=== PATIENT | male | born 1950 | race Caucasian/White ===

== ENCOUNTER → 2018-06-01 | Outpatient (CLI) | payer MEDICARE ==
--- NOTE | 2018-06-01 09:19 | US ---
EXAMINATION TYPE: US prostate transrectal DATE OF EXAM: 06/01/2018 COMPARISON: NONE CLINICAL HISTORY: R97.2 Rising PSA. Rising PSA levels. No prominent change in urine frequency. This examination was performed using the transrectal probe. EXAM MEASUREMENTS: Gland Size: 4.4 x 4.3 x 3.6 cm Volume: 35.37 Predicted PSA: 4.244 Actual PSA (if available):3.0 Seminal vesicles initially are unremarkable. Prostate gland is enlarged in size and heterogeneous in appearance without discrete nodule. IMPRESSION: Findings consistent with BPH, no suspicious nodules identified. Predicted PSA = volume x 0.12 ng/ml Calculated Volume = 0.5236 x L x W x H
== END ==
LOC: RADUSMAIN 07:51
PROVIDERS: ATTEND Family Medicine
DX: R97.20 Elevated prostate specific antigen [PSA] (principal)
CPT/HCPCS: 76872

== ENCOUNTER 2020-06-29 22:25 | Inpatient (IN) | payer MEDICARE ==
--- NOTE | 2020-06-29 22:53 | XR ---
EXAMINATION TYPE: XR chest 2V DATE OF EXAM: 06/29/2020 COMPARISON: NONE HISTORY: Chest pain TECHNIQUE: 2 views FINDINGS: Heart and mediastinum are normal. Lungs are clear of infiltrate. There is no heart failure. There are no hilar masses. There are chest leads. IMPRESSION: No active cardiopulmonary disease. There is 5 mm density lateral right lung base consiste nt with a calcified granuloma.
[2020-06-29] MEDS ORDERED: NITROGLYCERIN SL TABS 0.4 MG TAB SUBLINGUAL STA (23:03)
[2020-06-29] MEDS ORDERED: MORPHINE SULFATE 4 MG/ML SYRINGE IV STA (23:03)
--- NOTE | 2020-06-29 23:09 | ED ---
Chest Pain HPI - General Chief Complaint: Chest Pain Stated Complaint: SOb,Chest Pain,Nausea Time Seen by Provider: 06/29/20 22:31 Source: patient Mode of arrival: ambulatory Limitations: no limitations - History of Present Illness Initial Comments: This patient is 69-year-old man who presents to be evaluated for chest and left arm pain. The patient states that he was going to bed tonight when he experienced pain to the medial aspect of his left upper arm. He states that after that he noticed he was going pain in the chest and across his back. He also was sweating. Patient did take an aspirin and when symptoms did not resolve he came here to have evaluation. Patient states that the symptoms are approximately the same. MD Complaint: chest pain Onset/Timin -: hour(s) Onset: during rest Pain Location: substernal Pain Radiation: LUE, back Severity: severe Severity scale (1-10): 8 Quality: tightness, aching Consistency: constant Improves With: nothing Worsens With: nothing Anginal Symptoms: diaphoresis Treatments Prior to Arrival: aspirin - Related Data Home Medications Medication Instructions Recorded Confirmed Aspirin EC [Ecotrin Low Dose] 81 mg PO HS 06/29/20 06/29/20 Canagliflozin [Invokana] 300 mg PO DAILY 06/29/20 06/29/20 Cetirizine HCl 10 mg PO DAILY 06/29/20 06/29/20 Cholecalciferol (Vitamin D3) 125 mcg PO DAILY 06/29/20 06/29/20 [Vitamin D3 (5000 Iu)] Glucosam/Hunter-Msm1/C/Anibal/Bosw 1 tab PO DAILY 06/29/20 06/29/20 [Glucosamine-Chondroitin Tablet] Liraglutide [Victoza 3-Hebert] 1.8 mg SQ DAILY 06/29/20 06/29/20 [place]-3 Fatty Acids/Fish Oil [Fish 1 cap PO DAILY 06/29/20 06/29/20 Oil 1,000 mg Softgel] Pravastatin Sodium [Pravachol] 40 mg PO Q48H 06/29/20 06/29/20 Vitamin B Complex 1 cap PO DAILY 06/29/20 06/29/20 Vitamin E 400 unit PO DAILY 06/29/20 06/29/20 amLODIPine BESYLATE/BENAZEPRIL 1 cap PO DAILY 06/29/20 06/29/20 [Lotrel 5-40 MG] tadalafiL [Tadalafil] 5 mg PO HS 06/29/20 06/29/20 Previous Rx's Medication Instructions Recorded Atorvastatin [Lipitor] 80 mg PO HS #30 tab 07/01/20 Clopidogrel [Plavix] 75 mg PO DAILY #30 tab 07/01/20 Metoprolol Tartrate [Lopressor] 50 mg PO BID #60 tab 07/01/20 Allergies Allergy/AdvReac Type Severity Reaction Status Date / Time peanut Allergy Anaphylaxis Verified 06/29/20 23:34 Review of Systems ROS Statement: Those systems with pertinent positive or pertinent negative responses have been documented in the HPI. ROS Other: All systems not noted in ROS Statement are negative. Constitutional: Denies: fever, chills Respiratory: Denies: cough, dyspnea, wheezes Cardiovascular: Reports: as per HPI, chest pain. Denies: palpitations, orthopnea, edema, syncope Gastrointestinal: Denies: abdominal pain, nausea, vomiting, diarrhea, melena, hematochezia Genitourinary: Denies: dysuria, hematuria Musculoskeletal: Reports: as per HPI, back pain Skin: Denies: rash Neurological: Denies: headache, weakness Hematological/Lymphatic: Denies: easy bleeding Past Medical History Past Medical History: Diabetes Mellitus, Hypertension Additional Past Surgical History / Comment(s): radical nephrectomy Past Psychological History: No Psychological Hx Reported Smoking Status: Never smoker Past Alcohol Use History: None Reported Past Drug Use History: None Reported General Exam Limitations: no limitations General appearance: alert, in no apparent distress Head exam: Present: atraumatic, normocephalic Eye exam: Present: normal appearance. Absent: scleral icterus, conjunctival injection ENT exam: Present: normal oropharynx Neck exam: Present: normal inspection Respiratory exam: Present: normal lung sounds bilaterally. Absent: respiratory distress, wheezes, rales, rhonchi, stridor Cardiovascular Exam: Present: regular rate, normal rhythm, normal heart sounds. Absent: systolic murmur, diastolic murmur, rubs, gallop GI/Abdominal exam: Present: soft. Absent: distended, tenderness, guarding, rebound, rigid, mass Extremities exam: Present: normal inspection, normal capillary refill. Absent: pedal edema, calf tenderness Back exam: Present: normal inspection. Absent: CVA tenderness (R), CVA tenderness (L) Neurological exam: Present: alert Skin exam: Present: warm, dry, intact, normal color. Absent: rash Course Vital Signs 06/29/20 06/29/20 06/29/20 22:26 22:35 22:45 Temperature 97.5 F L Pulse Rate 64 65 Respiratory 18 Rate Blood Pressure 150/76 139/74 O2 Sat by Pulse 99 Oximetry 06/29/20 06/29/20 06/29/20 23:00 23:15 23:17 Temperature 97.1 F L Pulse Rate 71 75 72 Respiratory 18 18 Rate Blood Pressure 139/74 158/88 113/66 O2 Sat by Pulse 100 99 Oximetry 06/29/20 23:30 Temperature Pulse Rate 69 Respiratory 18 Rate Blood Pressure 113/66 O2 Sat by Pulse 96 Oximetry Chest Pain MDM - [facility] Patient is 69-year-old man with chest pain. His initial ECG does look suspicious but nondiagnostic. A an EKG was repeated after I saw him and his showing changes consistent with STEMI. The Medicine Assistant was activated and I discussed case with cardiology. Critical Care Time Critical Care Time: Yes (30 minutes) Disposition Clinical Impression: ST elevation myocardial infarction (STEMI) Disposition: ADMITTED IP TO THIS HOSP Condition: Critical Is patient prescribed a controlled substance at d/c from ED?: No
[2020-06-29 23:10] LABS: Basophils # (A) 0.1 k/uL (0-0.2); Basophils % (A) 1 %; Eosinophils # (A) 0.3 k/uL (0-0.7); Eosinophils % (A) 3 %; HCT 40.8 % (39.0-53.0); HGB 14.4 gm/dL (13.0-17.5); Lymphocytes # (A) 3.5 k/uL (1.0-4.8); Lymphocytes % (A) 37 %; MCH 32.3 pg (25.0-35.0); MCHC 35.3 g/dL (31.0-37.0); MCV 91.3 fL (80.0-100.0); Mean Platelet Volume 7.6; Monocytes # (A) 0.7 k/uL (0-1.0); Monocytes % (A) 7 %; Neutrophils # (A) 4.7 k/uL (1.3-7.7); Neutrophils % (A) 50 %; Platelet Count 186 k/uL (150-450); RBC 4.46 m/uL (4.30-5.90); RDW 13.1 % (11.5-15.5); WBC 9.5 k/uL (3.8-10.6)
[2020-06-29 23:16] LABS: Albumin 4.3 g/dL (3.5-5.0); Calcium 9.6 mg/dL (8.4-10.2); Magnesium 2.1 mg/dL (1.6-2.3); Potassium 3.4 mmol/L (3.5-5.1); Total Bilirubin 0.5 mg/dL (0.2-1.3)
[2020-06-29] MEDS ORDERED: ATORVASTATIN 80 MG TAB PO STA (23:19)
[2020-06-29] MEDS ORDERED: HEPARIN SOD,PORK IN 0.45% NACL 25,000 UNIT in 0.45% NACL 1 250ML.BAG IV STA (23:20)
[2020-06-29 23:38] LABS: D-Dimer 0.6 mg/L FEU (<0.60); INR 0.9 (<1.2); Partial Thromboplastin Time 24.3 sec (22.0-30.0); Prothrombin Time 10.2 sec (9.0-12.0)
[2020-06-29] MEDS ORDERED: IV FLUID CONTINUATION 1,000 ML IV ONE (23:50)
[2020-06-29] MEDS ORDERED: SODIUM CHLORIDE 0.9% 1,000 ML IV ONE (23:50)
[2020-06-29] MEDS ORDERED: VERAPAMIL 2.5 MG/ML 2 ML AMP ONE (23:55)
[2020-06-29] MEDS ORDERED: LIDOCAINE 1% INJ 10MG/ML (20 ML MDV) ONE (23:55)
[2020-06-30] MEDS ORDERED: LIDOCAINE 1% INJ 10MG/ML (20 ML MDV) SQ ONE (00:01)
[2020-06-30] MEDS ORDERED: MIDAZOLAM 2 MG/2 ML VIAL IV ONE (00:01)
[2020-06-30] MEDS ORDERED: VERAPAMIL SYRINGE (5 MG/10 ML) INTRAARTER ONE ×2 (00:04→00:28)
[2020-06-30] MEDS ORDERED: NITROGLYCERIN 1000MCG/10ML SYRINGE INTRACORON ONE (00:18)
[2020-06-30] MEDS ORDERED: CLOPIDOGREL 75 MG TAB ONE (00:25)
[2020-06-30] MEDS ORDERED: CLOPIDOGREL 75 MG TAB PO ONE (00:30)
[2020-06-30] MEDS ORDERED: IOPAMIDOL-370 125ML BTL INJ ONE (00:31)
[2020-06-30] MEDS ORDERED: MAG HYDROX/AL HYDROX/SIMETH 30 ML CUP PO PRN (00:49)
[2020-06-30] MEDS ORDERED: RX INFO: IV CONTRAST WAS GIVEN 1 EACH MISC MISCELLANE PRN (00:49)
[2020-06-30] MEDS ORDERED: ATROPINE SULFATE 0.1 MG/ML 10ML SYRINGE IV PRN (00:49)
[2020-06-30] MEDS ORDERED: ZOLPIDEM 5 MG TAB PO PRN (00:49)
[2020-06-30] MEDS ORDERED: NITROGLYCERIN SL TABS 0.4 MG TAB SUBLINGUAL PRN (00:49)
--- NOTE | 2020-06-30 00:57 | P.CRDCN ---
History of Present Illness Consult date: 06/30/20 Chief complaint: Chest discomfort History of present illness: This is a 69-year-old gentleman with diabetes hypertension and dyslipidemia who presented to the emergency department with chest discomfort and was diagnosed with acute inferoposterior ST patient myocardial infarction. He does have a medical history consistent of diabetes and hypertension and dyslipidemia. No documented history of coronary artery disease and the patient never seen any clinical care leader in the past. He was in his usual state of health when he was going to bed last night and started experiencing discomfort on the medial aspect of the left arm. Subsequently the pain started radiating to his chest as well as to his back. It was associated with some difficulty breathing as well as a sweating. He took aspirin without any significant improvement in pain and leah use of that he decided to come to the emergency department. In the ER the initial EKG did not show any significant ST or T wave abnormalities but the repeated EKG showed acute inferoposterior ST patient myocardial infarction. In the light of that an emergent heart catheterization was advised. The patient underwent an emergent heart catheterization and that revealed an acute total occlusion of the proximal left circumflex with a thrombotic lesion. He underwent successful stenting of the left circumflex with adjunctive use of aspiration thrombectomy. The procedure went very well with a DONALD-3 flow by him. Also he was found to have intermediate to severe lesion involving the Roxanol left anterior descending artery but the patient does not seems to be critical or flow-limiting at this point. He tolerated the procedure very well. The procedure was performed from right radial approach. By the end of the procedure he was pain free. He does have a history of diabetes and hypertension the patient does not smoke. Does not drink. No immediate family member premature coronary artery disease. He is in process of being transferred to the intensive care unit. Past Medical History Past Medical History: Diabetes Mellitus, Hypertension Additional Past Surgical History / Comment(s): radical nephrectomy Past Psychological History: No Psychological Hx Reported Smoking Status: Never smoker Past Alcohol Use History: None Reported Past Drug Use History: None Reported Medications and Allergies Home Medications Medication Instructions Recorded Confirmed Type Aspirin EC [Ecotrin Low Dose] 81 mg PO HS 06/29/20 06/29/20 History Canagliflozin [Invokana] 300 mg PO DAILY 06/29/20 06/29/20 History Cetirizine HCl 10 mg PO DAILY 06/29/20 06/29/20 History Cholecalciferol (Vitamin D3) 125 mcg PO DAILY 06/29/20 06/29/20 History [Vitamin D3 (5000 Iu)] Glucosam/Hunter-Msm1/C/Anibal/Bosw 1 tab PO DAILY 06/29/20 06/29/20 History [Glucosamine-Chondroitin Tablet] Liraglutide [Victoza 3-Hebert] 1.8 mg SQ DAILY 06/29/20 06/29/20 History Metoprolol Succinate [Toprol XL] 100 mg PO BID 06/29/20 06/29/20 History [place]-3 Fatty Acids/Fish Oil [Fish 1 cap PO DAILY 06/29/20 06/29/20 History Oil 1,000 mg Softgel] Pravastatin Sodium [Pravachol] 40 mg PO Q48H 06/29/20 06/29/20 History Vitamin B Complex 1 cap PO DAILY 06/29/20 06/29/20 History Vitamin E 400 unit PO DAILY 06/29/20 06/29/20 History amLODIPine BESYLATE/BENAZEPRIL 1 cap PO DAILY 06/29/20 06/29/20 History [Lotrel 5-40 MG] tadalafiL [Tadalafil] 5 mg PO HS 06/29/20 06/29/20 History Allergies Allergy/AdvReac Type Severity Reaction Status Date / Time peanut Allergy Anaphylaxis Verified 06/29/20 23:34 Physical Exam Vitals: Vital Signs Temp Pulse Resp BP Pulse Ox 06/29/20 23:30 71 18 129/69 97 06/29/20 23:17 72 18 113/66 99 06/29/20 23:00 69 18 158/88 100 06/29/20 22:26 97.5 F L 64 18 150/76 99 Intake and Output 06/29/20 06/29/20 06/30/20 14:59 22:59 06:59 Intake Total 100 Balance 100 Intake: IV 100 Other: Weight 96.615 kg - Constitutional General appearance: no acute distress - Respiratory Respiratory: bilateral: CTA - Cardiovascular Rhythm: regular Heart sounds: normal: S1, S2 Results 06/29/20 22:45 06/29/20 22:45 Cardiac Enzymes 06/29/20 06/29/20 Range/Units 22:45 22:45 AST 24 (17-59) U/L Troponin I <0.012 (0.000-0.034) ng/mL Coagulation 06/29/20 Range/Units 22:45 PT 10.2 (9.0-12.0) sec APTT 24.3 (22.0-30.0) sec CBC 06/29/20 Range/Units 22:45 WBC 9.5 (3.8-10.6) k/uL RBC 4.46 (4.30-5.90) m/uL Hgb 14.4 (13.0-17.5) gm/dL Hct 40.8 (39.0-53.0) % Plt Count 186 (150-450) k/uL Comprehensive Metabolic Panel 06/29/20 Range/Units 22:45 Sodium 141 (137-145) mmol/L Potassium 3.4 L (3.5-5.1) mmol/L Chloride 103 (98-107) mmol/L Carbon Dioxide 28 (22-30) mmol/L BUN 21 H (9-20) mg/dL Creatinine 1.19 (0.66-1.25) mg/dL Glucose 145 H (74-99) mg/dL Calcium 9.6 (8.4-10.2) mg/dL AST 24 (17-59) U/L ALT 17 (4-49) U/L Alkaline Phosphatase 75 (38-126) U/L Total Protein 7.0 (6.3-8.2) g/dL Albumin 4.3 (3.5-5.0) g/dL Current Medications Generic Name Dose Route Start Last Admin Trade Name Freq PRN Reason Stop Dose Admin Al Hydroxide/Mg Hydroxide 30 ml 06/30/20 00:49 Mag Hydrox/Al Hydrox/Simeth 30 Ml Cup PO Q4HR PRN Heartburn Aspirin 81 mg 06/30/20 09:00 Aspirin 81 Mg PO DAILY [facility] Atorvastatin Calcium 80 mg 06/30/20 21:00 Atorvastatin 80 Mg Tab PO HS [facility] Atropine Sulfate 0.5 mg 06/30/20 00:49 Atropine Sulfate 0.1 Mg/Ml 10ml Syringe IV ONCE PRN Symptomatic Bradycardia Clopidogrel Bisulfate 75 mg 07/01/20 09:00 Clopidogrel 75 Mg Tab PO DAILY [facility] Heparin Sodium/Sodium Chloride 250 mls @ 10 mls/hr 06/29/20 23:20 06/29/20 23:24 25,000 unit/ Sodium Chloride IV 06/30/20 23:19 10.35 units/kg/hr .Q24H STA 10 mls/hr Administration Protocol 10.35 UNITS/KG/HR Sodium Chloride 1,000 mls @ 75 mls/hr 06/30/20 01:00 Saline 0.9% IV 06/30/20 07:01 .[id number] [facility] Lisinopril 2.5 mg 06/30/20 09:00 Lisinopril 10 Mg Tab PO DAILY [facility] Metoprolol Tartrate 25 mg 06/30/20 09:00 Metoprolol Tartrate 25 Mg Tab PO BID [facility] Miscellaneous Information 1 each 06/30/20 00:49 Rx Info: Iv Contrast Was Given 1 Each Misc MISCELLANE 07/02/20 00:49 DAILY PRN Per Protocol Nitroglycerin 0.4 mg 06/30/20 00:49 Nitroglycerin Sl Tabs 0.4 Mg Tab SUBLINGUAL Q5M PRN Chest Pain Zolpidem Tartrate 5 mg 06/30/20 00:49 Zolpidem 5 Mg Tab PO HS PRN Insomnia Intake and Output 06/29/20 06/29/20 06/30/20 14:59 22:59 06:59 Intake Total 100 Balance 100 Intake: IV 100 Other: Weight 96.615 kg Patient Weight 06/30/20 06:59 Weight 96.615 kg 06/29/20 22:45 06/29/20 22:45 Assessment and Plan Assessment: Assessment #[address] patient myocardial infarction #2 status post a stenting of the left circumflex #3 diabetes type 2 #4 hypertension #5 dyslipidemia Plan #1 dual antiplatelet therapy #2 high intensity statin #3 anti-ischemic medication #4 an echocardiogram to establish LV function #5 follow-up with the patient Thank you for allowing us participate in his care
[2020-06-30] MEDS ORDERED: SODIUM CHLORIDE 0.9% 1,000 ML IV SCH (01:00)
--- NOTE | 2020-06-30 06:16 | CC ---
CARDIAC CATHETERIZATION REPORT DATE OF SERVICE: June 30, 2020. PERFORMING PHYSICIAN: Mal Carson MD. PROCEDURE PERFORMED: 1. Selective right and left coronary angiogram. 2. Aspiration thrombectomy from the left circumflex coronary artery using the Valliant catheter. 3. Successful stenting of the proximal left circumflex coronary artery using 3.0 x 18 mm Xience drug-eluting stent with an excellent angiographic results and reduction of stenosis from 100% to 0%. 4. Left heart catheterization. INDICATION: This is a 69-year-old gentleman with diabetes and hypertension and dyslipidemia who presented to the emergency department with chest discomfort. Initial EKG did not show any evidence of ST or T-wave abnormalities. Subsequent EKG showed acute inferoposterior ST-elevation myocardial infarction. APPROACH: Right radial artery. COMPLICATION: None. LEVEL OF SEDATION: Moderate with sedation length of the sedation length of 28 minutes. PROCEDURE DESCRIPTION: After obtaining an informed consent, the patient was brought to the cardiac laborer beam house. The right radial artery was cannulated using micropuncture technique, the micropuncture wire passed easily. Then I placed a 6-Mosotho sheath at the right radial artery. After that I gave the patient 2 mg of verapamil IA and we gave the patient a total of 10,000 units of heparin IV. Selective right and left coronary angiogram performed using JR4 and JL3.5 catheters. Left. After that, I did intervene on the left circumflex please see a separate paragraph for that. After that, I did leave heart catheterization as well. The procedure was completed without any complication. SELECTIVE CORONARY ANGIOGRAM: 1. The RCA is a large caliber vessel. It is a dominant vessel. The RCA proximally has mild disease only. In the midportion appeared to be angiographically normal. It gives rise into acute marginal branch and distally appeared to be normal and bifurcates into PDA and PLV branches, both appeared to be angiographically normal. 2. The left main is angiographically normal. It bifurcates into LCX and LAD. 3. The LCX is a large caliber vessel. The LCX is a codominant vessel. The LCX proximally is 100% occluded by the bifurcation of the first obtuse marginal branch which is a large caliber vessel. 4. The LAD is a large caliber vessel. The proximal LAD has a lesion appeared to be in the range of 60%. The mid LAD and distal LAD appeared to have mild disease only. The LAD gives rise into multiple small diagonal branches. HEMODYNAMICS: The LVEDP was about 10 to 12 mmHg without significant gradient across aortic valve. PCI OF THE LCX: Anticoagulation was initiated using heparin with continuous ACT monitoring throughout the procedure. Subsequently, the left main was engaged using JL3.5 guide. I crossed the acute total occlusion of the left circumflex using a run-through wire. After that, aspiration thrombectomy was performed using the Valliant catheter. Subsequently I did direct stenting on the lesion using 3.0 x 18 mm Xience drug-eluting stent where the stent was positioned under fluoroscopy guidance and deployed under its nominal pressure. The following angiogram showed excellent angiographic results and the procedure was completed without any complication. CONCLUSION: 1. Acute inferoposterior ST-elevation myocardial infarction in this 69-year-old gentleman with multiple risk factors for coronary artery disease including diabetes and hypertension and dyslipidemia. 2. 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 3. Successful stenting of the proximal left circumflex with adjunctive use of aspiration thrombectomy. 4. Normal left ventricular end-diastolic pressure/filling pressure. POSTPROCEDURE MANAGEMENT: 1. Maximize medical treatment. 2. Aggressive cholesterol control. 3. Dual anti-platelet therapy. 4. Risk factor modifications. MMODL / IJN: [id number] /
--- NOTE | 2020-06-30 06:19 | LTR ---
DATE OF SERVICE: 06/30/[address] Hughes: Mr. Dax Dumas presented to the hospital with chest discomfort and was diagnosed with acute inferior ST-elevation myocardial infarction. He underwent an emergent heart catheterization and was found to have acute total occlusion of the left circumflex coronary artery. He underwent successful stenting of the left circumflex with good angiographic results. Thank you for allowing me to participate in his care and please do not hesitate to call if any question or concern. Sincerely, ZAY / HAVENN: [id number] /
[2020-06-30] MEDS: ASPIRIN 81 MG PO SCH (08:10)
[2020-06-30] MEDS ORDERED: METOPROLOL TARTRATE 25 MG TAB PO SCH (09:00)
[2020-06-30] MEDS ORDERED: METOPROLOL TARTRATE 25 MG TAB PO STA (09:36)
[2020-06-30 09:42] VITALS: BMI 29.7
[2020-06-30 10:25] LABS: Calcium 8.9 mg/dL (8.4-10.2); Potassium 4.3 mmol/L (3.5-5.1)
--- NOTE | 2020-06-30 11:37 | ECHOF ---
Referral Reason:CP MEASUREMENTS -------- HEIGHT: 182.9 cm WEIGHT: 96.6 kg BP: 156/81 RVIDd: 3.2 cm (< 3.3) IVSd: 1.4 cm (0.6 - 1.1) LVIDd: 3.9 cm (3.9 - 5.3) LVPWd: 1.4 cm (0.6 - 1.1) IVSs: 1.6 cm LVIDs: 3.7 cm LVPWs: 1.6 cm LA Diam: 3.7 cm (2.7 - 3.8) Ao Diam: 3.5 cm (2.0 - 3.7) AV Cusp: 2.0 cm (1.5 - 2.6) MV EXCURSION: 14.837 mm (> 18.000) MV EF SLOPE: 43 mm/s (70 - 150) EPSS: 0.7 cm MV E Breezy: 0.95 m/s MV DecT: 178 ms MV A Breezy: 0.85 m/s MV E/A Ratio: 1.13 RAP: 5.00 mmHg RVSP: 28.48 mmHg FINDINGS -------- Sinus rhythm. This was a technically difficult study with suboptimal views. The left ventricular size is normal. There is moderate concentric left ventricular hypertrophy. O verall left ventricular systolic function is mild-moderately impaired with, an EF between 40 - 45 %. Basal lateral LV wall motion is hypokinetic. Mid lateral LV wall motion is hypokinetic. Apica l lateral LV wall motion is hypokinetic. The right ventricle is normal in size. The left atrium is normal in size. The right atrium is normal in size. 5 ml of Lumason was utilized for enhancement of images. Interatrial and interventricular septum intact. The aortic valve is trileaflet and appears structurally normal. There is mild aortic regurgitation. Mild mitral regurgitation is present. Mild tricuspid regurgitation present. Right ventricular systolic pressure is normal at < 35 mmHg. The pulmonic valve was not well visualized. The aortic root size is normal. Normal inferior vena cava with normal inspiratory collapse consistent with estimated right atrial pre ssure of 5 mmHg. The inferior vena cava is mildly dilated. There is no pericardial effusion. CONCLUSIONS -------- 1. This was a technically difficult study with suboptimal views. 2. The left ventricular size is normal. 3. There is moderate concentric left ventricular hypertrophy. 4. Overall left ventricular systolic function is mild-moderately impaired with, an EF between 40 - 45 %. 5. Basal lateral LV wall motion is hypokinetic. 6. Mid lateral LV wall motion is hypokinetic. 7. Apical lateral LV wall motion is hypokinetic. 8. 5 ml of Lumason was utilized for enhancement of images. 9. The aortic valve is trileaflet and appears structurally normal. 10. There is mild aortic regurgitation. 11. Mild mitral regurgitation is present. 12. Mild tricuspid regurgitation present. 13. Normal inferior vena cava with normal inspiratory collapse consistent with estimated right atrial pressure of 5 mmHg. 14. There is no pericardial effusion. SHERIFFS OFFICER: Anne Marie Brown RDCS
[2020-06-30 12:19] LABS: Glucose,Whole Blood 150 mg/dL (75-99)
--- NOTE | 2020-06-30 12:21 | P.PN ---
Subjective This is a pleasant 69-year-old male past medical history significant for hypertension, dyslipidemia and diabetes mellitus. He presented to the hospital with chest discomfort and was found to have an acute inferior posterior ST elevated myocardial infarction. He underwent cardiac catheterization and successful aspiration thrombectomy and PCI of the circumflex artery. He also has intermediate lesion in the proximal LAD. He is seen and examined sitting up in the recliner in no acute distress. He denies symptoms of chest discomfort, shortness of breath, dizziness or palpitations. Blood pressure 148/87 heart rate 76 afebrile maintaining oxygen saturation on room air. Laboratory data reviewed, sodium 138, potassium 4.3, creatinine 1.15 repeat troponin 112. Currently maintained on aspirin 81 mg daily, atorvastatin 80 mg daily, Plavix 75 mg daily, lisinopril 2.5 mg daily, metoprolol 25 mg twice a day. Echocardiogram obtained reveals mildly impaired LV systolic function with ejection fraction 40- 45%, basal lateral, mid lateral and anterolateral LV wall motion hypokinesia, mild MR and mild TR noted. GENERAL: Well-appearing, well-nourished and in no acute distress. NECK: Supple without JVD or thyromegaly. LUNGS: Breath sounds clear to auscultation bilaterally. Respiration equal and unlabored. No wheezes, rales or rhonchi. HEART: Regular rate and rhythm without murmurs, rubs or gallops. S1 and S2 heard. EXTREMITIES: Normal range of motion, no edema. No clubbing or cyanosis. Peripheral pulses intact. ASSESSMENT Acute inferior posterior ST elevated myocardial infarction Ischemic cardiomyopathy Acute systolic heart failure Hypertension Dyslipidemia Diabetes mellitus PLAN Continue dual antiplatelet therapy and high intensity statin. Increase metoprolol to 50 mg twice a day. With plans to increase back to his home dose by discharge if he can tolerate. Continue lisinopril as previously ordered. Increase activity and ambulation in the halls. Transfer to 3 S. We will continue to follow and make recommendations accordingly. Nurse Practitioner note has been reviewed, I agree with a documented findings and plan of care. Patient was seen and examined. Objective - Vital Signs Vital signs: Vital Signs Temp 97.7 F 06/30/20 08:00 Pulse 77 06/30/20 09:08 Resp 19 06/30/20 09:08 BP 142/87 06/30/20 09:08 Pulse Ox 95 06/30/20 09:08 Intake & Output 06/29/20 06/30/20 06/30/20 18:59 06:59 18:59 Intake Total 625 75 Output Total 1000 300 Balance -375 -225 Weight 99.3 kg 99.3 kg Intake: IV 625 75 Sodium Chloride 0.9% 1, 525 75 000 ml @ 75 mls/hr IV . [id number] [facility] Rx#:[id number] Output: Urine 1000 300 Other: Voiding Method Toilet Urinal # Voids 1 # Bowel Movements 1 - Labs CBC & Chem 7: 06/29/20 22:45 06/30/20 10:00 Labs: Abnormal Lab Results - Last 24 Hours (Table) 06/29/20 06/29/20 06/30/20 Range/Units 22:45 22:45 10:00 D-Dimer 0.60 H (<0.60) mg/L FEU Potassium 3.4 L (3.5-5.1) mmol/L BUN 21 H (9-20) mg/dL Glucose 145 H 173 H (74-99) mg/dL Troponin I (0.000-0.034) ng/mL 06/30/20 Range/Units 10:00 D-Dimer (<0.60) mg/L FEU Potassium (3.5-5.1) mmol/L BUN (9-20) mg/dL Glucose (74-99) mg/dL Troponin I 112.000 H* (0.000-0.034) ng/mL
[2020-06-30] MEDS: INSULIN ASPART (NovoLOG) 100 UNIT/ML VIAL SQ SCH ×3 (13:02→20:16)
[2020-06-30] MEDS ORDERED: ACETAMINOPHEN TAB 325 MG TAB PO PRN (15:26)
--- NOTE | 2020-06-30 16:13 | P.HPIM ---
History of Present Illness H&P Date: 06/30/20 Chief Complaint: Chest pain 69-year-old gentleman with diabetes hypertension and dyslipidemia who presented to the emergency department with chest discomfort and was diagnosed with acute inferoposterior ST patient myocardial infarction. He was in his usual state of health when he was going to bed last night and started experiencing discomfort on the medial aspect of the left arm. Subsequently the pain started radiating to his chest as well as to his back. It was associated with some difficulty breathing as well as a sweating. He took aspirin without any significant improvement in pain and decided to come to the emergency department. In the ER the initial EKG did not show any significant ST or T wave abnormalities but the repeated EKG showed acute inferoposterior ST patient myocardial infarction; patient underwent an emergent heart catheterization which revealed an acute total occlusion of the proximal left circumflex with a thrombotic lesion. He underwent successful stenting of the left circumflex with adjunctive use of aspiration thrombectomy. Patient was found to have intermediate to severe lesion involving proximal left anterior descending artery which did not seems to be critical or flow-limiting at this point. Post procedure patient was stabilized in ICU and has been transferred to selective care unit this morning Review of Systems REVIEW OF SYSTEMS: CONSTITUTIONAL: No fever, no malaise, no fatigue. HEENT: No recent visual problems or hearing problems. Denied any sore throat. CARDIOVASCULAR: chest pain, no palpitations, no syncope. PULMONARY: No shortness of breath, no cough, no hemoptysis. GASTROINTESTINAL: No diarrhea, no nausea, no vomiting, no abdominal pain. NEUROLOGICAL: No headaches, no weakness, no numbness. HEMATOLOGICAL: Denies any bleeding or petechiae. GENITOURINARY: Denies any burning micturition, frequency, or urgency. MUSCULOSKELETAL/RHEUMATOLOGICAL: Denies any joint pain, swelling, or any muscle pain. ENDOCRINE: Denies any polyuria or polydipsia. The rest of the 14-point review of systems is negative. Past Medical History Past Medical History: Diabetes Mellitus, Hypertension Additional Past Medical History / Comment(s): renal cell ca 1998, radical nephrectomy left side. History of Any Multi-Drug Resistant Organisms: None Reported Additional Past Surgical History / Comment(s): radical nephrectomy Past Anesthesia/Blood Transfusion Reactions: No Reported Reaction Past Psychological History: No Psychological Hx Reported Smoking Status: Never smoker Past Alcohol Use History: None Reported Past Drug Use History: None Reported Medications and Allergies Home Medications Medication Instructions Recorded Confirmed Type Aspirin EC [Ecotrin Low Dose] 81 mg PO HS 06/29/20 06/29/20 History Canagliflozin [Invokana] 300 mg PO DAILY 06/29/20 06/29/20 History Cetirizine HCl 10 mg PO DAILY 06/29/20 06/29/20 History Cholecalciferol (Vitamin D3) 125 mcg PO DAILY 06/29/20 06/29/20 History [Vitamin D3 (5000 Iu)] Glucosam/Hunter-Msm1/C/Anibal/Bosw 1 tab PO DAILY 06/29/20 06/29/20 History [Glucosamine-Chondroitin Tablet] Liraglutide [Victoza 3-Hebert] 1.8 mg SQ DAILY 06/29/20 06/29/20 History Metoprolol Succinate [Toprol XL] 100 mg PO BID 06/29/20 06/29/20 History [place]-3 Fatty Acids/Fish Oil [Fish 1 cap PO DAILY 06/29/20 06/29/20 History Oil 1,000 mg Softgel] Pravastatin Sodium [Pravachol] 40 mg PO Q48H 06/29/20 06/29/20 History Vitamin B Complex 1 cap PO DAILY 06/29/20 06/29/20 History Vitamin E 400 unit PO DAILY 06/29/20 06/29/20 History amLODIPine BESYLATE/BENAZEPRIL 1 cap PO DAILY 06/29/20 06/29/20 History [Lotrel 5-40 MG] tadalafiL [Tadalafil] 5 mg PO HS 06/29/20 06/29/20 History Allergies Allergy/AdvReac Type Severity Reaction Status Date / Time peanut Allergy Anaphylaxis Verified 06/29/20 23:34 Physical Exam Vitals: Vital Signs Temp Pulse Resp BP Pulse Ox 06/30/20 12:00 98 F 80 12 159/87 97 06/30/20 11:00 76 13 148/87 96 06/30/20 10:00 75 12 156/88 95 06/30/20 09:08 77 19 142/87 95 06/30/20 08:00 97.7 F 79 10 L 147/82 96 06/30/20 07:00 79 11 L 155/90 98 06/30/20 06:00 75 14 156/84 98 06/30/20 05:00 77 12 148/98 96 06/30/20 04:15 71 142/74 99 06/30/20 04:00 78 145/83 98 06/30/20 03:48 16 06/30/20 03:45 80 153/82 96 06/30/20 03:30 75 150/77 99 06/30/20 03:15 172/34 98 06/30/20 03:00 86 16 158/87 97 06/30/20 02:45 76 12 150/80 100 06/30/20 02:30 81 17 144/90 100 06/30/20 02:15 79 5 L 150/81 99 06/30/20 02:00 78 16 161/90 99 06/30/20 01:45 75 8 L 153/87 96 06/30/20 01:30 80 6 L 128/84 99 06/30/20 01:15 81 5 L 128/84 95 06/30/20 01:00 91 12 89 L 06/30/20 00:59 80 4 L 83 L 06/29/20 23:45 129/69 06/29/20 23:30 69 18 113/66 96 06/29/20 23:17 72 18 113/66 99 06/29/20 23:15 75 158/88 06/29/20 23:00 97.1 F L 71 18 139/74 100 06/29/20 22:45 139/74 06/29/20 22:35 65 06/29/20 22:26 97.5 F L 64 18 150/76 99 Intake and Output 06/29/20 06/30/20 06/30/20 22:59 06:59 14:59 Intake Total 625 75 Output Total 1000 300 Balance -375 -225 Intake: IV 625 75 Sodium Chloride 0.9% 1, 525 75 000 ml @ 75 mls/hr IV . [id number] [facility] Rx#:[id number] Output: Urine 1000 300 Other: Voiding Method Toilet Urinal # Voids 1 # Bowel Movements 1 Weight 96.615 kg 99.3 kg 99.3 kg PHYSICAL EXAMINATION: GENERAL: The patient is alert and oriented x3, not in any acute distress. Well developed, well nourished. HEENT: Pupils are round and equally reacting to light. EOMI. No scleral icterus. No conjunctival pallor. Normocephalic, atraumatic. No pharyngeal erythema. No thyromegaly. CARDIOVASCULAR: S1 and S2 present. No murmurs, rubs, or gallops. PULMONARY: Chest is clear to auscultation, no wheezing or crackles. ABDOMEN: Soft, nontender, nondistended, normoactive bowel sounds. No palpable organomegaly. MUSCULOSKELETAL: No joint swelling or deformity. EXTREMITIES: No cyanosis, clubbing, or pedal edema. NEUROLOGICAL: Gross neurological examination did not reveal any focal deficits. SKIN: No rashes. Results CBC & Chem 7: 06/29/20 22:45 06/30/20 10:00 Labs: Abnormal Lab Results - Last 24 Hours (Table) 06/29/20 06/29/20 06/30/20 Range/Units 22:45 22:45 10:00 D-Dimer 0.60 H (<0.60) mg/L FEU Potassium 3.4 L (3.5-5.1) mmol/L BUN 21 H (9-20) mg/dL Glucose 145 H 173 H (74-99) mg/dL POC Glucose (mg/dL) (75-99) mg/dL Troponin I (0.000-0.034) ng/mL 06/30/20 06/30/20 Range/Units 10:00 12:16 D-Dimer (<0.60) mg/L FEU Potassium (3.5-5.1) mmol/L BUN (9-20) mg/dL Glucose (74-99) mg/dL POC Glucose (mg/dL) 150 H (75-99) mg/dL Troponin I 112.000 H* (0.000-0.034) ng/mL Thrombosis Risk Factor Assmnt - Choose All That Apply Each Factor Represents 1 point: Acute [place] Other Risk Factors: Yes Each Risk Factor Represents 2 Points: Age 61-74 years Thrombosis Risk Factor Assessment Total Risk Factor Score: 3 Thrombosis Risk Factor Assessment Level: Moderate Risk Assessment and Plan Assessment: 1. Acute inferoposterior ST elevation [place]; patient is status post cardiac catheterization with successful stenting of left circumflex - Cardiology on board and patient has been placed on oral antibiotic therapy with aspirin 81 mg daily and Plavix 75 mg daily - Patient will have an echocardiogram to establish left ventricular function 2. Diabetes mellitus type 2; we will monitor Accu-Cheks Before meals and at bedtime with insulin sliding scale 3. Hypertension; stable on lisinopril 2.5 mg daily, metoprolol 50 mg twice a day 4. Hyperlipidemia; high-intensity statin therapy in form of Lipitor 80 mg by mouth daily at bedtime DVT prophylaxis; SCDs/early ambulation CODE STATUS; full code
[2020-06-30 16:42] LABS: Glucose,Whole Blood 119 mg/dL (75-99)
[2020-06-30] MEDS: METOPROLOL TARTRATE 50 MG TAB PO SCH (20:17)
[2020-06-30 20:25] LABS: Glucose,Whole Blood 227 mg/dL (75-99)
[2020-06-30] MEDS ORDERED: ATORVASTATIN 80 MG TAB PO SCH (21:00)
[2020-07-01] MEDS: INSULIN ASPART (NovoLOG) 100 UNIT/ML VIAL SQ SCH ×2 (06:17→13:20)
[2020-07-01 06:27] LABS: Glucose,Whole Blood 133 mg/dL (75-99)
[2020-07-01] MEDS: ASPIRIN 81 MG PO SCH (08:57)
[2020-07-01] MEDS: METOPROLOL TARTRATE 50 MG TAB PO SCH (08:57)
[2020-07-01] MEDS ORDERED: NON FORMULARY DRUG (Vitamin B Complex [Vitamin B Complex] 1 EACH Capsule) PO SCH (09:00)
[2020-07-01] MEDS ORDERED: CHOLECALCIFEROL 25 MCG (1000 IU) TABLET PO SCH (09:00)
[2020-07-01] MEDS ORDERED: LORATADINE 10 MG TAB PO SCH (09:00)
[2020-07-01] MEDS ORDERED: CLOPIDOGREL 75 MG TAB PO SCH (09:00)
[2020-07-01 09:04] LABS: African American GFR (CKD) >90 (>60 ml/min/1.73 sqM); Anion Gap 7 mmol/L; Blood Urea Nitrogen 14 mg/dL (9-20); Calcium 8.9 mg/dL (8.4-10.2); Carbon Dioxide 30 mmol/L (22-30); Chloride 100 mmol/L (98-107); Glucose 192 mg/dL (74-99); Non-African American GFR(CKD) 85 (>60 ml/min/1.73 sqM); Potassium 3.7 mmol/L (3.5-5.1); Sodium 137 mmol/L (137-145)
--- NOTE | 2020-07-01 11:20 | P.PN ---
Subjective HISTORY OF PRESENTING ILLNESS This is a 69-year-old gentleman with diabetes hypertension and dyslipidemia who presented to the emergency department with chest discomfort and was diagnosed with acute inferoposterior ST patient myocardial infarction. He does have a medical history consistent of diabetes and hypertension and dyslipidemia. No documented history of coronary artery disease and the patient never seen any hairspring ii inspector in the past. He was in his usual state of health when he was going to bed last night and started experiencing discomfort on the medial aspect of the left arm. Subsequently the pain started radiating to his chest as well as to his back. It was associated with some difficulty breathing as well as a sweating. He took aspirin without any significant improvement in pain and because of that he decided to come to the emergency department. In the ER the initial EKG did not show any significant ST or T wave abnormalities but the repeated EKG showed acute inferoposterior ST patient myocardial infarction. In the light of that an emergent heart catheterization was advised. The patient underwent an emergent heart catheterization and that revealed an acute total occlusion of the proximal left circumflex with a thrombotic lesion. He underwent successful stenting of the left circumflex with adjunctive use of a spiration thrombectomy. The procedure went very well with a DONALD-3 flow by him. Also he was found to have intermediate to severe lesion involving the Roxanol left anterior descending artery but the patient does not seems to be critical or flow-limiting at this point. He tolerated the procedure very well. The procedure was performed from right radial approach. By the end of the procedure he was pain free. He does have a history of diabetes and hypertension the patient does not smoke. Does not drink. No immediate family member premature coronary artery disease. He is in process of being transferred to the intensive care unit. 07/01 States that since his PCI he has been doing well. He denies any further chest pain, pressure, shortness breath. Patient has been up walking the halls without any difficulty. Right radial site appears without hematoma. Echocardiogram performed which shows ejection fraction 40-45%. REVIEW OF SYSTEMS At the time of my exam: CONSTITUTIONAL: Denies fever or chills. CARDIOVASCULAR: Denies chest pain, shortness of breath, orthopnea, PND or palpitations. RESPIRATORY: Denies cough. GASTROINTESTINAL: Denies abdominal pain, diarrhea, constipation, nausea or vomiting. MUSCULOSKELETAL: Denies myalgias. NEUROLOGIC: Denies numbness, tingling or weakness. ENDOCRINE: Denies fatigue, weight change, polydipsia or polyurina. GENITOURINARY: Denies burning, hematuria or urgency with micturation. HEMATOLOGIC: Denies history of anemia or bleeding. PHYSICAL EXAMINATION Vital signs reviewed. CONSTITUTIONAL: No apparent distress. HEENT: Head is normocephalic. Pupils are equal, round. Sclerae anicteric. Mucous membranes of the mouth are moist. No JVD. No carotid bruit. CHEST EXAMINATION: Lungs are clear to auscultation. No chest wall tenderness is noted on palpation or with deep breathing. HEART EXAMINATION: Regular rate and rhythm. S1, S2 heard. No murmurs, gallops or rub. ABDOMEN: Soft, nontender. Positive bowel sounds. EXTREMITIES: 2+ peripheral pulses, no lower extremity edema and no calf tenderness. NEUROLOGIC EXAMINATION: Patient is awake, alert and oriented x3. ASSESSMENT 1. STEMI status post PCI circumflex 2. Ischemic cardiomyopathy ejection fraction 40-45% 3. Chronic systolic heart failure, early appears euvolemic 4. Hypertension 5. Hyperlipidemia 6. Diabetes mellitus PLAN Patient is status post PCI of his circumflex. He has been doing well since that time. Mild to moderately reduced ejection fraction 40-45%. Currently appears euvolemic. Continue dual antiplatelets for 12 months. Change pravastatin to Lipitor. Optimize heart failure regimen as able. Patient stable for discharge home from a cardiology standpoint with outpatient follow-up. Objective - Vital Signs Vital signs: Vital Signs Temp 98.1 F 07/01/20 04:00 Pulse 78 07/01/20 04:00 Resp 16 07/01/20 04:00 BP 168/70 07/01/20 04:00 Pulse Ox 95 07/01/20 04:00 Intake & Output 06/30/20 07/01/20 07/01/20 18:59 06:59 18:59 Intake Total 855 200 Output Total 300 Balance 555 200 Weight 99.3 kg 98.7 kg Intake: IV 75 Sodium Chloride 0.9% 1, 75 000 ml @ 75 mls/hr IV . [id number] [facility] Rx#:[id number] Oral 780 200 Output: Urine 300 Other: Voiding Method Toilet Toilet Urinal Urinal # Voids 1 # Bowel Movements 1 - Labs CBC & Chem 7: 06/29/20 22:45 07/01/20 08:07 Labs: Abnormal Lab Results - Last 24 Hours (Table) 06/30/20 06/30/20 06/30/20 Range/Units 12:16 16:40 20:11 Glucose (74-99) mg/dL POC Glucose (mg/dL) 150 H 119 H 227 H (75-99) mg/dL 07/01/20 07/01/20 Range/Units 06:02 08:07 Glucose 192 H (74-99) mg/dL POC Glucose (mg/dL) 133 H (75-99) mg/dL
[2020-07-01 11:37] LABS: Glucose,Whole Blood 220 mg/dL (75-99)
[2020-07-01 13:13] VITALS: RESP 18; TEMP 99.2
[2020-07-01 13:14] VITALS: BP 163/86; PULSE 82
== END 2020-07-01 13:51 | disposition home or self-care (01) | DRG 247 ==
LOC: EC 22:25 → 2SICU 23:23 → 3SCARD 06-30 15:00
PROVIDERS: ADMIT Hospitalist; ATTEND Hospitalist
PROC: 027034Z Dilation of Coronary Artery, One Artery with Drug-eluting Intraluminal Device, Percutaneous Approach (ICD-10-PCS; principal; 2020-06-30)
PROC: 02C03ZZ Extirpation of Matter from Coronary Artery, One Artery, Percutaneous Approach (ICD-10-PCS; 2020-06-30)
PROC: B211YZZ Fluoroscopy of Multiple Coronary Arteries using Other Contrast (ICD-10-PCS; 2020-06-30)
PROC: 4A023N8 Measurement of Cardiac Sampling and Pressure, Bilateral, Percutaneous Approach (ICD-10-PCS; 2020-06-30)
DX: I21.19 ST elevation (STEMI) myocardial infarction involving other coronary artery of inferior wall (principal); I50.22 Chronic systolic (congestive) heart failure; E11.9 Type 2 diabetes mellitus without complications; E78.5 Hyperlipidemia, unspecified; I25.10 Atherosclerotic heart disease of native coronary artery without angina pectoris; Z79.02 Long term (current) use of antithrombotics/antiplatelets; Z91.010 Allergy to peanuts; Z79.82 Long term (current) use of aspirin; I25.5 Ischemic cardiomyopathy; Z79.84 Long term (current) use of oral hypoglycemic drugs; Z85.528 Personal history of other malignant neoplasm of kidney; Z90.5 Acquired absence of kidney; I11.0 Hypertensive heart disease with heart failure
CPT/HCPCS: 36415; 71046; 80048; 80053; 83735; 84484; 85025; 85379; 85610; 85730; 93005; 93306; 93458; 96374; 99285

== ENCOUNTER → 2021-07-07 | Outpatient (CLI) | payer MEDICARE ==
[2021-07-07 12:33] LABS: Basophils # (A) 0.04 X 10*3/uL (0.00-0.10); Basophils % (A) 0.5 %; Eosinophils # (A) 0.22 X 10*3/uL (0.04-0.35); HGB 12.2 g/dL (13.0-17.0); Immature Grans, Automated 0.4 %; Lymphocytes # (A) 1.44 X 10*3/uL (0.90-5.00); Lymphocytes % (A) 19.6 %; MCH 29.9 pg (27.0-32.0); MCV 90.7 fL (80.0-97.0); Mean Platelet Volume 10.7 fL (9.5-12.2); Monocytes # (A) 0.79 X 10*3/uL (0.20-1.00); Monocytes % (A) 10.8 %; NRBC Per 100 WBC 0 /100 WBCS (0.0-0.0); Neutrophils # (A) 4.81 X 10*3/uL (1.80-7.70); Neutrophils % (A) 65.7 %; Platelet Count 208 X 10*3/uL (140-440); RBC 4.08 X 10*6/uL (4.40-5.60); RDW 13.2 % (11.5-14.5); WBC 7.33 X 10*3/uL (4.50-10.00)
[2021-07-07 12:52] LABS: ALT 22 U/L (10-49); AST 18 U/L (14-35); African American GFR (CKD) 81.1 (60.0-200.0); Albumin 4.1 g/dL (3.8-4.9); Albumin/Globulin Ratio 1.74 (1.60-3.17); Alkaline Phosphatase 107 U/L (41-126); BUN/Creat Ratio 12.34 Ratio (12.00-20.00); Blood Urea Nitrogen 13.2 mg/dL (9.0-27.0); Calcium 9.4 mg/dL (8.7-10.3); Carbon Dioxide 27.5 mmol/L (20.0-27.5); Chloride 101 mmol/L (96-109); Globulin 2.4 g/dL (1.6-3.3); Glucose 186 mg/dL (70-110); LDL Cholesterol,Calculated 27.3 mg/dL (0.0-131.0); Potassium 4.1 mmol/L (3.5-5.5); Sodium 139 mmol/L (135-145); Total Protein 6.5 g/dL (6.2-8.2); VLDL Calculation 11.04 mg/dL (5.00-40.00)
== END | disposition home or self-care (01) ==
LOC: LABWHC1 08:47
PROVIDERS: ATTEND Physician Assistant Medical
DX: E11.22 Type 2 diabetes mellitus with diabetic chronic kidney disease (principal); I12.9 Hypertensive chronic kidney disease with stage 1 through stage 4 chronic kidney disease, or unspecified chronic kidney disease; E11.65 Type 2 diabetes mellitus with hyperglycemia; E78.5 Hyperlipidemia, unspecified; N18.9 Chronic kidney disease, unspecified
CPT/HCPCS: 36415; 80053; 80061; 83036; 84443; 85025

== ENCOUNTER → 2021-10-04 | Outpatient (CLI) | payer MEDICARE ==
[2021-10-04 14:23] LABS: HGB 12.5 g/dL (13.0-17.0); MCH 30.6 pg (27.0-32.0); MCHC 33.8 g/dL (32.0-37.0); MCV 90.5 fL (80.0-97.0); Mean Platelet Volume 10.3 fL (9.5-12.2); NRBC Per 100 WBC 0 /100 WBCS (0.0-0.0); Platelet Count 235 X 10*3/uL (140-440); RBC 4.09 X 10*6/uL (4.40-5.60); RDW 13.2 % (11.5-14.5); WBC 6.79 X 10*3/uL (4.50-10.00)
[2021-10-04 14:51] LABS: African American GFR (CKD) 79.6 (60.0-200.0); Albumin 4.2 g/dL (3.8-4.9); Albumin/Globulin Ratio 1.68 (1.60-3.17); Anion Gap 9.8 mmol/L (10.00-18.00); BUN/Creat Ratio 14.44 Ratio (12.00-20.00); Blood Urea Nitrogen 15.6 mg/dL (9.0-27.0); Calcium 9.8 mg/dL (8.7-10.3); Globulin 2.5 g/dL (1.6-3.3); HDL Cholesterol 44.7 mg/dL (40.00-60.00); Non-African American GFR(CKD) 68.7 (60.0-200.0); Potassium 4.3 mmol/L (3.5-5.5); Total Bilirubin 0.5 mg/dL (0.30-1.20); Total Protein 6.7 g/dL (6.2-8.2); Triglycerides 49.8 mg/dL (0.00-149.00)
[2021-10-04 15:02] LABS: Chol/HDL Ratio 1.86 Ratio; LDL Cholesterol,Direct Reflex 31.1 mg/dL (0.00-129.00)
== END | disposition home or self-care (01) ==
LOC: LABWHC1 08:31
PROVIDERS: ATTEND Family Medicine
DX: E78.5 Hyperlipidemia, unspecified (principal); E11.65 Type 2 diabetes mellitus with hyperglycemia; R25.9 Unspecified abnormal involuntary movements
CPT/HCPCS: 36415; 80053; 80061; 83036; 83721; 84443; 85027

== ENCOUNTER 2021-10-30 14:52 | Observation (INO) | payer MEDICARE ==
--- NOTE | 2021-10-30 20:12 | ED ---
SOB HPI - General Chief Complaint: Shortness of Breath Stated Complaint: Fluid in lungs,NELSON-sent by PCP Time Seen by Provider: 10/30/21 19:52 Source: patient, RN notes reviewed Mode of arrival: ambulatory Limitations: no limitations - History of Present Illness Initial Comments: This is a pleasant 71-year-old male with a history of previous myocardial i nfarction, diabetes mellitus, and hypertension. He presents to the emergency department today complaining of fluid filling up his lower right lung. He states shortness of breath started about 6 weeks ago. Patient ended up going to his regular physician today and having a chest x-ray done which shows fluid in the lower part of the right lung. Patient has not had a fever. Patient is getting out of breath with exertion. Denying any pain. Patient also has a history of renal cell carcinoma, patient had a left nephrectomy in 1998 No headache, no fever or chills, no changes in vision or hearing, no sore throat or difficulty with speech, no neck pain, no chest igor no abdominal pain, no nausea or vomiting, no changes in urination or bowel movements, no numbness or tingling, no extremity pain, no skin rashes or lesions. Past medical, surgical, social, and family history reviewed. MD Complaint: shortness of breath, cough - Related Data Home Medications Medication Instructions Recorded Confirmed Aspirin EC [Ecotrin Low Dose] 81 mg PO HS 06/29/20 03/27/21 Cetirizine HCl 10 mg PO DAILY 06/29/20 03/27/21 Cholecalciferol (Vitamin D3) 125 mcg PO DAILY 06/29/20 03/27/21 [Vitamin D3 (5000 Iu)] Glucosam/Hunter-Msm1/C/Anibal/Bosw 1 tab PO DAILY 06/29/20 03/27/21 [Glucosamine-Chondroitin Tablet] Liraglutide [Victoza 3-Hebert] 1.8 mg SQ DAILY 06/29/20 03/27/21 Vitamin B Complex 1 cap PO DAILY 06/29/20 03/27/21 amLODIPine BESYLATE/BENAZEPRIL 1 cap PO DAILY 06/29/20 03/27/21 [Lotrel 5-40 MG] Previous Rx's Medication Instructions Recorded Atorvastatin [Lipitor] 80 mg PO HS #30 tab 07/01/20 Clopidogrel [Plavix] 75 mg PO DAILY #30 tab 07/01/20 Metoprolol Tartrate [Lopressor] 50 mg PO BID #60 tab 07/01/20 Allergies Allergy/AdvReac Type Severity Reaction Status Date / Time peanut Allergy Anaphylaxis Verified 10/30/21 15:24 Review of Systems ROS Statement: Those systems with pertinent positive or pertinent negative responses have been documented in the HPI. ROS Other: All systems not noted in ROS Statement are negative. Past Medical History Past Medical History: Cancer, Diabetes Mellitus, Hyperlipidemia, Hypertension, Myocardial Infarction ([place]) Additional Past Medical History / Comment(s): renal cell ca 1998, radical nephrectomy left side. Last Myocardial Infarction Date:: 06/2020 History of Any Multi-Drug Resistant Organisms: None Reported Past Surgical History: Heart Catheterization With Stent Additional Past Surgical History / Comment(s): LT radical nephrectomy. COLONOSCOPY Past Anesthesia/Blood Transfusion Reactions: No Reported Reaction Date of Last Stent Placement:: 06/2020 Past Psychological History: No Psychological Hx Reported Smoking Status: Current some day smoker Past Alcohol Use History: None Reported Past Drug Use History: None Reported - Past Family History Mother Family Medical History: No Reported History General Exam - General Exam Comments Initial Comments: Vital signs stable, patient hypertensive, patient does not appear to be ill or toxic. Patient does have notable increased work of breathing with exertion from the waiting room to the [facility] Bernal, appears to be adequately hydrated. Capillary refill less than 2 seconds. No mottling Limitations: no limitations General appearance: alert, in no apparent distress Head exam: Present: atraumatic, normocephalic, normal inspection Eye exam: Present: normal appearance, PERRL, EOMI. Absent: scleral icterus, conjunctival injection, periorbital swelling ENT exam: Present: normal exam, normal oropharynx, mucous membranes moist, normal external ear exam. Absent: mucous membranes dry Neck exam: Present: normal inspection, full ROM. Absent: tenderness, meningismus, lymphadenopathy Respiratory exam: Present: respiratory distress (Only with exertion), decreased breath sounds (Right lower lobe). Absent: wheezes, rales, rhonchi, stridor, chest wall tenderness, accessory muscle use, prolonged expiratory Cardiovascular Exam: Present: regular rate, normal rhythm, normal heart sounds. Absent: systolic murmur, diastolic murmur, rubs, gallop, clicks GI/Abdominal exam: Present: soft, normal bowel sounds. Absent: distended, tenderness, guarding, rebound, rigid Extremities exam: Present: normal inspection, full ROM, normal capillary refill. Absent: tenderness, pedal edema, joint swelling, calf tenderness Back exam: Present: normal inspection Neurological exam: Present: alert, oriented X3, CN II-XII intact Psychiatric exam: Present: normal affect, normal mood Skin exam: Present: warm, dry, intact, normal color. Absent: rash Course Vital Signs 10/30/21 15:21 Temperature 98.6 F Pulse Rate 89 Respiratory 22 Rate Blood Pressure 170/75 O2 Sat by Pulse 96 Oximetry - Reevaluation(s) Reevaluation #1: 10/30/21 22:06 Medical record is reviewed Symptoms are unchanged Patient is informed of results and questions answered Patient in no distress - Consultations Consultation #1: Case discussed in detail with the on-call physician, Dr. Wise with subsequent admission of the patient. Consultation will be placed for pulmonary. Medical Decision Making - Medical Decision Making suspect this is a pleural effusion of uncertain etiology at this point. Does n ot appear to be consistent with cardiac ischemic disease. Patient has no fever. It does not appear to be consistent with infectious process. Patient does have a history of left renal carcinoma and a left nephrectomy in 1998. Pleural effusion. Patient will be admitted for further evaluation. Does not appear to be consistent with infectious process. Not consistent with pulmonary embolism. The case was discussed in detail with ED attending physician. Presentation, findings, treatment plan discussed in detail. Child Care Counselor Dr. Padron - Lab Data Result diagrams: 10/30/21 20:06 10/30/21 20:06 Lab Results 10/30/21 10/30/21 10/30/21 Range/Units 20:06 20:06 20:06 WBC 7.1 (3.8-10.6) k/uL RBC 4.10 L (4.30-5.90) m/uL Hgb 12.2 L (13.0-17.5) gm/dL Hct 36.9 L (39.0-53.0) % MCV 89.9 (80.0-100.0) fL MCH 29.6 (25.0-35.0) pg MCHC 33.0 (31.0-37.0) g/dL RDW 13.5 (11.5-15.5) % Plt Count 228 (150-450) k/uL MPV 8.0 Neutrophils % 63 % Lymphocytes % 22 % Monocytes % 9 % Eosinophils % 4 % Basophils % 1 % Neutrophils # 4.4 (1.3-7.7) k/uL Lymphocytes # 1.6 (1.0-4.8) k/uL Monocytes # 0.6 (0-1.0) k/uL Eosinophils # 0.3 (0-0.7) k/uL Basophils # 0.1 (0-0.2) k/uL ESR 48 H (0-15) mm/hr PT 10.8 (9.0-12.0) sec INR 1.0 (<1.2) APTT 25.2 (22.0-30.0) sec Sodium 135 L (137-145) mmol/L Potassium 3.7 (3.5-5.1) mmol/L Chloride 95 L (98-107) mmol/L Carbon Dioxide 27 (22-30) mmol/L Anion Gap 13 mmol/L BUN 13 (9-20) mg/dL Creatinine 0.91 (0.66-1.25) mg/dL Est GFR (CKD-EPI)AfAm >90 (>60 ml/min/1.73 sqM) Est GFR (CKD-EPI)NonAf 85 (>60 ml/min/1.73 sqM) Glucose 174 H (74-99) mg/dL Calcium 9.8 (8.4-10.2) mg/dL Magnesium 1.9 (1.6-2.3) mg/dL Total Bilirubin 0.8 (0.2-1.3) mg/dL AST 28 (17-59) U/L ALT 31 (4-49) U/L Alkaline Phosphatase 179 H (38-126) U/L Troponin I (0.000-0.034) ng/mL C-Reactive Protein 0.9 (<1.0) mg/dL NT-Pro-B Natriuret Pep pg/mL Total Protein 6.9 (6.3-8.2) g/dL Albumin 4.3 (3.5-5.0) g/dL 10/30/21 10/30/21 Range/Units 20:06 20:06 WBC (3.8-10.6) k/uL RBC (4.30-5.90) m/uL Hgb (13.0-17.5) gm/dL Hct (39.0-53.0) % MCV (80.0-100.0) fL MCH (25.0-35.0) pg MCHC (31.0-37.0) g/dL RDW (11.5-15.5) % Plt Count (150-450) k/uL MPV Neutrophils % % Lymphocytes % % Monocytes % % Eosinophils % % Basophils % % Neutrophils # (1.3-7.7) k/uL Lymphocytes # (1.0-4.8) k/uL Monocytes # (0-1.0) k/uL Eosinophils # (0-0.7) k/uL Basophils # (0-0.2) k/uL ESR (0-15) mm/hr PT (9.0-12.0) sec INR (<1.2) APTT (22.0-30.0) sec Sodium (137-145) mmol/L Potassium (3.5-5.1) mmol/L Chloride (98-107) mmol/L Carbon Dioxide (22-30) mmol/L Anion Gap mmol/L BUN (9-20) mg/dL Creatinine (0.66-1.25) mg/dL Est GFR (CKD-EPI)AfAm (>60 ml/min/1.73 sqM) Est GFR (CKD-EPI)NonAf (>60 ml/min/1.73 sqM) Glucose (74-99) mg/dL Calcium (8.4-10.2) mg/dL Magnesium (1.6-2.3) mg/dL Total Bilirubin (0.2-1.3) mg/dL AST (17-59) U/L ALT (4-49) U/L Alkaline Phosphatase (38-126) U/L Troponin I <0.012 (0.000-0.034) ng/mL C-Reactive Protein (<1.0) mg/dL NT-Pro-B Natriuret Pep 972 pg/mL Total Protein (6.3-8.2) g/dL Albumin (3.5-5.0) g/dL Disposition Clinical Impression: Pleural effusion, right, Uncontrolled hypertension, Dyspnea Disposition: ADMITTED IP TO THIS [facility] Condition: Stable Is patient prescribed a controlled substance at d/c from ED?: No Referrals: Madelyn Wise DO [Primary Care Provider] - 1-2 days Time of Disposition: 22:07
[2021-10-30 20:23] LABS: Basophils # (A) 0.1 k/uL (0-0.2); Basophils % (A) 1 %; Eosinophils # (A) 0.3 k/uL (0-0.7); Eosinophils % (A) 4 %; HCT 36.9 % (39.0-53.0); HGB 12.2 gm/dL (13.0-17.5); Lymphocytes # (A) 1.6 k/uL (1.0-4.8); Lymphocytes % (A) 22 %; MCH 29.6 pg (25.0-35.0); MCV 89.9 fL (80.0-100.0); Monocytes # (A) 0.6 k/uL (0-1.0); Monocytes % (A) 9 %; Neutrophils # (A) 4.4 k/uL (1.3-7.7); Neutrophils % (A) 63 %; Platelet Count 228 k/uL (150-450); RDW 13.5 % (11.5-15.5); WBC 7.1 k/uL (3.8-10.6)
[2021-10-30 20:31] LABS: Partial Thromboplastin Time 25.2 sec (22.0-30.0); Prothrombin Time 10.8 sec (9.0-12.0)
[2021-10-30 20:35] LABS: ALT 31 U/L (4-49); AST 28 U/L (17-59); African American GFR (CKD) >90 (>60 ml/min/1.73 sqM); Albumin 4.3 g/dL (3.5-5.0); Alkaline Phosphatase 179 U/L (38-126); Anion Gap 13 mmol/L; Blood Urea Nitrogen 13 mg/dL (9-20); C Reactive Protein 0.9 mg/dL (<1.0); Calcium 9.8 mg/dL (8.4-10.2); Carbon Dioxide 27 mmol/L (22-30); Chloride 95 mmol/L (98-107); Glucose 174 mg/dL (74-99); Magnesium 1.9 mg/dL (1.6-2.3); Non-African American GFR(CKD) 85 (>60 ml/min/1.73 sqM); Potassium 3.7 mmol/L (3.5-5.1); Sodium 135 mmol/L (137-145); Total Bilirubin 0.8 mg/dL (0.2-1.3); Total Protein 6.9 g/dL (6.3-8.2)
--- NOTE | 2021-10-30 20:57 | XR ---
EXAMINATION TYPE: XR chest 2V DATE OF EXAM: 10/30/2021 COMPARISON: 06/29/2020 HISTORY: Short of breath TECHNIQUE: 2 views FINDINGS: There is large right pleural effusion. Left lung is clear. No heart failure. IMPRESSION: There is development of a large right pleural effusion compared to the old exam.
[2021-10-30 21:15] LABS: Erythrocyte Sedimentation Rate 48 mm/hr (0-15)
[2021-10-30] MEDS ORDERED: ONDANSETRON 4 MG/2 ML VIAL IVP PRN (22:07)
[2021-10-30] MEDS ORDERED: ACETAMINOPHEN TAB 325 MG TAB PO PRN (22:07)
[2021-10-30] MEDS ORDERED: NALOXONE 0.4 MG/ML 1 ML VIAL IV PRN (22:07)
--- NOTE | 2021-10-30 22:16 | CT ---
EXAMINATION TYPE: CT chest wo con DATE OF EXAM: 10/30/2021 COMPARISON: None HISTORY: Right side pleural effusion CT DLP: 589.9 mGycm Automated exposure control for dose reduction was used. Images obtained from the thoracic inlet to the diaphragm with no contrast. There is large right pleural effusion. Heart and mediastinum are shifted slightly to the left side. T here is significant atelectasis of the right lung. There is very little pneumatization of the right l mahendra. Left lung shows no evidence of a mass. No sign of left-sided pleural effusion. Heart size is nor mal. No pericardial effusion. There is almost complete occlusion of the right mainstem bronchus. No m ass seen. The bony thorax is intact. No compression fracture. Sternum is intact. 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 No central mass identified. Follow-up recommended.
--- NOTE | 2021-10-31 08:32 | US ---
EXAMINATION TYPE: US chest DATE OF EXAM: 10/31/2021 COMPARISON: NONE CLINICAL HISTORY: Markings for thoracentesis by pulmonary staff. TECHNIQUE: Targeted ultrasound of the posterior lower right hemithorax EXAM MEASUREMENTS: Right Pleural Effusion pocket size: 6.8 cm Right skin surface to fluid distance: 2.6 cm Right side marked for possible thoracentesis outside the dept. Pulmonologists are able to review the images in the patient?s EMR. IMPRESSIONS: Right pleural effusion
[2021-10-31] MEDS: hydroCHLOROthiazide 12.5 MG CAP PO SCH (10:34)
[2021-10-31] MEDS: CHOLECALCIFEROL 125 MCG (5000 IU) TABLET PO SCH (10:35)
[2021-10-31] MEDS: METOPROLOL TARTRATE 50 MG TAB PO SCH ×2 (10:35→19:51)
--- NOTE | 2021-10-31 11:30 | P.CNPUL ---
History of Present Illness Consult date: 10/31/21 Requesting physician: Yonatan Wise Reason for consult: dyspnea, abnormal CXR/CT Chief complaint: Shortness of breath History of present illness: This is a very pleasant 71-year-old male patient who has a history of hypertension, diabetes mellitus, hyperlipidemia, coronary artery disease with p revious stenting to the proximal left circumflex, ischemic cardiomyopathy with ejection fraction 40-45%, history of renal cell carcinoma status post left nephrectomy in 1998, former smoker however quit in 1989, does continue to smoke cigars. Over the past 2 months the patient has noticed increasing shortness of breath and more phlegm production with a loose congested cough and noted fatigue. He presented here to the emergency room last evening for the same. A chest x-ray showed a large right-sided pleural effusion. Left lung was clear. Computed tomography scan of the chest reveals a large right pleural effusion. Heart and mediastinum is shifted slightly to the left with possible tension right hydrothorax. Very little in my hesitation of the right lung. Left lung shows no evidence of mass. No sign of fluid left-sided pleural effusion. No pericardial effusion. Almost complete occlusion of the right mainstem bronchus. No mass is seen. Ultrasound of the chest reveals a 6.8 cm pocket on the right. He is seen today in consultation in the emergency department. He is currently sitting up on the stretcher. Awake and alert in no acute distress. He is maintaining O2 saturations in the 90s on room air. He's been afebrile. No hemoptysis. Slightly hypertensive. White count 7.1. Hemoglobin 12.2. INR 1.0. Sodium 135. Potassium 3.7. Bicarb 13. BUN 13. Creatinine 0.91. ProBNP 972. Review of Systems REVIEW OF SYSTEMS: CONSTITUTIONAL: Denies any recent significant weight loss or weight gain. EYES: Denies change in vision. EARS, NOSE, MOUTH, THROAT: Denies headaches, denies sore throat. CARDIOVASCULAR: Denies chest pain, palpitations or syncopal episodes. RESPIRATORY: Positive for shortness of breath, cough, congestion no hemoptysis. GASTROINTESTINAL: Denies change in appetite, denies abdominal pain GENITOURINARY: Denies hematuria, denies infections. MUSKULOSKELETAL: Denies pain, denies swelling. INTEGUMENTARY: Denies rash, denies eczema. NEUROLOGICAL: Denies recent memory loss, no recent seizure activity. PSYCHIATRIC: Denies anxiety, denies depression. HEMATOLOGIC/LYMPHATIC: Denies anemia, denies enlarged lymph nodes. Past Medical History Past Medical History: Cancer, Diabetes Mellitus, Hypertension, Myocardial Infarction ([place]) Additional Past Medical History / Comment(s): renal cell ca 1998, radical nephrectomy left side. Last Myocardial Infarction Date:: 06/2020 History of Any Multi-Drug Resistant Organisms: None Reported Past Surgical History: Heart Catheterization With Stent Additional Past Surgical History / Comment(s): LT radical nephrectomy. COLO NOSCOPY Past Anesthesia/Blood Transfusion Reactions: No Reported Reaction Date of Last Stent Placement:: 06/2020 Past Psychological History: No Psychological Hx Reported Smoking Status: Former smoker Past Alcohol Use History: None Reported Past Drug Use History: None Reported - Past Family History Mother Family Medical History: No Reported History Father Additional Family Medical History / Comment(s): heart disease Sister(s) Family Medical History: Diabetes Mellitus Medications and Allergies Home Medications Medication Instructions Recorded Confirmed Type Aspirin EC [Ecotrin Low Dose] 81 mg PO HS 06/29/20 10/31/21 History Cetirizine HCl 10 mg PO HS 06/29/20 10/31/21 History Cholecalciferol (Vitamin D3) 125 mcg PO DAILY 06/29/20 10/31/21 History [Vitamin D3 (5000 Iu)] Vitamin B Complex 1 cap PO DAILY 06/29/20 10/31/21 History amLODIPine BESYLATE/BENAZEPRIL 1 cap PO DAILY 06/29/20 10/31/21 History [Lotrel 5-40 MG] Atorvastatin [Lipitor] 80 mg PO HS #30 tab 07/01/20 10/31/21 Rx Clopidogrel [Plavix] 75 mg PO DAILY #30 tab 07/01/20 10/31/21 Rx Metoprolol Tartrate [Lopressor] 50 mg PO BID #60 tab 07/01/20 10/31/21 Rx Co Q-10(Unknown) 1 tab PO DAILY 10/31/21 10/31/21 History Glimepiride [Amaryl] 2 mg PO DAILY 10/31/21 10/31/21 History Montelukast [Singulair] 10 mg PO HS 10/31/21 10/31/21 History Semaglutide [Ozempic] 0.25 mg SQ FR 10/31/21 10/31/21 History Vitamin E(Unknown) 1 tab PO DAILY 10/31/21 10/31/21 History hydroCHLOROthiazide 12.5 mg PO DAILY 10/31/21 10/31/21 History Allergies Allergy/AdvReac Type Severity Reaction Status Date / Time peanut Allergy Anaphylaxis Verified 10/31/21 07:49 Physical Exam Vitals: Vital Signs Temp Pulse Pulse Resp BP BP Pulse Ox 10/31/21 09:55 98.2 F 99 18 188/81 95 10/31/21 07:04 91 15 156/86 97 10/30/21 15:21 98.6 F 89 22 170/75 96 Intake and Output 10/30/21 10/31/21 10/31/21 22:59 06:59 14:59 Other: Weight 97.976 kg 97.976 kg Results - Laboratory Findings CBC and BMP: 10/30/21 20:06 10/30/21 20:06 PT/INR, D-dimer PT 10.8 sec (9.0-12.0) 10/30/21 20:06 INR 1.0 (<1.2) 10/30/21 20:06 Abnormal lab findings: Abnormal Labs 10/30/21 10/30/21 20:06 20:06 RBC 4.10 L Hgb 12.2 L Hct 36.9 L ESR 48 H Sodium 135 L Chloride 95 L Glucose 174 H Alkaline Phosphatase 179 H Assessment and Plan Assessment: Dyspnea secondary to large right-sided pleural effusion, cannot rule out an underlying mass Remote history of chronic tobacco dependence quit in 1989, some ongoing cigar smoking History of renal cell carcinoma, status post left nephrectomy Coronary artery disease with previous stent placement to the circumflex Ischemic cardiomyopathy with ejection fraction 40-45% Hypertension Hyperlipidemia Diabetes mellitus Plan: The patient was seen and evaluated Chest x-ray, CAT scan, ultrasound and labs reviewed We'll plan for bronchoscopy and possible biopsies today Possible right-sided thoracentesis as well This was discussed in detail with the patient and his They verbalized understanding and are agreeable to the plan We will continue to follow and make further recommendations based on his clinical status I have personally seen and examined the patient, performed the documentation and the assessment and plan as written. Number of minutes spent on the visit: 20.
[2021-10-31 12:11] LABS: Glucose,Whole Blood 162 mg/dL (70-110)
[2021-10-31] MEDS ORDERED: DEXTROSE 50% SYRINGE 50 ML IVP PRN ×2 (14:09)
[2021-10-31] MEDS: SODIUM CHLORIDE 0.9% 1,000 ML IV SCH ×3 (14:21→23:06)
[2021-10-31] MEDS ORDERED: KETAMINE 10 MG/ML 20 ML VIAL ONE (15:17)
[2021-10-31] MEDS ORDERED: LIDOCAINE 2% INJ 20 MG/ML (2 ML VIAL) ONE (15:17)
[2021-10-31] MEDS ORDERED: fentaNYL (PF) 50 MCG/ML 2 ML AMP ONE (15:17)
[2021-10-31] MEDS ORDERED: MIDAZOLAM 2 MG/2 ML VIAL ONE (15:17)
[2021-10-31] MEDS ORDERED: PROPOFOL 10 MG/ML 20 ML VIAL IV ONE (15:17)
[2021-10-31] MEDS ORDERED: LIDOCAINE 2% INJ 20 MG/ML SQ ONE (15:21)
[2021-10-31] MEDS ORDERED: IV FLUID CONTINUATION 900 ML IV ONE (15:40)
--- NOTE | 2021-10-31 15:41 | P.HPIM ---
History of Present Illness H&P Date: 10/31/21 Chief Complaint: Worsening dyspnea This is a pleasant 71-year-old gentleman with past medical history of diabetes mellitus type 2, systolic CHF CAD, [place], ischemic cardiomyopathy with EF 40-45% hypertension, hyperlipidemia, renal cell carcinoma status post left nephrectomy in 1998 , former nicotine dependence and multiple other medical issues presented to his PCP yesterday for worsening dyspnea accompanied by increased productive cough and fatigue and referred to the ER. Chest x-ray reported large right pleural effusion. Chest CT reported evidence of tension right hydrothorax, no central mass identified, heart and mediastinum shifted slightly to the left side, almost complete occlusion of the right main stem bronchus. Chest ultrasound reported right pleural effusion 6.8 cm, marked. Afebrile, normal WBC. Hemoglobin 12.2, platelets 228, INR 1, sodium 135, potassium 3.7, bicarb 27, BUN 13, creatinine 0.91, blood sugars controlled, magnesium 1.9, alk phos 179, troponin less than 0.012, CRP 0.9, proBNP 972. Past Medical History Past Medical History: Cancer, Diabetes Mellitus, Hypertension, Myocardial Infarction ([place]) Additional Past Medical History / Comment(s): renal cell ca 1998, radical nephr ectomy left side. Last Myocardial Infarction Date:: 06/2020 History of Any Multi-Drug Resistant Organisms: None Reported Past Surgical History: Heart Catheterization With Stent Additional Past Surgical History / Comment(s): LT radical nephrectomy. COLONOSCOPY Past Anesthesia/Blood Transfusion Reactions: No Reported Reaction Date of Last Stent Placement:: 06/2020 Past Psychological History: No Psychological Hx Reported Smoking Status: Former smoker Past Alcohol Use History: None Reported Past Drug Use History: None Reported - Past Family History Mother Family Medical History: No Reported History Father Additional Family Medical History / Comment(s): heart disease Sister(s) Family Medical History: Diabetes Mellitus Medications and Allergies Home Medications Medication Instructions Recorded Confirmed Type Aspirin EC [Ecotrin Low Dose] 81 mg PO HS 06/29/20 10/31/21 History Cetirizine HCl 10 mg PO HS 06/29/20 10/31/21 History Cholecalciferol (Vitamin D3) 125 mcg PO DAILY 06/29/20 10/31/21 History [Vitamin D3 (5000 Iu)] Vitamin B Complex 1 cap PO DAILY 06/29/20 10/31/21 History amLODIPine BESYLATE/BENAZEPRIL 1 cap PO DAILY 06/29/20 10/31/21 History [Lotrel 5-40 MG] Atorvastatin [Lipitor] 80 mg PO HS #30 tab 07/01/20 10/31/21 Rx Clopidogrel [Plavix] 75 mg PO DAILY #30 tab 07/01/20 10/31/21 Rx Metoprolol Tartrate [Lopressor] 50 mg PO BID #60 tab 07/01/20 10/31/21 Rx Co Q-10(Unknown) 1 tab PO DAILY 10/31/21 10/31/21 History Glimepiride [Amaryl] 2 mg PO DAILY 10/31/21 10/31/21 History Montelukast [Singulair] 10 mg PO HS 10/31/21 10/31/21 History Semaglutide [Ozempic] 0.25 mg SQ FR 10/31/21 10/31/21 History Vitamin E(Unknown) 1 tab PO DAILY 10/31/21 10/31/21 History hydroCHLOROthiazide 12.5 mg PO DAILY 10/31/21 10/31/21 History Allergies Allergy/AdvReac Type Severity Reaction Status Date / Time peanut Allergy Anaphylaxis Verified 10/31/21 07:49 Physical Exam Vitals: Vital Signs Temp Pulse Pulse Resp BP BP Pulse Ox 10/31/21 14:00 98.7 F 85 14 161/76 10/31/21 12:28 98.7 F 85 14 161/76 10/31/21 09:55 98.2 F 99 18 188/81 95 10/31/21 07:04 91 15 156/86 97 10/30/21 15:21 98.6 F 89 22 170/75 96 Intake and Output 10/31/21 10/31/21 10/31/21 06:59 14:59 22:59 Other: # Voids 1 Weight 97.976 kg GENERAL: The patient is alert and oriented x3, not in any acute distress. Well developed, well nourished. HEENT: Pupils are round and equally reacting to light. EOMI. No scleral icterus. No conjunctival pallor. Normocephalic, atraumatic. No pharyngeal erythema. No thyromegaly. NECK: Supple, no JVD CARDIOVASCULAR: S1 and S2, regular rate and rhythm. No murmurs, rubs, or gallops. PULMONARY: Left Chest is clear to auscultation, no wheezing or crackles, right chest dull.. ABDOMEN: Soft, nontender, nondistended, normoactive bowel sounds. No palpable organomegaly. MUSCULOSKELETAL: No joint swelling or deformity. EXTREMITIES: No cyanosis, clubbing, or pedal edema. NEUROLOGICAL: Cranial nerves II through XII grossly intact, no focal deficits. SKIN: Warm and dry, No rashes. Results CBC & Chem 7: 10/30/21 20:06 10/30/21 20:06 Labs: Abnormal Lab Results - Last 24 Hours (Table) 10/30/21 10/30/21 10/31/21 Range/Units 20:06 20:06 12:09 RBC 4.10 L (4.30-5.90) m/uL Hgb 12.2 L (13.0-17.5) gm/dL Hct 36.9 L (39.0-53.0) % ESR 48 H (0-15) mm/hr Sodium 135 L (137-145) mmol/L Chloride 95 L (98-107) mmol/L Glucose 174 H (74-99) mg/dL POC Glucose (mg/dL) 162 H (70-110) mg/dL Alkaline Phosphatase 179 H (38-126) U/L Thrombosis Risk Factor Assmnt - Choose All That Apply Any of the Below Risk Factors Present?: Yes Each Factor Represents 1 point: Obesity (BMI >25) Other Risk Factors: Yes Each Risk Factor Represents 2 Points: Age 61-74 years Thrombosis Risk Factor Assessment Total Risk Factor Score: 3 Thrombosis Risk Factor Assessment Level: Moderate Risk Assessment and Plan Assessment: Dyspnea secondary to large right-sided pleural effusion, possible malignancy History of renal cell CA, status post left nephrectomy in 1998 Former nicotine dependence Diabetes mellitus type 2 Chronic systolic heart failure Ischemic cardiomyopathy, EF 40-45% Hypertension Hyperlipidemia CAD history of [place] Plan: Continue on current medication regime ,monitoring and symptomatic treatment. Evaluated by pulmonary, bronchoscopy with possible thoracentesis ordered. Questions and concerns addressed. Support given. The impression and plan of care has been dictated as directed. : I performed a history and examination of this patient, discussed the same with the dictator. I agree with the dictator's note ,documented as a scribe. Any additional findings or plans will be noted.
[2021-10-31] MEDS: lisinopriL 20 MG TAB PO SCH (16:07)
[2021-10-31] MEDS: amLODIPine 5 MG TAB PO SCH (16:07)
[2021-10-31] MEDS: GLIMEPIRIDE 2 MG TAB PO SCH (16:07)
[2021-10-31] MEDS: CLOPIDOGREL 75 MG TAB PO SCH (16:35)
[2021-10-31 16:59] LABS: Glucose,Whole Blood 159 mg/dL (70-110)
--- NOTE | 2021-10-31 17:07 | XR ---
EXAMINATION TYPE: XR chest 1V portable DATE OF EXAM: 10/31/2021 COMPARISON: NONE HISTORY: Right-sided thoracentesis TECHNIQUE: Single view FINDINGS: There is blunting right costophrenic angle related to right pleural effusion and right lowe r lobe consolidation. Left lung is fairly clear. No pneumothorax. Trachea is midline. Heart size is n ormal. IMPRESSION: There is decrease in the large right pleural effusion compared to exam yesterday. No hear t failure seen.
[2021-10-31] MEDS: INSULIN ASPART (NovoLOG) 100 UNIT/ML VIAL SQ SCH ×2 (18:20→20:32)
[2021-10-31 20:22] LABS: Glucose,Whole Blood 262 mg/dL (70-110)
[2021-10-31] MEDS ORDERED: guaiFENesin-Coden 100-10MG/5ML 10 ML CUP PO PRN (20:22)
[2021-10-31] MEDS ORDERED: LORATADINE 10 MG TAB PO SCH (21:00)
[2021-10-31] MEDS ORDERED: ATORVASTATIN 80 MG TAB PO SCH (21:00)
[2021-10-31] MEDS ORDERED: MONTELUKAST 10 MG TAB PO SCH (21:00)
--- NOTE | 2021-10-31 22:08 | OP ---
OPERATIVE REPORT PROCEDURE: Right-sided thoracentesis. CO-SURGEON: Dr. Diaz. PREOPERATIVE DIAGNOSIS: Right pleural effusion, rule out cancer. POSTOPERATIVE DIAGNOSIS: Right pleural effusion, rule out cancer. DESCRIPTION OF PROCEDURE: There was informed consent and universal timeout. The procedure took place in [facility], room #1. The posterior chest was marked by ultrasound. A time-out was completed verifying correct patient, procedure, site, positioning , and implant (s) or special equipment if applicable. Ultrasound guidance was used and appropriate fluid pocket was identified and marked. Patient was positioned, prepped and draped in usual sterile fashion. Lidocaine was used to anesthetize the area. A Thoracentesis catheter was introduced into the pleural space and fluid was removed. Blood loss was none. A chest x-ray was ordered to evaluate for pneumothorax. Total Fluid Removed: 1.3 L of bloody fluid was removed from the right pleural space. The patient tolerated the procedure well. There was no immediate complication. The patient will have a chest x-ray afterwards. The fluid will be sent for cytology, microbiology, and chemistry. There was no immediate complication. MMODL / IJN: [id number] /
--- NOTE | 2021-10-31 23:32 | OP ---
OPERATIVE REPORT PROCEDURES PERFORMED: Bronchoscopy, airway examination, therapeutic lavage, bronchoalveolar lavage, right middle lobe. PREOPERATIVE DIAGNOSES: Rule out lung mass, right pleural effusion, shortness of breath. POSTOPERATIVE DIAGNOSES: Rule out lung mass, right pleural effusion, shortness of breath. CO-SURGEON: Dr. Diaz. There was informed consent and universal timeout. The patient's procedure took place in [facility] room #1. DESCRIPTION OF PROCEDURE: After the patient was adequately sedated and being fully monitored, the bronchoscope was inserted through the right nostril. It passed through the right nasopharynx into the oropharynx. The hypopharynx was identified. The hypopharyngeal structures, including anterior commissure, true cords, false cords, arytenoids, piriform sinuses, right and left and epiglottis all appeared normal, so did the vallecular. After topicalization, bronchoscope was pushed through the glottic opening into the trachea. The trachea was normal. Tracheal damian was sharp. Right and left mainstem were topicalized. We did a thorough evaluation of the right upper lobe and its 3 segments, right middle lobe and its 2 segments, right lower lobe and its 5 segments, the left upper lobe proper and its 2 segments, the lingula and its 2 segments, and the left lower lobe and its 4 segments. We did not notice any abnormalities whatsoever. There was no endobronchial masses or tumors. The mucosa looked relatively normal. The airways were widely patent. There was no bronchitis or mucosal erythema or hyperemia. We next wedged the bronchoscope into the right middle lobe. We did a BAL. The patient tolerated the procedure well. The scope was removed and the patient will be recovered. There was no immediate complication. MMODL / IJN: [id number] /
[2021-11-01 02:49] LABS: Amylase, Fluid Source Pleural Fluid; Amylase,Body Fluid 33 U/L; Glucose, BF Source Pleural Fluid; Glucose, Body Fluid 169 mg/dL; LDH, Body Fluid Source Pleural Fluid; T. Protein, Body Fluid Source Pleural Fluid; Total Protein, Body Fluid 3910 mg/dL
[2021-11-01 04:18] LABS: Appearance,BF Cloudy
[2021-11-01 07:03] LABS: Appearance,BF Cloudy
[2021-11-01 07:20] LABS: Glucose,Whole Blood 178 mg/dL (70-110)
[2021-11-01 07:44] VITALS: BP 151/74; PULSE 84; TEMP 97.8
[2021-11-01] MEDS: CLOPIDOGREL 75 MG TAB PO SCH (08:38)
[2021-11-01] MEDS: CHOLECALCIFEROL 125 MCG (5000 IU) TABLET PO SCH (08:38)
[2021-11-01] MEDS: hydroCHLOROthiazide 12.5 MG CAP PO SCH (08:38)
[2021-11-01] MEDS: GLIMEPIRIDE 2 MG TAB PO SCH (08:38)
[2021-11-01] MEDS: amLODIPine 5 MG TAB PO SCH (08:38)
[2021-11-01] MEDS: lisinopriL 20 MG TAB PO SCH (08:38)
[2021-11-01] MEDS: METOPROLOL TARTRATE 50 MG TAB PO SCH (08:39)
[2021-11-01] MEDS: INSULIN ASPART (NovoLOG) 100 UNIT/ML VIAL SQ SCH (08:39)
[2021-11-01 10:26] VITALS: RESP 17
--- NOTE | 2021-11-01 10:43 | P.PN ---
Subjective Progress Note Date: 11/01/21 Principal diagnosis: Shortness of breath, pleural effusion. This is a very pleasant 71-year-old male patient who has a history of hypertension, diabetes mellitus, hyperlipidemia, coronary artery disease with previous stenting to the proximal left circumflex, ischemic cardiomyopathy with ejection fraction 40-45%, history of renal cell carcinoma status post left nephrectomy in 1998, former smoker however quit in 1989, does continue to smoke cigars. Over the past 2 months the patient has noticed increasing shortness of breath and more phlegm production with a loose congested cough and noted fatigue. He presented here to the emergency room last evening for the same. A chest x-ray showed a large right-sided pleural effusion. Left lung was clear. Computed tomography scan of the chest reveals a large right pleural effusion. Heart and mediastinum is shifted slightly to the left with possible tension right hydrothorax. Very little in my hesitation of the right lung. Left lung shows no evidence of mass. No sign of fluid left-sided pleural effusion. No pericardial effusion. Almost complete occlusion of the right mainstem bronchus. No mass is seen. Ultrasound of the chest reveals a 6.8 cm pocket on the right. He is seen today in consultation in the emergency department. He is currently sitting up on the stretcher. Awake and alert in no acute distress. He is maintaining O2 saturations in the 90s on room air. He's been afebrile. No hemoptysis. Slightly hypertensive. White count 7.1. Hemoglobin 12.2. INR 1.0. Sodium 135. Potassium 3.7. Bicarb 13. BUN 13. Creatinine 0.91. ProBNP 972. Progress note dated 11/01/2021. This is a very pleasant 71-year-old male that we initially saw in the emergency department. He was admitted with a diagnosis of shortness breath, and pleural effusion. Yesterday, we accomplished both a right-sided thoracentesis with 1.3 L being removed, and bronchoscopy with airway examination. The fluid looked exudative. It was bloody. I'm concerned about malignancy. Surprisingly, the bronchoscopy and airway examination was normal, but nonetheless, we did do a BAL in the right middle lobe. There was no airway lesion or mass. Initial fluid analysis suggesting exudate, as a protein is nearly 4 g. Most of the white blood cells are mesothelial cells, with a few lymphocytes and PMNs. The chest x-ray after thoracentesis is much improved, but there is still residual right- sided pleural effusion. The patient is feeling much better. He's on room air. No IV fluids. I gave him the results of the 2 studies yesterday,in terms of what we currently know. I also mentioned to him that he could be discharged h ome. Objective - Vital Signs Vital signs: Vital Signs Temp 97.8 F 11/01/21 07:00 Pulse 84 11/01/21 07:00 Resp 17 11/01/21 07:25 BP 151/74 11/01/21 07:00 Pulse Ox 96 11/01/21 07:00 FiO2 Intake & Output 10/31/21 11/01/21 11/01/21 18:59 06:59 18:59 Intake Total 218 360 Output Total 1300 Balance -1082 360 Weight 97.976 kg Intake: IV 100 Oral 118 360 Output: Pleural Fluid 1300 Other: # Voids 1 1 - Exam No acute distress, oriented 3. Currently on room air. No shortness of breath. HEENT examination is grossly unremarkable. Neck supple. Full range of motion. No adenopathy thyromegaly or neck vein distention. Cardiovascular examination reveals regular rhythm rate. S1-S2 normal. No S3 or S4. No discernible murmur noted. Heart rate 84 bpm. Lungs reveal diminished breath sounds at the right lung base. A few scattered rhonchi are noted. No wheezes or crackles. Room air saturation is 96%. Abdomen soft bowel sounds are heard. No masses or tenderness. Extremities are intact. No cyanosis clubbing or edema. Skin is without rash or lesion. Neurologic examination is brief but nonfocal. - Labs CBC & Chem 7: 10/30/21 20:06 10/30/21 20:06 Labs: Abnormal Lab Results - Last 24 Hours (Table) 10/31/21 10/31/21 10/31/21 Range/Units 12:09 14:31 16:58 POC Glucose (mg/dL) 162 H 159 H (70-110) mg/dL Hemoglobin A1c 7.4 H (0.0-6.0) % 10/31/21 11/01/21 Range/Units 20:20 07:18 POC Glucose (mg/dL) 262 H 178 H (70-110) mg/dL Hemoglobin A1c (0.0-6.0) % Microbiology - Last 24 Hours (Table) 10/31/21 16:36 Acid Fast Bacilli Culture - Preliminary Bronchial Washings - Random 10/31/21 16:36 Fungal Culture - Preliminary Bronchial Washings - Random 10/31/21 15:30 Acid Fast Bacilli Culture - Preliminary Pleural Fluid 10/31/21 15:30 Body Fluid Culture - Preliminary Pleural Fluid 10/31/21 16:36 Bronchial Washings Culture - Preliminary Bronchial Washings - Random Assessment and Plan Assessment: Dyspnea secondary to large right-sided pleural effusion, cannot rule out an underlying mass. Remote history of chronic tobacco dependence quit in 1989, some ongoing cigar smoking. Remote history of renal cell carcinoma, status post left nephrectomy. Coronary artery disease with previous stent placement to the circumflex. Ischemic cardiomyopathy with ejection fraction 40-45%. Hypertension. Hyperlipidemia. Diabetes mellitus. Plan: Plan dated 11/01/2021. The patient appears to be very comfortable, on room air. He is not short of breath anymore. 1.3 L of bloody fluid was removed from the right pleural space. Bronchoscopy, and airway examination, was completely normal. There is no endobronchial lesions or masses to biopsy. We did do a BAL in the right middle lobe. The patient is stable could be discharged home. He doesn't need to follow-up with me in the office. I am concerned that he has underlying malig robert given the exudative nature of the fluid. Studies on both a fluid, and the BAL from the right middle lobe are presently pending. Time with Patient: Less than 30
--- NOTE | 2021-11-01 11:55 | P.DS ---
Providers Date of admission: 10/30/21 22:13 Expected date of discharge: 11/01/21 Attending physician: Yonatan Wise MD Consults: 10/30/21 22:07 Consult Physician Urgent Consulting Provider: Skip Tracy Consult Reason/Comments: Pleural effusion Do you want consulting provider notified?: Yes, Notify in am Primary care physician: Madelyn Wise Hospital Course: Final Diagnoses: Dyspnea secondary to large right-sided pleural effusion, status post bronchoscopy, status post right-sided thoracentesis, possible malignancy, final pleural cytology pending History of renal cell CA, status post left nephrectomy in 1998 Former nicotine dependence Diabetes mellitus type 2 Chronic systolic heart failure Ischemic cardiomyopathy, EF 40-45% Hypertension Hyperlipidemia CAD history of PR Hospital course:This is a pleasant 71-year-old gentleman with past medical history of diabetes mellitus type 2, systolic CHF CAD, PR, ischemic cardiomyopathy with EF 40-45% hypertension, hyperlipidemia, renal cell carcinoma status post left nephrectomy in 1998 , former nicotine dependence and multiple other medical issues presented to his PCP yesterday for worsening dyspnea accompanied by increased productive cough and fatigue and referred to the ER. Chest x-ray reported large right pleural effusion. Chest CT reported evidence of tension right hydrothorax, no central mass identified, heart and mediastinum shifted slightly to the left side, almost complete occlusion of the right main stem bronchus. Chest ultrasound reported right pleural effusion 6.8 cm, marked. Afebrile, normal WBC. Hemoglobin 12.2, platelets 228, INR 1, sodium 135, potassium 3.7, bicarb 27, BUN 13, creatinine 0.91, blood sugars controlled, magnesium 1.9, alk phos 179, troponin less than 0.012, CRP 0.9, proBNP 972. Evaluated by pulmonary, completed bronchoscopy with right-sided thoracentesis, 1.3 L bloody fluid drained. Bronchoscopy / airway examination reported normal with initial fluid analysis of nearly 4 g protein, mumps of white blood cells mesothelial with few lymphocytes and PMNs. Cytology pending .Postprocedure chest x-ray reporting improvement in right-sided pleural effusion. Maintaining O2 sats in the 90s on room air. Denies chest pain, palpitations or shortness of breath. Cleared by pulmonary for discharge home. Patient will be discharged home in a stable condition with current prognosis. The impression and plan of care has been dictated as directed. : I performed a history and examination of this patient, discussed the same with the dictator. I agree with the dictator's note ,documented as a scribe. Any additional findings or plans will be noted. Patient Condition at Discharge: Stable Plan - Discharge Summary New Discharge Prescriptions: New Furosemide [Lasix] 20 mg PO DAILY #30 tab Continue Vitamin B Complex 1 cap PO DAILY Cholecalciferol (Vitamin D3) [Vitamin D3 (5000 Iu)] 125 mcg PO DAILY Cetirizine HCl 10 mg PO HS Atorvastatin [Lipitor] 80 mg PO HS #30 tab Clopidogrel [Plavix] 75 mg PO DAILY #30 tab hydroCHLOROthiazide 12.5 mg PO DAILY Montelukast [Singulair] 10 mg PO HS Glimepiride [Amaryl] 2 mg PO DAILY Aspirin EC [Ecotrin Low Dose] 81 mg PO HS amLODIPine BESYLATE/BENAZEPRIL [Lotrel 5-40 MG] 1 cap PO DAILY Metoprolol Tartrate [Lopressor] 50 mg PO BID #60 tab Semaglutide [Ozempic] 0.25 mg SQ FR Vitamin E(Unknown) 1 tab PO DAILY Co Q-10(Unknown) 1 tab PO DAILY Discharge Medication List Aspirin EC [Ecotrin Low Dose] 81 mg PO HS 06/29/20 [History] Cetirizine HCl 10 mg PO HS 06/29/20 [History] Cholecalciferol (Vitamin D3) [Vitamin D3 (5000 Iu)] 125 mcg PO DAILY 06/29/20 [History] Vitamin B Complex 1 cap PO DAILY 06/29/20 [History] amLODIPine BESYLATE/BENAZEPRIL [Lotrel 5-40 MG] 1 cap PO DAILY 06/29/20 [History] Atorvastatin [Lipitor] 80 mg PO HS #30 tab 07/01/20 [Rx] Clopidogrel [Plavix] 75 mg PO DAILY #30 tab 07/01/20 [Rx] Metoprolol Tartrate [Lopressor] 50 mg PO BID #60 tab 07/01/20 [Rx] Co Q-10(Unknown) 1 tab PO DAILY 10/31/21 [History] Glimepiride [Amaryl] 2 mg PO DAILY 10/31/21 [History] Montelukast [Singulair] 10 mg PO HS 10/31/21 [History] Semaglutide [Ozempic] 0.25 mg SQ FR 10/31/21 [History] Vitamin E(Unknown) 1 tab PO DAILY 10/31/21 [History] hydroCHLOROthiazide 12.5 mg PO DAILY 10/31/21 [History] Furosemide [Lasix] 20 mg PO DAILY #30 tab 11/01/21 [Rx] Follow up Appointment(s)/Referral(s): Madelyn Wise DO [Primary Care Provider] - 3 Days Skip Tracy DO [Doctor of Osteopathic Medicine] - 11/13/21 9:15 am Activity/Diet/Wound Care/Special Instructions: Pleural cultures. Cytology pending-results to pulmonary and PCP
== END 2021-11-01 12:04 ==
LOC: EC 14:52 → 6NMEDSUR 22:13
PROVIDERS: ADMIT Family Medicine; ATTEND Family Medicine
DX: C78.01 Secondary malignant neoplasm of right lung (principal); J90 Pleural effusion, not elsewhere classified; E11.9 Type 2 diabetes mellitus without complications; E78.5 Hyperlipidemia, unspecified; I25.10 Atherosclerotic heart disease of native coronary artery without angina pectoris; I11.0 Hypertensive heart disease with heart failure; I50.22 Chronic systolic (congestive) heart failure; I25.5 Ischemic cardiomyopathy; F17.290 Nicotine dependence, other tobacco product, uncomplicated; I25.2 Old myocardial infarction; Z85.528 Personal history of other malignant neoplasm of kidney; Z90.5 Acquired absence of kidney; Z95.5 Presence of coronary angioplasty implant and graft; Z79.02 Long term (current) use of antithrombotics/antiplatelets; Z79.82 Long term (current) use of aspirin; Z79.84 Long term (current) use of oral hypoglycemic drugs; Z79.899 Other long term (current) drug therapy; Z82.49 Family history of ischemic heart disease and other diseases of the circulatory system; Z83.3 Family history of diabetes mellitus
CPT/HCPCS: 96372 ×2; 99285; 36415; 82150; 88108; 88305; 83880; 80053; 85652; 89050; 83735; 84484; 85025; 85610; 85730; 86140; 87252; 87070; 87205; 87116; 87102; 87206; 82945; 83615; 84157; 83036; 71045; 71046; 76604; 71250; 31624; 32555; G0378 ×3; J2001 ×2; J2250; J3010; J2704

== ENCOUNTER → 2021-11-06 | Outpatient (CLI) | payer MEDICARE ==
--- NOTE | 2021-11-06 11:11 | CA ---
Exercise Stress Test Report Name: Dax Dumas Exam Date: 11/06/2021 09:58 Exam Location: [facility] Stress Ht (in): 72 Wt (lb): 212 BSA: 2.18 Ordering Phys: Yonatan Wise MD Referring Phys: Yonatan Wise MD Technologist: Scott Rodriguez Age: 71 Gender: M : 1950 Procedure CPT: Indications: I25.2 OLD MYOCARDIAL INFARCTION R06.09 DYSPNEA ICD-10 Codes: Patient History: Medications: SEE LIST Meds past 24 hrs: Pretest Chest Pain: STRESS TEST Amaury Protocol Exercise Duration (min:sec): 02:[address] Depressions (mm): Angina Score: Yanez Score: Resting HR (bpm): 113 Peak HR (bpm): 143 Resting BP (mmHg): 154 / 61 Peak BP (mmHg): 212 / 75 MPHR: 149 Target HR: 127 % MPHR: 96 METS: 3.8 Total Dose: Peak Dose: Atropine: Double Product: 21161 BP Response: Stress Termination: Fatigue Stress Symptoms: DIFFICULTY IN BREATHING Stress Summary: ECG ANALYSIS Resting ECG: Normal sinus rhythm normal axis normal intervals Stress ECG: Patient exercised on Amaury protocol for a total of 2 and half minutes achieving 3 minutes 85% of predicted maximal heart rate without chest pain or diagnostic ST segment depression CONCLUSIONS Very poor exercise tolerance No EKG changes with exercise Cardiolite portion of the stress test will be reported separately Poor exercise tolerance is a negative prognostic indicator Dr. Clinton Kunz MD (Electronically Signed) Final Date: 06 November 2021 11:10
--- NOTE | 2021-11-06 12:15 | NM ---
EXAMINATION TYPE: NM stress cardiolite complete DATE OF EXAM: 11/06/2021 COMPARISON: NONE HISTORY: I 25.2, R06.09 TECHNIQUE: After the intravenous administration of 9.7 mCi Tc 99m Sestamibi - Rest images obtained 4 5 minutes post injection. The patient exercised using a PEDRO protocol and 1 minute prior to peak e xercise was injected with 26.1 mCi Tc 99m Sestamibi - Stress images obtained 15 minutes post injectio n. FINDINGS: Targeted heart rate was achieved during performance of the study. Review of stress and rest SPECT caryl ges demonstrates some decreased uptake along the lateral wall of the left ventricle towards the base the heart on stress as compared to rest images. Gated analysis shows normal wall motion with an tony mated left ventricular ejection fraction of 55 %. IMPRESSION: Stress-induced left ventricular myocardial ischemia. Dr. Wise notified via perfect serve.
== END | disposition home or self-care (01) ==
LOC: RADNMMAIN 07:50
PROVIDERS: ATTEND Family Medicine
DX: I25.2 Old myocardial infarction (principal); R06.09 Other forms of dyspnea
CPT/HCPCS: 78452; 93017

== ENCOUNTER → 2021-11-14 | Outpatient (CLI) | payer MEDICARE ==
--- NOTE | 2021-11-14 19:07 | US ---
EXAMINATION TYPE: US chest DATE OF EXAM: 11/14/2021 COMPARISON: NONE CLINICAL HISTORY: J90 PLEURAL EFFUSION. pending thora tomorrow by Dr Tracy TECHNIQUE: Targeted ultrasound of the posterior lower Right EXAM MEASUREMENTS: Right Pleural Effusion pocket size: 20.8 cm Right skin surface to fluid distance: 4.9 cm Right side marked for possible thoracentesis outside the dept. Pulmonologists are able to review the images in the patient?s EMR. IMPRESSIONS: 1. Right pleural effusion
== END | disposition home or self-care (01) ==
LOC: RADUSWWP 16:51
PROVIDERS: ATTEND Internal Medicine Critical Care Medicine
DX: J90 Pleural effusion, not elsewhere classified (principal)
CPT/HCPCS: 76604

== ENCOUNTER 2021-11-15 11:51 | Day surgery (SDC) | payer MEDICARE ==
[~2021-11-15 11:51] MED LIST: SODIUM CHLORIDE 0.9% 500 ML 500 ML in EMPTY BAG 1 BAG IV PRN
[2021-11-15 12:03] VITALS: BP 162/77; PULSE 85; RESP 18; TEMP 97.7
[2021-11-15] MEDS ORDERED: ATROPINE SULFATE 0.4 MG/ML 1 ML VIAL IM STA (12:08)
--- NOTE | 2021-11-15 13:12 | XR ---
EXAMINATION TYPE: XR chest 1V portable DATE OF EXAM: 11/15/2021 COMPARISON: 10/31/2021 HISTORY: Post right thoracentesis TECHNIQUE: Single frontal view of the chest is obtained. FINDINGS: Right-sided consolidation and pleural effusion noted. No sizable pneumothorax. Left lung c lear. Heart size stable. Nodular prominence of the right hilum. IMPRESSION: 1. No pneumothorax postthoracentesis with persistent right lower lobe consolidation and small effusio n. 2. There is nodular prominence of the right hilum could've been obscured by the large pleural effusio n on previous CT chest.. Nodular density may reflect the destructive anterior chest wall mass. 3. Suspect anterior mid to lower right rib cage destruction from probable mass.
--- NOTE | 2021-11-15 19:45 | OP ---
OPERATIVE REPORT PROCEDURE: Right-sided thoracentesis. PREOPERATIVE DIAGNOSIS: Right pleural effusion. POSTOPERATIVE DIAGNOSIS: Right pleural effusion. A time-out was completed verifying correct patient, procedure, site, positioning , and implant (s) or special equipment if applicable. The posterior chest was marked by ultrasound. Patient was positioned, prepped and draped in usual sterile fashion. Lidocaine was used to anesthetize the area. A Thoracentesis catheter was introduced into the pleural space and fluid was removed. Blood loss was none. A chest x-ray was ordered to evaluate for pneumothorax. Total Fluid Removed: 2200 mL of dark brown fluid was removed from the right pleural space. The patient tolerated the procedure well. He did cough towards the end of the procedure. The fluid will be sent for analysis. There was no immediate complication. A chest x-ray was ordered to rule out pneumothorax. Again, the patient tolerated the procedure well without any complication. There was universal timeout and informed consent. MMODL / HAVENN: [id number] /
[2021-11-15 21:43] LABS: Glucose, BF Source Thoracentesis Fluid; Glucose, Body Fluid 227 mg/dL; LDH, Body Fluid Source Thoracentesis Fluid; T. Protein, Body Fluid Source Thoracentesis Fluid; Total Protein, Body Fluid 4050 mg/dL
[2021-11-15 23:16] LABS: Appearance,BF Slightly Cloudy
== END 2021-11-15 14:57 | disposition home or self-care (01) ==
LOC: PROCWHC3 11:51
PROVIDERS: ATTEND Internal Medicine Critical Care Medicine
DX: J90 Pleural effusion, not elsewhere classified (principal); Z91.010 Allergy to peanuts; Z79.82 Long term (current) use of aspirin; Z82.49 Family history of ischemic heart disease and other diseases of the circulatory system; Z87.891 Personal history of nicotine dependence; Z95.5 Presence of coronary angioplasty implant and graft; Z98.890 Other specified postprocedural states; Z79.899 Other long term (current) drug therapy; Z79.891 Long term (current) use of opiate analgesic; Z85.528 Personal history of other malignant neoplasm of kidney; Z90.5 Acquired absence of kidney
CPT/HCPCS: 88108; 88305; 89050; 87070; 87205; 87075; 82945; 83615; 84157; 71045; 96372; 32554; J0461

== ENCOUNTER → 2021-11-24 | Outpatient (CLI) | payer MEDICARE ==
--- NOTE | 2021-11-27 11:39 | PE ---
EXAMINATION TYPE: PET CT fusion skull to thigh DATE OF EXAM: 11/24/2021 CLINICAL INDICATION:Male, 71 years old with history of R91.8; TECHNIQUE: Following the intravenous administration of 12 mCi of F-18 FDG, whole body images are pe rformed from the skull base to the midthigh. Images are reviewed on the computer in the coronal, axi al, and sagittal planes. Reconstructed rotating images are created on independent workstation and re viewed on the computer. A non-contrast CT is performed in conjunction with the PET scan. Glucose le julio césar 199 mg/dL COMPARISON: CT 10/30/2021, PET/CT None, FINDINGS: Mediastinal SUV mean is 1.9. Hepatic parenchyma SUV mean is 2.6. SKULL BASE AND NECK: Right thyroid mass with increased FDG activity measuring 4.5 x 3.5 mm and max S UV 4.8 CHEST, MEDIASTINUM, AND HILAR REGION: There is nodular FDG uptake along the posterior right pleura: * Right posterior lateral max SUV 2.1 measuring up to 3.4 x 2.2 cm * Right lower medial medial aspect Max SUV 3.1 and measuring 5.1 x 3.4 cm. * Right anterior aspect axis SUV 3.4 and measuring 2.9 x 2.5 cm. Large right paratracheal lymph node with increased FDG activity measuring 3.3 x 2.8 x 4.0 cm Few scattered pulmonary nodules which are subcentimeter also present and may be under the sensitivity of this examination ABDOMEN AND PELVIS: The left kidney surgically absent. There is a soft tissue mass in the surgical be d measuring 7.3 x 5.4 cm. In max SUV 2.8 OSSEOUS STRUCTURES: FDG activity within the costochondral junctions of the ribs anteriorly at multipl e levels with osseous erosion * Right rib 8 costochondral junction max SUV 4.4 * Right rib 7 Max SUV 5.3 * Right rib 6 Max SUV 5 * Right rib 4 max [address] 3.7. OTHER CT: There is a right thyroid nodule as described above. Right pleural effusion with associated nodular th ickening and is described above. The left kidney is surgically absent. Soft tissue masses described a ashlee. Few scattered clonic diverticula present. Bilateral fat-containing inguinal hernias are present . The appendix is normal. IMPRESSION: 1. Increased blood glucose can decrease sensitivity of this examination. Consider short-term follow-u p repeat examination with better control of the patient's blood sugar. 2. Nodular uptake along the right pleura with associated pleural effusion concerning for pleural-base d primary or secondary malignancy. Additionally, there is right paratracheal lymph node which is enla rged with increased FDG activity and multiple ribs in this area anteriorly predominantly involving mu ltiple right-sided ribs anteriorly with increased FDG activity with osseous erosive changes concernin g for osseous/invasive metastatic disease. No priors were available for comparison. 3. Soft tissue mass in the left kidney surgical bed with low levels FDG activity concerning for recur rent disease. No priors were available for comparison. 4. Right thyroid gland nodule with increased FDG activity. Consider dedicated thyroid ultrasound if n ot recently performed.
== END | disposition home or self-care (01) ==
LOC: RADPETMAIN 07:00
PROVIDERS: ATTEND Internal Medicine Critical Care Medicine
DX: R91.8 Other nonspecific abnormal finding of lung field (principal)
CPT/HCPCS: 78815; A9552

== ENCOUNTER 2021-11-29 12:10 | Day surgery (SDC) | payer MEDICARE ==
[2021-11-28 12:15] VITALS: BMI 28.3
[~2021-11-29 12:10] MED LIST changes: +LIDOCAINE VISCOUS 300 MG/15 ML CUP MUCOUS MEM ONE; +SODIUM CHLORIDE 0.9% 1,000 ML IV SCH; -SODIUM CHLORIDE 0.9% 500 ML 500 ML in EMPTY BAG 1 BAG IV PRN
[2021-11-29 13:02] LABS: Glucose,Whole Blood 184 mg/dL (70-110)
[2021-11-29] MEDS ORDERED: fentaNYL (PF) 50 MCG/ML 2 ML AMP ONE (13:44)
[2021-11-29] MEDS ORDERED: PROPOFOL 10 MG/ML 20 ML VIAL IV ONE (13:44)
[2021-11-29] MEDS ORDERED: SUCCINYLCHOLINE CHLORIDE 200 MG/10 ML VIAL IV ONE (13:44)
[2021-11-29] MEDS ORDERED: LIDOCAINE 2% INJ 20 MG/ML (2 ML VIAL) ONE (13:44)
[2021-11-29] MEDS ORDERED: MIDAZOLAM 2 MG/2 ML VIAL ONE (13:44)
[2021-11-29] MEDS ORDERED: PHENYLEPHRINE-0.9% NACL SYG 1,000 MCG/10 ML SYRINGE ONE (13:44)
[2021-11-29] MEDS ORDERED: ONDANSETRON 4 MG/2 ML VIAL ONE (13:44)
--- NOTE | 2021-11-29 14:33 | P.PCN ---
Date of Procedure: 11/29/21 Preoperative Diagnosis: Mediastinal lymphadenopathy Postoperative Diagnosis: Mediastinal lymphadenopathy Procedure(s) Performed: EBUS bronchoscopy, transbronchial needle aspirate of station 4R and station 7 lymph nodes Anesthesia: JENNIFERA Surgeon: Jia Nieto Arabic Linguist #1: Alivia Diaz Estimated Blood Loss (ml): 0 Operative Findings: After obtaining the consent the patient was taken to the OR suite he was intubated and put on MV by anesthesia then the scope was advanced to the ET tube until the Trachea was seen and it was normal and then the damian appears normal then the scope advanced to the left main and IKER LB1-LB3 were seen and no endobronchial lesions were seen then the scope advanced to the lingula and the LB4 and LB5 were seen and no endobronchial lesions were seen the scope retracted and advanced to the left lower lobes LB6 to LB12 were seen one by one and no endobronchial lesions, then the scope was retracted back to the damian and advanced to the Right main and RUL RB1 and RB2 and RB3 were seen one by one and no endobronchial lesions were seen the scope then retracted and advanced to the BI and RML RB4 and RB5 were seen and no endobronchial lesions were seen then it was retracted and advanced to the RLL RB6 to RB12 were seen one by one and no endobronchial lesions. Then EBUS was used and the lymph nodes were examined. Direct measurement of the mediastinal lymph nodes revealed a 21x21 mm station 4R lymph node, 20x23 cm station 7 lymph node. I performed transbronchial needle aspirate of station 7 and a total of 4 passes FNA without major bleeding station 4 R lymph nodes were a total of 3 passes were obtained. No major bleeding and the scope was removed and taken out in total the patient was send to the floor in stable condition
[2021-11-29 14:50] VITALS: TEMP 96.9
[2021-11-29 16:08] VITALS: BP 137/66; PULSE 81; RESP 16
== END 2021-11-29 16:40 | disposition home or self-care (01) ==
LOC: ORWHC2ENDO 12:10
PROVIDERS: ATTEND Internal Medicine Critical Care Medicine
DX: J90 Pleural effusion, not elsewhere classified (principal); I50.22 Chronic systolic (congestive) heart failure; I25.10 Atherosclerotic heart disease of native coronary artery without angina pectoris; C64.9 Malignant neoplasm of unspecified kidney, except renal pelvis; E78.5 Hyperlipidemia, unspecified; E11.9 Type 2 diabetes mellitus without complications; Z79.82 Long term (current) use of aspirin
CPT/HCPCS: 88305; 88173; 87252; 87070; 87205; 87075; 87116; 87102; 87206; 31652; 31629; J2250; J0330; J2405; J3010; J2370; J2704; J2001; 87077; 87186

== ENCOUNTER 2021-12-06 11:09 | Day surgery (SDC) | payer MEDICARE ==
[2021-12-06 11:26] VITALS: TEMP 97.8
[2021-12-06 11:29] VITALS: RESP 18
[2021-12-06] MEDS ORDERED: ATROPINE SULFATE 0.4 MG/ML 1 ML VIAL IM STA (11:29)
[2021-12-06 12:51] VITALS: BP 124/55; PULSE 87
--- NOTE | 2021-12-06 12:55 | XR ---
EXAMINATION TYPE: XR chest 1V portable DATE OF EXAM: 12/06/2021 COMPARISON: PET CT November 24, 2021 HISTORY: Lung cancer status post right-sided thoracentesis. TECHNIQUE: Single frontal view of the chest is obtained. FINDINGS: There is moderate right-sided pleural effusion after thoracentesis but no visualized pneum othorax. Underlying right lower anterior thoracic neoplasm on PET CT is less well seen on plain films . Left lung is clear. Right heart border is silhouetted. Destructive lesion or neoplasm anterior righ t lower ribs is seen better on PET/CT versus plain films IMPRESSION: As above. No pneumothorax after right-sided thoracentesis.
[2021-12-07 00:11] LABS: Appearance,BF Hazy
[2021-12-07 01:04] LABS: Glucose, BF Source Pleural Fluid; Glucose, Body Fluid 218 mg/dL; LDH, Body Fluid Source Pleural Fluid; T. Protein, Body Fluid Source Pleural Fluid; Total Protein, Body Fluid 3460 mg/dL
--- NOTE | 2021-12-07 01:16 | OP ---
OPERATIVE REPORT PROCEDURE PERFORMED: Right-sided thoracentesis. PREOPERATIVE DIAGNOSIS: Right pleural effusion. POSTOPERATIVE DIAGNOSIS: Right pleural effusion. INDICATION: Pleural effusion. DESCRIPTION OF PROCEDURE: There was informed consent and universal timeout. A time-out was completed verifying correct patient, procedure, site, positioning , and implant (s) or special equipment if applicable. The right posterior chest was marked by ultrasound. Ultrasound guidance was used and appropriate fluid pocket was identified and marked. Patient was positioned, prepped and draped in usual sterile fashion. Lidocaine was used to anesthetize the area. A Thoracentesis catheter was introduced into the pleural space and fluid was removed. Blood loss was none. Total Fluid Removed: 1100 mL of yellow/brown fluid was removed from the right pleural space. The fluid will be sent for analysis. There was no immediate complication. A chest x-ray was ordered to rule out pneumothorax. The patient tolerated the procedure well without difficulty. MMODL / IJN: [id number] /
== END 2021-12-06 13:29 | disposition home or self-care (01) ==
LOC: PROCWHC3 11:09
PROVIDERS: ATTEND Internal Medicine Critical Care Medicine
DX: J90 Pleural effusion, not elsewhere classified (principal); I50.22 Chronic systolic (congestive) heart failure; I11.0 Hypertensive heart disease with heart failure; E78.5 Hyperlipidemia, unspecified; E11.9 Type 2 diabetes mellitus without complications; I25.10 Atherosclerotic heart disease of native coronary artery without angina pectoris; Z79.899 Other long term (current) drug therapy
CPT/HCPCS: 89050; 87070; 87205; 87075; 87116; 87206; 82945; 83615; 84157; 71045; 96372; 32554; J0461

== ENCOUNTER → 2021-12-06 | Outpatient (CLI) | payer MEDICARE ==
[~2021-12-06] MED LIST changes: -LIDOCAINE VISCOUS 300 MG/15 ML CUP MUCOUS MEM ONE; -SODIUM CHLORIDE 0.9% 1,000 ML IV SCH; +SODIUM CHLORIDE 0.9% 500 ML 500 ML in EMPTY BAG 1 BAG IV PRN
--- NOTE | 2021-12-06 11:16 | US ---
EXAMINATION TYPE: US chest DATE OF EXAM: 12/06/2021 COMPARISON: PET CT 12 days ago CLINICAL HISTORY: J90 Pleural Effusion R Side. Pleural effusion. History of lung cancer. TECHNIQUE: Targeted ultrasound of the posterior lower right hemithorax EXAM MEASUREMENTS: Right Pleural Effusion pocket size: 13.6 cm Right skin surface to fluid distance: 3.5 cm Left Pleural Effusion pocket size: No fluid seen. Right side MARKED for possible thoracentesis outside the dept. Left side NOT marked for possible thoracentesis outside the dept. Pulmonologists are able to review the images in the patient?s EMR. Recurrent moderate to large size right pleural effusion is noted on images saved. No significant left -sided effusion. IMPRESSIONS: As above.
== END | disposition home or self-care (01) ==
LOC: RADUSWWP 10:48
PROVIDERS: ATTEND Internal Medicine Critical Care Medicine
DX: J90 Pleural effusion, not elsewhere classified (principal)
CPT/HCPCS: 76604

== ENCOUNTER → 2022-02-20 | Outpatient (CLI) | payer MEDICARE ==
[2022-02-20 16:02] LABS: HCT 36.8 % (39.6-50.0); HGB 12.6 g/dL (13.0-17.0); MCH 28.3 pg (27.0-32.0); MCHC 34.2 g/dL (32.0-37.0); MCV 82.5 fL (80.0-97.0); Mean Platelet Volume 9.9 fL (9.5-12.2); NRBC Per 100 WBC 0 /100 WBCS (0.0-0.0); Platelet Count 174 X 10*3/uL (140-440); RBC 4.46 X 10*6/uL (4.40-5.60); RDW 14.6 % (11.5-14.5); WBC 4.57 X 10*3/uL (4.50-10.00)
[2022-02-20 16:26] LABS: LDL Cholesterol,Calculated 93.1 mg/dL (0.0-131.0)
[2022-02-20 17:40] LABS: ALT 40 U/L (10-49); AST 41 U/L (14-35); African American GFR (CKD) 78.7 (60.0-200.0); Albumin 3.5 g/dL (3.8-4.9); Albumin/Globulin Ratio 1.11 (1.60-3.17); Alkaline Phosphatase 164 U/L (41-126); BUN/Creat Ratio 13.85 Ratio (12.00-20.00); Blood Urea Nitrogen 15.1 mg/dL (9.0-27.0); Calcium 8.8 mg/dL (8.7-10.3); Carbon Dioxide 32.3 mmol/L (20.0-27.5); Chloride 91 mmol/L (96-109); Globulin 3.1 g/dL (1.6-3.3); Glucose 272 mg/dL (70-110); Non-African American GFR(CKD) 67.9 (60.0-200.0); Potassium 3.7 mmol/L (3.5-5.5); Sodium 134 mmol/L (135-145); Total Protein 6.6 g/dL (6.2-8.2)
== END | disposition home or self-care (01) ==
LOC: LABWHC1 09:15
PROVIDERS: ATTEND Family Medicine
DX: I12.9 Hypertensive chronic kidney disease with stage 1 through stage 4 chronic kidney disease, or unspecified chronic kidney disease (principal); N18.9 Chronic kidney disease, unspecified; N40.0 Benign prostatic hyperplasia without lower urinary tract symptoms; R73.01 Impaired fasting glucose
CPT/HCPCS: 36415; 80053; 80061; 83036; 84153; 84443; 85027

== ENCOUNTER → 2022-03-20 | Outpatient (CLI) | payer MEDICARE ==
[2022-03-20 14:27] LABS: HCT 38.5 % (39.6-50.0); HGB 12.8 g/dL (13.0-17.0); MCH 29.6 pg (27.0-32.0); MCHC 33.2 g/dL (32.0-37.0); MCV 89.1 fL (80.0-97.0); Mean Platelet Volume 10.3 fL (9.5-12.2); NRBC Per 100 WBC 0 /100 WBCS (0.0-0.0); Platelet Count 157 X 10*3/uL (140-440); RBC 4.32 X 10*6/uL (4.40-5.60); RDW 17.3 % (11.5-14.5); WBC 6.17 X 10*3/uL (4.50-10.00)
[2022-03-20 15:42] LABS: ALT 57 U/L (10-49); AST 50 U/L (14-35); African American GFR (CKD) 87.4 (60.0-200.0); Albumin 3.5 g/dL (3.8-4.9); Albumin/Globulin Ratio 1.13 (1.60-3.17); Alkaline Phosphatase 174 U/L (41-126); Blood Urea Nitrogen 19.4 mg/dL (9.0-27.0); Calcium 8.9 mg/dL (8.7-10.3); Carbon Dioxide 30.5 mmol/L (20.0-27.5); Chloride 96 mmol/L (96-109); Chol/HDL Ratio 3.73 Ratio; Globulin 3.1 g/dL (1.6-3.3); Glucose 195 mg/dL (70-110); LDL Cholesterol,Calculated 77.2 mg/dL (0.0-131.0); Non-African American GFR(CKD) 75.4 (60.0-200.0); Potassium 3.6 mmol/L (3.5-5.5); Sodium 138 mmol/L (135-145); Total Protein 6.6 g/dL (6.2-8.2)
== END | disposition home or self-care (01) ==
LOC: LABWHC1 08:28
PROVIDERS: ATTEND Family Medicine
DX: I12.9 Hypertensive chronic kidney disease with stage 1 through stage 4 chronic kidney disease, or unspecified chronic kidney disease (principal); E11.22 Type 2 diabetes mellitus with diabetic chronic kidney disease; E11.65 Type 2 diabetes mellitus with hyperglycemia; N18.9 Chronic kidney disease, unspecified
CPT/HCPCS: 36415; 80053; 80061; 83036; 84443; 85027

== ENCOUNTER → 2022-05-03 | Outpatient (CLI) | payer MEDICARE ==
[2022-05-03 15:49] LABS: ALT 43 U/L (10-49); AST 46 U/L (14-35); Albumin 3.5 g/dL (3.8-4.9); Albumin/Globulin Ratio 1.35 (1.60-3.17); Alkaline Phosphatase 135 U/L (41-126); BUN/Creat Ratio 17.63 Ratio (12.00-20.00); Blood Urea Nitrogen 15.9 mg/dL (9.0-27.0); Calcium 8.7 mg/dL (8.7-10.3); Carbon Dioxide 33.4 mmol/L (20.0-27.5); Chloride 97 mmol/L (96-109); Chol/HDL Ratio 3.38 Ratio; Globulin 2.6 g/dL (1.6-3.3); Glucose 102 mg/dL (70-110); LDL Cholesterol,Calculated 90.9 mg/dL (0.0-131.0); Non-African American GFR(CKD) 85.4 (60.0-200.0); Potassium 3.6 mmol/L (3.5-5.5); Sodium 138 mmol/L (135-145); Total Protein 6.2 g/dL (6.2-8.2); VLDL Calculation 16.92 mg/dL (5.00-40.00)
[2022-05-03 16:41] LABS: HCT 38.8 % (39.6-50.0); HGB 13.4 g/dL (13.0-17.0); MCH 31.6 pg (27.0-32.0); MCHC 34.5 g/dL (32.0-37.0); MCV 91.5 fL (80.0-97.0); Mean Platelet Volume 9.4 fL (9.5-12.2); NRBC Per 100 WBC 0 /100 WBCS (0.0-0.0); Platelet Count 171 X 10*3/uL (140-440); RBC 4.24 X 10*6/uL (4.40-5.60); RDW 18.9 % (11.5-14.5); WBC 6.83 X 10*3/uL (4.50-10.00)
== END | disposition home or self-care (01) ==
LOC: LABWHC1 08:24
PROVIDERS: ATTEND Family Medicine
DX: C64.9 Malignant neoplasm of unspecified kidney, except renal pelvis (principal); E11.9 Type 2 diabetes mellitus without complications; E03.9 Hypothyroidism, unspecified; Z90.5 Acquired absence of kidney
CPT/HCPCS: 36415; 80053; 80061; 83036; 84439; 84443; 84481; 85027

== ENCOUNTER 2022-05-16 08:59 | Observation (INO) | payer MEDICARE ==
[2022-05-16] MEDS ORDERED: ONDANSETRON 4 MG/2 ML VIAL IVP STA (09:09)
[2022-05-16] MEDS ORDERED: SODIUM CHLORIDE 0.9% 1,000 ML IV STA (09:09)
--- NOTE | 2022-05-16 09:24 | ED ---
General Adult HPI - General Chief complaint: Nausea/Vomiting/Diarrhea Stated complaint: VOMITTONG,FEVER Time Seen by Provider: 05/16/22 09:08 Source: patient Mode of arrival: ambulatory Limitations: no limitations - History of Present Illness Initial comments: Dictation was produced using Potential dictation software. please excuse any grammatical, word or spelling errors. Chief Complaint: 71-year-old male with stage IV renal cell carcinoma on chemotherapy and chemotherapy presents emergency department for 2 days of nausea vomiting and constitutional symptoms History of Present Illness: 71-year-old female for the last 24 hours she has had symptoms of gastroenteritis. He states that he has had nonbilious nonbloody emesis. Denies any abdominal pain. No runny nose or sore throat. He has had the chills since yesterday. Patient is exposed to his grandchildren who have all had URI illnesses. Patient denies any cough. Patient takes oral chemotherapy daily. Also once a month he gets immunotherapy infusion. Denies any pain complaints. Denies any rash. The ROS documented in this emergency department record has been reviewed and confirmed by me. Those systems with pertinent positive or negative responses have been documented in the HPI. All other systems are other negative and/or noncontributory. PHYSICAL EXAM: General Impression: Alert and oriented x3, not in acute distress HEENT: Normocephalic atraumatic, extra-ocular movements intact, pupils equal and reactive to light bilaterally, mucous membranes moist. Cardiovascular: Heart regular rate and rhythm Chest: Able to complete full sentences, no retractions, no tachypnea Abdomen: abdomen soft, non-tender, non-distended, no organomegaly Musculoskeletal: Pulses present and equal in all extremities, no peripheral edema Motor: no focal deficits noted Neurological: CN II-XII grossly intact, no focal motor or sensory deficits noted Skin: Intact with no visualized rashes Psych: Normal affect and mood ED course: 71-year-old cancer patient presents to the ER for constitutional symptoms and symptoms of gastritis. Vital signs upon arrival shows heart rate of 121, respiratory signs within acceptable limits. At the bedside patient appears to be well. Nursing notes and chart review was performed Was pt. sent in by a medical professional or institution (, PA, BUSINESS ANALYST MANAGER, urgent care, hospital, or detention...) When possible be specific @ -No Did you speak to anyone other than the patient for history (EMS, parent, family, police, friend...)? What history was obtained from this source @ - at the bedside Did you review nursing and triage notes (agree or disagree)? Why? @ -I reviewed and agree with nursing and triage notes Were old charts reviewed (outside hosp., previous admission, EMS record, old EKG, old radiological studies, urgent care reports/EKG's, detention records)? Report findings @ -No old charts were reviewed Differential Diagnosis (chest pain, altered mental status, abdominal pain women, abdominal pain men, vaginal bleeding, musculoskeletal, weakness, fever, dyspnea, syncope, headache, dizziness, GI bleed, back pain, seizure, CVA, palpatations, m ental health)? @ -Differential Fever: Pneumonia, viral URI, endocarditis, myocarditis, pericarditis, otitis, sinusitis, peritonsillar Abscess, retropharyngeal Abscess, epiglottitis, peritonitis, appendicitis, Yud[place] cystitis, diverticulitis, hepatitis, colitis, UTI, PID, TOA, pyelonephritis, prostatitis, epididymitis, meningitis, encephalitis, pulmonary embolism, CVA, thyroid storm, pancreatitis, adrenal crisis, cavernous sinus thrombosis, this is not meant to be an all-inclusive list. EKG interpreted by me (3pts min.). @ -See above X-rays interpreted by me (1pt min.). @ -No acute processes CT interpreted by me (1pt min.). @ -None done U/S interpreted by me (1pt. min.). @ -None done What testing was considered but not performed or refused? (CT, X-rays, U/S, labs)? Why? @ -None What meds were considered but not given or refused? Why? @ -None Did you discuss the management of the patient with other professionals (professionals i.e. , PA, BUSINESS ANALYST MANAGER, lab, RT, psych nurse, manager social media, air cargo ground crew supervisor, teacher, branch officer, lining caser)? Give summary @ -Discussed with hospitalist for admission Was smoking cessation discussed for >3mins.? @ -No Was critical care preformed (if so, how long)? @ -No Were there social determinants of health that impacted care today? How? (Homelessness, low income, unemployed, alcoholism, drug addiction, transportation, low edu. Level, literacy, decrease access to med. care, correction, rehab)? @ -No Was there de-escalation of care discussed even if they declined (Discuss DNR or withdrawal of care, Hospice)? DNR status @ -No What co-morbidities impacted this encounter? (DM, HTN, Smoking, COPD, CAD, Cancer, CVA, ARF, Chemo, Hep., AIDS, mental health diagnosis, sleep apnea, morbid obesity)? @ -Stage IV renal cell carcinoma on chemotherapy and immunotherapy Was patient admitted / discharged? Hospital course, mention meds given and route, prescriptions, significant lab abnormalities, going to OR and other pertinent info. @ -71-year-old male presents emergency department for symptoms consistent with viral gastroenteritis. Patient is high risk due to history of chemotherapy and immunotherapy. Patient mildly tachycardic on arrival improved with IV fluids. He did have fever. Rectal temperature is 100.8. Rest of vital signs within acceptable limits. Laboratory evaluation obtained. CBC unremarkable. Metabolic panel shows derangement with potassium 3.1, lactic acidosis 2.2. No anion gap. Magnesium 1.5, which joints were corrected with medications. Disposition options were discussed with patient he preferred to be admitted to the hospital for monitoring and symptom control. Case discussed with Dr. Wise for admission. Undiagnosed new problem with uncertain prognosis? @ -No Drug Therapy requiring intensive monitoring for toxicity (Heparin, Nitro, I nsulin, Cardizem)? @ -No Were any procedures done? @ -No Diagnosis/symptom? Acute, or Chronic, or Acute on Chronic? Uncomplicated (without systemic symptoms) or Complicated (systemic symptoms)? @ -1. Viral gastroenteritis, 2. Intractable nausea and vomiting, 3. Electrolyte Derangement Side effects of treatment? @ -No Exacerbation, Progression, or Severe Exacerbation? @ -No Poses a threat to life or bodily function? How? (Chest pain, [place], [place], pneumonia, PE, COPD, DKA, ARF, appy, cholecystitis, CVA, Diverticulitis, Homicidal, Suicidal, threat to staff... and all critical care pts) @ -Yes - Related Data Home Medications Medication Instructions Recorded Confirmed amLODIPine BESYLATE/BENAZEPRIL 1 cap PO QAM 06/29/20 12/06/21 [Lotrel 5-40 MG] Glimepiride [Amaryl] 2 mg PO DAILY 10/31/21 12/06/21 Montelukast [Singulair] 10 mg PO HS 10/31/21 12/06/21 Semaglutide [Ozempic] 0.25 mg SQ FR 10/31/21 12/06/21 hydroCHLOROthiazide 12.5 mg PO QAM 10/31/21 12/06/21 Furosemide [Lasix] 20 mg PO QAM 11/28/21 12/06/21 Metoprolol Tartrate [Lopressor] 75 mg PO BID 11/28/21 12/06/21 Previous Rx's Medication Instructions Recorded Atorvastatin [Lipitor] 80 mg PO HS #30 tab 07/01/20 Allergies Allergy/AdvReac Type Severity Reaction Status Date / Time peanut Allergy Anaphylaxis Verified 05/16/22 09:05 Review of Systems ROS Statement: Those systems with pertinent positive or pertinent negative responses have been documented in the HPI. ROS Other: All systems not noted in ROS Statement are negative. Past Medical History Past Medical History: Cancer, Diabetes Mellitus, Hypertension, Myocardial Infarction ([place]) Additional Past Medical History / Comment(s): Hx renal cell cancer 1998, had left radical nephrectomy. Hx RIGHT PLEURAL EFFUSIONS, HAD THORACENTESIS. Last Myocardial Infarction Date:: 06/2020 History of Any Multi-Drug Resistant Organisms: None Reported Past Surgical History: Heart Catheterization With Stent Additional Past Surgical History / Comment(s): Left radical nephrectomy, colonoscopy. Past Anesthesia/Blood Transfusion Reactions: No Reported Reaction Date of Last Stent Placement:: 06/2020 Past Psychological History: No Psychological Hx Reported Smoking Status: Former smoker Past Alcohol Use History: None Reported Past Drug Use History: None Reported - Past Family History Mother Family Medical History: No Reported History Father Additional Family Medical History / Comment(s): Heart disease. Sister(s) Family Medical History: Diabetes Mellitus General Exam Limitations: no limitations Course Vital Signs 05/16/22 05/16/22 05/16/22 09:03 09:42 10:13 Temperature 97.4 F L 99.4 F 100.8 F H Pulse Rate 121 H 106 H 110 H Respiratory 22 18 18 Rate Blood Pressure 130/85 141/76 O2 Sat by Pulse 96 96 Oximetry 05/16/22 11:27 Temperature Pulse Rate 103 H Respiratory 18 Rate Blood Pressure 152/79 O2 Sat by Pulse 98 Oximetry Medical Decision Making - Lab Data Result diagrams: 05/16/22 09:21 05/16/22 09:21 Lab Results 05/16/22 05/16/22 05/16/22 Range/Units 09:21 09:21 09:21 WBC 9.8 (3.8-10.6) k/uL RBC 4.55 (4.30-5.90) m/uL Hgb 14.7 (13.0-17.5) gm/dL Hct 40.0 (39.0-53.0) % MCV 87.9 (80.0-100.0) fL MCH 32.2 (25.0-35.0) pg MCHC 36.6 (31.0-37.0) g/dL RDW 17.8 H (11.5-15.5) % Plt Count 162 (150-450) k/uL MPV 7.5 Neutrophils % 61 % Lymphocytes % 18 % Monocytes % 5 % Eosinophils % 13 % Basophils % 1 % Neutrophils # 6.0 (1.3-7.7) k/uL Lymphocytes # 1.8 (1.0-4.8) k/uL Monocytes # 0.5 (0-1.0) k/uL Eosinophils # 1.3 H (0-0.7) k/uL Basophils # 0.1 (0-0.2) k/uL Hyperchromasia Marked Poikilocytosis Moderate Anisocytosis Slight Sodium 133 L (137-145) mmol/L Potassium 3.1 L (3.5-5.1) mmol/L Chloride 93 L (98-107) mmol/L Carbon Dioxide 36 H (22-30) mmol/L Anion Gap 4 mmol/L BUN 20 (9-20) mg/dL Creatinine 0.86 (0.66-1.25) mg/dL Est GFR (CKD-EPI)AfAm >90 (>60 ml/min/1.73 sqM) Est GFR (CKD-EPI)NonAf 87 (>60 ml/min/1.73 sqM) Glucose 147 H (74-99) mg/dL Plasma Lactic Acid Maik 2.2 H* (0.7-2.0) mmol/L Calcium 8.2 L (8.4-10.2) mg/dL Magnesium 1.5 L (1.6-2.3) mg/dL Total Bilirubin 1.5 H (0.2-1.3) mg/dL AST 59 (17-59) U/L ALT 52 H (4-49) U/L Alkaline Phosphatase 141 H (38-126) U/L Total Protein 6.2 L (6.3-8.2) g/dL Albumin 3.2 L (3.5-5.0) g/dL Influenza Type A (PCR) (Not Detectd) Influenza Type B (PCR) (Not Detectd) RSV (PCR) (Not Detectd) SARS-CoV-2 (PCR) (Not Detectd) 05/16/22 Range/Units 09:21 WBC (3.8-10.6) k/uL RBC (4.30-5.90) m/uL Hgb (13.0-17.5) gm/dL Hct (39.0-53.0) % MCV (80.0-100.0) fL MCH (25.0-35.0) pg MCHC (31.0-37.0) g/dL RDW (11.5-15.5) % Plt Count (150-450) k/uL MPV Neutrophils % % Lymphocytes % % Monocytes % % Eosinophils % % Basophils % % Neutrophils # (1.3-7.7) k/uL Lymphocytes # (1.0-4.8) k/uL Monocytes # (0-1.0) k/uL Eosinophils # (0-0.7) k/uL Basophils # (0-0.2) k/uL Hyperchromasia Poikilocytosis Anisocytosis Sodium (137-145) mmol/L Potassium (3.5-5.1) mmol/L Chloride (98-107) mmol/L Carbon Dioxide (22-30) mmol/L Anion Gap mmol/L BUN (9-20) mg/dL Creatinine (0.66-1.25) mg/dL Est GFR (CKD-EPI)AfAm (>60 ml/min/1.73 sqM) Est GFR (CKD-EPI)NonAf (>60 ml/min/1.73 sqM) Glucose (74-99) mg/dL Plasma Lactic Acid Maik (0.7-2.0) mmol/L Calcium (8.4-10.2) mg/dL Magnesium (1.6-2.3) mg/dL Total Bilirubin (0.2-1.3) mg/dL AST (17-59) U/L ALT (4-49) U/L Alkaline Phosphatase (38-126) U/L Total Protein (6.3-8.2) g/dL Albumin (3.5-5.0) g/dL Influenza Type A (PCR) Not Detected (Not Detectd) Influenza Type B (PCR) Not Detected (Not Detectd) RSV (PCR) Not Detected (Not Detectd) SARS-CoV-2 (PCR) Not Detected (Not Detectd) Disposition Clinical Impression: Gastroenteritis, Intractable nausea and vomiting Disposition: ADMITTED IP TO THIS [facility] Condition: Good Referrals: Yonatan Wise MD [Primary Care Provider] - 1-2 days Decision Time: 11:47
[2022-05-16 09:51] LABS: Anisocytosis Slight; Basophils # (A) 0.1 k/uL (0-0.2); Basophils % (A) 1 %; Eosinophils # (A) 1.3 k/uL (0-0.7); Eosinophils % (A) 13 %; HGB 14.7 gm/dL (13.0-17.5); Hyperchromasia Marked; Lymphocytes # (A) 1.8 k/uL (1.0-4.8); Lymphocytes % (A) 18 %; MCH 32.2 pg (25.0-35.0); MCHC 36.6 g/dL (31.0-37.0); MCV 87.9 fL (80.0-100.0); Mean Platelet Volume 7.5; Monocytes # (A) 0.5 k/uL (0-1.0); Monocytes % (A) 5 %; Neutrophils % (A) 61 %; Platelet Count 162 k/uL (150-450); Poikilocytosis Moderate; RBC 4.55 m/uL (4.30-5.90); RDW 17.8 % (11.5-15.5); WBC 9.8 k/uL (3.8-10.6)
[2022-05-16 09:54] LABS: ALT 52 U/L (4-49); AST 59 U/L (17-59); African American GFR (CKD) >90 (>60 ml/min/1.73 sqM); Albumin 3.2 g/dL (3.5-5.0); Alkaline Phosphatase 141 U/L (38-126); Anion Gap 4 mmol/L; Blood Urea Nitrogen 20 mg/dL (9-20); Calcium 8.2 mg/dL (8.4-10.2); Carbon Dioxide 36 mmol/L (22-30); Chloride 93 mmol/L (98-107); Glucose 147 mg/dL (74-99); Magnesium 1.5 mg/dL (1.6-2.3); Non-African American GFR(CKD) 87 (>60 ml/min/1.73 sqM); Potassium 3.1 mmol/L (3.5-5.1); Sodium 133 mmol/L (137-145); Total Bilirubin 1.5 mg/dL (0.2-1.3); Total Protein 6.2 g/dL (6.3-8.2)
--- NOTE | 2022-05-16 09:56 | XR ---
EXAMINATION TYPE: XR chest 2V DATE OF EXAM: 05/16/2022 COMPARISON: 12/06/2021 INDICATION: Weakness nausea vomiting metastatic renal cancer TECHNIQUE: Frontal and lateral views of the chest are obtained. FINDINGS: The heart size is normal. The pulmonary vasculature is normal. There is a small right pleural effusion. No suspicious infiltrates. IMPRESSION: 1. Small right pleural effusion
[2022-05-16] MEDS ORDERED: ACETAMINOPHEN TAB 500 MG TAB PO STA (10:14)
[2022-05-16] MEDS ORDERED: POTASSIUM CHLORIDE ER 20 MEQ TAB.ER PO STA (11:06)
[2022-05-16] MEDS: MAGNESIUM SULFATE-D5W PMX 1 GM in DEXTROSE/WATER 1 100ML.BAG IVPB SCH ×2 (11:15→12:30)
[2022-05-16] MEDS ORDERED: NALOXONE 0.4 MG/ML 1 ML VIAL IV PRN (11:40)
[2022-05-16] MEDS: SODIUM CHLORIDE 0.9% 1,000 ML IV SCH (12:30)
[2022-05-16] MEDS ORDERED: ONDANSETRON 4 MG/2 ML VIAL IVP PRN (17:43)
--- NOTE | 2022-05-16 17:49 | P.CONS ---
History of Present Illness - Reason for Consult Consult date: 05/16/22 hx renal cell cancer Requesting physician: Avelino Escobar - Chief Complaint n/v - History of Present Illness Patient is a 71-year-old male with a significant history of metastatic clear cell carcinoma, who follows with Dr. Braga. He is currently on cabometyx and opdivo, and completed cycle 5 on 05/08/22. He presented to the ER for nausea and vomiting, that began last night, Pt reports he has had 4 episodes of n/v and was unable to tolerate oral intake, ca using him to present to the ER for further evaluation. Of note patient reports being around his sick grandchildren. He also reports fever and chills. T max is 100.8. He denies abdominal pain, hematemesis, diarrhea, and cough. CXR upon presentation showed small right pleural effusion. WBC 9.8, Hgb 14.7, and platelets 162,000. Oncology history: Patient has a remote history of renal cell carcinoma s/p left nephrectomy in 1998. He presented with progressive exertional dyspnea, started around August/2021, he had a CXR in October/2021 which revealed large right pleural effusion was admitted to the [facility], underwent thoracentesis on 10/31/2021,cytology was negative, he had a CT scan of chest which revealed evidence of mediastinal nodes. He had bronchoscopy on 10/31/2021, washing/lavage which were negative. He had another thoracentesis on 11/14/2021, cytology was negative as well. PET scan done on 11/27/2021 revealed multiple nodular uptake in right posterior pleura,size up to 5.4 cm,large paratrecheal node 3.3 x 2.8 x 4 cm),soft tissue mass in the left kidney bed. On 11/29/2021,he underwent EBUS,FNA of mediastinal nodes were non diagnostic. On 12/2021, he underwent VATS, pleural biopsies and placement of pleuRx and talc pleuradesis, pathology was positive for metastatic clear cell renal carcinoma. He was started on cabozantib and opdivo on 01/16/2022. Repeat CT CAP showed improvement in mediastinal LAD, smaller rt. pl effusion, pulm nodules seem smaller, rt abd mass 12.3 x 5.5cm now 10.3 x 3.1cm, there is a new pancreatic tail mass 4.4cm. He has completed 5 cycles of cabometyx and opdivo, and completed cycle 5 on 05/08/22. Review of Systems 10 point ROS is negative except as stated in HPI Past Medical History Past Medical History: Cancer, Diabetes Mellitus, Hypertension, Myocardial Infarction ([place]) Additional Past Medical History / Comment(s): Hx renal cell cancer 1998, had left radical nephrectomy. Hx RIGHT PLEURAL EFFUSIONS, HAD THORACENTESIS. Last Myocardial Infarction Date:: 06/2020 History of Any Multi-Drug Resistant Organisms: None Reported Past Surgical History: Heart Catheterization With Stent Additional Past Surgical History / Comment(s): Left radical nephrectomy, colonoscopy, thoracentesis Past Anesthesia/Blood Transfusion Reactions: Previous Problems w/ Anesthesia Additional Past Anesthesia/Blood Transfusion Reaction / Comm: muscle rigidity, slurred speech, hallucinations, muscle spasms Date of Last Stent Placement:: 06/2020 Past Psychological History: No Psychological Hx Reported Smoking Status: Former smoker Past Alcohol Use History: None Reported Additional Past Alcohol Use History / Comment(s): Quit smoking in 1989. Past Drug Use History: None Reported - Past Family History Mother Family Medical History: No Reported History Father Additional Family Medical History / Comment(s): Heart disease. Sister(s) Family Medical History: Diabetes Mellitus Medications and Allergies Home Medications Medication Instructions Recorded Confirmed Type amLODIPine BESYLATE/BENAZEPRIL 1 cap PO DAILY 06/29/20 05/16/22 History [Lotrel 5-40 MG] Montelukast [Singulair] 10 mg PO HS 10/31/21 05/16/22 History Semaglutide [Ozempic] 0.25 mg SQ FR 10/31/21 05/16/22 History Furosemide [Lasix] 20 mg PO DAILY 11/28/21 05/16/22 History Aspirin EC [Ecotrin Low Dose] 81 mg PO DAILY 05/16/22 05/16/22 History Cabozantinib S-Malate [Cabometyx] 40 mg PO DAILY 05/16/22 05/16/22 History Clobetasol Propionate [Temovate 1 applic TOPICAL BID 05/16/22 05/16/22 History 0.05% Oint] Doxycycline Monohydrate 100 mg PO BID 05/16/22 05/16/22 History Famotidine [Pepcid] 40 mg PO DAILY 05/16/22 05/16/22 History Insulin Glargine,Hum.rec.anlog 8 units SQ DAILY 05/16/22 05/16/22 History [Lantus Solostar Pen] Kools Solution 1 dose PO DIRECTED PRN 05/16/22 05/16/22 History Levothyroxine Sodium [Synthroid] 50 mcg PO DAILY 05/16/22 05/16/22 History Metoprolol Tartrate [Lopressor] 75 mg PO BID 05/16/22 05/16/22 History Mupirocin 2% Oint [Bactroban 2% 1 applic TOPICAL TID 05/16/22 05/16/22 History Oint] Nivolumab [Opdivo] 1 dose IV Q30D 05/16/22 05/16/22 History Potassium Chloride ER [K-Dur 20] 20 meq PO DAILY 05/16/22 05/16/22 History Triamcinolone 0.1% Ointment 1 applic TOPICAL BID 05/16/22 05/16/22 History [Kenalog 0.1% Ointment] hydroCHLOROthiazide 12.5 mg PO DAILY 05/16/22 05/16/22 History Allergies Allergy/AdvReac Type Severity Reaction Status Date / Time peanut Allergy Anaphylaxis Verified 05/16/22 12:13 Physical Exam Vitals: Vital Signs Temp Pulse Pulse Resp BP BP Pulse Ox 05/16/22 13:15 99.0 F 101 H 16 115/72 97 05/16/22 12:19 99.7 F H 108 H 18 123/73 97 05/16/22 11:27 103 H 18 152/79 98 05/16/22 10:13 100.8 F H 110 H 18 141/76 96 05/16/22 09:42 99.4 F 106 H 18 05/16/22 09:03 97.4 F L 121 H 22 130/85 96 Intake and Output 05/16/22 05/16/22 05/16/22 06:59 14:59 22:59 Other: Weight 78.925 kg - Constitutional General appearance: average body habitus, no acute distress - EENT Eyes: anicteric sclerae, EOMI ENT: hearing grossly normal - Respiratory Respiratory: bilateral: CTA - Cardiovascular Rhythm: regular Heart sounds: normal: S1, S2 Abnormal Heart Sounds: no systolic murmur, no diastolic murmur, no rub, no S3 Gallop, no S4 Gallop, no click, no other - Gastrointestinal General gastrointestinal: normal bowel sounds, soft, no tenderness - Integumentary Integumentary: normal - Neurologic grossly intact - Musculoskeletal Musculoskeletal: strength equal bilaterally - Psychiatric Psychiatric: A&O x's 3, appropriate affect, intact judgment & insight Results CBC & Chem 7: 05/16/22 09:21 05/16/22 09:21 Labs: Abnormal Lab Results - Last 24 Hours (Table) 05/16/22 05/16/22 05/16/22 Range/Units 09:21 09:21 09:21 RDW 17.8 H (11.5-15.5) % Eosinophils # 1.3 H (0-0.7) k/uL Sodium 133 L (137-145) mmol/L Potassium 3.1 L (3.5-5.1) mmol/L Chloride 93 L (98-107) mmol/L Carbon Dioxide 36 H (22-30) mmol/L Glucose 147 H (74-99) mg/dL Plasma Lactic Acid Maik 2.2 H* (0.7-2.0) mmol/L Calcium 8.2 L (8.4-10.2) mg/dL Magnesium 1.5 L (1.6-2.3) mg/dL Total Bilirubin 1.5 H (0.2-1.3) mg/dL ALT 52 H (4-49) U/L Alkaline Phosphatase 141 H (38-126) U/L Total Protein 6.2 L (6.3-8.2) g/dL Albumin 3.2 L (3.5-5.0) g/dL Chest x-ray: report reviewed Assessment and Plan (1) Clear cell renal cell carcinoma Current Visit: Yes Status: Acute Priority: High Code(s): C64.9 - MALIGNANT NEOPLASM OF UNSP KIDNEY, EXCEPT RENAL PELVIS SNOMED Code(s): 796586504 (2) Intractable nausea and vomiting Current Visit: Yes Status: Acute Priority: High Code(s): R11.2 - NAUSEA WITH VOMITING, UNSPECIFIED SNOMED Code(s): 470974414 Plan: Renal cell carcinoma: -Hx of metastatic renal carcinoma, who follows with Dr. Braga. He is currently on cabometyx and opdivo, and completed cycle 5 on 05/08/22. -Will hold cabometyx while patient is recovering from acute illness. Instructed patient that upon discharge and resolution of symptoms he may restart cabometyx. -Will schedule f/u with Dr. Braga upon discharge Nausea and vomiting -Reports improvement in symptoms. Agree with continuation of IV hydration -Zofran prn added for symptomatic support -Defer to IM for management
[2022-05-16 20:19] LABS: Appearance,Urine Clear (Clear); Bilirubin,Urine Negative (Negative); Blood,Urine Negative (Negative); Color,Urine Yellow; Glucose,Urine (UA) Negative (Negative); Ketones,Urine Trace (Negative); Leukocyte Esterase,Urine Negative (Negative); Mucus,Urine Moderate /hpf; Nitrite,Urine Negative (Negative); Protein,Urine 1+ (Negative); RBC,Urine 1 /hpf (0-5); Specific Gravity,Urine 1.027 (1.001-1.035); WBC,Urine 3 /hpf (0-5)
[2022-05-16] MEDS ORDERED: [UNRECOGNIZED DRUG - OTHER] PO PRN (20:48)
[2022-05-16] MEDS: METOPROLOL TARTRATE 25 MG TAB PO SCH (21:25)
[2022-05-16] MEDS: MONTELUKAST 10 MG TAB PO SCH (21:25)
[2022-05-17] MEDS: SODIUM CHLORIDE 0.9% 1,000 ML IV SCH ×2 (00:36→15:15)
[2022-05-17] MEDS: ACETAMINOPHEN TAB 325 MG TAB PO PRN ×2 (01:19→13:21)
[2022-05-17] MEDS: LEVOTHYROXINE 50 MCG TAB PO SCH (06:03)
[2022-05-17 06:31] LABS: ALT 59 U/L (4-49); AST 65 U/L (17-59); African American GFR (CKD) >90 (>60 ml/min/1.73 sqM); Albumin 2.2 g/dL (3.5-5.0); Albumin/Globulin Ratio 0.9; Alkaline Phosphatase 120 U/L (38-126); Anion Gap 0 mmol/L; Blood Urea Nitrogen 13 mg/dL (9-20); Calcium 7.1 mg/dL (8.4-10.2); Carbon Dioxide 34 mmol/L (22-30); Chloride 97 mmol/L (98-107); Globulin 2.5 g/dL; Glucose 99 mg/dL (74-99); Non-African American GFR(CKD) >90 (>60 ml/min/1.73 sqM); Potassium 2.9 mmol/L (3.5-5.1); Sodium 131 mmol/L (137-145); Total Bilirubin 1.6 mg/dL (0.2-1.3); Total Protein 4.7 g/dL (6.3-8.2)
[2022-05-17 06:47] LABS: Anisocytosis Slight; Basophils % (A) 0 %; Eosinophils # (A) 0.7 k/uL (0-0.7); Eosinophils % (A) 10 %; HCT 30.7 % (39.0-53.0); Hyperchromasia Moderate; Lymphocytes # (A) 1.4 k/uL (1.0-4.8); Lymphocytes % (A) 19 %; MCH 32.1 pg (25.0-35.0); MCHC 35.9 g/dL (31.0-37.0); MCV 89.4 fL (80.0-100.0); Mean Platelet Volume 7.4; Monocytes # (A) 0.4 k/uL (0-1.0); Monocytes % (A) 5 %; Neutrophils # (A) 4.7 k/uL (1.3-7.7); Neutrophils % (A) 64 %; Platelet Count 132 k/uL (150-450); Poikilocytosis Moderate; RBC 3.43 m/uL (4.30-5.90); WBC 7.5 k/uL (3.8-10.6)
[2022-05-17] MEDS ORDERED: INSULIN DETEMIR (LEVEMIR) 100 UNIT/ML SYR SQ SCH (07:00)
[2022-05-17] MEDS ORDERED: FAMOTIDINE 20 MG TAB PO SCH (09:00)
[2022-05-17] MEDS: amLODIPine 5 MG TAB PO SCH (09:32)
[2022-05-17] MEDS: FUROSEMIDE 20 MG TAB PO SCH (09:32)
[2022-05-17] MEDS: lisinopriL 20 MG TAB PO SCH (09:32)
[2022-05-17] MEDS: POTASSIUM CHLORIDE ER 20 MEQ TAB.ER PO SCH ×3 (09:33→20:46)
[2022-05-17] MEDS: METOPROLOL TARTRATE 25 MG TAB PO SCH ×2 (09:33→20:46)
[2022-05-17] MEDS: ASPIRIN 81 MG PO SCH (09:33)
[2022-05-17] MEDS: hydroCHLOROthiazide 12.5 MG CAP PO SCH (09:33)
[2022-05-17] MEDS: MAG HYDROX/AL HYDROX/SIMETH 30 ML, LIDOCAINE VISCOUS 2% 30 ML, diphenhydrAMINE ELIXIR 7... PO SCH ×12 (09:39→20:49)
[2022-05-17] MEDS ORDERED: Potassium Replacement Protocol 1 EACH MISC MISCELLANE PRN ×2 (09:58→18:59)
[2022-05-17] MEDS ORDERED: Magnesium Replacement Protocol 1 EACH MISC MISCELLANE PRN (09:59)
[2022-05-17 13:54] VITALS: BMI 23.6
[2022-05-17] MEDS ORDERED: MAGNESIUM SULFATE-D5W PMX 1 GM in DEXTROSE/WATER 1 100ML.BAG IVPB ONE (15:00)
--- NOTE | 2022-05-17 17:23 | P.PN ---
Subjective Progress Note Date: 05/17/22 -No acute events overnight -Notes having improved nausea with no vomiting. He denies any diarrhea at this time -His appetite is not currently back to baseline, but is tolerating liquids Objective - Vital Signs Vital signs: Vital Signs Temp 99.3 F 05/17/22 12:37 Pulse 75 05/17/22 12:37 Resp 16 05/17/22 12:37 BP 144/76 05/17/22 12:37 Pulse Ox 98 05/17/22 12:37 FiO2 Intake & Output 05/16/22 05/17/22 05/17/22 18:59 06:59 18:59 Intake Total 900 118 Output Total 650 200 Balance 900 -532 -200 Weight 78.925 kg 78.925 kg Intake: Intake, IV Titration 900 Amount Sodium Chloride 0.9% 1, 900 000 ml @ 75 mls/hr IV . [id number] [facility] Rx#:[id number] Oral 118 Output: Urine 650 200 Other: # Voids 1 - Constitutional General appearance: Present: average body habitus, cooperative, no acute distress - EENT Eyes: Present: EOMI - Respiratory Respiratory: bilateral: CTA - Cardiovascular Rhythm: regular - Gastrointestinal General gastrointestinal: Present: hyperactive bowel sounds, soft. Absent: distended, tenderness - Integumentary Integumentary: Present: pale - Neurologic Neurologic: Present: CNII-XII intact. Absent: focal deficits - Labs CBC & Chem 7: 05/17/22 05:55 05/17/22 05:55 Labs: Abnormal Lab Results - Last 24 Hours (Table) 05/16/22 05/17/22 05/17/22 Range/Units 19:55 05:55 05:55 RBC 3.43 L (4.30-5.90) m/uL Hgb 11.0 L D (13.0-17.5) gm/dL Hct 30.7 L (39.0-53.0) % RDW 18.0 H (11.5-15.5) % Plt Count 132 L (150-450) k/uL Sodium 131 L (137-145) mmol/L Potassium 2.9 L (3.5-5.1) mmol/L Chloride 97 L (98-107) mmol/L Carbon Dioxide 34 H (22-30) mmol/L Calcium 7.1 L (8.4-10.2) mg/dL Total Bilirubin 1.6 H (0.2-1.3) mg/dL AST 65 H (17-59) U/L ALT 59 H (4-49) U/L Total Protein 4.7 L (6.3-8.2) g/dL Albumin 2.2 L (3.5-5.0) g/dL Urine Protein 1+ H (Negative) Urine Ketones Trace H (Negative) Urine Mucus Moderate H (None) /hpf Microbiology - Last 24 Hours (Table) 05/16/22 11:30 Blood Culture - Preliminary Blood No Growth after 24 hours 05/16/22 11:15 Blood Culture - Preliminary Blood No Growth after 24 hours Assessment and Plan (1) Gastroenteritis Current Visit: Yes Status: Acute Code(s): K52.9 - NONINFECTIVE GASTROENTERITIS AND COLITIS, UNSPECIFIED SNOMED Code(s): 11488663 (2) Clear cell renal cell carcinoma Current Visit: Yes Status: Chronic Priority: High Code(s): C64.9 - MALIGNANT NEOPLASM OF UNSP KIDNEY, EXCEPT RENAL PELVIS SNOMED Code(s): 751042458 Plan: Renal cell carcinoma: -History of metastatic renal cell carcinoma, follows with Dr. Braga. He is currently on cabometyx and opdivo, and completed cycle 5 on 05/08/22. -Will hold cabometyx while patient is recovering from acute gastroenteritis -He has follow-up in clinic scheduled on 05/21/2022. He was instructed to hold Cabometyx until he was seen in clinic Gastroenteritis (bacterial versus viral) -Noted to have repeat episodes of vomiting with abdominal cramping prior to presentation -He was at a recent family gathering with relatives, who had the same symptoms -Reports improvement in symptoms. Agree with continuation of IV hydration -Zofran prn added for symptomatic support -Continue electrolyte repletion and supportive management per internal medicine
[2022-05-17] MEDS ORDERED: ONDANSETRON 4 MG/2 ML VIAL IVP PRN (17:51)
--- NOTE | 2022-05-17 18:37 | P.HPIM ---
History of Present Illness H&P Date: 05/17/22 Chief Complaint: nausea and vomiting This is a pleasant 71-year-old gentleman with past medical history of metastatic clear cell renal carcinoma, diagnosed 01/08 -recently completed chemo cycle #5 on 05/08/2022/,on daily oral chemotherapy and monthly immunotherapy with Dr. Duane huffman, history of renal cell carcinoma status post left nephrectomy in 1998,diabetes mellitus type 2, CAD, NC, systolic CHF,ischemic cardiomyopathy with EF 40-45% hypertension, hyperlipidemia, , former nicotine dependence and multiple other medical issues presented to the ER with complaints of nausea and vomiting 4 episodes X two days prior to admission, accompanied by fevers and chills. Reports abdominal cramping, no diarrhea. Denies cough, denies shortness of breath. Reports he was around his grandchildren ,who all had upper respiratory illnesses.Chest x-ray reported as small right pleural effusion with no suspicious infiltrates. Maintaining O2 sats in the high 90s on room air. Afebrile, T-max 100.8, WBC normal, preliminary blood cultures reporting no growth after 24 hours, hemoglobin decreased to 11, platelets decreased to 132, neutrophils decreased to 4.7. Sodium 131, potassium 2.9, bicarb decreased to 34, BUN 13, creatinine 0.72, lactic acid 2.2, with IV fluid hydration, resolved, 1.3, calcium 7.1, magnesium on admission 1.5, receiving supplementation, T bili/LFTs mildly elevated, UA negative, serology did not detect influenza type a, type B, RSV or Coronavirus. This morning currently denies chest pain, palpitations or shortness of breath. Diarrhea has subsided, denies abdominal pain. Reports no nausea this morning, last episode during the night. Complains of mouth sores. Review of Systems ROS Statement: Those systems with pertinent positive or pertinent negative responses have been documented in the HPI. ROS Other: All systems not noted in ROS Statement are negative. Past Medical History Past Medical History: Cancer, Diabetes Mellitus, Hypertension, Myocardial Infarction (NC) Additional Past Medical History / Comment(s): Hx renal cell cancer 1998, had left radical nephrectomy. Hx RIGHT PLEURAL EFFUSIONS, HAD THORACENTESIS. Last Myocardial Infarction Date:: 06/2020 History of Any Multi-Drug Resistant Organisms: None Reported Past Surgical History: Heart Catheterization With Stent Additional Past Surgical History / Comment(s): Left radical nephrectomy, colonoscopy, thoracentesis Past Anesthesia/Blood Transfusion Reactions: Previous Problems w/ Anesthesia Additional Past Anesthesia/Blood Transfusion Reaction / Comment(s): muscle rigidity, slurred speech, hallucinations, muscle spasms Date of Last Stent Placement:: 06/2020 Past Psychological History: No Psychological Hx Reported Smoking Status: Former smoker Past Alcohol Use History: None Reported Additional Past Alcohol Use History / Comment(s): Quit smoking in 1989. Past Drug Use History: None Reported - Past Family History Mother Family Medical History: No Reported History Father Additional Family Medical History / Comment(s): Heart disease. Sister(s) Family Medical History: Diabetes Mellitus Medications and Allergies Home Medications Medication Instructions Recorded Confirmed Type amLODIPine BESYLATE/BENAZEPRIL 1 cap PO DAILY 06/29/20 05/16/22 History [Lotrel 5-40 MG] Montelukast [Singulair] 10 mg PO HS 10/31/21 05/16/22 History Semaglutide [Ozempic] 0.25 mg SQ FR 10/31/21 05/16/22 History Furosemide [Lasix] 20 mg PO DAILY 11/28/21 05/16/22 History Aspirin EC [Ecotrin Low Dose] 81 mg PO DAILY 05/16/22 05/16/22 History Cabozantinib S-Malate [Cabometyx] 40 mg PO DAILY 05/16/22 05/16/22 History Clobetasol Propionate [Temovate 1 applic TOPICAL BID 05/16/22 05/16/22 History 0.05% Oint] Doxycycline Monohydrate 100 mg PO BID 05/16/22 05/16/22 History Famotidine [Pepcid] 40 mg PO DAILY 05/16/22 05/16/22 History Insulin Glargine,Hum.rec.anlog 8 units SQ DAILY 05/16/22 05/16/22 History [Lantus Solostar Pen] Kools Solution 1 dose PO DIRECTED PRN 05/16/22 05/16/22 History Levothyroxine Sodium [Synthroid] 50 mcg PO DAILY 05/16/22 05/16/22 History Metoprolol Tartrate [Lopressor] 75 mg PO BID 05/16/22 05/16/22 History Mupirocin 2% Oint [Bactroban 2% 1 applic TOPICAL TID 05/16/22 05/16/22 History Oint] Nivolumab [Opdivo] 1 dose IV Q30D 05/16/22 05/16/22 History Potassium Chloride ER [K-Dur 20] 20 meq PO DAILY 05/16/22 05/16/22 History Triamcinolone 0.1% Ointment 1 applic TOPICAL BID 05/16/22 05/16/22 History [Kenalog 0.1% Ointment] hydroCHLOROthiazide 12.5 mg PO DAILY 05/16/22 05/16/22 History Allergies Allergy/AdvReac Type Severity Reaction Status Date / Time peanut Allergy Anaphylaxis Verified 05/16/22 12:13 Physical Exam Vitals: Vital Signs Temp Pulse Resp BP Pulse Ox 05/17/22 12:37 99.3 F 75 16 144/76 98 05/17/22 08:00 81 18 05/17/22 07:40 98.4 F 81 18 148/77 96 05/17/22 02:22 100 F H 87 15 157/73 95 05/16/22 19:07 98.8 F 105 H 15 131/72 93 L Intake and Output 05/16/22 05/17/22 05/17/22 22:59 06:59 14:59 Intake Total 1018 Output Total 650 200 Balance 1018 -650 -200 Intake: Intake, IV Titration 900 Amount Sodium Chloride 0.9% 1, 900 000 ml @ 75 mls/hr IV . [id number] [facility] Rx#:[id number] Oral 118 Output: Urine 650 200 Other: # Voids 1 Weight 78.925 kg GENERAL: Well-developed, well-nourished, alert and oriented x3, sitting up in bed, no acute distress. HEENT: Pupils are round and equally reacting to light. EOMI. No scleral icterus. No conjunctival pallor. Normocephalic, atraumatic. No pharyngeal erythema. No thyromegaly. NECK: Supple, no JVD CARDIOVASCULAR: S1 and S2, regular rate and rhythm. No murmurs, rubs, or gallops. PULMONARY: Unlabored, essentially CTA. ABDOMEN: Soft, nontender, nondistended, hypoactive bowel sounds. No guarding or rigidity EXTREMITIES: No cyanosis, clubbing, or pedal edema. NEUROLOGICAL: Cranial nerves II through XII grossly intact, no focal deficits. SKIN: Warm and dry, No rashes. Results CBC & Chem 7: 05/17/22 05:55 05/17/22 05:55 Labs: Abnormal Lab Results - Last 24 Hours (Table) 05/16/22 05/17/22 05/17/22 Range/Units 19:55 05:55 05:55 RBC 3.43 L (4.30-5.90) m/uL Hgb 11.0 L D (13.0-17.5) gm/dL Hct 30.7 L (39.0-53.0) % RDW 18.0 H (11.5-15.5) % Plt Count 132 L (150-450) k/uL Sodium 131 L (137-145) mmol/L Potassium 2.9 L (3.5-5.1) mmol/L Chloride 97 L (98-107) mmol/L Carbon Dioxide 34 H (22-30) mmol/L Calcium 7.1 L (8.4-10.2) mg/dL Total Bilirubin 1.6 H (0.2-1.3) mg/dL AST 65 H (17-59) U/L ALT 59 H (4-49) U/L Total Protein 4.7 L (6.3-8.2) g/dL Albumin 2.2 L (3.5-5.0) g/dL Urine Protein 1+ H (Negative) Urine Ketones Trace H (Negative) Urine Mucus Moderate H (None) /hpf Microbiology - Last 24 Hours (Table) 05/16/22 11:15 Blood Culture - Preliminary Blood No Growth after 24 hours Thrombosis Risk Factor Assmnt - Choose All That Apply Each Risk Factor Represents 2 Points: Age 61-74 years Thrombosis Risk Factor Assessment Total Risk Factor Score: 2 Thrombosis Risk Factor Assessment Level: Low Risk Assessment and Plan Assessment: Acute Gastroenteritis, suspect viral, in a patient immunocompromised around ill granchildren Hypokalemia Hypomagnesemia Lactic acidosis, resolved Elevated TBili, LFTs Metastatic clear cell renal carcinoma, diagnosed 01/08, recently completed chemo cycle 5 on 05/08/2022. Anemia, secondary to the above History of metastatic renal cell CA, status post left nephrectomy in 1998. Former nicotine dependence Diabetes mellitus type 2 Chronic systolic heart failure Ischemic cardiomyopathy, EF 40-45% Hypertension Hyperlipidemia CAD history of NC Plan: Continue on current medication regime ,monitoring and symptomatic treatment. Potassium/magnesium replacement in progress, with repeat K+levels later today. Blood cultures in progress. Close monitoring of electrolytes, hemoglobin, platelets, neutrophils with repeat levels ordered for a.m. as well.Kools solution/magic mouthwash ordered. Maintain gentle IV fluid hydration, antiemetics. The impression and plan of care has been dictated as directed. : I performed a history and examination of this patient, discussed the same with the dictator. I agree with the dictator's note ,documented as a scribe. Any additional findings or plans will be noted.
[2022-05-17] MEDS: PANTOPRAZOLE 40 MG/10 ML VIAL IVP SCH (19:04)
[2022-05-17] MEDS: MONTELUKAST 10 MG TAB PO SCH (20:45)
[2022-05-18] MEDS: ACETAMINOPHEN TAB 325 MG TAB PO PRN (02:19)
[2022-05-18] MEDS: SODIUM CHLORIDE 0.9% 1,000 ML IV SCH (04:14)
[2022-05-18] MEDS: LEVOTHYROXINE 50 MCG TAB PO SCH (05:33)
[2022-05-18] MEDS ORDERED: INSULIN DETEMIR (LEVEMIR) 100 UNIT/ML SYR SQ SCH (07:00)
[2022-05-18 08:32] LABS: Glucose,Whole Blood 93 mg/dL (70-110)
[2022-05-18] MEDS: ASPIRIN 81 MG PO SCH (08:36)
[2022-05-18] MEDS: PANTOPRAZOLE 40 MG/10 ML VIAL IVP SCH (08:36)
[2022-05-18] MEDS: POTASSIUM CHLORIDE ER 20 MEQ TAB.ER PO SCH ×3 (08:36→12:56)
[2022-05-18] MEDS: FUROSEMIDE 20 MG TAB PO SCH (08:37)
[2022-05-18] MEDS: amLODIPine 5 MG TAB PO SCH (08:37)
[2022-05-18] MEDS: hydroCHLOROthiazide 12.5 MG CAP PO SCH (08:37)
[2022-05-18] MEDS: lisinopriL 20 MG TAB PO SCH (08:37)
[2022-05-18] MEDS: METOPROLOL TARTRATE 25 MG TAB PO SCH (08:37)
[2022-05-18] MEDS: MAG HYDROX/AL HYDROX/SIMETH 30 ML, LIDOCAINE VISCOUS 2% 30 ML, diphenhydrAMINE ELIXIR 7... PO SCH ×4 (08:37)
[2022-05-18 09:00] LABS: Basophils # (A) 0.02 X 10*3/uL (0.00-0.10); Basophils % (A) 0.2 %; Eosinophils # (A) 0.95 X 10*3/uL (0.04-0.35); Eosinophils % (A) 11.8 %; HCT 28.2 % (39.6-50.0); HGB 10.2 g/dL (13.0-17.0); Immature Grans, Automated 0.2 %; Lymphocytes # (A) 1.36 X 10*3/uL (0.90-5.00); Lymphocytes % (A) 16.9 %; MCH 32.4 pg (27.0-32.0); MCHC 36.2 g/dL (32.0-37.0); MCV 89.5 fL (80.0-97.0); Mean Platelet Volume 10.2 fL (9.5-12.2); Monocytes # (A) 0.57 X 10*3/uL (0.20-1.00); Monocytes % (A) 7.1 %; NRBC Per 100 WBC 0 /100 WBCS (0.0-0.0); Neutrophils # (A) 5.13 X 10*3/uL (1.80-7.70); Neutrophils % (A) 63.8 %; Platelet Count 125 X 10*3/uL (140-440); RBC 3.15 X 10*6/uL (4.40-5.60); RDW 17.2 % (11.5-14.5); WBC 8.05 X 10*3/uL (4.50-10.00)
[2022-05-18 09:31] LABS: African American GFR (CKD) 106.9 (60.0-200.0); Anion Gap 5.7 mmol/L (10.00-18.00); BUN/Creat Ratio 11.9 Ratio (12.00-20.00); Calcium 7.5 mg/dL (8.7-10.3); Carbon Dioxide 29.6 mmol/L (20.0-27.5); Magnesium 1.9 mg/dL (1.5-2.4); Non-African American GFR(CKD) 92.2 (60.0-200.0); Potassium 3.3 mmol/L (3.5-5.5)
[2022-05-18 12:22] LABS: Glucose,Whole Blood 122 mg/dL (70-110)
[2022-05-18 12:30] VITALS: BP 151/78; PULSE 88; RESP 16; TEMP 97.7
== END 2022-05-18 14:30 | disposition home or self-care (01) ==
LOC: EC 08:59 → 6NMEDSUR 11:41 → 5NMEDONC 11:52
PROVIDERS: ADMIT Family Medicine; ATTEND Family Medicine
DX: R11.2 Nausea with vomiting, unspecified (principal); R19.7 Diarrhea, unspecified; R50.9 Fever, unspecified; D49.519 Neoplasm of unspecified behavior of unspecified kidney; D63.0 Anemia in neoplastic disease; Z20.822 Contact with and (suspected) exposure to COVID-19; E11.9 Type 2 diabetes mellitus without complications; I25.2 Old myocardial infarction; Z90.5 Acquired absence of kidney; Z95.5 Presence of coronary angioplasty implant and graft; Z87.891 Personal history of nicotine dependence; Z83.3 Family history of diabetes mellitus; Z79.84 Long term (current) use of oral hypoglycemic drugs; Z79.899 Other long term (current) drug therapy; Z91.010 Allergy to peanuts; I11.0 Hypertensive heart disease with heart failure; I50.22 Chronic systolic (congestive) heart failure; E87.6 Hypokalemia; E83.42 Hypomagnesemia; E78.5 Hyperlipidemia, unspecified
CPT/HCPCS: 96376 ×2; 96361 ×2; 96366 ×3; 96375 ×2; 96365; 99285; 36415; 93005; 80053 ×2; 80048; 83605; 83735 ×2; 84132; 85025 ×3; 81001; 87040; 87636; 71046; G0378 ×3; J2405 ×3; J3475 ×2; C9113 ×2

== ENCOUNTER 2022-05-31 20:48 | Emergency (ER) | payer MEDICARE ==
[2022-05-31 22:39] LABS: Glucose,Whole Blood 134 mg/dL (70-110)
[2022-05-31] MEDS ORDERED: SODIUM CHLORIDE 0.9% 1,000 ML IV ONE (22:39)
[2022-05-31] MEDS ORDERED: ONDANSETRON 4 MG/2 ML VIAL IVP STA (22:39)
[2022-05-31 23:02] VITALS: RESP 18
[2022-05-31 23:17] LABS: Anisocytosis Slight; Basophils % (A) 0 %; Eosinophils # (A) 0.7 k/uL (0-0.7); Eosinophils % (A) 10 %; HCT 33.8 % (39.0-53.0); HGB 12.5 gm/dL (13.0-17.5); Hyperchromasia Marked; Lymphocytes % (A) 27 %; MCH 33.1 pg (25.0-35.0); MCHC 37.1 g/dL (31.0-37.0); MCV 89.2 fL (80.0-100.0); Mean Platelet Volume 7.7; Monocytes # (A) 0.4 k/uL (0-1.0); Monocytes % (A) 5 %; Neutrophils # (A) 4.1 k/uL (1.3-7.7); Neutrophils % (A) 55 %; Poikilocytosis Moderate; RBC 3.79 m/uL (4.30-5.90); RDW 16.5 % (11.5-15.5); WBC 7.4 k/uL (3.8-10.6)
[2022-05-31 23:20] LABS: Platelet Count 443 k/uL (150-450)
[2022-05-31 23:37] LABS: ALT 70 U/L (4-49); AST 73 U/L (17-59); African American GFR (CKD) >90 (>60 ml/min/1.73 sqM); Albumin 3.3 g/dL (3.5-5.0); Alkaline Phosphatase 225 U/L (38-126); Anion Gap 7 mmol/L; Blood Urea Nitrogen 21 mg/dL (9-20); Calcium 8.3 mg/dL (8.4-10.2); Carbon Dioxide 31 mmol/L (22-30); Chloride 92 mmol/L (98-107); Glucose 120 mg/dL (74-99); Lipase 124 U/L (23-300); Magnesium 1.9 mg/dL (1.6-2.3); Non-African American GFR(CKD) 78 (>60 ml/min/1.73 sqM); Potassium 3.9 mmol/L (3.5-5.1); Sodium 130 mmol/L (137-145); Total Bilirubin 0.7 mg/dL (0.2-1.3); Total Protein 6.4 g/dL (6.3-8.2)
--- NOTE | 2022-06-01 00:16 | CT ---
EXAMINATION TYPE: CT abdomen pelvis w con CT DLP: 1079 mGycm, Automated exposure control for dose reduction was used. DATE OF EXAM: 06/01/2022 12:03 AM COMPARISON: CT abdomen pelvis most recent from 04/19/2022, PET/CT 11/24/2021 CLINICAL INDICATION:Male, 71 years old with history of Abdominal pain, N/V/D; N/V/D, ABD PAIN TECHNIQUE: Axial CT of the abdomen and pelvis. Sagittal and coronal reformats were created on a USB [employer] workstation. Contrast used:100 mL of Isovue 300 with IV Contrast, Oral contrast used: without Oral Contrast FINDINGS: LOWER CHEST: Persistent right pleural effusion present. There is nodular changes along the pleura on the right with cystic attenuation centrally. Overall is not significantly changed from prior. Stable pulmonary nodules in the lung bases. ABDOMEN LIVER: Unremarkable GALLBLADDER AND BILE DUCTS: Unremarkable. PANCREAS: Redemonstration of pancreatic tail lesion measuring 4.2 x 4.3 cm previously may have been f ractionally larger measuring 4.5 x 4.1 cm on 04/19/2022. This mass extends into the renal vein on serie s 202 image 50. SPLEEN: Unremarkable. ADRENAL GLANDS: Unremarkable. KIDNEYS AND URETERS: The left kidney is surgically absent no soft tissue within the surgical bed iden tified to suggest recurrence. Right kidney is without hydronephrosis or obstructive uropathy. PELVIS BLADDER: Unremarkable REPRODUCTIVE: Prostate is enlarged in size measuring 4.5 cm in transverse dimension. ABDOMEN & PELVIS STOMACH AND BOWEL: No evidence of bowel obstruction. Moderate stool burden throughout the colon. Appe ndix is normal. PERITONEUM/RETROPERITONEUM: No evidence of pneumoperitoneum or free fluid. VASCULATURE: No evidence of aortic aneurysm. MUSCULOSKELETAL: No acute osseous abnormalities, multilevel disc degeneration changes throughout the spine LYMPH NODES: No gross evidence for lymphadenopathy. SOFT TISSUE/ABDOMINAL WALL: Bilateral fat-containing. IMPRESSION: 1. No evidence for bowel obstruction or acute process within the abdomen or pelvis. There is moderat e to large stool burden. 2. There remains similar to fractionally decreased in size pancreatic tail lesion with extension/inv asion into the with splenic vein. 3. Similar right pulmonary pleural metastatic lesions. 4. Nodular changes in the lung bases are not significantly changed. 5. Prostatomegaly correlate serum PSA.
[2022-06-01 02:28] LABS: Appearance,Urine Clear (Clear); Bilirubin,Urine Negative (Negative); Blood,Urine Negative (Negative); Color,Urine Yellow; Glucose,Urine (UA) Negative (Negative); Ketones,Urine Negative (Negative); Leukocyte Esterase,Urine Negative (Negative); Nitrite,Urine Negative (Negative); Protein,Urine Trace (Negative); Urobilinogen,Urine <2.0 mg/dL (<2.0)
[2022-06-01 02:31] LABS: Specific Gravity,Urine >1.050 (1.001-1.035)
--- NOTE | 2022-06-01 02:58 | ED ---
General Adult HPI - General Chief complaint: Nausea/Vomiting/Diarrhea Stated complaint: Vomiting, Diarrhea Stage 4 Cancer Time Seen by Provider: 05/31/22 22:19 Source: patient Mode of arrival: wheelchair Limitations: no limitations - History of Present Illness Initial comments: This is a 71-year-old male with a past medical history including metastatic renal cell carcinoma on chemotherapy presented to the emergency department for and was abdominal pain, nausea, vomiting and diarrhea. The patient stated that his symptoms have been present over the last 1 day and worsening. The patient stated that he felt dehydrated speaking to the emergency department for further evaluation as he wanted to make sure that there was nothing else going on in the setting of his chemotherapy. The patient did report multiple sick contacts at home including his grandchildren. The patient did however state that there were no other people in the house with similar symptoms. The patient was resting in bed comfortably and denied any acute distress. The patient denied any fevers or chills currently. - Related Data Home Medications Medication Instructions Recorded Confirmed amLODIPine BESYLATE/BENAZEPRIL 1 cap PO DAILY 06/29/20 05/16/22 [Lotrel 5-40 MG] Montelukast [Singulair] 10 mg PO HS 10/31/21 05/16/22 Semaglutide [Ozempic] 0.25 mg SQ FR 10/31/21 05/16/22 Furosemide [Lasix] 20 mg PO DAILY 11/28/21 05/16/22 Aspirin EC [Ecotrin Low Dose] 81 mg PO DAILY 05/16/22 05/16/22 Clobetasol Propionate [Temovate 1 applic TOPICAL BID 05/16/22 05/16/22 0.05% Oint] Doxycycline Monohydrate 100 mg PO BID 05/16/22 05/16/22 Famotidine [Pepcid] 40 mg PO DAILY 05/16/22 05/16/22 Insulin Glargine,Hum.rec.anlog 8 units SQ DAILY 05/16/22 05/16/22 [Lantus Solostar Pen] Kools Solution 1 dose PO DIRECTED PRN 05/16/22 05/16/22 Levothyroxine Sodium [Synthroid] 50 mcg PO DAILY 05/16/22 05/16/22 Metoprolol Tartrate [Lopressor] 75 mg PO BID 05/16/22 05/16/22 Mupirocin 2% Oint [Bactroban 2% 1 applic TOPICAL TID 05/16/22 05/16/22 Oint] Nivolumab [Opdivo] 1 dose IV Q30D 05/16/22 05/16/22 Potassium Chloride ER [K-Dur 20] 20 meq PO DAILY 05/16/22 05/16/22 Triamcinolone 0.1% Ointment 1 applic TOPICAL BID 05/16/22 05/16/22 [Kenalog 0.1% Ointment] hydroCHLOROthiazide 12.5 mg PO DAILY 05/16/22 05/16/22 Previous Rx's Medication Instructions Recorded Cabozantinib S-Malate [Cabometyx] 40 mg PO DAILY #0 05/18/22 Nystatin 100,000 Unit/ml Susp 3,000,000 unit PO TID 10 Days #90 05/18/22 [Mycostatin Oral Susp] ml Ondansetron Odt [Zofran Odt] 4 mg PO Q8HR PRN #20 tab 06/01/22 Allergies Allergy/AdvReac Type Severity Reaction Status Date / Time peanut Allergy Anaphylaxis Verified 05/31/22 21:11 Review of Systems ROS Statement: Those systems with pertinent positive or pertinent negative responses have been documented in the HPI. ROS Other: All systems not noted in ROS Statement are negative. Past Medical History Past Medical History: Cancer, Diabetes Mellitus, Hypertension, Myocardial Infarction ([place]) Additional Past Medical History / Comment(s): Hx renal cell cancer 1998, had left radical nephrectomy. Hx RIGHT PLEURAL EFFUSIONS, HAD THORACENTESIS. Last Myocardial Infarction Date:: 06/2020 History of Any Multi-Drug Resistant Organisms: None Reported Past Surgical History: Heart Catheterization With Stent Additional Past Surgical History / Comment(s): Left radical nephrectomy, colonoscopy, thoracentesis Past Anesthesia/Blood Transfusion Reactions: Previous Problems w/ Anesthesia Additional Past Anesthesia/Blood Transfusion Reaction / Comment(s): muscle rigidity, slurred speech, hallucinations, muscle spasms Date of Last Stent Placement:: 06/2020 Past Psychological History: No Psychological Hx Reported Smoking Status: Former smoker Past Alcohol Use History: None Reported Past Drug Use History: None Reported - Past Family History Mother Family Medical History: No Reported History Father Additional Family Medical History / Comment(s): Heart disease. Sister(s) Family Medical History: Diabetes Mellitus General Exam Limitations: no limitations General appearance: alert, in no apparent distress Head exam: Present: atraumatic, normocephalic, normal inspection Eye exam: Present: normal appearance, PERRL Pupils: Present: normal accommodation ENT exam: Present: normal exam, normal oropharynx, mucous membranes moist Neck exam: Present: normal inspection, full ROM Respiratory exam: Present: normal lung sounds bilaterally Cardiovascular Exam: Present: regular rate, normal rhythm, normal heart sounds GI/Abdominal exam: Present: soft, normal bowel sounds Extremities exam: Present: normal inspection, full ROM Back exam: Present: normal inspection, full ROM Neurological exam: Present: alert, oriented X3, CN II-XII intact Psychiatric exam: Present: normal affect, normal mood Skin exam: Present: warm, dry Course Vital Signs 05/31/22 05/31/22 06/01/22 21:07 23:00 00:35 Pulse Rate 86 82 81 Respiratory 20 18 Rate Blood Pressure 122/85 91/69 105/67 O2 Sat by Pulse 98 98 98 Oximetry 06/01/22 03:25 Pulse Rate 79 Respiratory 18 Rate Blood Pressure 129/76 O2 Sat by Pulse 99 Oximetry EKG Findings - EKG Comments: EKG Findings:: In EKG was obtained and was interpreted by myself showing a rate of 86, NH interval 116, QRS duration of 1:30 and QTC of 447. This EKG showed a normal sinus rhythm with short NH interval however there was no ST segment elevation or depression noted. Medical Decision Making - Medical Decision Making Was pt. sent in by a medical professional or institution (, PA, EX CHEF, urgent care, hospital, or custodial...) When possible be specific @ -No Did you speak to anyone other than the patient for history (EMS, parent, family, police, friend...)? What history was obtained from this source @ -No Did you review nursing and triage notes (agree or disagree)? Why? @ -I reviewed and agree with nursing and triage notes Were old charts reviewed (outside hosp., previous admission, EMS record, old EKG, old radiological studies, urgent care reports/EKG's, custodial records)? Report findings @ -No old charts were reviewed Differential Diagnosis (chest pain, altered mental status, abdominal pain women, abdominal pain men, vaginal bleeding, weakness, fever, dyspnea, syncope, headache, dizziness, GI bleed, back pain, seizure, CVA, palpatations, mental health)? @ -Sepsis, gastroenteritis, UTI, pneumonia EKG interpreted by me (3pts min.). @ -As above X-rays interpreted by me (1pt min.). @ -None CT interpreted by me (1pt min.). @ -CT abdomen and pelvis with IV contrast was obtained and was interpreted by myself showing no evidence for bowel obstruction or acute process. There was moderate to large stool Birden. The metastatic lesions were at baseline and did not have significant increases. U/S interpreted by me (1pt. min.). @ -None done What testing was considered but not performed or refused? (CT, X-rays, U/S, labs)? Why? @ -None What meds were considered but not given or refused? Why? @ -None Did you discuss the management of the patient with other professionals (professionals i.e. , PA, EX CHEF, lab, RT, psych nurse, child welfare social worker, insurance agents supervisor, teacher, executive officer special warfare team, case checker)? Give summary @ -No Was smoking cessation discussed for >3mins.? @ -No Was critical care preformed (if so, how long)? @ -No Were there social determinants of health that impacted care today? How? (Homelessness, low income, unemployed, alcoholism, drug addiction, transportation, low edu. Level, literacy, decrease access to med. care, custodial, rehab)? @ -No Was there de-escalation of care discussed even if they declined (Discuss DNR or withdrawal of care, Hospice)? DNR status @ -No What co-morbidities impacted this encounter? (DM, HTN, Smoking, COPD, CAD, Cancer, CVA, ARF, Chemo, Hep., AIDS, mental health diagnosis, sleep apnea, morbid obesity)? @ -Metastatic renal cell carcinoma on chemotherapy Was patient admitted / discharged? Hospital course, mention meds given and route, prescriptions, significant lab abnormalities, going to OR and other pertinent info. @ -The patient was seen and evaluated in the emergency department. Physical exam, the patient was resting in bed without any acute distress. Vital signs admission were stable. Laboratory workup was obtained as was imaging and all workup was negative. The patient received 1 L no sealing fluid as well as 4 mg of Zofran and a reevaluation stated that his symptoms had completely resolved. The patient was deemed stable for discharge and told to follow-up with his oncologist for continued workup and evaluation. The patient was given a prescription for Zofran to be taken at home. The patient was also advised report back to the emergency department if his pain became acutely worse. The patient was agreeable to this and all discretions were answered. The patient was discharged home in stable condition. Undiagnosed new problem with uncertain prognosis? @ -No Drug Therapy requiring intensive monitoring for toxicity (Heparin, Nitro, Insulin, Cardizem)? @ -No Were any procedures done? @ -No Diagnosis/symptom? @ -Abdominal pain, nausea and vomiting likely secondary to gastroenteritis Acute, or Chronic, or Acute on Chronic? @ -Acute Uncomplicated (without systemic symptoms) or Complicated (systemic symptoms)? @ -Uncomplicated Side effects of treatment? @ -No Exacerbation, Progression, or Severe Exacerbation? @ -No Poses a threat to life or bodily function? How? (Chest pain, [place], [place], pneumonia, PE, COPD, DKA, ARF, appy, cholecystitis, CVA, Diverticulitis, Homicidal, Suicidal, threat to staff... and all critical care pts) @ -No - Lab Data Result diagrams: 05/31/22 22:50 05/31/22 22:50 Lab Results 05/31/22 05/31/22 05/31/22 Range/Units 22:38 22:50 22:50 WBC 7.4 (3.8-10.6) k/uL RBC 3.79 L (4.30-5.90) m/uL Hgb 12.5 L (13.0-17.5) gm/dL Hct 33.8 L (39.0-53.0) % MCV 89.2 (80.0-100.0) fL MCH 33.1 (25.0-35.0) pg MCHC 37.1 H (31.0-37.0) g/dL RDW 16.5 H (11.5-15.5) % Plt Count 443 D (150-450) k/uL MPV 7.7 Neutrophils % 55 % Lymphocytes % 27 % Monocytes % 5 % Eosinophils % 10 % Basophils % 0 % Neutrophils # 4.1 (1.3-7.7) k/uL Lymphocytes # 2.0 (1.0-4.8) k/uL Monocytes # 0.4 (0-1.0) k/uL Eosinophils # 0.7 (0-0.7) k/uL Basophils # 0.0 (0-0.2) k/uL Hyperchromasia Marked Poikilocytosis Moderate Anisocytosis Slight Sodium (137-145) mmol/L Potassium (3.5-5.1) mmol/L Chloride (98-107) mmol/L Carbon Dioxide (22-30) mmol/L Anion Gap mmol/L BUN (9-20) mg/dL Creatinine (0.66-1.25) mg/dL Est GFR (CKD-EPI)AfAm (>60 ml/min/1.73 sqM) Est GFR (CKD-EPI)NonAf (>60 ml/min/1.73 sqM) Glucose (74-99) mg/dL POC Glucose (mg/dL) 134 H (70-110) mg/dL POC Glu Repairer Auto Clocks ID Delvin Anthony Calcium (8.4-10.2) mg/dL Magnesium (1.6-2.3) mg/dL Total Bilirubin (0.2-1.3) mg/dL AST (17-59) U/L ALT (4-49) U/L Alkaline Phosphatase (38-126) U/L Total Protein (6.3-8.2) g/dL Albumin (3.5-5.0) g/dL Lipase (23-300) U/L Urine Color Yellow Urine Appearance Clear (Clear) Urine pH 6.0 (5.0-8.0) Ur Specific Darling >1.050 H (1.001-1.035) Urine Protein Trace H (Negative) Urine Glucose (UA) Negative (Negative) Urine Ketones Negative (Negative) Urine Blood Negative (Negative) Urine Nitrite Negative (Negative) Urine Bilirubin Negative (Negative) Urine Urobilinogen <2.0 (<2.0) mg/dL Ur Leukocyte Esterase Negative (Negative) Influenza Type A (PCR) (Not Detectd) Influenza Type B (PCR) (Not Detectd) RSV (PCR) (Not Detectd) SARS-CoV-2 (PCR) (Not Detectd) 05/31/22 05/31/22 Range/Units 22:50 22:50 WBC (3.8-10.6) k/uL RBC (4.30-5.90) m/uL Hgb (13.0-17.5) gm/dL Hct (39.0-53.0) % MCV (80.0-100.0) fL MCH (25.0-35.0) pg MCHC (31.0-37.0) g/dL RDW (11.5-15.5) % Plt Count (150-450) k/uL MPV Neutrophils % % Lymphocytes % % Monocytes % % Eosinophils % % Basophils % % Neutrophils # (1.3-7.7) k/uL Lymphocytes # (1.0-4.8) k/uL Monocytes # (0-1.0) k/uL Eosinophils # (0-0.7) k/uL Basophils # (0-0.2) k/uL Hyperchromasia Poikilocytosis Anisocytosis Sodium 130 L (137-145) mmol/L Potassium 3.9 (3.5-5.1) mmol/L Chloride 92 L (98-107) mmol/L Carbon Dioxide 31 H (22-30) mmol/L Anion Gap 7 mmol/L BUN 21 H (9-20) mg/dL Creatinine 0.98 (0.66-1.25) mg/dL Est GFR (CKD-EPI)AfAm >90 (>60 ml/min/1.73 sqM) Est GFR (CKD-EPI)NonAf 78 (>60 ml/min/1.73 sqM) Glucose 120 H (74-99) mg/dL POC Glucose (mg/dL) (70-110) mg/dL POC Glu Repairer Auto Clocks ID Calcium 8.3 L (8.4-10.2) mg/dL Magnesium 1.9 (1.6-2.3) mg/dL Total Bilirubin 0.7 (0.2-1.3) mg/dL AST 73 H (17-59) U/L ALT 70 H (4-49) U/L Alkaline Phosphatase 225 H (38-126) U/L Total Protein 6.4 (6.3-8.2) g/dL Albumin 3.3 L (3.5-5.0) g/dL Lipase 124 (23-300) U/L Urine Color Urine Appearance (Clear) Urine pH (5.0-8.0) Ur Specific Darling (1.001-1.035) Urine Protein (Negative) Urine Glucose (UA) (Negative) Urine Ketones (Negative) Urine Blood (Negative) Urine Nitrite (Negative) Urine Bilirubin (Negative) Urine Urobilinogen (<2.0) mg/dL Ur Leukocyte Esterase (Negative) Influenza Type A (PCR) Not Detected (Not Detectd) Influenza Type B (PCR) Not Detected (Not Detectd) RSV (PCR) Not Detected (Not Detectd) SARS-CoV-2 (PCR) Not Detected (Not Detectd) Disposition Clinical Impression: Gastroenteritis Disposition: HOME SELF-CARE Condition: Stable Instructions (If sedation given, give patient instructions): Gastroenteritis (DC) Prescriptions: Ondansetron Odt [Zofran Odt] 4 mg PO Q8HR PRN #20 tab PRN Reason: Nausea Is patient prescribed a controlled substance at d/c from ED?: No Referrals: Yonatan Wise MD [Primary Care Provider] - 1-2 days Time of Disposition: 02:45
[2022-06-01 03:27] VITALS: BP 129/76; PULSE 79
== END 2022-06-01 03:27 | disposition home or self-care (01) ==
LOC: EC 20:48
DX: K52.9 Noninfective gastroenteritis and colitis, unspecified (principal); E11.9 Type 2 diabetes mellitus without complications; I10 Essential (primary) hypertension; I25.2 Old myocardial infarction; Z87.891 Personal history of nicotine dependence; Z91.010 Allergy to peanuts; Z85.528 Personal history of other malignant neoplasm of kidney; Z79.82 Long term (current) use of aspirin; Z79.4 Long term (current) use of insulin; Z79.899 Other long term (current) drug therapy; Z20.822 Contact with and (suspected) exposure to COVID-19
CPT/HCPCS: 36415; 93005; 80053; 83690; 83735; 85025; 81003; 87636; 74177; 99284; 96374; 96361; J2405; Q9967

== ENCOUNTER 2022-06-07 11:35 | Inpatient (IN) | payer MEDICARE ==
[2022-06-07] MEDS ORDERED: SODIUM CHLORIDE 0.9% 1,000 ML IV STA (12:23)
--- NOTE | 2022-06-07 12:23 | ED ---
General Adult HPI - General Chief complaint: Weakness Stated complaint: Nausea,Vomiting Time Seen by Provider: 06/07/22 12:04 Source: patient, family Mode of arrival: wheelchair Limitations: no limitations - History of Present Illness Initial comments: Dictation was produced using [employer] dictation software. please excuse any grammatical, word or spelling errors. Chief Complaint: 71-year-old male presents to the emergency department for nausea vomiting abdominal pain History of Present Illness: 71-year-old male presents emergency department for nausea, vomiting abdominal pain. This is patient's third visit in the last month or so. I saw him the first time and put him in the hospital. He came in a separate occasion was discharged home. Family member at the bedside endorses patient's history present illness. Patient states that he feels weak and his mother is really dry. Has been having some bouts of nonbilious nonbloody emesis. He does have is mild vague abdominal pain. Significant other states that they were measuring his temperatures at home with low-grade temperatures. The ROS documented in this emergency department record has been reviewed and confirmed by me. Those systems with pertinent positive or negative responses have been documented in the HPI. All other systems are other negative and/or noncontributory. - Related Data Home Medications Medication Instructions Recorded Confirmed amLODIPine BESYLATE/BENAZEPRIL 1 cap PO DAILY 06/29/20 06/07/22 [Lotrel 5-40 MG] Montelukast [Singulair] 10 mg PO HS 10/31/21 06/07/22 Semaglutide [Ozempic] 0.25 mg SQ FR 10/31/21 06/07/22 Furosemide [Lasix] 20 mg PO DAILY 11/28/21 06/07/22 Aspirin EC [Ecotrin Low Dose] 81 mg PO DAILY 05/16/22 06/07/22 Clobetasol Propionate [Temovate 1 applic TOPICAL BID 05/16/22 06/07/22 0.05% Oint] Famotidine [Pepcid] 40 mg PO DAILY 05/16/22 06/07/22 Insulin Glargine,Hum.rec.anlog 8 units SQ DAILY 05/16/22 06/07/22 [Lantus Solostar Pen] Kools Solution 1 dose PO DIRECTED PRN 05/16/22 06/07/22 Levothyroxine Sodium [Synthroid] 50 mcg PO DAILY 05/16/22 06/07/22 Metoprolol Tartrate [Lopressor] 75 mg PO BID 05/16/22 06/07/22 Mupirocin 2% Oint [Bactroban 2% 1 applic TOPICAL TID 05/16/22 06/07/22 Oint] Nivolumab [Opdivo] 1 dose IV Q30D 05/16/22 06/07/22 Potassium Chloride ER [K-Dur 20] 20 meq PO DAILY 05/16/22 06/07/22 Triamcinolone 0.1% Ointment 1 applic TOPICAL BID 05/16/22 06/07/22 [Kenalog 0.1% Ointment] hydroCHLOROthiazide 12.5 mg PO DAILY 05/16/22 06/07/22 Previous Rx's Medication Instructions Recorded Cabozantinib S-Malate [Cabometyx] 40 mg PO DAILY #0 05/18/22 Ondansetron Odt [Zofran Odt] 4 mg PO Q8HR PRN #20 tab 06/01/22 Allergies Allergy/AdvReac Type Severity Reaction Status Date / Time peanut Allergy Anaphylaxis Verified 06/07/22 13:03 Review of Systems ROS Statement: Those systems with pertinent positive or pertinent negative responses have been documented in the HPI. ROS Other: All systems not noted in ROS Statement are negative. Past Medical History Past Medical History: Cancer, Diabetes Mellitus, Hypertension, Myocardial Infarction ([place]) Additional Past Medical History / Comment(s): Hx renal cell cancer 1998, had left radical nephrectomy. Hx RIGHT PLEURAL EFFUSIONS, HAD THORACENTESIS. Last Myocardial Infarction Date:: 06/2020 History of Any Multi-Drug Resistant Organisms: None Reported Past Surgical History: Heart Catheterization With Stent Additional Past Surgical History / Comment(s): Left radical nephrectomy, colonoscopy, thoracentesis Past Anesthesia/Blood Transfusion Reactions: Previous Problems w/ Anesthesia Additional Past Anesthesia/Blood Transfusion Reaction / Comment(s): muscle rigidity, slurred speech, hallucinations, muscle spasms Date of Last Stent Placement:: 06/2020 Past Psychological History: No Psychological Hx Reported Smoking Status: Former smoker Past Alcohol Use History: None Reported Past Drug Use History: None Reported - Past Family History Mother Family Medical History: No Reported History Father Additional Family Medical History / Comment(s): Heart disease. Sister(s) Family Medical History: Diabetes Mellitus General Exam - General Exam Comments Initial Comments: PHYSICAL EXAM: General Impression: Alert and oriented x3, not in acute distress HEENT: Normocephalic atraumatic, extra-ocular movements intact, pupils equal and reactive to light bilaterally, dry mucous membranes Cardiovascular: Heart regular rate and rhythm Chest: Able to complete full sentences, no retractions, no tachypnea Abdomen: abdomen soft, non-tender, non-distended, no organomegaly Musculoskeletal: Pulses present and equal in all extremities, no peripheral edema Motor: no focal deficits noted Neurological: CN II-XII grossly intact, no focal motor or sensory deficits noted Skin: Intact with no visualized rashes Psych: Normal affect and mood Limitations: no limitations Course Vital Signs 06/07/22 06/07/22 06/07/22 11:57 12:29 12:31 Temperature 98.6 F Pulse Rate 121 H 109 H Respiratory 20 20 18 Rate Blood Pressure 103/71 99/64 O2 Sat by Pulse 96 88 L Oximetry 06/07/22 06/07/22 13:01 15:00 Temperature Pulse Rate 110 H 110 H Respiratory 20 20 Rate Blood Pressure 101/63 99/62 O2 Sat by Pulse 100 99 Oximetry Medical Decision Making - Medical Decision Making Was pt. sent in by a medical professional or institution (LAYLA Moise, PROGRAM WRITER, urgent care, hospital, or shelter...) When possible be specific @ -Sent from primary care physician's office Did you speak to anyone other than the patient for history (EMS, parent, family, police, friend...)? What history was obtained from this source @ - at the bedside provides majority of HPI. Some history was also obtained from patient's primary care physician Today so His Blood Pressure Was Borderline Low Did you review nursing and triage notes (agree or disagree)? Why? @ -I reviewed and agree with nursing and triage notes Were old charts reviewed (outside hosp., previous admission, EMS record, old EKG, old radiological studies, urgent care reports/EKG's, shelter records)? Report findings @ -Previous chart was reviewed from recent admission showing the patient was here for debility Differential Diagnosis (chest pain, altered mental status, abdominal pain women, abdominal pain men, vaginal bleeding, musculoskeletal, weakness, fever, dyspnea, syncope, headache, dizziness, GI bleed, back pain, seizure, CVA, palpatations, mental health)? @ -Differential Weakness: Hypoglycemia, shock, sepsis, hyponatremia, anemia, infection, LA, ETOH, adverse medicine reaction, overdose, stroke, this is not meant to be an all-inclusive list. EKG interpreted by me (3pts min.). @ -My EKG interpretation: Ventricular rate 109, QRS 1:30, QTC 423. no QTC prolongation, no ST or T-wave changes noted. Overall this EKG is nonspecific. Evaluated computer interpretation of atrial flutter. They QRS intervals. Irregular however there does not appear to be any obvious discernible P waves. X-rays interpreted by me (1pt min.). @ -Acute abdominal series is unremarkable. Chest x-ray shows no acute processes CT interpreted by me (1pt min.). @ -None done U/S interpreted by me (1pt. min.). @ -None done What testing was considered but not performed or refused? (CT, X-rays, U/S, labs)? Why? @ -None What meds were considered but not given or refused? Why? @ -None Did you discuss the management of the patient with other professionals (professionals i.e. , PA, PROGRAM WRITER, lab, RT, psych nurse, social service manager, bleacher [employer], teacher, energy control officer, case preparer and liner)? Give summary @ -Case discussed Dr. Wise for admission Was smoking cessation discussed for >3mins.? @ -No Was critical care preformed (if so, how long)? @ -No Were there social determinants of health that impacted care today? How? (Homelessness, low income, unemployed, alcoholism, drug addiction, transportation, low edu. Level, literacy, decrease access to med. care, half-way, rehab)? @ -No Was there de-escalation of care discussed even if they declined (Discuss DNR or withdrawal of care, Hospice)? DNR status @ -No What co-morbidities impacted this encounter? (DM, HTN, Smoking, COPD, CAD, Cancer, CVA, ARF, Chemo, Hep., AIDS, mental health diagnosis, sleep apnea, morbi d obesity)? @ -Renal cell carcinoma Was patient admitted / discharged? Hospital course, mention meds given and route, prescriptions, significant lab abnormalities, going to OR and other pertinent info. @ -71-year-old male with multiple comorbidities presents to the emergency department for low blood pressure, dehydration persistent nausea and vomiting. Labs shows that patient has potassium 2.6. Rest of labs within acceptable limits. Patient be admitted. Given IV potassium and IV hydration. Will be admitted. Undiagnosed new problem with uncertain prognosis? @ -No Drug Therapy requiring intensive monitoring for toxicity (Heparin, Nitro, Insulin, Cardizem)? @ -No Were any procedures done? @ -No Diagnosis/symptom? Acute, or Chronic, or Acute on Chronic? Uncomplicated (without systemic symptoms) or Complicated (systemic symptoms)? @ -1. Acute Complicated hyperkalemia, 2. Dehydration Side effects of treatment? @ -No Exacerbation, Progression, or Severe Exacerbation? @ -No Poses a threat to life or bodily function? How? (Chest pain, USA, LA, pneumonia, PE, COPD, DKA, ARF, appy, cholecystitis, CVA, Diverticulitis, Homicidal, Suicidal, threat to staff... and all critical care pts) @ -yes - Lab Data Result diagrams: 06/07/22 12:26 06/07/22 12:26 Lab Results 06/07/22 06/07/22 Range/Units 12:26 12:26 WBC 8.2 (3.8-10.6) k/uL RBC 3.50 L (4.30-5.90) m/uL Hgb 11.7 L (13.0-17.5) gm/dL Hct 32.3 L (39.0-53.0) % MCV 92.4 (80.0-100.0) fL MCH 33.5 (25.0-35.0) pg MCHC 36.2 (31.0-37.0) g/dL RDW 15.8 H (11.5-15.5) % Plt Count 237 (150-450) k/uL MPV 7.7 Neutrophils % 59 % Lymphocytes % 22 % Monocytes % 7 % Eosinophils % 10 % Basophils % 0 % Neutrophils # 4.8 (1.3-7.7) k/uL Lymphocytes # 1.8 (1.0-4.8) k/uL Monocytes # 0.6 (0-1.0) k/uL Eosinophils # 0.8 H (0-0.7) k/uL Basophils # 0.0 (0-0.2) k/uL Hyperchromasia Moderate Poikilocytosis Moderate Sodium 131 L (137-145) mmol/L Potassium 2.6 L* (3.5-5.1) mmol/L Chloride 89 L (98-107) mmol/L Carbon Dioxide 34 H (22-30) mmol/L Anion Gap 8 mmol/L BUN 19 (9-20) mg/dL Creatinine 0.99 (0.66-1.25) mg/dL Est GFR (CKD-EPI)AfAm 88 (>60 ml/min/1.73 sqM) Est GFR (CKD-EPI)NonAf 76 (>60 ml/min/1.73 sqM) Glucose 121 H (74-99) mg/dL Calcium 8.1 L (8.4-10.2) mg/dL Magnesium 1.7 (1.6-2.3) mg/dL Total Bilirubin 1.5 H (0.2-1.3) mg/dL AST 55 (17-59) U/L ALT 44 (4-49) U/L Alkaline Phosphatase 214 H (38-126) U/L Total Protein 6.3 (6.3-8.2) g/dL Albumin 3.1 L (3.5-5.0) g/dL Lipase 141 (23-300) U/L Disposition Clinical Impression: Dehydration, Hypokalemia Disposition: ADMITTED IP TO THIS [facility] Condition: Fair Referrals: Yonatan Wise MD [Primary Care Provider] - 1-2 days Decision Time: 15:04
[2022-06-07 12:56] LABS: Basophils % (A) 0 %; Eosinophils # (A) 0.8 k/uL (0-0.7); Eosinophils % (A) 10 %; HCT 32.3 % (39.0-53.0); HGB 11.7 gm/dL (13.0-17.5); Hyperchromasia Moderate; Lymphocytes # (A) 1.8 k/uL (1.0-4.8); Lymphocytes % (A) 22 %; MCH 33.5 pg (25.0-35.0); MCHC 36.2 g/dL (31.0-37.0); MCV 92.4 fL (80.0-100.0); Mean Platelet Volume 7.7; Monocytes # (A) 0.6 k/uL (0-1.0); Monocytes % (A) 7 %; Neutrophils # (A) 4.8 k/uL (1.3-7.7); Neutrophils % (A) 59 %; Platelet Count 237 k/uL (150-450); Poikilocytosis Moderate; RDW 15.8 % (11.5-15.5); WBC 8.2 k/uL (3.8-10.6)
[2022-06-07 13:15] LABS: Albumin 3.1 g/dL (3.5-5.0); Calcium 8.1 mg/dL (8.4-10.2); Magnesium 1.7 mg/dL (1.6-2.3); Total Bilirubin 1.5 mg/dL (0.2-1.3); Total Protein 6.3 g/dL (6.3-8.2)
--- NOTE | 2022-06-07 13:36 | XR ---
EXAMINATION TYPE: XR abdomen acute w cxr DATE OF EXAM: 06/07/2022 CLINICAL HISTORY: Nausea vomiting and diarrhea. TECHNIQUE: Single frontal view of chest is obtained. Supine and upright views of the abdomen are acq uired. COMPARISON: Chest x-ray May 16, 2022. CT abdomen and pelvis May 31, 2022. FINDINGS: Stable small right pleural effusion with associated right basilar opacity favoring atelecta sis. Left lung is clear. Cardiac silhouette size appears stable and within normal limits. Osseous s tructures are intact. Surgical clips in the upper to mid abdomen just left of midline is redemonstrated. Scattered gas in n ondistended small and large bowel loops is redemonstrated. Multilevel spurring in the spine is redemo nstrated. No free air. IMPRESSION: 1. Stable small right pleural effusion with associated right basilar atelectasis. No significant simental ge from most recent x-ray. 2. Overall nonobstructive bowel gas pattern redemonstrated.
[2022-06-07 13:56] LABS: Potassium 2.6 mmol/L (3.5-5.1)
[2022-06-07] MEDS ORDERED: POTASSIUM CHLORIDE 40 MEQ in WATER FOR INJECTION 1 100ML.BAG IVPB STA (14:36)
[2022-06-07] MEDS ORDERED: POTASSIUM CHLORIDE ER 20 MEQ TAB.ER PO STA (14:37)
[2022-06-07] MEDS ORDERED: NALOXONE 0.4 MG/ML 1 ML VIAL IV PRN (14:57)
[2022-06-07] MEDS: SODIUM CHLORIDE 0.9% 1,000 ML IV SCH (15:16)
[2022-06-07] MEDS ORDERED: [UNRECOGNIZED DRUG - OTHER] PO PRN (21:50)
[2022-06-07] MEDS ORDERED: MAG HYDROX/AL HYDROX/SIMETH 30 ML, LIDOCAINE VISCOUS 2% 30 ML, diphenhydrAMINE ELIXIR 7... PO PRN ×4 (22:10)
[2022-06-07] MEDS: METOPROLOL TARTRATE 25 MG TAB PO SCH (22:33)
[2022-06-08] MEDS: SODIUM CHLORIDE 0.9% 1,000 ML IV SCH ×2 (04:06→17:55)
[2022-06-08] MEDS: LEVOTHYROXINE 50 MCG TAB PO SCH (05:43)
[2022-06-08] MEDS ORDERED: SODIUM CHLORIDE 0.9% 1,000 ML IV ONE (05:55)
[2022-06-08] MEDS: ONDANSETRON 4 MG/2 ML VIAL IVP PRN (06:10)
[2022-06-08] MEDS: FUROSEMIDE 20 MG TAB PO SCH (08:22)
[2022-06-08] MEDS: METOPROLOL TARTRATE 25 MG TAB PO SCH ×2 (08:23→19:30)
[2022-06-08] MEDS: NON FORMULARY DRUG (Cabozantinib S-Malate [Cabometyx] 40 MG Tablet) PO SCH (08:23)
[2022-06-08] MEDS: ASPIRIN 81 MG PO SCH (08:23)
[2022-06-08] MEDS: POTASSIUM CHLORIDE ER 20 MEQ TAB.ER PO SCH (08:23)
[2022-06-08] MEDS ORDERED: Potassium Replacement Protocol 1 EACH MISC MISCELLANE PRN (09:59)
[2022-06-08 12:08] LABS: African American GFR (CKD) >90 (>60 ml/min/1.73 sqM); Anion Gap 8 mmol/L; Blood Urea Nitrogen 14 mg/dL (9-20); Calcium 7.3 mg/dL (8.4-10.2); Carbon Dioxide 22 mmol/L (22-30); Chloride 101 mmol/L (98-107); Glucose 57 mg/dL (74-99); Non-African American GFR(CKD) >90 (>60 ml/min/1.73 sqM); Sodium 131 mmol/L (137-145)
[2022-06-08 12:09] LABS: Potassium 3.3 mmol/L (3.5-5.1)
[2022-06-08] MEDS ORDERED: POTASSIUM CHLORIDE ER 20 MEQ TAB.ER PO STA (12:29)
[2022-06-08] MEDS ORDERED: POTASSIUM CHLORIDE 20 MEQ in WATER FOR INJECTION 1 100ML.BAG IVPB ONE (13:30)
[2022-06-08] MEDS: MONTELUKAST 10 MG TAB PO SCH (19:30)
[2022-06-08] MEDS: FAMOTIDINE 20 MG/2 ML VIAL IV SCH (19:30)
[2022-06-09] MEDS: LEVOTHYROXINE 50 MCG TAB PO SCH (05:36)
[2022-06-09] MEDS: SODIUM CHLORIDE 0.9% 1,000 ML IV SCH (05:41)
[2022-06-09] MEDS: METOPROLOL TARTRATE 25 MG TAB PO SCH ×2 (08:03→19:45)
[2022-06-09] MEDS: ASPIRIN 81 MG PO SCH (08:03)
[2022-06-09] MEDS: NON FORMULARY DRUG (Cabozantinib S-Malate [Cabometyx] 40 MG Tablet) PO SCH (08:04)
[2022-06-09] MEDS: POTASSIUM CHLORIDE ER 20 MEQ TAB.ER PO SCH (08:04)
[2022-06-09] MEDS: FUROSEMIDE 20 MG TAB PO SCH (08:04)
[2022-06-09] MEDS: FAMOTIDINE 20 MG/2 ML VIAL IV SCH ×2 (08:50→19:45)
[2022-06-09] MEDS: ONDANSETRON 4 MG/2 ML VIAL IVP PRN (09:25)
[2022-06-09 11:14] LABS: HCT 31.6 % (39.0-53.0); HGB 11.1 gm/dL (13.0-17.5); Hyperchromasia Slight; MCH 33.5 pg (25.0-35.0); MCHC 35.2 g/dL (31.0-37.0); Platelet Count 134 k/uL (150-450); Poikilocytosis Moderate; RBC 3.33 m/uL (4.30-5.90); RDW 15.5 % (11.5-15.5); WBC 6.4 k/uL (3.8-10.6)
[2022-06-09 11:15] LABS: African American GFR (CKD) >90 (>60 ml/min/1.73 sqM); Anion Gap 6 mmol/L; Blood Urea Nitrogen 9 mg/dL (9-20); Carbon Dioxide 28 mmol/L (22-30); Chloride 95 mmol/L (98-107); Glucose 131 mg/dL (74-99); Non-African American GFR(CKD) >90 (>60 ml/min/1.73 sqM); Potassium 3.6 mmol/L (3.5-5.1); Sodium 129 mmol/L (137-145)
[2022-06-09 11:17] LABS: Calcium 6.8 mg/dL (8.4-10.2)
[2022-06-09] MEDS: DEXTROSE 5%-0.9% NACL 1,000 ML IV SCH (14:06)
[2022-06-09] MEDS ORDERED: ONDANSETRON 4 MG/2 ML VIAL IVP PRN (16:30)
--- NOTE | 2022-06-09 17:10 | P.CONS ---
History of Present Illness - Reason for Consult Consult date: 06/09/22 hx of RCC Requesting physician: Blue [place] - Chief Complaint n/v, generalized weakness - History of Present Illness Patient is a 71-year-old male with a significant history of renal cell carcinoma. He is a patient of Dr. Braga. He has a remote history of renal cell carcinoma s/p left nephrectomy in 1998. In August/2021,he had a CXR in October/2021 which revealed large right pleural effusion was admitted to the [facility], underwent thoracentesis, cytology was negative. CT scan of chest which revealed evidence of mediastinal nodes, he then underwent bronchoscopy ,washing/lavage were negative. PET scan done on 11/27/2021 revealed multiple nodular uptake in right posterior pleura,size up to 5.4 cm,large paratrecheal node 3.3 x 2.8 x 4 cm ,soft tissue mass in the left kidney bed. On 11/29/2021, he underwent EBUS, FNA of mediastinal nodes were non diagnostic. 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 He was started on cabometyx and opdivo, and is s/p completion of cycle 6 on 06/05/22. CT CAP on 04/19/22 revealed improvement in disease. Patient presented to the emergency room for persisting nausea and vomiting and abdominal cramping and generalized weakness. states that over the last 3 weeks patient has had difficulties with oral intake and vomits within 1-2 hours after eating most days. He also reports abdominal cramping when vomiting and progressing generalized weakness. states patient has more lethargic today and vomited once this morning after trying to eat breakfast. Patient denies any diarrhea, blood in stool, melena, hematemesis, fever and chills. Acute abdominal series upon admission showed small right pleural effusion with associated right basilar atelectasis, no significant changes. Nonobstructive kyrie wel gas pattern. Blood cultures obtained. T max 99.8. WBC 6.4, hgb 11.1, platelets 134,000 Review of Systems 10 point ROS is negative except as stated in the HPI Past Medical History Past Medical History: Cancer, Diabetes Mellitus, Hypertension, Myocardial Infarction ([place]) Additional Past Medical History / Comment(s): Hx renal cell cancer 1998, had left radical nephrectomy. Hx RIGHT PLEURAL EFFUSIONS, HAD THORACENTESIS. Last Myocardial Infarction Date:: 06/2020 History of Any Multi-Drug Resistant Organisms: None Reported Past Surgical History: Heart Catheterization With Stent Additional Past Surgical History / Comment(s): Left radical nephrectomy, colonoscopy, thoracentesis Past Anesthesia/Blood Transfusion Reactions: Previous Problems w/ Anesthesia Additional Past Anesthesia/Blood Transfusion Reaction / Comm: muscle rigidity, slurred speech, hallucinations, muscle spasms Date of Last Stent Placement:: 06/2020 Past Psychological History: No Psychological Hx Reported Smoking Status: Former smoker Past Alcohol Use History: None Reported Additional Past Alcohol Use History / Comment(s): Quit smoking in 1989. Past Drug Use History: None Reported - Past Family History Mother Family Medical History: No Reported History Father Additional Family Medical History / Comment(s): Heart disease. Sister(s) Family Medical History: Diabetes Mellitus Medications and Allergies Home Medications Medication Instructions Recorded Confirmed Type amLODIPine BESYLATE/BENAZEPRIL 1 cap PO DAILY 06/29/20 06/07/22 History [Lotrel 5-40 MG] Montelukast [Singulair] 10 mg PO HS 10/31/21 06/07/22 History Semaglutide [Ozempic] 0.25 mg SQ FR 10/31/21 06/07/22 History Furosemide [Lasix] 20 mg PO DAILY 11/28/21 06/07/22 History Aspirin EC [Ecotrin Low Dose] 81 mg PO DAILY 05/16/22 06/07/22 History Clobetasol Propionate [Temovate 1 applic TOPICAL BID 05/16/22 06/07/22 History 0.05% Oint] Famotidine [Pepcid] 40 mg PO DAILY 05/16/22 06/07/22 History Insulin Glargine,Hum.rec.anlog 8 units SQ DAILY 05/16/22 06/07/22 History [Lantus Solostar Pen] Kools Solution 1 dose PO DIRECTED PRN 05/16/22 06/07/22 History Levothyroxine Sodium [Synthroid] 50 mcg PO DAILY 05/16/22 06/07/22 History Metoprolol Tartrate [Lopressor] 75 mg PO BID 05/16/22 06/07/22 History Mupirocin 2% Oint [Bactroban 2% 1 applic TOPICAL TID 05/16/22 06/07/22 History Oint] Nivolumab [Opdivo] 1 dose IV Q30D 05/16/22 06/07/22 History Potassium Chloride ER [K-Dur 20] 20 meq PO DAILY 05/16/22 06/07/22 History Triamcinolone 0.1% Ointment 1 applic TOPICAL BID 05/16/22 06/07/22 History [Kenalog 0.1% Ointment] hydroCHLOROthiazide 12.5 mg PO DAILY 05/16/22 06/07/22 History Cabozantinib S-Malate [Cabometyx] 40 mg PO DAILY #0 05/18/22 06/07/22 Rx Ondansetron Odt [Zofran Odt] 4 mg PO Q8HR PRN #20 tab 06/01/22 06/07/22 Rx Allergies Allergy/AdvReac Type Severity Reaction Status Date / Time peanut Allergy Anaphylaxis Verified 06/07/22 13:03 Physical Exam Vitals: Vital Signs Temp Pulse Resp BP Pulse Ox 06/09/22 07:28 98.5 F 116 H 16 133/77 96 06/09/22 01:41 99.6 F 108 H 18 154/78 97 06/08/22 21:05 111 H 06/08/22 19:45 18 06/08/22 19:19 97.6 F 127 H 18 111/74 95 Intake and Output 06/08/22 06/09/22 06/09/22 22:59 06:59 14:59 Intake Total 1200 Output Total 600 Balance 600 Intake: Intake, IV Titration 900 Amount Sodium Chloride 0.9% 1, 900 000 ml @ 75 mls/hr IV . [id number] [facility] Rx#:[id number] Oral 300 Output: Urine 600 Other: Voiding Method Urinal Urinal Diaper Diaper # Voids 1 - Constitutional General appearance: average body habitus, no acute distress - EENT Eyes: anicteric sclerae, EOMI ENT: hearing grossly normal - Respiratory Respiratory: bilateral: CTA - Cardiovascular Rhythm: regular Heart sounds: normal: S1, S2 Abnormal Heart Sounds: no systolic murmur, no diastolic murmur, no rub, no S3 Gallop, no S4 Gallop, no click, no other - Gastrointestinal General gastrointestinal: no distended, soft, no tenderness - Integumentary Integumentary: pale - Neurologic lethargic - Musculoskeletal Musculoskeletal: generalized weakness - Psychiatric Psychiatric: A&O x's 3, intact judgment & insight Results CBC & Chem 7: 06/09/22 10:54 06/09/22 10:54 Labs: Abnormal Lab Results - Last 24 Hours (Table) 06/08/22 06/09/22 06/09/22 Range/Units 11:00 10:54 10:54 RBC 3.33 L (4.30-5.90) m/uL Hgb 11.1 L (13.0-17.5) gm/dL Hct 31.6 L (39.0-53.0) % Plt Count 134 L (150-450) k/uL Sodium 131 L 129 L (137-145) mmol/L Potassium 3.3 L (3.5-5.1) mmol/L Chloride 95 L (98-107) mmol/L Creatinine 0.61 L (0.66-1.25) mg/dL Glucose 57 L 131 H (74-99) mg/dL Calcium 7.3 L 6.8 L (8.4-10.2) mg/dL Microbiology - Last 24 Hours (Table) 06/07/22 12:05 Blood Culture - Preliminary Blood 06/07/22 12:20 Blood Culture - Preliminary Blood Abdominal x-ray: report reviewed Assessment and Plan (1) Intractable nausea and vomiting Current Visit: Yes Status: Acute Priority: High Code(s): R11.2 - NAUSEA WITH VOMITING, UNSPECIFIED SNOMED Code(s): 465291977 (2) Clear cell renal cell carcinoma Current Visit: Yes Status: Chronic Priority: High Code(s): C64.9 - MALIGNANT NEOPLASM OF UNSP KIDNEY, EXCEPT RENAL PELVIS SNOMED Code(s): 666177083 Plan: Intractable nausea/vomiting: -Patient is experiencing persisting nausea/vomiting with eating x 3 weeks. Difficulty tolerating oral intake. Diet switched to clear liquids. D5 0.9 fluid started. -Acute abdominal series upon admission showed small right pleural effusion with associated right basilar atelectasis, no significant changes. Nonobstructive bowel gas pattern. -No abdominal tenderness on exam, however due to persisting n/v with oral intake will obtain CT chest/abd/pelvis with contrast for further evaluation -Compazine q8hrs, and zofran prn for symptom management. -Could be side effect of cabometyx, will hold for now while pt is recovering RCC: -Currently on cabometyx and opdivo, and is s/p completion of cycle 6 on 06/05/22. -CT CAP on 04/19/22 revealed improvement in disease. -As stated above, will hold cabometyx for now -Will schedule clinic f/u within [address] Braga -WBC 6.4, hemoglobin 11.1, platelets 134,000. Will continue to monitor -Thyroid studies obtained in clinic on 05/23/22, TSH 6.83, T4 8.3, T3 uptake 28%, Cortisol 4.3
[2022-06-09] MEDS: PROCHLORPERAZINE INJ 10 MG/2 ML VIAL IVP SCH ×2 (17:13→23:23)
--- NOTE | 2022-06-09 18:27 | CT ---
EXAMINATION TYPE: CT ChestAbdPelvis w con CT DLP: 1742.1 mGycm, Automated exposure control for dose reduction was used. DATE OF EXAM: 06/09/2022 6:01 PM COMPARISON: CT abdomen pelvis 05/31/2022, CT chest abdomen pelvis 04/19/2022 CLINICAL INDICATION:Male, 71 years old with history of intractable n/v, hx metastatic renal cell carc inoma; PHH, intractable n/v, hx metastatic renal cell carcinoma Technique: Multiple axial images of the chest, abdomen, and pelvis were obtained. Two-dimensional cor onal and sagittal reconstructions were obtained. Contrast used:100ml mL of Isovue 300 with IV Contrast, Oral contrast used: without Oral Contrast Findings: CHEST: LUNGS/ PLEURA: Right pleural effusion with passive atelectasis. Persistent nodular changes along the right pleura. Small nodule versus loculated effusion within the right major fissure (series 4, image 31). Groundglass nodule measures 9 mm in the left lower lobe (series 4, image 34), similar to prior e xam. AIRWAY: Patent and unremarkable. HEART: Size within normal limits.Increased density within the coronary arteries may relate to scleros is versus vascular stents. MEDIASTINUM: Multiple enlarged mediastinal lymph nodes, some of which demonstrate central low attenua tion, reference lymph nodes include: 2.0 cm right paratracheal lymph node (series 3, image 21), and s ubcarinal lymph node measuring 1.7 cm (series 3, image 29). Right pericardial lymph node measures 1.3 cm (series 3, image 40). VASCULATURE: Atherosclerotic calcifications are present throughout the aorta and its branches. MUSCULOSKELETAL: Patchy lytic changes involving the anterior right sixth and seventh ribs focal lytic lesion in the right 11th rib. Lytic destructive changes involving the anterior left 11th and 9th rib s (series 8, image 122). SOFT TISSUES/LYMPH NODES: Unremarkable. LOWER NECK: Large right cystic thyroid nodule (series 3, image 6).. ABDOMEN: ABDOMEN LIVER: Unremarkable GALLBLADDER AND BILE DUCTS: Unremarkable. PANCREAS: Demonstration of pancreatic tail lesion today measuring 4.1 x 4.2 cm, not significantly crissy nged from earlier examination. Mass is seen invading and focally expanding the left renal vein (serie s 3, image 61). SPLEEN: Unremarkable. ADRENAL GLANDS: Unremarkable. KIDNEYS AND URETERS: Left kidney is surgically absent. No suspicious soft tissue nodularity within th e surgical bed to suggest recurrence. Right kidney is normal in appearance. No right hydronephrosis. PELVIS BLADDER: Unremarkable REPRODUCTIVE: Prostate is enlarged. ABDOMEN & PELVIS STOMACH AND BOWEL: Stomach and duodenum are unremarkable. Scattered diverticula are noted throughout the colon. No evidence of bowel obstruction. PERITONEUM: No evidence of pneumoperitoneum or free fluid. VASCULATURE: Mild atherosclerotic calcifications are present throughout the abdominal aorta and its b ranches. MUSCULOSKELETAL: No acute osseous abnormalities. Focal sclerosis within the left iliac, likely enosto sis. Moderate disc degeneration changes are present throughout the thoracolumbar spine. LYMPH NODES: No gross evidence for lymphadenopathy. SOFT TISSUE/ABDOMINAL WALL: Bilateral fat-containing inguinal hernias. IMPRESSION: 1. No evidence for acute process within the abdomen and pelvis to correlate with patient's nausea and vomiting. 2. Similar size and appearance of a pancreatic tail mass with invasion into the splenic vein. 3. Similar right pulmonary pleural metastatic lesions. 4. Lytic changes involving the lower ribs bilaterally as detailed above. 5. Stable left lower lobe ground glass pulmonary nodule, previously described nodules are partially o bscured from right pleural effusion. 6. Similar mediastinal adenopathy.
[2022-06-09] MEDS: MONTELUKAST 10 MG TAB PO SCH (19:45)
--- NOTE | 2022-06-10 00:55 | P.HPIM ---
History of Present Illness H&P Date: 06/08/22 Chief Complaint: Nausea and vomiting Patient is a 71-year-old male with a known history of hypertension, diabetes type 2, history of CO, coronary artery with history of stent placement, history of renal cell cancer with left nephrectomy and is currently undergoing chemotherapy and prior history of smoking presents to ER with complaints of nausea and vomiting and abdominal pain. Patient has been having symptoms for the past 1 month and has been admitted to the hospital recently. Patient's symptoms are not improving and also feels very weak. Denies any hematemesis or melena. No cough or sputum production. No chest pain or shortness of breath. Acute abdominal series shows stable small right pleural effusion with associated right basilar atelectasis. No significant changes from most recent study. Overall nonobstructive bowel gas pattern redemonstrated. Laboratory data showed sodium 131 potassium 2.6 chloride 89 bicarb 34 BUN 19 and creatinine 0.99 and calcium 8.1 magnesium 1.7 and albumin 3.1 Procalcitonin level is 0.08. Review of Systems Constitutional: Patient does have low-grade fever at home.. Complains of generalized weakness and fatigue. Abdomen: Nausea vomiting and epigastric abdominal pain. Cardiovascular: Patient denies any chest pain or short of breath no palpitations. Respiratory: patient denied any cough . no sputum production. No shortness of breath Neurologic: Patient denied any numbness or tingling headache. Musculoskeletal: Patient denies any complaints of joint swelling or deformity. Skin: Negative Psychiatric: Negative Endocrine: No heat or cold intolerance. No recent weight gain. Genitourinary: No dysuria or hematuria. All other 14 point ROS negative except the above Past Medical History Past Medical History: Cancer, Diabetes Mellitus, Hypertension, Myocardial Infarction (CO) Additional Past Medical History / Comment(s): Hx renal cell cancer 1998, had left radical nephrectomy. Hx RIGHT PLEURAL EFFUSIONS, HAD THORACENTESIS. Last Myocardial Infarction Date:: 06/2020 History of Any Multi-Drug Resistant Organisms: None Reported Past Surgical History: Heart Catheterization With Stent Additional Past Surgical History / Comment(s): Left radical nephrectomy, colonoscopy, thoracentesis Past Anesthesia/Blood Transfusion Reactions: Previous Problems w/ Anesthesia Additional Past Anesthesia/Blood Transfusion Reaction / Comment(s): muscle rigidity, slurred speech, hallucinations, muscle spasms Date of Last Stent Placement:: 06/2020 Past Psychological History: No Psychological Hx Reported Smoking Status: Former smoker Past Alcohol Use History: None Reported Additional Past Alcohol Use History / Comment(s): Quit smoking in 1989. Past Drug Use History: None Reported - Past Family History Mother Family Medical History: No Reported History Father Additional Family Medical History / Comment(s): Heart disease. Sister(s) Family Medical History: Diabetes Mellitus Medications and Allergies Home Medications Medication Instructions Recorded Confirmed Type amLODIPine BESYLATE/BENAZEPRIL 1 cap PO DAILY 06/29/20 06/07/22 History [Lotrel 5-40 MG] Montelukast [Singulair] 10 mg PO HS 10/31/21 06/07/22 History Semaglutide [Ozempic] 0.25 mg SQ FR 10/31/21 06/07/22 History Furosemide [Lasix] 20 mg PO DAILY 11/28/21 06/07/22 History Aspirin EC [Ecotrin Low Dose] 81 mg PO DAILY 05/16/22 06/07/22 History Clobetasol Propionate [Temovate 1 applic TOPICAL BID 05/16/22 06/07/22 History 0.05% Oint] Famotidine [Pepcid] 40 mg PO DAILY 05/16/22 06/07/22 History Insulin Glargine,Hum.rec.anlog 8 units SQ DAILY 05/16/22 06/07/22 History [Lantus Solostar Pen] Kools Solution 1 dose PO DIRECTED PRN 05/16/22 06/07/22 History Levothyroxine Sodium [Synthroid] 50 mcg PO DAILY 05/16/22 06/07/22 History Metoprolol Tartrate [Lopressor] 75 mg PO BID 05/16/22 06/07/22 History Mupirocin 2% Oint [Bactroban 2% 1 applic TOPICAL TID 05/16/22 06/07/22 History Oint] Nivolumab [Opdivo] 1 dose IV Q30D 05/16/22 06/07/22 History Potassium Chloride ER [K-Dur 20] 20 meq PO DAILY 05/16/22 06/07/22 History Triamcinolone 0.1% Ointment 1 applic TOPICAL BID 05/16/22 06/07/22 History [Kenalog 0.1% Ointment] hydroCHLOROthiazide 12.5 mg PO DAILY 05/16/22 06/07/22 History Cabozantinib S-Malate [Cabometyx] 40 mg PO DAILY #0 05/18/22 06/07/22 Rx Ondansetron Odt [Zofran Odt] 4 mg PO Q8HR PRN #20 tab 06/01/22 06/07/22 Rx Allergies Allergy/AdvReac Type Severity Reaction Status Date / Time peanut Allergy Anaphylaxis Verified 06/07/22 13:03 Physical Exam Vitals: Vital Signs Temp Pulse Pulse Resp BP BP Pulse Ox 06/08/22 07:39 98.9 F 89 18 153/79 99 06/08/22 01:31 98.8 F 91 20 132/79 99 06/07/22 20:00 20 06/07/22 18:58 99.8 F H 109 H 18 122/78 100 06/07/22 18:15 110 H 20 100/60 97 06/07/22 18:00 110 H 20 110/60 06/07/22 16:00 110 H 20 95/49 96 06/07/22 15:00 110 H 20 99/62 99 06/07/22 14:00 110 H 20 100/60 98 06/07/22 13:01 110 H 20 101/63 100 06/07/22 12:31 18 06/07/22 12:29 109 H 20 99/64 88 L 06/07/22 11:57 98.6 F 121 H 20 103/71 96 Intake and Output 06/07/22 06/08/22 06/08/22 22:59 06:59 14:59 Intake Total 1200 Balance 1200 Intake: Intake, IV Titration 900 Amount Sodium Chloride 0.9% 1, 900 000 ml @ 75 mls/hr IV . [id number] [facility] Rx#:[id number] Oral 300 Other: # Voids 0 Weight 77.111 kg PHYSICAL EXAMINATION: Patient is lying in the bed comfortably, no acute distress, awake alert and oriented but weak and lethargic... HEENT: Normocephalic. Neck is supple. Pupils reactive. Nostrils clear. Oral cavity is moist. Neck reveals no JVD, carotid bruits, or thyromegaly. CHEST EXAMINATION: Trachea is central. Symmetrical expansion. Lung douglass clear to auscultation and percussion. CARDIAC: Normal S1, S2 with no gallops. No murmurs ABDOMEN: Soft. Bowel sounds present. Nontender. No organomegaly. No abdominal bruits. Extremities: reveal no edema. No clubbing or cyanosis Neurologically awake, alert, oriented x3 with well-coordinated movements. No focal deficits noted Skin: No rash or skin lesions. Psychiatric: Coperative. Nonsuicidal, Musculoskeletal: No joint swelling or deformity. Normal range of motion. Results CBC & Chem 7: 06/09/22 10:54 06/09/22 10:54 Labs: Abnormal Lab Results - Last 24 Hours (Table) 06/07/22 06/07/22 Range/Units 12:26 12:26 RBC 3.50 L (4.30-5.90) m/uL Hgb 11.7 L (13.0-17.5) gm/dL Hct 32.3 L (39.0-53.0) % RDW 15.8 H (11.5-15.5) % Eosinophils # 0.8 H (0-0.7) k/uL Sodium 131 L (137-145) mmol/L Potassium 2.6 L* (3.5-5.1) mmol/L Chloride 89 L (98-107) mmol/L Carbon Dioxide 34 H (22-30) mmol/L Glucose 121 H (74-99) mg/dL Calcium 8.1 L (8.4-10.2) mg/dL Total Bilirubin 1.5 H (0.2-1.3) mg/dL Alkaline Phosphatase 214 H (38-126) U/L Albumin 3.1 L (3.5-5.0) g/dL Thrombosis Risk Factor Assmnt - DVT/VTE Prophylaxis DVT/VTE Prophylaxis: Pharmacologic Prophylaxis ordered - Choose All That Apply Any of the Below Risk Factors Present?: No Other Risk Factors: Yes Each Risk Factor Represents 2 Points: Age 61-74 years, Malignancy Other congenital or acquired thrombophilia - If yes, enter type in comment: No Thrombosis Risk Factor Assessment Total Risk Factor Score: 4 Thrombosis Risk Factor Assessment Level: Moderate Risk Assessment and Plan Assessment: Intractable nausea vomiting and unable to tolerate oral diet. Possible chemo related Severe hypokalemia 2.6 on admission. Renal cell carcinoma currently on chemotherapy status post completion of cycle 6 on 06/05/2022. Normocytic anemia hemoglobin 11.7 Hypovolemic hyponatremia Hypertension Diabetes type 2 insulin-dependent History of mild Coronary artery disease history of stent placement History of left radical nephrectomy Prior history of smoking Hypothyroidism GI and DVT prophylaxis Plan: Patient will be continued on IV hydration with normal saline. Continue to replace potassium and Lasix on hold. Continue with home blood pressure medications and levothyroxine. Pepcid IV twice daily and symptomatic management for nausea and vomiting. Oncology service was consulted. Continue to follow-up closely. Prognosis is guarded at this time. Time with Patient: Greater than 30
[2022-06-10] MEDS ORDERED: SODIUM CHLORIDE 0.9% 1,000 ML BAG ONE (01:07)
[2022-06-10] MEDS ORDERED: EPINEPHrine 10 ML SYRINGE (0.1 MG/ML) ONE (01:07)
--- NOTE | 2022-06-10 01:09 | P.PN ---
Subjective Progress Note Date: 06/09/22 Patient is a 71-year-old male with a known history of hypertension, diabetes type 2, history of DC, coronary artery with history of stent placement, history of renal cell cancer with left nephrectomy and is currently undergoing chemotherapy and prior history of smoking presents to ER with complaints of na usea and vomiting and abdominal pain. Patient has been having symptoms for the past 1 month and has been admitted to the hospital recently. Patient's symptoms are not improving and also feels very weak. Denies any hematemesis or melena. No cough or sputum production. No chest pain or shortness of breath. Acute abdominal series shows stable small right pleural effusion with associated right basilar atelectasis. No significant changes from most recent study. Overall nonobstructive bowel gas pattern redemonstrated. Laboratory data showed sodium 131 potassium 2.6 chloride 89 bicarb 34 BUN 19 and creatinine 0.99 and calcium 8.1 magnesium 1.7 and albumin 3.1 Procalcitonin level is 0.08. 06/09/2022 Patient is still having nausea and episode of vomiting this morning as per family. No complaints of chest pain or shortness of breath. Abdominal pain is better. Patient is otherwise unable to tolerate oral diet. Changed to liquid diet and continued on symptomatic management. Patient has been afebrile. Laboratory showed sodium 129, potassium improved to 3.6 chloride 95 bicarb is 28 BUN 9 and creatinine 0.69 and calcium 6.8. Patient is being treated Zofran and Pepcid IV twice daily. Current medications reviewed. Objective - Vital Signs Vital signs: Vital Signs Temp 98.5 F 06/09/22 18:32 Pulse 105 H 06/09/22 20:50 Resp 15 06/09/22 19:45 BP 138/80 06/09/22 18:32 Pulse Ox 97 06/09/22 18:32 FiO2 Intake & Output 06/09/22 06/09/22 06/10/22 06:59 18:59 06:59 Intake Total 1200 Output Total 600 Balance 600 Intake: Intake, IV Titration 900 Amount Sodium Chloride 0.9% 1, 900 000 ml @ 75 mls/hr IV . [id number] [facility] Rx#:[id number] Oral 300 Output: Urine 600 Other: Voiding Method Urinal Urinal Urinal Diaper Diaper Diaper # Voids 3 - Exam PHYSICAL EXAMINATION: Patient is lying in the bed comfortably, no acute distress, awake alert and oriented but weak and lethargic... HEENT: Normocephalic. Neck is supple. Pupils reactive. Nostrils clear. Oral cavity is moist. Neck reveals no JVD, carotid bruits, or thyromegaly. CHEST EXAMINATION: Trachea is central. Symmetrical expansion. Lung douglass clear to auscultation and percussion. CARDIAC: Normal S1, S2 with no gallops. No murmurs ABDOMEN: Soft. Bowel sounds present. Nontender. No organomegaly. No abdominal bruits. Extremities: reveal no edema. No clubbing or cyanosis Neurologically awake, alert, oriented x3 with well-coordinated movements. No focal deficits noted Skin: No rash or skin lesions. Psychiatric: Coperative. Nonsuicidal, Musculoskeletal: No joint swelling or deformity. Normal range of motion. - Labs CBC & Chem 7: 06/09/22 10:54 06/09/22 10:54 Labs: Abnormal Lab Results - Last 24 Hours (Table) 06/09/22 06/09/22 Range/Units 10:54 10:54 RBC 3.33 L (4.30-5.90) m/uL Hgb 11.1 L (13.0-17.5) gm/dL Hct 31.6 L (39.0-53.0) % Plt Count 134 L (150-450) k/uL Sodium 129 L (137-145) mmol/L Chloride 95 L (98-107) mmol/L Glucose 131 H (74-99) mg/dL Calcium 6.8 L (8.4-10.2) mg/dL Microbiology - Last 24 Hours (Table) 06/07/22 12:05 Blood Culture - Preliminary Blood 06/07/22 12:20 Blood Culture - Preliminary Blood Assessment and Plan Assessment: Intractable nausea vomiting and unable to tolerate oral diet. Possible chemo related Severe hypokalemia 2.6 on admission. Renal cell carcinoma currently on chemotherapy status post completion of cycle 6 on 06/05/2022. Normocytic anemia hemoglobin 11.7 Hypovolemic hyponatremia Hypertension Diabetes type 2 insulin-dependent History of mild Coronary artery disease history of stent placement History of left radical nephrectomy Prior history of smoking Hypothyroidism GI and DVT prophylaxis Plan: Patient will be continued on IV hydration with normal saline.Monitor sodium level. Continue to replace potassium and Lasix on hold. Continue with home blood pressure medications and levothyroxine. Pepcid IV twice daily and symptomatic management for nausea and vomiting. Oncology service is on board.. Consider general surgery evaluation since patient continues to have symptoms.CT abdomen and pelvis was ordered. Continue to follow-up closely. Prognosis is guarded at this time. Time with Patient: Greater than 30
[2022-06-10 01:12] LABS: Glucose,Whole Blood 176 mg/dL (70-110)
[2022-06-10 01:35] LABS: Glucose,Whole Blood 162 mg/dL (70-110)
--- NOTE | 2022-06-10 01:35 | P.EN ---
Code Blue note 71 year old male with metastatic pancreatic cancer, admitted for pain control patient on tele, showed bradycardia, then lost pulse, code blue activated , CPR initiated following ACLS protocol, initial rhythm was PEA , patient had 7 min of CPR , required 3 doses of epi, ROSC achieved . patient was intubated during the code,and transferred to the ICU. blood sugar , blood work done today all reviewed and unremarkable patient is not on DVT PPX. once stable, consideration for CTA of the chest to rule out acute PE should be considered. EKG post ROSC showed no acute ST changes. initiate DVT PPX for now with lovenox 40 mg sc daily
[2022-06-10] MEDS ORDERED: SODIUM CHLORIDE 0.9% 1,000 ML IV ONE ×3 (01:48→16:20)
[2022-06-10] MEDS ORDERED: NOREPINEPHRIN 4 MG-0.9% NS PMX 4 MG/250 ML ML IV ONE (01:54)
[2022-06-10] MEDS: NOREPINEPHRINE 4 MG in SODIUM CHLORIDE 0.9% 250 ML IV SCH ×2 (02:00→08:48)
[2022-06-10] MEDS ORDERED: PIPERACILLIN-TAZOBACTAM 3.375 GM in SODIUM CHLORIDE 0.9% 100 ML IVPB SCH (02:00)
[2022-06-10] MEDS ORDERED: NOREPINEPHRINE 4 MG in SODIUM CHLORIDE 0.9% 250 ML IV SCH (02:00)
[2022-06-10 02:23] LABS: African American GFR (CKD) >90 (>60 ml/min/1.73 sqM); Anion Gap 9 mmol/L; Blood Urea Nitrogen 7 mg/dL (9-20); Calcium 6.7 mg/dL (8.4-10.2); Carbon Dioxide 23 mmol/L (22-30); Chloride 96 mmol/L (98-107); Glucose 191 mg/dL (74-99); Magnesium 1.5 mg/dL (1.6-2.3); Non-African American GFR(CKD) >90 (>60 ml/min/1.73 sqM); Potassium 2.9 mmol/L (3.5-5.1); Sodium 128 mmol/L (137-145)
--- NOTE | 2022-06-10 02:37 | XR ---
EXAM: XR Chest, 1 View CLINICAL HISTORY: ITS.REASON XR Reason: Tube placement TECHNIQUE: Frontal view of the chest. COMPARISON: No relevant prior studies available. IMPRESSION: ET tube and NG tube in proper position. Right pleural effusion
[2022-06-10 02:42] LABS: Basophils % (A) 0 %; Eosinophils # (A) 0.2 k/uL (0-0.7); Eosinophils % (A) 4 %; HCT 31.4 % (39.0-53.0); HGB 10.6 gm/dL (13.0-17.5); Lymphocytes # (A) 1.4 k/uL (1.0-4.8); Lymphocytes % (A) 27 %; MCH 33.7 pg (25.0-35.0); MCHC 33.9 g/dL (31.0-37.0); MCV 99.5 fL (80.0-100.0); Macrocytosis Slight; Monocytes # (A) 0.3 k/uL (0-1.0); Monocytes % (A) 6 %; Neutrophils % (A) 59 %; Platelet Count 104 k/uL (150-450); Poikilocytosis Moderate; RBC 3.16 m/uL (4.30-5.90); RDW 15.6 % (11.5-15.5); WBC 5.1 k/uL (3.8-10.6)
--- NOTE | 2022-06-10 03:06 | P.PCN ---
Date of Procedure: 06/10/22 Preoperative Diagnosis: Cardiac arrest, hypotension Postoperative Diagnosis: Cardiac arrest, hypotension Procedure(s) Performed: Insertion of a right wrist radial arterial line Condition: critical Disposition: ICU Indications for Procedure: Continuous blood pressure monitoring and frequent lab draws Description of Procedure: The patient was placed in supine position. The right radial region was prepared in a sterile fashion, and a sterile drape was applied. The right radial artery was palpated, easily cannulated, and a guidewire was placed. A Cook catheter was inserted over the guidewire, and the guidewire was removed. There was good arterial blood flow, good arterial waveform, and no complications. The line was secured with using a 3-0 silk suture.
[2022-06-10 03:09] LABS: ABG Base Excess -0.7 mmol/L; ABG HCO3 23 mmol/L (21-25); ABG Oxygen Saturation 99.9 % (94-97); ABG PCO2 29 mmHg (35-45); ABG PH 7.49 (7.35-7.45); ABG PO2 >400 mmHg (83-108); ABG TCO2 23 mmol/L (19-24)
[2022-06-10] MEDS ORDERED: LORazepam 2 MG/ML INJ IV ONE (03:09)
[2022-06-10] MEDS: POTASSIUM BICARBONATE/CIT AC 20 MEQ TABLET.EFF NG-TUBE SCH ×5 (04:09→14:42)
[2022-06-10] MEDS: IPRATROPIUM-ALBUTEROL 3 ML NEB INHALATION SCH ×5 (04:47→20:35)
[2022-06-10] MEDS: MAGNESIUM SULFATE-D5W PMX 1 GM in DEXTROSE/WATER 1 100ML.BAG IVPB SCH ×4 (04:53→19:11)
[2022-06-10] MEDS: DEXTROSE 5%-0.9% NACL 1,000 ML IV SCH (05:03)
--- NOTE | 2022-06-10 05:22 | P.CNPUL ---
History of Present Illness Consult date: 06/10/22 Requesting physician: Yonatan Wise Reason for consult: other (ICU management) Chief complaint: Cardiac arrest History of present illness: I'm seeing this patient in new consultation today 06/10/2022 in the intensive care unit post cardiac arrest. Patient is a 71-year-old white male with past medical history significant for renal cell carcinoma status post left nephrectomy in 1998, recurrent renal cell carcinoma stage IV, pleural effusion with previous thoracentesis, hypertension, diabetes mellitus, hypertension, coronary artery disease, previous myocardial infarction with stent to the left circumflex, ischemic cardiomyopathy with baseline ejection fraction of 40-45%, ex-smoker. In October 2021, patient was evaluated for a right hydrothorax, he did undergo thoracentesis. Cytology was negative.. Patient did have a follow-up bronchoscopy with BAL of the right middle lobe without any identified pathology. A PET scan done on 11/27/2021 revealed soft tissue mass in the left kidney bed measuring 7.3 x 5.4 cm, multiple nodular uptake in right posterior pleura measuring up to 5.1 cm, large paratrecheal node 3.3 x 2.8 x 4 cm, and a right thyroid nodule. On 11/29/2021, he underwent EBUS, FNA of mediastinal nodes were non diagnostic. On 12/18/2021, he underwent VATS, pleural biopsies and placement of pleuRx and talc pleuradesis, pathology was positive for metastatic renal cell carcinoma. He does follow with Dr. Braga, and was started on cabometyx and opdivo.He is at his post completion of cycle 6 on 06/05/22. Patient was originally admitted to [facility] on 06/07/2022 with a chief complaints of nausea, vomiting, and nonspecific abdominal pain for approximately 3 weeks. Acute abdominal series showed a nonobstructive bowel gas pattern, stable small right pleural effusion with associated right basilar atelectasis, and no change from recent x-ray. He was admitted to the oncology floor with telemetry. A follow-up enhanced CT of the abdomen and pelvis on June 09 showed no obvious acute process within the abdomen or pelvis. It did reveal a similar size and appearance of the pancreatic tail mass with invasion to the splenic vein, similar right pulmonary pleural metastatic lesions, lytic changes involving the lower ribs bilaterally, stable left lower lobe groundglass pulmonary nodule, and mediastinal adenopathy. Earlier this morning, the patient had a witnessed cardiac arrest. The presenting rhythm was asystole. Patient was resuscitated per ACLS protocol. Patient did have an estimated down time of approximately 7 minutes, with 3 rounds of CPR. Patient was intubated by AIR CONDITIONING SERVICE TECHNICIAN. Return of spontaneous circulation was achieved, and the patient was transferred to the intensive care unit in critical condition. Heart rhythm is currently normal sinus at approximately 80 bpm. Postresuscitation ECG showed no obvious acute ischemic events. Patient was placed on a mechanical ventilator with settings of assist control, respiratory rate of 20, tidal volume of 450, FiO2 100%, PEEP of 5. Initial blood gases show a pO2 greater than 400, pCO2 29, pH of 7.49. Patient's respiratory rate was dropped to 16 and FiO2 down to 50%. Patient is currently not sedated, and is breathing slightly above the ventilator. Patient's post intubation chest x-ray showed the endotracheal tube approximately 2 cm, NG tube coursing below the diaphragm, and is stable small right pleural effusion. Patient was hypotensive after intubation, and required fluid resuscitation with 2 L normal saline. Patient was started on norepinephrine and is currently infusing at 0.2 mics per kilogram per minute. A right radial arterial line was inserted. Patient's preliminary blood cultures show no growth at 24 hours. Empiric antibiotic coverage was added with Zosyn. Patient's CBC after resuscitation showed a WBC count of 5.1, hemoglobin 10.6, hematocrit 31.4, platelets 104,000. Patient's d-dimer was elevated at 16.11, however, this could be related to the patient's cardiac arrest. Patient was not on DVT prophylaxis prior to the code, pulmonary embolism should be included with the differential, patient is not stable for chest CTA at this time. Patient's BMP shows a sodium of 128, potassium 2.9, chloride of 96, serum CO2 23, B1 of 7, creatinine 0.71, glucose of 191. Magnesium 1.5. Patient's electrolytes are being replaced per protocol. Postcardiac arrest Troponin elevated at 0.077. Lactic acid was elevated at 4.8. Normal saline is infusing at 75 milliliters per hour. A indwelling urinary catheter was placed for accurate intake and output. Patient is having myoclonic jerks, and I'm concerned for some anoxic brain injury. A one-time dose of Ativan was given, without any improvement. Neurology was added to the case. Patient's condition is currently critical. Patient's is at the bedside. CODE STATUS was confirmed, and patient is currently a full code. Review of Systems Unable to obtain a review of systems due to patient being intubated Past Medical History Past Medical History: Cancer, Diabetes Mellitus, Hypertension, Myocardial Infarction ([place]) Additional Past Medical History / Comment(s): Hx renal cell cancer 1998, had left radical nephrectomy. Hx RIGHT PLEURAL EFFUSIONS, HAD THORACENTESIS. Last Myocardial Infarction Date:: 06/2020 History of Any Multi-Drug Resistant Organisms: None Reported Past Surgical History: Heart Catheterization With Stent Additional Past Surgical History / Comment(s): Left radical nephrectomy, colonoscopy, thoracentesis Past Anesthesia/Blood Transfusion Reactions: Previous Problems w/ Anesthesia Additional Past Anesthesia/Blood Transfusion Reaction / Comment(s): muscle rigidity, slurred speech, hallucinations, muscle spasms Date of Last Stent Placement:: 06/2020 Past Psychological History: No Psychological Hx Reported Smoking Status: Former smoker Past Alcohol Use History: None Reported Additional Past Alcohol Use History / Comment(s): Quit smoking in 1989. Past Drug Use History: None Reported - Past Family History Mother Family Medical History: No Reported History Father Additional Family Medical History / Comment(s): Heart disease. Sister(s) Family Medical History: Diabetes Mellitus Medications and Allergies Home Medications Medication Instructions Recorded Confirmed Type RX: amLODIPine BESYLATE/BENAZEPRIL 1 cap PO DAILY 06/29/20 06/07/22 History [Lotrel 5-40 MG] RX: Montelukast [Singulair] 10 mg PO HS 10/31/21 06/07/22 History RX: Semaglutide [Ozempic] 0.25 mg SQ FR 10/31/21 06/07/22 History RX: Furosemide [Lasix] 20 mg PO DAILY 11/28/21 06/07/22 History Kools Solution 1 dose PO DIRECTED PRN 05/16/22 06/07/22 History RX: Aspirin EC [Ecotrin Low Dose] 81 mg PO DAILY 05/16/22 06/07/22 History RX: Clobetasol Propionate 1 applic TOPICAL BID 05/16/22 06/07/22 History [Temovate 0.05% Oint] RX: Famotidine [Pepcid] 40 mg PO DAILY 05/16/22 06/07/22 History RX: Insulin Glargine,Hum.rec.anlog 8 units SQ DAILY 05/16/22 06/07/22 History [Lantus Solostar Pen] RX: Levothyroxine Sodium 50 mcg PO DAILY 05/16/22 06/07/22 History [Synthroid] RX: Metoprolol Tartrate [Lopressor] 75 mg PO BID 05/16/22 06/07/22 History RX: Mupirocin 2% Oint [Bactroban 1 applic TOPICAL TID 05/16/22 06/07/22 History 2% Oint] RX: Nivolumab [Opdivo] 1 dose IV Q30D 05/16/22 06/07/22 History RX: Potassium Chloride ER [K-Dur 20 meq PO DAILY 05/16/22 06/07/22 History 20] RX: Triamcinolone 0.1% Ointment 1 applic TOPICAL BID 05/16/22 06/07/22 History [Kenalog 0.1% Ointment] RX: hydroCHLOROthiazide 12.5 mg PO DAILY 05/16/22 06/07/22 History RX: Cabozantinib S-Malate 40 mg PO DAILY #0 05/18/22 06/07/22 Rx [Cabometyx] Ondansetron Odt [Zofran Odt] 4 mg PO Q8HR PRN #20 tab 06/01/22 06/07/22 Rx Allergies Allergy/AdvReac Type Severity Reaction Status Date / Time peanut Allergy Anaphylaxis Verified 06/07/22 13:03 Physical Exam Vitals: Vital Signs Temp Pulse Resp BP Pulse Ox FiO2 06/10/22 03:11 50 06/10/22 02:12 100 06/10/22 01:30 100 06/10/22 01:29 100 06/09/22 20:50 105 H 06/09/22 19:45 15 06/09/22 18:32 98.5 F 123 H 15 138/80 97 06/09/22 12:45 98.9 F 95 16 119/69 97 06/09/22 07:28 98.5 F 116 H 16 133/77 96 Intake and Output 06/09/22 06/09/22 06/10/22 14:59 22:59 06:59 Intake Total 16.012 Balance 16.012 Intake: Intake, IV Titration 16.012 Amount Norepinephrine 4 mg In 16.012 Sodium Chloride 0.9% 250 ml @ 0.03 MCG/KG/MIN 8. 814 mls/hr IV .Q24H [facility] Rx#:[id number] Other: Voiding Method Urinal Urinal Diaper Diaper # Voids 2 3 GENERAL EXAM: Currently, unresponsive and endotracheally intubated to the mechanical ventilator. Patient is breathing slightly above the ventilator. No sedation has been started yet. HEAD: Normocephalic and atraumatic EYES: Normal reaction of pupils, equal size. NOSE: Clear with pink turbinates. THROAT: No erythema or exudates. NECK: thyromegaly CHEST: No chest wall deformity. LUNGS: Equal air entry with no crackles, wheeze, rhonchi or dullness. Endotracheally intubated to the mechanical ventilator.. CVS: S1 and S2 normal with no audible murmur, regular rhythm. No extra heart sounds ABDOMEN: No hepatosplenomegaly, active bowel sounds, no guarding or rigidity. SPINE: No scoliosis or deformity SKIN: Generalized pallor CENTRAL NERVOUS SYSTEM: Frequent myoclonic jerks of upper and lower extremities EXTREMITIES: There is no peripheral edema, clubbing, or cyanosis. Peripheral pulses are intact. Results - Laboratory Findings CBC and BMP: 06/10/22 02:05 06/10/22 01:47 ABG ABG pH 7.49 (7.35-7.45) H 06/10/22 03:05 ABG pCO2 29 mmHg (35-45) L 06/10/22 03:05 ABG pO2 >400 mmHg (83-108) H 06/10/22 03:05 ABG O2 Saturation 99.9 % (94-97) H 06/10/22 03:05 PT/INR, D-dimer D-Dimer 16.11 mg/L FEU (<0.60) H 06/10/22 02:05 Abnormal lab findings: Abnormal Labs 06/07/22 06/07/22 06/08/22 12:26 12:26 11:00 RBC 3.50 L Hgb 11.7 L Hct 32.3 L RDW 15.8 H Plt Count Eosinophils # 0.8 H D-Dimer ABG pH ABG pCO2 ABG pO2 ABG O2 Saturation Sodium 131 L 131 L Potassium 2.6 L* 3.3 L Chloride 89 L Carbon Dioxide 34 H BUN Creatinine 0.61 L Glucose 121 H 57 L POC Glucose (mg/dL) Plasma Lactic Acid Maik Calcium 8.1 L 7.3 L Magnesium Total Bilirubin 1.5 H Alkaline Phosphatase 214 H Troponin I Albumin 3.1 L 06/09/22 06/09/22 06/10/22 10:54 10:54 01:09 RBC 3.33 L Hgb 11.1 L Hct 31.6 L RDW Plt Count 134 L Eosinophils # D-Dimer ABG pH ABG pCO2 ABG pO2 ABG O2 Saturation Sodium 129 L Potassium Chloride 95 L Carbon Dioxide BUN Creatinine Glucose 131 H POC Glucose (mg/dL) 176 H Plasma Lactic Acid Maik Calcium 6.8 L Magnesium Total Bilirubin Alkaline Phosphatase Troponin I Albumin 06/10/22 06/10/22 06/10/22 01:34 01:47 02:05 RBC 3.16 L Hgb 10.6 L Hct 31.4 L RDW 15.6 H Plt Count 104 L Eosinophils # D-Dimer ABG pH ABG pCO2 ABG pO2 ABG O2 Saturation Sodium 128 L Potassium 2.9 L Chloride 96 L Carbon Dioxide BUN 7 L Creatinine Glucose 191 H POC Glucose (mg/dL) 162 H Plasma Lactic Acid Maik Calcium 6.7 L Magnesium 1.5 L Total Bilirubin Alkaline Phosphatase Troponin I Albumin 06/10/22 06/10/22 06/10/22 02:05 02:05 02:05 RBC Hgb Hct RDW Plt Count Eosinophils # D-Dimer 16.11 H ABG pH ABG pCO2 ABG pO2 ABG O2 Saturation Sodium Potassium Chloride Carbon Dioxide BUN Creatinine Glucose POC Glucose (mg/dL) Plasma Lactic Acid Maik 4.8 H* Calcium Magnesium Total Bilirubin Alkaline Phosphatase Troponin I 0.077 H* Albumin 06/10/22 03:05 RBC Hgb Hct RDW Plt Count Eosinophils # D-Dimer ABG pH 7.49 H ABG pCO2 29 L ABG pO2 >400 H ABG O2 Saturation 99.9 H Sodium Potassium Chloride Carbon Dioxide BUN Creatinine Glucose POC Glucose (mg/dL) Plasma Lactic Acid Maik Calcium Magnesium Total Bilirubin Alkaline Phosphatase Troponin I Albumin - Diagnostic Findings Chest x-ray: image reviewed Assessment and Plan Assessment: Post witnessed cardiac arrest. Patient was resuscitated per ACLS protocol. Presenting rhythm was asystole. Patient did have an estimated down time approximately 7 minutes, with 3 rounds of CPR. Patient was intubated by AIR CONDITIONING SERVICE TECHNICIAN. Return of spontaneous circulation was achieved, and the patient was transferred to the intensive care unit. Acute hypoxic respiratory failure secondary to above. Currently intubated to mechanical ventilator Possible anoxic brain injury. Patient is having frequent myoclonic jerks Recurrent renal cell carcinoma stage IV. Patient was originally diagnosed with renal cell carcinoma status post left nephrectomy in 1998. In October 2021, patient was evaluated for a right hydrothorax, he did undergo thoracentesis. Cytology was negative. Patient did have a follow-up bronchoscopy with BAL of the right middle lobe without any identified pathology. A PET scan done on 11/27/2021 revealed soft tissue mass in the left kidney bed measuring 7.3 x 5.4 cm, multiple nodular uptake in right posterior pleura measuring up to 5.1 cm, large paratrecheal node 3.3 x 2.8 x 4 cm, and a right thyroid nodule. On 11/29/2021, he underwent EBUS, FNA of mediastinal nodes were non diagnostic. On 12/18/2021, he underwent VATS, pleural biopsies and placement of pleuRx and talc pleuradesis, pathology was positive for metastatic renal cell carcinoma. He does follow with Dr. Braga, and was started on cabometyx and opdivo. He completed cycle 6 on 06/05/22. A follow-up enhanced CT of the abdomen and pelvis on this admission showed no obvious acute process within the abdomen or pelvis. It did reveal a similar size and appearance of the pancreatic tail mass with invasion to the splenic vein, similar right pulmonary pleural metastatic lesions, lytic changes involving the lower ribs bilaterally, stable left lower lobe groundglass pulmonary nodule, and mediastinal adenopathy possible acute gastroenteritis Hypokalemia Anemia of chronic disease Hypertension Diabetes mellitus Coronary artery disease History of myocardial infarction with stent to the left circumflex Ischemic cardiomyopathy with baseline ejection fraction of 40-45% Ex-smoker Plan: Patient is transferred to the intensive care unit Intubated to the mechanical ventilator Respiratory rate was dropped to 16 and FiO2 to 50% Repeat ABG in the morning propofol for sedation Chest x-ray showed the ET tube and NG tube in appropriate positions Repeat chest x-ray We will obtain a chest CTA once patient more hemodynamically stable Arterial line was inserted Post resuscitation ECG was noted cardiology was consulted electrolytes are being replaced A one-time dose of Ativan was given neurology was consulted heparin was added for DVT prophylaxis GI prophylaxis patient's condition is critical, and he will be monitored in the intensive care unit Patient's condition was discussed with his , and she would like the patient to remain a full code at this time. Case was discussed with Dr. Nieto. I have personally seen and examined the patient, performed the documentation and the assessment and plan as written. N umber of minutes spent on the visit:20 Time with Patient: Greater than 30
[2022-06-10] MEDS ORDERED: levETIRAcetam IV 2,000 MG in SODIUM CHLORIDE 0.9% 250 ML IVPB ONE (05:24)
[2022-06-10 05:55] LABS: Basophils % (A) 0 %; Eosinophils # (A) 0.1 k/uL (0-0.7); Eosinophils % (A) 2 %; HCT 27.4 % (39.0-53.0); HGB 9.9 gm/dL (13.0-17.5); Hyperchromasia Moderate; Lymphocytes # (A) 1.2 k/uL (1.0-4.8); Lymphocytes % (A) 14 %; MCH 33.9 pg (25.0-35.0); MCHC 36.1 g/dL (31.0-37.0); Mean Platelet Volume 8.5; Monocytes # (A) 0.6 k/uL (0-1.0); Monocytes % (A) 7 %; Neutrophils # (A) 6.3 k/uL (1.3-7.7); Neutrophils % (A) 75 %; Platelet Count 120 k/uL (150-450); Poikilocytosis Moderate; RBC 2.91 m/uL (4.30-5.90); RDW 15.4 % (11.5-15.5); WBC 8.4 k/uL (3.8-10.6)
[2022-06-10 06:04] LABS: African American GFR (CKD) >90 (>60 ml/min/1.73 sqM); Anion Gap 5 mmol/L; Blood Urea Nitrogen 8 mg/dL (9-20); Carbon Dioxide 23 mmol/L (22-30); Chloride 101 mmol/L (98-107); Glucose 171 mg/dL (74-99); Non-African American GFR(CKD) >90 (>60 ml/min/1.73 sqM); Potassium 3.3 mmol/L (3.5-5.1); Sodium 129 mmol/L (137-145)
[2022-06-10 06:06] LABS: Calcium 6.1 mg/dL (8.4-10.2)
[2022-06-10 06:12] LABS: ABG Base Excess -0.6 mmol/L; ABG HCO3 23 mmol/L (21-25); ABG PCO2 32 mmHg (35-45); ABG PH 7.46 (7.35-7.45); ABG PO2 230 mmHg (83-108); ABG TCO2 24 mmol/L (19-24)
[2022-06-10] MEDS ORDERED: LORazepam 1 MG TAB PO ONE (06:45)
[2022-06-10] MEDS ORDERED: LORazepam 2 MG/ML INJ IV STA ×2 (07:51→09:46)
[2022-06-10] MEDS ORDERED: CALCIUM GLUCONATE IN NACL 2 GM in SALINE 1 100ML.BAG IVPB ONE (08:00)
[2022-06-10] MEDS: POTASSIUM CHLORIDE ER 20 MEQ TAB.ER PO SCH (08:04)
[2022-06-10] MEDS: HEPARIN SODIUM,PORCINE/PF 5,000 UNIT/0.5 ML SYRINGE SQ SCH ×2 (08:04→20:47)
[2022-06-10] MEDS: CHLORHEXIDINE GLUCONATE 15 ML CUP MUCOUS MEM SCH ×2 (08:04→20:47)
[2022-06-10] MEDS: ASPIRIN 81 MG PO SCH (08:04)
[2022-06-10] MEDS: FAMOTIDINE 20 MG/2 ML VIAL IV SCH ×2 (08:04→20:47)
[2022-06-10] MEDS: LEVOTHYROXINE 50 MCG TAB PO SCH (08:12)
[2022-06-10] MEDS: PROCHLORPERAZINE INJ 10 MG/2 ML VIAL IVP SCH (08:18)
--- NOTE | 2022-06-10 08:31 | P.CRDCN ---
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 He previously follow with Dr. Carson approximately 2 years ago. He presented to the hospital secondary to decreased intake, nausea and vomiting and dehydration. Patient currently intubated and sedated and history is supplied by . For the last 3-4 weeks he has not been able to keep much food down and has had recurrent admissions to the hospital and rehydration. Patient had been throwing up fairly consistently and believe most of the pain was related to throwing up. He only complained of abdominal pain and no chest pain or pressure. No shortness breath. He was admitted with rehydration found be hypokalemic. On 06/10 at 1 AM he had bradycardia noted on monitor with some escape rhythm and heart rates down to 30s and loss of pulses. There is no prev ious bradycardia noted. No previous complaints. Patient was coded for 7 minutes and now is on vasopressors unresponsive and concern of seizure-like activity. The does state he was having a low bit of shaking of the right upper extremity prior to this however no other symptoms. D-dimer is elevated at 16 however given patient was unstable skin was performed. Repeat blood work this morning shows creatinine 0.7, sodium 129, potassium 3.3, lactic acid was 4.8, improving 1.6, troponin 0.07, hemoglobin 9.9, platelets 120. REVIEW OF SYSTEMS At the time of my exam: Unable to obtain secondary to AMS. PHYSICAL EXAMINATION Vital signs reviewed. CONSTITUTIONAL: No apparent distress. HEENT: Head is normocephalic. Pupils are equal, round. Sclerae anicteric. Mucous membranes of the mouth are moist. No JVD. No carotid bruit. CHEST EXAMINATION: Lungs are clear to auscultation. No chest wall tenderness is noted on palpation or with deep breathing. HEART EXAMINATION: Regular rate and rhythm. S1, S2 heard. No murmurs, gallops or rub. ABDOMEN: Soft, nontender. Positive bowel sounds. EXTREMITIES: 2+ peripheral pulses, no lower extremity edema and no calf tenderness. NEUROLOGIC EXAMINATION: Patient is awake, alert and oriented x3. ASSESSMENT 1. Status post cardiac arrest with bradycardia, unclear bradycardia was primary cause or secondary to other etiology 2. Pancreatic cancer with metastasis 3. History of CAD status post PCI circumflex remotely 4. Hypertension 5. Hypotension status post cardiac arrest 6. Presentation with dehydration, decreased appetite, nausea and vomiting related to pancreatic cancer, chemotherapy 7. Electrolyte abnormalities, hypokalemia 8. Lactic acid improved 9. Bradycardia PLAN Patient with cardiac arrest with significant bradycardia noted on telemetry. Unclear if bradycardia caused the cardiac arrest or was secondary. Check CT PE protocol for completeness given significant history of cancer and elevated d- dimer. Check 2-D echo. Hold metoprolol given significant bradycardia. Continue to monitor on telemetry. Currently appears stable without need for temporary venous pacemaker. If no reversible causes identified patient would qu alify for permanent pacemaker. Monitor neurologic status. Further recommendations to follow. Past Medical History Past Medical History: Cancer, Diabetes Mellitus, Hypertension, Myocardial Infarction ([place]) Additional Past Medical History / Comment(s): Hx renal cell cancer 1998, had left radical nephrectomy. Hx RIGHT PLEURAL EFFUSIONS, HAD THORACENTESIS. Last Myocardial Infarction Date:: 06/2020 History of Any Multi-Drug Resistant Organisms: None Reported Past Surgical History: Heart Catheterization With Stent Additional Past Surgical History / Comment(s): Left radical nephrectomy, colonoscopy, thoracentesis Past Anesthesia/Blood Transfusion Reactions: Previous Problems w/ Anesthesia Additional Past Anesthesia/Blood Transfusion Reaction / Comment(s): muscle rigidity, slurred speech, hallucinations, muscle spasms Date of Last Stent Placement:: 06/2020 Past Psychological History: No Psychological Hx Reported Smoking Status: Former smoker Past Alcohol Use History: None Reported Additional Past Alcohol Use History / Comment(s): Quit smoking in 1989. Past Drug Use History: None Reported - Past Family History Mother Family Medical History: No Reported History Father Additional Family Medical History / Comment(s): Heart disease. Sister(s) Family Medical History: Diabetes Mellitus Medications and Allergies Home Medications Medication Instructions Recorded Confirmed Type amLODIPine BESYLATE/BENAZEPRIL 1 cap PO DAILY 06/29/20 06/07/22 History [Lotrel 5-40 MG] Montelukast [Singulair] 10 mg PO HS 10/31/21 06/07/22 History Semaglutide [Ozempic] 0.25 mg SQ FR 10/31/21 06/07/22 History Furosemide [Lasix] 20 mg PO DAILY 11/28/21 06/07/22 History Aspirin EC [Ecotrin Low Dose] 81 mg PO DAILY 05/16/22 06/07/22 History Clobetasol Propionate [Temovate 1 applic TOPICAL BID 05/16/22 06/07/22 History 0.05% Oint] Famotidine [Pepcid] 40 mg PO DAILY 05/16/22 06/07/22 History Insulin Glargine,Hum.rec.anlog 8 units SQ DAILY 05/16/22 06/07/22 History [Lantus Solostar Pen] Kools Solution 1 dose PO DIRECTED PRN 05/16/22 06/07/22 History Levothyroxine Sodium [Synthroid] 50 mcg PO DAILY 05/16/22 06/07/22 History Metoprolol Tartrate [Lopressor] 75 mg PO BID 05/16/22 06/07/22 History Mupirocin 2% Oint [Bactroban 2% 1 applic TOPICAL TID 05/16/22 06/07/22 History Oint] Nivolumab [Opdivo] 1 dose IV Q30D 05/16/22 06/07/22 History Potassium Chloride ER [K-Dur 20] 20 meq PO DAILY 05/16/22 06/07/22 History Triamcinolone 0.1% Ointment 1 applic TOPICAL BID 05/16/22 06/07/22 History [Kenalog 0.1% Ointment] hydroCHLOROthiazide 12.5 mg PO DAILY 05/16/22 06/07/22 History Cabozantinib S-Malate [Cabometyx] 40 mg PO DAILY #0 05/18/22 06/07/22 Rx Ondansetron Odt [Zofran Odt] 4 mg PO Q8HR PRN #20 tab 06/01/22 06/07/22 Rx Allergies Allergy/AdvReac Type Severity Reaction Status Date / Time peanut Allergy Anaphylaxis Verified 06/07/22 13:03 Physical Exam Vitals: Vital Signs Temp Pulse Pulse Resp BP BP Pulse Ox 06/10/22 07:40 18 99 06/10/22 07:30 22 99 06/10/22 07:20 16 99 06/10/22 07:10 20 118/73 99 06/10/22 07:00 19 118/73 100 06/10/22 06:50 15 100 06/10/22 06:40 26 H 118/73 100 06/10/22 06:30 17 118/73 100 23 06:20 14 118/73 100 06/10/22 06:10 8 L 118/73 100 06/10/22 06:00 102 H 14 100 06/10/22 05:50 12 100 06/10/22 05:40 40 H 118/73 100 06/10/22 05:30 14 100 06/10/22 05:20 19 118/73 100 06/10/22 05:10 12 118/73 100 06/10/22 05:03 102 H 06/10/22 05:00 15 100 06/10/22 04:51 108 H 06/10/22 04:50 25 H 100 06/10/22 04:40 29 H 100 06/10/22 04:30 20 100 06/10/22 04:20 27 H 100 06/10/22 04:10 25 H 100 06/10/22 04:00 32 H 99 06/10/22 03:50 20 100 06/10/22 03:40 98 17 100 06/10/22 03:30 94 13 100 06/10/22 03:20 42 L 18 100 06/10/22 03:11 06/10/22 03:10 80 10 L 118/73 100 06/10/22 03:00 95 16 120/78 99 06/10/22 02:50 89 19 87/63 99 06/10/22 02:40 91 16 114/78 98 06/10/22 02:30 86 23 110/77 99 06/10/22 02:20 90 19 106/75 99 06/10/22 02:12 06/10/22 02:10 97 20 96/69 99 06/10/22 02:00 101 H 20 60/33 99 06/10/22 01:52 105 H 20 99 06/10/22 01:30 06/10/22 01:29 06/09/22 20:50 105 H 06/09/22 19:45 15 06/09/22 18:32 98.5 F 123 H 15 138/80 97 06/09/22 12:45 98.9 F 95 16 119/69 97 FiO2 06/10/22 07:40 06/10/22 07:30 06/10/22 07:20 06/10/22 07:10 06/10/22 07:00 06/10/22 06:50 06/10/22 06:40 06/10/22 06:30 40 06/10/22 06:20 06/10/22 06:10 06/10/22 06:00 06/10/22 05:50 06/10/22 05:40 06/10/22 05:30 06/10/22 05:20 06/10/22 05:10 06/10/22 05:03 06/10/22 05:00 06/10/22 04:51 06/10/22 04:50 06/10/22 04:40 06/10/22 04:30 06/10/22 04:20 06/10/22 04:10 06/10/22 04:00 50 06/10/22 03:50 06/10/22 03:40 06/10/22 03:30 06/10/22 03:20 06/10/22 03:11 50 06/10/22 03:10 06/10/22 03:00 06/10/22 02:50 06/10/22 02:40 06/10/22 02:30 06/10/22 02:20 06/10/22 02:12 100 06/10/22 02:10 06/10/22 02:00 06/10/22 01:52 06/10/22 01:30 100 06/10/22 01:29 100 06/09/22 20:50 06/09/22 19:45 06/09/22 18:32 06/09/22 12:45 Intake and Output 06/09/22 06/10/22 06/10/22 22:59 06:59 14:59 Intake Total 1392.978 237.988 Output Total 125 20 Balance 1267.978 217.988 Intake: IV 1375 Magnesium Sulfate-D5w Pmx 200 1 gm In Dextrose/Water 1 100ml.bag @ 100 mls/hr IVPB Q1H [facility] Rx#: [id number] Piperacillin-Tazobactam 3 100 .375 gm In Sodium Chloride 0.9% 100 ml @ 25 mls/hr IVPB Q8H [facility] Rx#: [id number] Sodium Chloride 0.9% 1, 75 000 ml @ 75 mls/hr IV . [id number] [facility] Rx#:[id number] Sodium Chloride 0.9% 1, 1000 000 ml @ 999 mls/hr IV . Q1H1M [facility] Rx#:[id number] Intake, IV Titration 17.978 237.988 Amount Norepinephrine 4 mg In 16.012 237.988 Sodium Chloride 0.9% 250 ml @ 0.03 MCG/KG/MIN 8. 814 mls/hr IV .Q24H [facility] Rx#:[id number] propofoL 1,000 mg In 1.966 Empty Bag 1 bag @ 15 MCG/ KG/MIN 6.94 mls/hr IV . [id number] [facility] Rx#:[id number] Output: Urine 125 20 Other: Voiding Method Urinal Indwelling Catheter Diaper # Voids 3 ABP, PAP, CO, CI - Last 8 Hours Arterial Blood Pressure 104/50 Arterial Blood Pressure 101/49 Arterial Blood Pressure 101/48 Arterial Blood Pressure 103/49 Arterial Blood Pressure 106/51 Arterial Blood Pressure 104/51 Arterial Blood Pressure 115/59 Arterial Blood Pressure 100/51 Arterial Blood Pressure 97/53 Arterial Blood Pressure 109/54 Arterial Blood Pressure 99/55 Arterial Blood Pressure 102/57 Arterial Blood Pressure 88/47 Arterial Blood Pressure 42/42 Arterial Blood Pressure 96/54 Arterial Blood Pressure 100/57 Arterial Blood Pressure 100/54 Arterial Blood Pressure 105/55 Arterial Blood Pressure 109/60 Arterial Blood Pressure 108/59 Arterial Blood Pressure 112/65 Arterial Blood Pressure 112/62 Arterial Blood Pressure 117/58 Arterial Blood Pressure 121/66 Arterial Blood Pressure 122/65 Arterial Blood Pressure 120/66 Arterial Blood Pressure 109/63 Arterial Blood Pressure 107/59 Arterial Blood Pressure 108/64 Results 06/10/22 05:30 06/10/22 05:30 Cardiac Enzymes 06/10/22 Range/Units 02:05 Troponin I 0.077 H* (0.000-0.034) ng/mL CBC 06/09/22 06/10/22 06/10/22 Range/Units 10:54 02:05 05:30 WBC 6.4 5.1 8.4 (3.8-10.6) k/uL RBC 3.33 L 3.16 L 2.91 L (4.30-5.90) m/uL Hgb 11.1 L 10.6 L 9.9 L (13.0-17.5) gm/dL Hct 31.6 L 31.4 L 27.4 L (39.0-53.0) % Plt Count 134 L 104 L 120 L (150-450) k/uL Comprehensive Metabolic Panel 06/09/22 06/10/22 06/10/22 Range/Units 10:54 01:47 05:30 Sodium 129 L 128 L 129 L (137-145) mmol/L Potassium 3.6 2.9 L 3.3 L (3.5-5.1) mmol/L Chloride 95 L 96 L 101 (98-107) mmol/L Carbon Dioxide 28 23 23 (22-30) mmol/L BUN 9 7 L 8 L (9-20) mg/dL Creatinine 0.69 0.71 0.71 (0.66-1.25) mg/dL Glucose 131 H 191 H 171 H (74-99) mg/dL Calcium 6.8 L 6.7 L 6.1 L* (8.4-10.2) mg/dL Current Medications Generic Name Dose Route Start Last Admin Trade Name Freq PRN Reason Stop Dose Admin Albuterol/Ipratropium 3 ml 06/10/22 04:00 06/10/22 08:23 Ipratropium-Albuterol 3 Ml Neb INHALATION 3 ml RT-Q4H [facility] Administration Aspirin 81 mg 06/08/22 09:00 06/10/22 08:04 Aspirin 81 Mg PO 81 mg DAILY [facility] Administration Chlorhexidine Gluconate 15 ml 06/10/22 09:00 06/10/22 08:04 Chlorhexidine Gluconate 15 Ml Cup MUCOUS MEM 15 ml BID [facility] Administration Al Hydroxide/Mg Hydroxide 30 0 ml 06/07/22 22:10 ml/ Lidocaine HCl 30 ml/ PO Diphenhydramine HCl 75 mg/ QID PRN Nystatin 3,000,000 unit MOUTH/THROAT PAIN Famotidine 20 mg 06/08/22 21:00 06/10/22 08:04 Famotidine 20 Mg/2 Ml Vial IV 20 mg Q12HR [facility] Administration Heparin Sodium (Porcine) 5,000 unit 06/10/22 09:00 06/10/22 08:04 Heparin Sodium,Porcine/Pf 5,000 Unit/0.5 Ml Syringe SQ 5,000 unit Q12HR [facility] Administration Dextrose/Sodium Chloride 1,000 mls @ 75 mls/hr 06/09/22 14:00 06/10/22 05:03 Dextrose 5%-Ns Iv Soln IV Not Given .[id number] [facility] Propofol 1,000 mg/ IV Solution 100 mls @ 6.94 mls/hr 06/10/22 01:30 06/10/22 05:10 IV 20 mcg/kg/min .[id number] [facility] 9.253 mls/hr Titration Protocol 15 MCG/KG/MIN Piperacillin Sod/Tazobactam 100 mls @ 25 mls/hr 06/10/22 02:00 06/10/22 04:09 Sod 3.375 gm/ Sodium Chloride IVPB 25 mls/hr Q8H [facility] Administration Protocol Norepinephrine Bitartrate 4 mg 254 mls @ 8.814 mls/hr 06/10/22 02:00 06/10/22 08:09 / Sodium Chloride IV Infused .Q24H [facility] Titration Protocol 0.03 MCG/KG/MIN Levetiracetam 1,500 mg/ IV 100 mls @ 400 mls/hr 06/10/22 09:00 06/10/22 08:15 Solution IVPB 400 mls/hr Q12HR [facility] Administration Calcium Gluconate/Sodium 100 mls @ 100 mls/hr 06/10/22 08:00 06/10/22 08:14 Chloride 2 gm/ IV Solution IVPB 06/10/22 08:59 100 mls/hr ONCE ONE Administration Levothyroxine Sodium 50 mcg 06/08/22 06:30 06/10/22 08:12 Levothyroxine 50 Mcg Tab PO 50 mcg DAILY@0630 [facility] Administration Metoprolol Tartrate 75 mg 06/07/22 21:50 06/09/22 19:45 Metoprolol Tartrate 25 Mg Tab PO 75 mg BID [facility] Administration Miscellaneous Information 1 each 06/08/22 09:59 Potassium Replacement Protocol 1 Each Misc MISCELLANE DAILY PRN Per Protocol Protocol Montelukast Sodium 10 mg 06/08/22 21:00 06/09/22 19:45 Montelukast 10 Mg Tab PO 10 mg HS [facility] Administration Naloxone HCl 0.2 mg 06/07/22 14:57 Naloxone 0.4 Mg/Ml 1 Ml Vial IV Q2M PRN Opioid Reversal Ondansetron HCl 4 mg 06/09/22 16:30 Ondansetron 4 Mg/2 Ml Vial IVP Q4HR PRN Nausea And Vomiting Potassium Chloride 20 meq 06/08/22 09:00 06/10/22 08:04 Potassium Chloride Er 20 Meq Tab.Er PO 20 meq DAILY [facility] Administration Prochlorperazine Edisylate 10 mg 06/09/22 16:45 06/10/22 08:18 Prochlorperazine Inj 10 Mg/2 Ml Vial IVP Not Given Q8HR [facility] Intake and Output 06/09/22 06/10/22 06/10/22 22:59 06:59 14:59 Intake Total 1392.978 237.988 Output Total 125 20 Balance 1267.978 217.988 Intake: IV 1375 Magnesium Sulfate-D5w Pmx 200 1 gm In Dextrose/Water 1 100ml.bag @ 100 mls/hr IVPB Q1H [facility] Rx#: [id number] Piperacillin-Tazobactam 3 100 .375 gm In Sodium Chloride 0.9% 100 ml @ 25 mls/hr IVPB Q8H [facility] Rx#: [id number] Sodium Chloride 0.9% 1, 75 000 ml @ 75 mls/hr IV . [id number] [facility] Rx#:[id number] Sodium Chloride 0.9% 1, 1000 000 ml @ 999 mls/hr IV . Q1H1M [facility] Rx#:[id number] Intake, IV Titration 17.978 237.988 Amount Norepinephrine 4 mg In 16.012 237.988 Sodium Chloride 0.9% 250 ml @ 0.03 MCG/KG/MIN 8. 814 mls/hr IV .Q24H [facility] Rx#:[id number] propofoL 1,000 mg In 1.966 Empty Bag 1 bag @ 15 MCG/ KG/MIN 6.94 mls/hr IV . [id number] [facility] Rx#:[id number] Output: Urine 125 20 Other: Voiding Method Urinal Indwelling Catheter Diaper # Voids 3 06/10/22 05:30 06/10/22 05:30
[2022-06-10] MEDS ORDERED: VANCOMYCIN IV PER PHARMACY 1 EACH MISC MISCELLANE PRN (08:43)
[2022-06-10] MEDS: METOPROLOL TARTRATE 25 MG TAB PO SCH (08:44)
[2022-06-10] MEDS ORDERED: RX INFO: IV CONTRAST WAS GIVEN 1 EACH MISC MISCELLANE PRN (08:59)
[2022-06-10] MEDS ORDERED: levETIRAcetam IV 1,500 MG in SALINE 1 100ML.BAG IVPB SCH (09:00)
[2022-06-10 09:15] LABS: Glucose,Whole Blood 195 mg/dL (70-110)
[2022-06-10] MEDS: VANCOMYCIN 1,500 MG in SODIUM CHLORIDE 0.9% 500 ML 500 ML IVPB SCH ×2 (09:43→16:21)
[2022-06-10] MEDS: CEFEPIME 2 GM in SODIUM CHLORIDE 0.9% 100 ML IVPB SCH ×2 (10:31→16:22)
--- NOTE | 2022-06-10 10:53 | P.PN ---
Subjective Progress Note Date: 06/10/22 Principal diagnosis: Metastatic renal cell carcinoma Patient is seen in the ICU sedated and mechanically ventilated status post cardiac arrest yesterday. CT of the chest is pending as there are suspicions the patient had a PE which led to his cardiac arrest. Objective - Vital Signs Vital signs: Vital Signs Temp 98.5 F 06/09/22 18:32 Pulse 100 06/10/22 08:47 Resp 17 06/10/22 10:15 BP 118/73 06/10/22 10:15 Pulse Ox 98 06/10/22 10:15 FiO2 40 06/10/22 08:24 Intake & Output 06/09/22 06/10/22 06/10/22 18:59 06:59 18:59 Intake Total 2195.130 3108.988 Output Total 125 105 Balance 1267.978 932.988 Weight 84.5 kg Intake: IV 1375 100 Magnesium Sulfate-D5w Pmx 200 1 gm In Dextrose/Water 1 100ml.bag @ 100 mls/hr IVPB Q1H [facility] Rx#: [id number] Piperacillin-Tazobactam 3 100 100 .375 gm In Sodium Chloride 0.9% 100 ml @ 25 mls/hr IVPB Q8H [facility] Rx#: [id number] Sodium Chloride 0.9% 1, 75 000 ml @ 75 mls/hr IV . [id number] [facility] Rx#:[id number] Sodium Chloride 0.9% 1, 1000 000 ml @ 999 mls/hr IV . Q1H1M [facility] Rx#:[id number] Intake, IV Titration 17.978 937.988 Amount Calcium Gluconate in NaCl 100 2 gm In Saline 1 100ml. bag @ 100 mls/hr IVPB ONCE [facility] Rx#:[id number] Norepinephrine 4 mg In 16.012 237.988 Sodium Chloride 0.9% 250 ml @ 0.03 MCG/KG/MIN 8. 814 mls/hr IV .Q24H [facility] Rx#:[id number] Vancomycin 1,500 mg In 500 Sodium Chloride 0.9% 500 ml 500 ml @ 167 mls/hr IVPB Q8H [facility] Rx#: [id number] levETIRAcetam IV 1,500 mg 100 In Saline 1 100ml.bag @ 400 mls/hr IVPB Q12HR [facility] Rx#:[id number] propofoL 1,000 mg In 1.966 Empty Bag 1 bag @ 15 MCG/ KG/MIN 6.94 mls/hr IV . [id number] [facility] Rx#:[id number] Output: Urine 125 105 Other: Voiding Method Urinal Indwelling Catheter Indwelling Catheter Diaper # Voids 3 ABP, PAP, CO, CI - Last Documented Arterial Blood Pressure 104/65 - Constitutional General appearance: Present: no acute distress, thin - EENT EENT Comment(s): Pinpoint pupils - Respiratory Respiratory: bilateral: CTA (On the ventilator) - Cardiovascular Heart sounds: normal: S1, S2 - Peripheral edema leg Peripheral Edema: right: None, left: Trace - Gastrointestinal General gastrointestinal: Present: soft - Integumentary Integumentary: Present: pale - Neurologic Neurologic: Absent: CNII-XII intact, focal deficits - Psychiatric Psychiatric: Absent: A&O x's 3, appropriate affect, intact judgment & insight - Allied health notes Allied health notes reviewed: nursing - Labs CBC & Chem 7: 06/10/22 05:30 06/10/22 05:30 Labs: Abnormal Lab Results - Last 24 Hours (Table) 06/09/22 06/09/22 06/10/22 Range/Units 10:54 10:54 01:09 RBC 3.33 L (4.30-5.90) m/uL Hgb 11.1 L (13.0-17.5) gm/dL Hct 31.6 L (39.0-53.0) % RDW (11.5-15.5) % Plt Count 134 L (150-450) k/uL D-Dimer (<0.60) mg/L FEU ABG pH (7.35-7.45) ABG pCO2 (35-45) mmHg ABG pO2 (83-108) mmHg ABG O2 Saturation (94-97) % Sodium 129 L (137-145) mmol/L Potassium (3.5-5.1) mmol/L Chloride 95 L (98-107) mmol/L BUN (9-20) mg/dL Glucose 131 H (74-99) mg/dL POC Glucose (mg/dL) 176 H (70-110) mg/dL Plasma Lactic Acid Maik (0.7-2.0) mmol/L Calcium 6.8 L (8.4-10.2) mg/dL Magnesium (1.6-2.3) mg/dL Troponin I (0.000-0.034) ng/mL 06/10/22 06/10/22 06/10/22 Range/Units 01:34 01:47 02:05 RBC 3.16 L (4.30-5.90) m/uL Hgb 10.6 L (13.0-17.5) gm/dL Hct 31.4 L (39.0-53.0) % RDW 15.6 H (11.5-15.5) % Plt Count 104 L (150-450) k/uL D-Dimer (<0.60) mg/L FEU ABG pH (7.35-7.45) ABG pCO2 (35-45) mmHg ABG pO2 (83-108) mmHg ABG O2 Saturation (94-97) % Sodium 128 L (137-145) mmol/L Potassium 2.9 L (3.5-5.1) mmol/L Chloride 96 L (98-107) mmol/L BUN 7 L (9-20) mg/dL Glucose 191 H (74-99) mg/dL POC Glucose (mg/dL) 162 H (70-110) mg/dL Plasma Lactic Acid Maik (0.7-2.0) mmol/L Calcium 6.7 L (8.4-10.2) mg/dL Magnesium 1.5 L (1.6-2.3) mg/dL Troponin I (0.000-0.034) ng/mL 06/10/22 06/10/22 06/10/22 Range/Units 02:05 02:05 02:05 RBC (4.30-5.90) m/uL Hgb (13.0-17.5) gm/dL Hct (39.0-53.0) % RDW (11.5-15.5) % Plt Count (150-450) k/uL D-Dimer 16.11 H (<0.60) mg/L FEU ABG pH (7.35-7.45) ABG pCO2 (35-45) mmHg ABG pO2 (83-108) mmHg ABG O2 Saturation (94-97) % Sodium (137-145) mmol/L Potassium (3.5-5.1) mmol/L Chloride (98-107) mmol/L BUN (9-20) mg/dL Glucose (74-99) mg/dL POC Glucose (mg/dL) (70-110) mg/dL Plasma Lactic Acid Maik 4.8 H* (0.7-2.0) mmol/L Calcium (8.4-10.2) mg/dL Magnesium (1.6-2.3) mg/dL Troponin I 0.077 H* (0.000-0.034) ng/mL 06/10/22 06/10/22 06/10/22 Range/Units 03:05 05:30 05:30 RBC 2.91 L (4.30-5.90) m/uL Hgb 9.9 L (13.0-17.5) gm/dL Hct 27.4 L (39.0-53.0) % RDW (11.5-15.5) % Plt Count 120 L (150-450) k/uL D-Dimer (<0.60) mg/L FEU ABG pH 7.49 H (7.35-7.45) ABG pCO2 29 L (35-45) mmHg ABG pO2 >400 H (83-108) mmHg ABG O2 Saturation 99.9 H (94-97) % Sodium 129 L (137-145) mmol/L Potassium 3.3 L (3.5-5.1) mmol/L Chloride (98-107) mmol/L BUN 8 L (9-20) mg/dL Glucose 171 H (74-99) mg/dL POC Glucose (mg/dL) (70-110) mg/dL Plasma Lactic Acid Maik (0.7-2.0) mmol/L Calcium 6.1 L* (8.4-10.2) mg/dL Magnesium (1.6-2.3) mg/dL Troponin I (0.000-0.034) ng/mL 06/10/22 06/10/22 06/10/22 Range/Units 05:58 09:10 09:13 RBC (4.30-5.90) m/uL Hgb (13.0-17.5) gm/dL Hct (39.0-53.0) % RDW (11.5-15.5) % Plt Count (150-450) k/uL D-Dimer (<0.60) mg/L FEU ABG pH 7.46 H (7.35-7.45) ABG pCO2 32 L (35-45) mmHg ABG pO2 230 H (83-108) mmHg ABG O2 Saturation 100.0 H (94-97) % Sodium (137-145) mmol/L Potassium (3.5-5.1) mmol/L Chloride (98-107) mmol/L BUN (9-20) mg/dL Glucose (74-99) mg/dL POC Glucose (mg/dL) 195 H (70-110) mg/dL Plasma Lactic Acid Maik (0.7-2.0) mmol/L Calcium (8.4-10.2) mg/dL Magnesium (1.6-2.3) mg/dL Troponin I 0.408 H* (0.000-0.034) ng/mL Microbiology - Last 24 Hours (Table) 06/07/22 12:05 Blood Culture - Preliminary Blood 06/07/22 12:20 Blood Culture - Preliminary Blood - Imaging and Cardiology CT scan - abdomen: report reviewed CT scan - chest: report reviewed CT scan - pelvis: report reviewed Assessment and Plan (1) Hypokalemia Current Visit: Yes Status: Acute Priority: High Code(s): E87.6 - HYPOKALEMIA SNOMED Code(s): 01461726 (2) Intractable nausea and vomiting Current Visit: Yes Status: Acute Priority: High Code(s): R11.2 - NAUSEA WITH VOMITING, UNSPECIFIED SNOMED Code(s): 691794264 (3) Clear cell renal cell carcinoma Current Visit: Yes Status: Chronic Priority: High Code(s): C64.9 - MALIGNANT NEOPLASM OF UNSP KIDNEY, EXCEPT RENAL PELVIS SNOMED Code(s): 870871668 Plan: Cardiac arrest -Serial troponins elevated -Cardiology following -CT of the chest ordered to rule out a PE -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 This has been held. Clear cell renal cell carcinoma, metastatic -Most recently on cabometyx and opdivo. Both will be on hold until patient has adequately recovered from his current situation Doctor attests: I performed a history and physical examination of this patient, developed impression and plan of care. Discussed with dictator. I agree with dictators note, documented as a scribe.
[2022-06-10] MEDS: NOREPINEPHRINE 32 MG in SODIUM CHLORIDE 0.9% 218 ML IV SCH (11:14)
--- NOTE | 2022-06-10 11:22 | P.CNNES ---
History of Present Illness Consult date: 06/10/22 Requesting physician: Jori Jarrett Reason for Consult: seizure, myoclonic jerks, post cardiac arrest History of Present Illness: This is a 71-year-old gentleman with history of renal cell carcinoma status post left nephrectomy in 1998 with remission and recent metastases to the lung and thyroid, remote tobacco use who is in intensive care unit because of postcardiac arrest. It seems the patient presented emergency department because of nausea vomiting abdominal pain. History was obtained patient's was at bedside, as well as the patient nurse and medical record. It seems around 1 AM today the patient went into cardiac arrest with bradycardia then PA and had a cardiac arrest for total 7 minutes and the patient received CPR and 3 epinephrine then was in ROSC according to the nurse. As a result the patient was intubated on ventilator Overnight the patient was having jerks of the shoulder twitching of the upper extremities. He initially received 2 mg Ativan and loading dose of Keppra 2 g once ordered by Dr. Lucero. Also has Pending CT head and CTA head and neck ordered. I spoke with the patient's nurse early in the morning today and she stated that he continues to jerk, so notified her to give 4m Ativan and within a few minutes to repeat for motor Ativan as needed if he continues to have jerking. According to the patient's as stated earlier the patient has history of renal cell carcinoma in 1998 and had nephrectomy and was doing well until he's been having some some shortness of breath recently and had extensive workup by our arch support maker and the workup but were inconclusive according to her and then he further workup at [place] and it was revealed that the patient has remissi on of his renal cell carcinoma with metastases to the lung as well as thyroid. Some of the workup in this hospital visit consisted of: Initial sodium to 131, potassium is 2.6 and the potassium as that improved that. Glucose initial as 121 magnesium is 1.7, calcium is 8.118 ALTs within normal limits. Patient is on IV propofol 20 mcg/kg/min. Patient has pending Review of Systems Review of system is limited by the per positive and negative aspiration. Past Medical History Past Medical History: Cancer, Diabetes Mellitus, Hypertension, Myocardial Infarction (SD) Additional Past Medical History / Comment(s): Hx renal cell cancer 1998, had left radical nephrectomy. Hx RIGHT PLEURAL EFFUSIONS, HAD THORACENTESIS. Last Myocardial Infarction Date:: 06/2020 History of Any Multi-Drug Resistant Organisms: None Reported Past Surgical History: Heart Catheterization With Stent Additional Past Surgical History / Comment(s): Left radical nephrectomy, colonoscopy, thoracentesis Past Anesthesia/Blood Transfusion Reactions: Previous Problems w/ Anesthesia Additional Past Anesthesia/Blood Transfusion Reaction / Comment(s): muscle rigidity, slurred speech, hallucinations, muscle spasms Date of Last Stent Placement:: 06/2020 Past Psychological History: No Psychological Hx Reported Smoking Status: Former smoker Past Alcohol Use History: None Reported Additional Past Alcohol Use History / Comment(s): Quit smoking in 1989. Past Drug Use History: None Reported - Past Family History Mother Family Medical History: No Reported History Father Additional Family Medical History / Comment(s): Heart disease. Sister(s) Family Medical History: Diabetes Mellitus Medications and Allergies Home Medications Medication Instructions Recorded Confirmed Type amLODIPine BESYLATE/BENAZEPRIL 1 cap PO DAILY 06/29/20 06/07/22 History [Lotrel 5-40 MG] Montelukast [Singulair] 10 mg PO HS 10/31/21 06/07/22 History Semaglutide [Ozempic] 0.25 mg SQ FR 10/31/21 06/07/22 History Furosemide [Lasix] 20 mg PO DAILY 11/28/21 06/07/22 History Aspirin EC [Ecotrin Low Dose] 81 mg PO DAILY 05/16/22 06/07/22 History Clobetasol Propionate [Temovate 1 applic TOPICAL BID 05/16/22 06/07/22 History 0.05% Oint] Famotidine [Pepcid] 40 mg PO DAILY 05/16/22 06/07/22 History Insulin Glargine,Hum.rec.anlog 8 units SQ DAILY 05/16/22 06/07/22 History [Lantus Solostar Pen] Kools Solution 1 dose PO DIRECTED PRN 05/16/22 06/07/22 History Levothyroxine Sodium [Synthroid] 50 mcg PO DAILY 05/16/22 06/07/22 History Metoprolol Tartrate [Lopressor] 75 mg PO BID 05/16/22 06/07/22 History Mupirocin 2% Oint [Bactroban 2% 1 applic TOPICAL TID 05/16/22 06/07/22 History Oint] Nivolumab [Opdivo] 1 dose IV Q30D 05/16/22 06/07/22 History Potassium Chloride ER [K-Dur 20] 20 meq PO DAILY 05/16/22 06/07/22 History Triamcinolone 0.1% Ointment 1 applic TOPICAL BID 05/16/22 06/07/22 History [Kenalog 0.1% Ointment] hydroCHLOROthiazide 12.5 mg PO DAILY 05/16/22 06/07/22 History Cabozantinib S-Malate [Cabometyx] 40 mg PO DAILY #0 05/18/22 06/07/22 Rx Ondansetron Odt [Zofran Odt] 4 mg PO Q8HR PRN #20 tab 06/01/22 06/07/22 Rx Allergies Allergy/AdvReac Type Severity Reaction Status Date / Time peanut Allergy Anaphylaxis Verified 06/07/22 13:03 Physical Examination - Vital Signs Vital Signs: Vital Signs Temp Pulse Pulse Resp BP BP Pulse Ox 06/10/22 10:15 17 118/73 98 06/10/22 10:00 16 118/73 99 06/10/22 09:45 18 118/73 98 06/10/22 09:30 18 118/73 99 06/10/22 09:15 16 118/73 99 06/10/22 09:00 16 118/73 99 06/10/22 08:47 100 06/10/22 08:45 16 118/73 100 06/10/22 08:30 11 L 118/73 100 06/10/22 08:29 102 H 06/10/22 08:24 06/10/22 08:15 13 118/73 99 06/10/22 08:00 18 118/73 100 06/10/22 07:40 18 99 06/10/22 07:30 22 99 06/10/22 07:20 16 99 06/10/22 07:10 20 118/73 99 06/10/22 07:00 19 118/73 100 06/10/22 06:50 15 100 06/10/22 06:40 26 H 118/73 100 06/10/22 06:30 17 118/73 100 06/10/22 06:20 14 118/73 100 06/10/22 06:10 8 L 118/73 100 06/10/22 06:00 102 H 14 100 06/10/22 05:50 12 100 06/10/22 05:40 40 H 118/73 100 06/10/22 05:30 14 100 06/10/22 05:20 19 118/73 100 06/10/22 05:10 12 118/73 100 06/10/22 05:03 102 H 06/10/22 05:00 15 100 06/10/22 04:51 108 H 06/10/22 04:50 25 H 100 06/10/22 04:40 29 H 100 06/10/22 04:30 20 100 06/10/22 04:20 27 H 100 06/10/22 04:10 25 H 100 06/10/22 04:00 32 H 99 06/10/22 03:50 20 100 06/10/22 03:40 98 17 100 06/10/22 03:30 94 13 100 06/10/22 03:20 42 L 18 100 06/10/22 03:11 06/10/22 03:10 80 10 L 118/73 100 06/10/22 03:00 95 16 120/78 99 06/10/22 02:50 89 19 87/63 99 06/10/22 02:40 91 16 114/78 98 06/10/22 02:30 86 23 110/77 99 06/10/22 02:20 90 19 106/75 99 06/10/22 02:12 06/10/22 02:10 97 20 96/69 99 06/10/22 02:00 101 H 20 60/33 99 06/10/22 01:52 105 H 20 99 06/10/22 01:30 06/10/22 01:29 06/09/22 20:50 105 H 06/09/22 19:45 15 06/09/22 18:32 98.5 F 123 H 15 138/80 97 06/09/22 12:45 98.9 F 95 16 119/69 97 FiO2 06/10/22 10:15 06/10/22 10:00 06/10/22 09:45 06/10/22 09:30 06/10/22 09:15 06/10/22 09:00 06/10/22 08:47 06/10/22 08:45 06/10/22 08:30 06/10/22 08:29 06/10/22 08:24 40 06/10/22 08:15 06/10/22 08:00 40 06/10/22 07:40 06/10/22 07:30 06/10/22 07:20 06/10/22 07:10 06/10/22 07:00 06/10/22 06:50 06/10/22 06:40 06/10/22 06:30 40 06/10/22 06:20 06/10/22 06:10 06/10/22 06:00 06/10/22 05:50 06/10/22 05:40 06/10/22 05:30 06/10/22 05:20 06/10/22 05:10 06/10/22 05:03 06/10/22 05:00 06/10/22 04:51 06/10/22 04:50 06/10/22 04:40 06/10/22 04:30 06/10/22 04:20 06/10/22 04:10 06/10/22 04:00 50 06/10/22 03:50 06/10/22 03:40 06/10/22 03:30 06/10/22 03:20 06/10/22 03:11 50 06/10/22 03:10 06/10/22 03:00 06/10/22 02:50 06/10/22 02:40 06/10/22 02:30 06/10/22 02:20 06/10/22 02:12 100 06/10/22 02:10 06/10/22 02:00 06/10/22 01:52 06/10/22 01:30 100 06/10/22 01:29 100 06/09/22 20:50 06/09/22 19:45 06/09/22 18:32 06/09/22 12:45 Intake and Output 06/09/22 06/10/22 06/10/22 22:59 06:59 14:59 Intake Total 4654.802 6626.988 Output Total 125 105 Balance 1267.978 932.988 Intake: IV 1375 100 Magnesium Sulfate-D5w Pmx 200 1 gm In Dextrose/Water 1 100ml.bag @ 100 mls/hr IVPB Q1H [facility] Rx#: [id number] Piperacillin-Tazobactam 3 100 100 .375 gm In Sodium Chloride 0.9% 100 ml @ 25 mls/hr IVPB Q8H [facility] Rx#: [id number] Sodium Chloride 0.9% 1, 75 000 ml @ 75 mls/hr IV . [id number] [facility] Rx#:[id number] Sodium Chloride 0.9% 1, 1000 000 ml @ 999 mls/hr IV . Q1H1M [facility] Rx#:[id number] Intake, IV Titration 17.978 937.988 Amount Calcium Gluconate in NaCl 100 2 gm In Saline 1 100ml. bag @ 100 mls/hr IVPB ONCE [facility] Rx#:[id number] Norepinephrine 4 mg In 16.012 237.988 Sodium Chloride 0.9% 250 ml @ 0.03 MCG/KG/MIN 8. 814 mls/hr IV .Q24H [facility] Rx#:[id number] Vancomycin 1,500 mg In 500 Sodium Chloride 0.9% 500 ml 500 ml @ 167 mls/hr IVPB Q8H [facility] Rx#: [id number] levETIRAcetam IV 1,500 mg 100 In Saline 1 100ml.bag @ 400 mls/hr IVPB Q12HR [facility] Rx#:[id number] propofoL 1,000 mg In 1.966 Empty Bag 1 bag @ 15 MCG/ KG/MIN 6.94 mls/hr IV . [id number] [facility] Rx#:[id number] Output: Urine 125 105 Other: Voiding Method Urinal Indwelling Catheter Indwelling Catheter Diaper # Voids 3 Weight 84.5 kg ABP, PAP, CO, CI - Last 8 Hours Arterial Blood Pressure 104/65 Arterial Blood Pressure 98/58 Arterial Blood Pressure 94/54 Arterial Blood Pressure 123/60 Arterial Blood Pressure 108/50 Arterial Blood Pressure 103/51 Arterial Blood Pressure 107/53 Arterial Blood Pressure 108/51 Arterial Blood Pressure 98/47 Arterial Blood Pressure 105/50 Arterial Blood Pressure 104/50 Arterial Blood Pressure 101/49 Arterial Blood Pressure 101/48 Arterial Blood Pressure 103/49 Arterial Blood Pressure 106/51 Arterial Blood Pressure 104/51 Arterial Blood Pressure 115/59 Arterial Blood Pressure 100/51 Arterial Blood Pressure 97/53 Arterial Blood Pressure 109/54 Arterial Blood Pressure 99/55 Arterial Blood Pressure 102/57 Arterial Blood Pressure 88/47 Arterial Blood Pressure 42/42 Arterial Blood Pressure 96/54 Arterial Blood Pressure 100/57 Arterial Blood Pressure 100/54 Arterial Blood Pressure 105/55 Arterial Blood Pressure 109/60 Arterial Blood Pressure 108/59 Arterial Blood Pressure 112/65 Arterial Blood Pressure 112/62 Arterial Blood Pressure 117/58 Arterial Blood Pressure 121/66 Arterial Blood Pressure 122/65 Arterial Blood Pressure 120/66 Arterial Blood Pressure 109/63 Arterial Blood Pressure 107/59 Arterial Blood Pressure 108/64 GENERAL: The patient is laying in bed and does not appear in acute distress. CHEST: The heart rate is regular rate rhythm. No murmurs to auscultation. LUNG: Clear to auscultation bilaterally no wheezing noted throughout. Not labored breathing. Intubated on ventilator. ABDOMEN/GI: Bowel sounds present in all 4 quadrants. No tenderness to palpation throughout. NEUROLOGICAL: Limited since on sedations (IV Propofol 20mcg/kg/min and received total of 10mg of Ativan). Higher mental function: The patient is comatose. GCS 3 (E1, VT1, M1). Cranial nerves: The pupils are round, equal, pinpoint. Hard to access pupil reactivity because of constricted pupils. No corneal, occulocephalic. No facial weakness. Is breathing over the vent. Motor: The strength is limited but no movement noted to painful stimuli. No spontaneous movement noted. To painful stimuli has brief jerks of uppers shoulder, chest. Normal tone and bulk. Cerebellum: Unable to assess. Sensation: Unable to assess light touch. Reflexes (right/left): 1+ throughout. Plantars are mute bilaterally. Results - Laboratory Findings CBC and BMP: 06/10/22 05:30 06/10/22 16:30 Abnormal Lab Findings: Abnormal Labs 06/07/22 06/07/22 06/08/22 12:26 12:26 11:00 RBC 3.50 L Hgb 11.7 L Hct 32.3 L RDW 15.8 H Plt Count Eosinophils # 0.8 H D-Dimer ABG pH ABG pCO2 ABG pO2 ABG O2 Saturation Sodium 131 L 131 L Potassium 2.6 L* 3.3 L Chloride 89 L Carbon Dioxide 34 H BUN Creatinine 0.61 L Glucose 121 H 57 L POC Glucose (mg/dL) Plasma Lactic Acid Maik Calcium 8.1 L 7.3 L Magnesium Total Bilirubin 1.5 H Alkaline Phosphatase 214 H Troponin I Albumin 3.1 L 06/09/22 06/09/22 06/10/22 10:54 10:54 01:09 RBC 3.33 L Hgb 11.1 L Hct 31.6 L RDW Plt Count 134 L Eosinophils # D-Dimer ABG pH ABG pCO2 ABG pO2 ABG O2 Saturation Sodium 129 L Potassium Chloride 95 L Carbon Dioxide BUN Creatinine Glucose 131 H POC Glucose (mg/dL) 176 H Plasma Lactic Acid Maik Calcium 6.8 L Magnesium Total Bilirubin Alkaline Phosphatase Troponin I Albumin 06/10/22 06/10/22 06/10/22 01:34 01:47 02:05 RBC 3.16 L Hgb 10.6 L Hct 31.4 L RDW 15.6 H Plt Count 104 L Eosinophils # D-Dimer ABG pH ABG pCO2 ABG pO2 ABG O2 Saturation Sodium 128 L Potassium 2.9 L Chloride 96 L Carbon Dioxide BUN 7 L Creatinine Glucose 191 H POC Glucose (mg/dL) 162 H Plasma Lactic Acid Maik Calcium 6.7 L Magnesium 1.5 L Total Bilirubin Alkaline Phosphatase Troponin I Albumin 06/10/22 06/10/22 06/10/22 02:05 02:05 02:05 RBC Hgb Hct RDW Plt Count Eosinophils # D-Dimer 16.11 H ABG pH ABG pCO2 ABG pO2 ABG O2 Saturation Sodium Potassium Chloride Carbon Dioxide BUN Creatinine Glucose POC Glucose (mg/dL) Plasma Lactic Acid Maik 4.8 H* Calcium Magnesium Total Bilirubin Alkaline Phosphatase Troponin I 0.077 H* Albumin 06/10/22 06/10/22 06/10/22 03:05 05:30 05:30 RBC 2.91 L Hgb 9.9 L Hct 27.4 L RDW Plt Count 120 L Eosinophils # D-Dimer ABG pH 7.49 H ABG pCO2 29 L ABG pO2 >400 H ABG O2 Saturation 99.9 H Sodium 129 L Potassium 3.3 L Chloride Carbon Dioxide BUN 8 L Creatinine Glucose 171 H POC Glucose (mg/dL) Plasma Lactic Acid Maik Calcium 6.1 L* Magnesium Total Bilirubin Alkaline Phosphatase Troponin I Albumin 06/10/22 06/10/22 06/10/22 05:58 09:10 09:13 RBC Hgb Hct RDW Plt Count Eosinophils # D-Dimer ABG pH 7.46 H ABG pCO2 32 L ABG pO2 230 H ABG O2 Saturation 100.0 H Sodium Potassium Chloride Carbon Dioxide BUN Creatinine Glucose POC Glucose (mg/dL) 195 H Plasma Lactic Acid Maik Calcium Magnesium Total Bilirubin Alkaline Phosphatase Troponin I 0.408 H* Albumin Assessment and Plan Assessment: This is a 71-year-old gentleman with history of renal cell carcinoma with permission and metastases to the thyroid as well as the long with had a cardiopulmonary arrest on at 1am lasting for 7 minutes. Initial rhythm was bradycardia then PEA lasting for total 7 minutes. He received CPR of 3 rounds and was in ROSC. Cardiac arrest Probable anoxic brain injury due to above Myoclonic jerks seems due to above Hypokalemia History of renal cell carcinoma status post nephrectomy in 1998 with remission and metastases to the lung and thyroid Bradycardia Diabetes mellitus History of myocardial infarction with stent to the left circumflex Ischemic cardiomyopathy with ejection fraction 40-45% Remote tobacco use Plan: Patient has received a total of 10 mg Ativan and received the Keppra 2 g once is a loading to control the myoclonic jerks and currently is seems controlled. I started the patient on Keppra 1500 mg every 12 hours. EEG stat is ordered and is pending CT angiography of the head and neck as well as CT is pending Neuro checks every 2 hour Cardiology is on board. 2-D echo was ordered and is pending We'll defer the rest of the medical management to the primary and ICU team Condition is critical. The plan was discussed with the patient's was at bedside and ICU team. Thank you for the consultation. Time with Patient: Greater than 30
[2022-06-10 11:29] LABS: Glucose,Whole Blood 176 mg/dL (70-110)
[2022-06-10 11:35] VITALS: BMI 25.2
[2022-06-10 12:03] LABS: African American GFR (CKD) >90 (>60 ml/min/1.73 sqM); Anion Gap 4 mmol/L; Blood Urea Nitrogen 7 mg/dL (9-20); Calcium 6.6 mg/dL (8.4-10.2); Carbon Dioxide 23 mmol/L (22-30); Chloride 102 mmol/L (98-107); Glucose 156 mg/dL (74-99); Non-African American GFR(CKD) >90 (>60 ml/min/1.73 sqM); Potassium 3.4 mmol/L (3.5-5.1); Sodium 129 mmol/L (137-145)
--- NOTE | 2022-06-10 12:59 | EEG ---
ELECTROENCEPHALOGRAM REPORT CLINICAL HISTORY: This is a 71-year-old gentleman, who had a cardiac arrest and having myoclonic jerks. The video EEG is obtained to evaluate for seizure epileptiform activity. RELEVANT MEDICATIONS: 1. IV propofol. 2. Ativan. 3. Keppra. EEG TYPE: A routine 21-channel EEG is performed with video using the 10/20 electrode placement system. DESCRIPTION: This patient is intubated on a ventilator. The background consists of diffuse burst suppression. During the burst activity, it is diffuse spike of 1-2 hertz with slow waves. While during suppression state, it is diffuse suppression lasting between 10 to 40 seconds (predominantly it is between 20 to 30 seconds). There is no focal slowing. ACTIVATION PROCEDURE: Photic stimulation did not evoke a posterior driving response. There is no abnormality during the photic stimulation. Hyperventilation was not performed. CLINICAL INTERPRETATION: This is an abnormal routine EEG. The burst suppression is suggestive of either a cerebral anoxia vs status epilepticus vs medication effect (Ativan and IV Propofol). Clinical correlation is recommended. MMODL / IJN: [id number] / MTDD
--- NOTE | 2022-06-10 13:53 | P.PN ---
Subjective Progress Note Date: 06/10/22 This is a 71-year-old gentleman initially admitted with intractable nausea vomiting, severe electrolyte imbalance including hypocalcemia in a patient with renal cell carcinoma stage IV recently completed a cycle of chemotherapy on 06/05/2022, status post witnessed cardiac arrest last night with bradycardia, reported downtime of 7 minutes with 3 rounds of CPR. Intubated,currently maintained on FiO2 40%/+5 of PEEP. Hypotensive post intubation, received fluid resuscitation with 2 L by the initiation of Levophed. Sedated on diprovan. Telemetry sinus rhythm. As the night progressed, patient developed shoulder twitching, jerking of his upper extremities received Ativan, loaded and reloaded with Keppra per neurology. Myoclonic jerks better controlled, now on scheduled Keppra. Continues on empiric Zosyn. T-max 103.1, normal WBC, preliminary blood cultures reporting no growth at 48 hours. Hemoglobin 9.9, platelets 120. D- dimer elevated 16.11, possibly related to cardiac arrest, ruling out PE. Sodium 129, potassium 3.4, bicarb 23, BUN 4, creatinine 7, blood sugars controlled, Lactic acid improved -down to 1.6 from 4.8 earlier this morning. Magnesium 1.5. Troponin 0.077, 0.408, 0.369.CT of abdomen and pelvis on 06/09/22 reported no evidence for acute process to correlate for patient's nausea and vomiting, similar size and appearance of pancreatic tail mass with invasion into the splenic vein, similar right pulmonary pleural metastatic lesions, lytic changes involving the lower ribs bilaterally, stable left lower lobe groundglass pulmonary nodule, similar mediastinal adenopathy. Evaluated by neurology with workup in progress. Objective - Vital Signs Vital signs: Vital Signs Temp 98.5 F 06/09/22 18:32 Pulse 96 06/10/22 12:07 Resp 16 06/10/22 11:00 BP 118/73 06/10/22 11:00 Pulse Ox 98 06/10/22 11:00 FiO2 40 06/10/22 12:02 Intake & Output 06/09/22 06/10/22 06/10/22 18:59 06:59 18:59 Intake Total 8314.979 8394.483 Output Total 125 135 Balance 6901.662 4954.483 Weight 84.5 kg Intake: IV 1375 400 Magnesium Sulfate-D5w Pmx 200 1 gm In Dextrose/Water 1 100ml.bag @ 100 mls/hr IVPB Q1H [facility] Rx#: [id number] Piperacillin-Tazobactam 3 100 100 .375 gm In Sodium Chloride 0.9% 100 ml @ 25 mls/hr IVPB Q8H [facility] Rx#: [id number] Sodium Chloride 0.9% 1, 75 300 000 ml @ 75 mls/hr IV . [id number] [facility] Rx#:[id number] Sodium Chloride 0.9% 1, 1000 000 ml @ 999 mls/hr IV . Q1H1M [facility] Rx#:[id number] Intake, IV Titration 17.978 997.483 Amount Calcium Gluconate in NaCl 100 2 gm In Saline 1 100ml. bag @ 100 mls/hr IVPB ONCE [facility] Rx#:[id number] Norepinephrine 32 mg In 2.126 Sodium Chloride 0.9% 218 ml @ 0.03 MCG/KG/MIN 1. 188 mls/hr IV .Q24H [facility] Rx#:[id number] Norepinephrine 4 mg In 16.012 237.988 Sodium Chloride 0.9% 250 ml @ 0.03 MCG/KG/MIN 8. 814 mls/hr IV .Q24H [facility] Rx#:[id number] Vancomycin 1,500 mg In 500 Sodium Chloride 0.9% 500 ml 500 ml @ 167 mls/hr IVPB Q8H [facility] Rx#: [id number] levETIRAcetam IV 1,500 mg 100 In Saline 1 100ml.bag @ 400 mls/hr IVPB Q12HR [facility] Rx#:[id number] propofoL 1,000 mg In 1.966 57.369 Empty Bag 1 bag @ 15 MCG/ KG/MIN 6.94 mls/hr IV . [id number] [facility] Rx#:[id number] Output: Urine 125 135 Other: Voiding Method Urinal Indwelling Catheter Indwelling Catheter Diaper # Voids 3 ABP, PAP, CO, CI - Last Documented Arterial Blood Pressure 89/57 - Exam PHYSICAL EXAM: VITAL SIGNS: As above GENERAL: Sitting up in bed, sedated and intubated HEENT: Normocephalic, atraumatic ,Conjunctivae normal. NECK: Supple, No JVD. CARDIOVASCULAR: S1, S2 regular. No murmur RESPIRATION: Unlabored, bilateral equal air entry ,Breath sounds clear to auscultation. ABDOMEN: Soft, nontender . No guarding. no masses palpable. Bowel sounds heard. LEGS: No edema. no swelling NERVOUS SYSTEM: Unable to assess, intubated and sedated Skin: Warm and dry, no rash - Labs CBC & Chem 7: 06/10/22 05:30 06/10/22 11:30 Labs: Abnormal Lab Results - Last 24 Hours (Table) 06/10/22 06/10/22 06/10/22 Range/Units 01:09 01:34 01:47 RBC (4.30-5.90) m/uL Hgb (13.0-17.5) gm/dL Hct (39.0-53.0) % RDW (11.5-15.5) % Plt Count (150-450) k/uL D-Dimer (<0.60) mg/L FEU ABG pH (7.35-7.45) ABG pCO2 (35-45) mmHg ABG pO2 (83-108) mmHg ABG O2 Saturation (94-97) % Sodium 128 L (137-145) mmol/L Potassium 2.9 L (3.5-5.1) mmol/L Chloride 96 L (98-107) mmol/L BUN 7 L (9-20) mg/dL Glucose 191 H (74-99) mg/dL POC Glucose (mg/dL) 176 H 162 H (70-110) mg/dL Plasma Lactic Acid Maik (0.7-2.0) mmol/L Calcium 6.7 L (8.4-10.2) mg/dL Magnesium 1.5 L (1.6-2.3) mg/dL Troponin I (0.000-0.034) ng/mL 06/10/22 06/10/22 06/10/22 Range/Units 02:05 02:05 02:05 RBC 3.16 L (4.30-5.90) m/uL Hgb 10.6 L (13.0-17.5) gm/dL Hct 31.4 L (39.0-53.0) % RDW 15.6 H (11.5-15.5) % Plt Count 104 L (150-450) k/uL D-Dimer 16.11 H (<0.60) mg/L FEU ABG pH (7.35-7.45) ABG pCO2 (35-45) mmHg ABG pO2 (83-108) mmHg ABG O2 Saturation (94-97) % Sodium (137-145) mmol/L Potassium (3.5-5.1) mmol/L Chloride (98-107) mmol/L BUN (9-20) mg/dL Glucose (74-99) mg/dL POC Glucose (mg/dL) (70-110) mg/dL Plasma Lactic Acid Maik (0.7-2.0) mmol/L Calcium (8.4-10.2) mg/dL Magnesium (1.6-2.3) mg/dL Troponin I 0.077 H* (0.000-0.034) ng/mL 06/10/22 06/10/22 06/10/22 Range/Units 02:05 03:05 05:30 RBC 2.91 L (4.30-5.90) m/uL Hgb 9.9 L (13.0-17.5) gm/dL Hct 27.4 L (39.0-53.0) % RDW (11.5-15.5) % Plt Count 120 L (150-450) k/uL D-Dimer (<0.60) mg/L FEU ABG pH 7.49 H (7.35-7.45) ABG pCO2 29 L (35-45) mmHg ABG pO2 >400 H (83-108) mmHg ABG O2 Saturation 99.9 H (94-97) % Sodium (137-145) mmol/L Potassium (3.5-5.1) mmol/L Chloride (98-107) mmol/L BUN (9-20) mg/dL Glucose (74-99) mg/dL POC Glucose (mg/dL) (70-110) mg/dL Plasma Lactic Acid Maik 4.8 H* (0.7-2.0) mmol/L Calcium (8.4-10.2) mg/dL Magnesium (1.6-2.3) mg/dL Troponin I (0.000-0.034) ng/mL 06/10/22 06/10/22 06/10/22 Range/Units 05:30 05:58 09:10 RBC (4.30-5.90) m/uL Hgb (13.0-17.5) gm/dL Hct (39.0-53.0) % RDW (11.5-15.5) % Plt Count (150-450) k/uL D-Dimer (<0.60) mg/L FEU ABG pH 7.46 H (7.35-7.45) ABG pCO2 32 L (35-45) mmHg ABG pO2 230 H (83-108) mmHg ABG O2 Saturation 100.0 H (94-97) % Sodium 129 L (137-145) mmol/L Potassium 3.3 L (3.5-5.1) mmol/L Chloride (98-107) mmol/L BUN 8 L (9-20) mg/dL Glucose 171 H (74-99) mg/dL POC Glucose (mg/dL) (70-110) mg/dL Plasma Lactic Acid Maik (0.7-2.0) mmol/L Calcium 6.1 L* (8.4-10.2) mg/dL Magnesium (1.6-2.3) mg/dL Troponin I 0.408 H* (0.000-0.034) ng/mL 06/10/22 06/10/22 06/10/22 Range/Units 09:13 11:26 11:30 RBC (4.30-5.90) m/uL Hgb (13.0-17.5) gm/dL Hct (39.0-53.0) % RDW (11.5-15.5) % Plt Count (150-450) k/uL D-Dimer (<0.60) mg/L FEU ABG pH (7.35-7.45) ABG pCO2 (35-45) mmHg ABG pO2 (83-108) mmHg ABG O2 Saturation (94-97) % Sodium 129 L (137-145) mmol/L Potassium 3.4 L (3.5-5.1) mmol/L Chloride (98-107) mmol/L BUN 7 L (9-20) mg/dL Glucose 156 H (74-99) mg/dL POC Glucose (mg/dL) 195 H 176 H (70-110) mg/dL Plasma Lactic Acid Maik (0.7-2.0) mmol/L Calcium 6.6 L (8.4-10.2) mg/dL Magnesium (1.6-2.3) mg/dL Troponin I (0.000-0.034) ng/mL Microbiology - Last 24 Hours (Table) 06/07/22 12:05 Blood Culture - Preliminary Blood 06/07/22 12:20 Blood Culture - Preliminary Blood Assessment and Plan Assessment: Witnessed Cardiac arrest with bradycardia, down time 7 minutes; upper extremity myoclonic jerks -possible anoxic brain injury. Acute hypoxic respiratory failure secondary to the above, ventilator dependent Hypotension, pressor dependent, secondary to all the above Intractable nausea vomiting and unable to tolerate oral diet. Possible chemo related Severe hypokalemia 2.6 on admission. Hypovolemic hyponatremia Hypocalcemia Hypomagnesemia Metastatic clear cell renal carcinoma, diagnosed 01/08, status post completion of cycle 6 on 06/05/2022. Anemia, normocytic secondary to the above History of metastatic renal cell CA, status post left nephrectomy in 1998. Former nicotine dependence Diabetes mellitus type 2 Chronic systolic heart failure Ischemic cardiomyopathy, EF 40-45% Hypertension Hyperlipidemia CAD history of [place] Plan: Continue on current medication regime ,monitoring and symptomatic treatment. ICU management as per supply manager 2-D echo pending .neuro workup in progress, CTAs, EEG pending. Prognosis guarded given multiple complex medical issues. at bedside, updated on plan of care. Questions and concerns addressed. The impression and plan of care has been dictated as directed. : I performed a history and examination of this patient, discussed the same with the dictator. I agree with the dictator's note ,documented as a scribe. Any additional findings or plans will be noted.
--- NOTE | 2022-06-10 14:40 | OP ---
OPERATIVE REPORT DATE OF SERVICE : PROCEDURE PERFORMED: Placement of a right femoral triple-lumen catheter. PREOPERATIVE DIAGNOSES: Acute hypoxic respiratory failure/cardiac arrest. POSTOPERATIVE DIAGNOSES: Acute hypoxic respiratory failure/cardiac arrest. ANESTHESIA USED: 2 mL of 1% lidocaine. PROCEDURE PERFORMED: The patient was placed in the supine position, and the right groin was prepared in a sterile fashion, and drapes were applied. Then, the right groin was locally anesthetized, and the right femoral vein was easily cannulated medial to the right femoral artery. A guidewire was placed. The area around the guidewire was dilated. Then, a triple-lumen catheter was inserted over the guidewire, and the guidewire was removed. Good blood flow was noted in the 3 different ports of the triple-lumen catheter. Line was secured using 3-0 silk sutures. No complications. MMODL / IJN: [id number] /
[2022-06-10 15:09] LABS: Glucose,Whole Blood 162 mg/dL (70-110)
[2022-06-10] MEDS ORDERED: MIDAZOLAM HCL 50 MG in SODIUM CHLORIDE 0.9% 40 ML IV SCH (15:30)
[2022-06-10] MEDS: SODIUM CHLORIDE 0.9% 1,000 ML IV SCH (16:30)
[2022-06-10 16:44] LABS: Glucose,Whole Blood 170 mg/dL (70-110)
[2022-06-10 17:13] LABS: Magnesium 1.6 mg/dL (1.6-2.3); Potassium 3.7 mmol/L (3.5-5.1)
[2022-06-10] MEDS ORDERED: Magnesium Replacement Protocol 1 EACH MISC MISCELLANE PRN (17:15)
[2022-06-10 18:00] LABS: Glucose,Whole Blood 132 mg/dL (70-110)
[2022-06-10] MEDS ORDERED: POTASSIUM BICARBONATE/CIT AC 20 MEQ TABLET.EFF NG-TUBE SCH (18:00)
--- NOTE | 2022-06-10 19:08 | P.CONS ---
History of Present Illness - Reason for Consult Consult date: 06/10/22 Goals of care Requesting physician: Avelino Escobar - Chief Complaint Nausea, vomiting, and abdominal pain - History of Present Illness The patient is a 71 year-old male with a past medical history of diabetes mellitus, hypertension, ischemic cardiomyopathy with an EF of 40-45%, and MIs/p sten. He also has a history of history of renal cell carcinoma. He is a patient of Dr. Braga. He has a remote history of renal cell carcinoma s/p left nephrectomy in 1998. In August/2021,he had a CXR in October/2021 which revealed large right pleural effusion was admitted to the hospital, underwent thoracentesis, cytology was negative. CT scan of chest which revealed evidence of mediastinal nodes, he then underwent bronchoscopy,washing/lavage were negative. PET scan done on 11/27/2021 revealed multiple nodular uptake in right posterior pleura, large paratrecheal node, soft tissue mass in the left kidney bed. On 11/29/2021, he underwent EBUS, FNA of mediastinal nodes were non diagnostic. 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 He was started on cabometyx and opdivo, and is s/p completion of cycle 6 on 06/05/22. CT CAP on 04/19/22 revealed improvement in disease. The patient presented to the emergency department on 06/07/22 with complaints of nausea, vomiting, generalized weakness andabdominal pain for approximately three weeks. He denied any diarrhea, blood in stool, melena, hematemesis, fever and chills. Acute abdominal series upon admission showed small right pleural effusion with associated right basilar atelectasis, no significant changes. Nonobstructive bowel gas pattern. Blood cultures obtained. T max 99.8. WBC 6.4, hgb 11.1, plat elets 134,000. The patient still with intractable nausea and episode of vomiting this morning as per family. No complaints of chest pain or shortness of breath. Abdominal pain is better. Patient is otherwise unable to tolerate oral diet. Diet was changed to CLD and continued on symptomatic management. Patient was been afebrile. Laboratory showed sodium 129, potassium improved to 3.6 chloride 95 bicarb is 28 BUN 9 and creatinine 0.69 and calcium 6.8. Patient wass being treated Zofran and Pepcid IV twice daily. 06/09 A follow-up enhanced CT of the abdomen and pelvis on June 09 showed no o bvious acute process within the abdomen or pelvis. 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 06/10 The patient went bradycardic, then lost his pulse. Code blue was activated and CPR initiated. His initial rhythm was PEA. The patient had 7 min of CPR, required 3 doses of epi, ROSC achieved. He was intubated during the code,and transferred to the ICU. The patient's d-dimer was elevated at 16.11, however, this could be related to the patient's cardiac arrest. Caridiology was consult ed. It is unclear if bradycardia caused the cardiac arrest or was secondary. 2D echo pending. ontinue to monitor on telemetry. Patient was not on DVT prophylaxis prior to the code, pulmonary embolism should be included with the differential. The patient is not stable for chest CTA. The patient was having myoclonic jerks of the shoulder twitching of the upper extremities. He was given Ativan and started on Keppra. Neurology is following. There is concern for anoxic brain injury. EEG stat is ordered and is pending. CT angiography of the head and neck as well as CT is pending and will be completed when the patient is more stable. Review of Systems ROS unobtainable: due to endotracheal tube, due to mental status Past Medical History Past Medical History: Cancer, Diabetes Mellitus, Hypertension, Myocardial Infar ction ([place]) Additional Past Medical History / Comment(s): Hx renal cell cancer 1998, had left radical nephrectomy. Hx RIGHT PLEURAL EFFUSIONS, HAD THORACENTESIS. Last Myocardial Infarction Date:: 06/2020 History of Any Multi-Drug Resistant Organisms: None Reported Past Surgical History: Heart Catheterization With Stent Additional Past Surgical History / Comment(s): Left radical nephrectomy, colonoscopy, thoracentesis Past Anesthesia/Blood Transfusion Reactions: Previous Problems w/ Anesthesia Additional Past Anesthesia/Blood Transfusion Reaction / Comm: muscle rigidity, slurred speech, hallucinations, muscle spasms Date of Last Stent Placement:: 06/2020 Past Psychological History: No Psychological Hx Reported Smoking Status: Former smoker Past Alcohol Use History: None Reported Additional Past Alcohol Use History / Comment(s): Quit smoking in 1989. Past Drug Use History: None Reported - Past Family History Mother Family Medical History: No Reported History Father Additional Family Medical History / Comment(s): Heart disease. Sister(s) Family Medical History: Diabetes Mellitus Medications and Allergies Home Medications Medication Instructions Recorded Confirmed Type amLODIPine BESYLATE/BENAZEPRIL 1 cap PO DAILY 06/29/20 06/07/22 History [Lotrel 5-40 MG] Montelukast [Singulair] 10 mg PO HS 10/31/21 06/07/22 History Semaglutide [Ozempic] 0.25 mg SQ FR 10/31/21 06/07/22 History Furosemide [Lasix] 20 mg PO DAILY 11/28/21 06/07/22 History Aspirin EC [Ecotrin Low Dose] 81 mg PO DAILY 05/16/22 06/07/22 History Clobetasol Propionate [Temovate 1 applic TOPICAL BID 05/16/22 06/07/22 History 0.05% Oint] Famotidine [Pepcid] 40 mg PO DAILY 05/16/22 06/07/22 History Insulin Glargine,Hum.rec.anlog 8 units SQ DAILY 05/16/22 06/07/22 History [Lantus Solostar Pen] Kools Solution 1 dose PO DIRECTED PRN 05/16/22 06/07/22 History Levothyroxine Sodium [Synthroid] 50 mcg PO DAILY 05/16/22 06/07/22 History Metoprolol Tartrate [Lopressor] 75 mg PO BID 05/16/22 06/07/22 History Mupirocin 2% Oint [Bactroban 2% 1 applic TOPICAL TID 05/16/22 06/07/22 History Oint] Nivolumab [Opdivo] 1 dose IV Q30D 05/16/22 06/07/22 History Potassium Chloride ER [K-Dur 20] 20 meq PO DAILY 05/16/22 06/07/22 History Triamcinolone 0.1% Ointment 1 applic TOPICAL BID 05/16/22 06/07/22 History [Kenalog 0.1% Ointment] hydroCHLOROthiazide 12.5 mg PO DAILY 05/16/22 06/07/22 History Cabozantinib S-Malate [Cabometyx] 40 mg PO DAILY #0 05/18/22 06/07/22 Rx Ondansetron Odt [Zofran Odt] 4 mg PO Q8HR PRN #20 tab 06/01/22 06/07/22 Rx Allergies Allergy/AdvReac Type Severity Reaction Status Date / Time peanut Allergy Anaphylaxis Verified 06/07/22 13:03 Physical Exam Vitals: Vital Signs Temp Pulse Pulse Resp BP BP Pulse Ox 06/10/22 18:00 89 16 99 06/10/22 17:45 88 16 100 06/10/22 17:30 89 16 99 06/10/22 17:15 90 16 100 06/10/22 17:00 91 16 100 06/10/22 16:45 92 16 100 06/10/22 16:30 92 16 99 06/10/22 16:18 92 06/10/22 16:15 93 16 99 06/10/22 16:00 99.5 F 96 16 99 06/10/22 15:56 06/10/22 15:45 98 16 98 06/10/22 15:30 101 H 16 98 06/10/22 15:15 105 H 21 98 06/10/22 15:00 102 H 16 98 06/10/22 14:45 103 H 12 98 06/10/22 14:35 102 H 16 98 06/10/22 14:30 102 H 16 98 06/10/22 14:29 102 H 16 98 06/10/22 14:20 16 97 06/10/22 14:15 16 96 06/10/22 14:10 16 97 06/10/22 14:05 16 98 06/10/22 14:00 16 98 06/10/22 13:55 16 97 06/10/22 13:45 18 98 06/10/22 13:30 103 H 16 98 06/10/22 13:15 17 99 06/10/22 13:00 19 99 06/10/22 12:45 16 99 06/10/22 12:30 16 99 06/10/22 12:18 96 06/10/22 12:15 16 100 06/10/22 12:07 96 06/10/22 12:02 06/10/22 12:00 100.4 F H 98 16 99 06/10/22 11:45 16 99 06/10/22 11:30 99 16 99 06/10/22 11:15 12 99 06/10/22 11:00 102 H 16 118/73 98 06/10/22 10:45 15 118/73 98 06/10/22 10:30 16 118/73 100 06/10/22 10:15 17 118/73 98 06/10/22 10:00 102 H 16 118/73 99 06/10/22 09:45 18 118/73 98 06/10/22 09:30 18 118/73 99 06/10/22 09:15 16 118/73 99 06/10/22 09:00 104 H 16 118/73 99 06/10/22 08:47 100 06/10/22 08:45 16 118/73 100 06/10/22 08:30 11 L 118/73 100 06/10/22 08:29 102 H 06/10/22 08:24 06/10/22 08:15 13 118/73 99 06/10/22 08:00 103.1 F H 103 H 18 118/73 100 06/10/22 07:40 18 99 06/10/22 07:30 22 99 06/10/22 07:20 16 99 06/10/22 07:10 20 118/73 99 06/10/22 07:00 19 118/73 100 06/10/22 06:50 15 100 06/10/22 06:40 26 H 118/73 100 06/10/22 06:30 17 118/73 100 06/10/22 06:20 14 118/73 100 06/10/22 06:10 8 L 118/73 100 06/10/22 06:00 102 H 14 100 06/10/22 05:50 12 100 06/10/22 05:40 40 H 118/73 100 06/10/22 05:30 14 100 06/10/22 05:20 19 118/73 100 06/10/22 05:10 12 118/73 100 06/10/22 05:03 102 H 06/10/22 05:00 15 100 06/10/22 04:51 108 H 06/10/22 04:50 25 H 100 06/10/22 04:40 29 H 100 06/10/22 04:30 20 100 06/10/22 04:20 27 H 100 06/10/22 04:10 25 H 100 06/10/22 04:00 32 H 99 06/10/22 03:50 20 100 06/10/22 03:40 98 17 100 06/10/22 03:30 94 13 100 06/10/22 03:20 42 L 18 100 06/10/22 03:11 06/10/22 03:10 80 10 L 118/73 100 06/10/22 03:00 95 16 120/78 99 06/10/22 02:50 89 19 87/63 99 06/10/22 02:40 91 16 114/78 98 06/10/22 02:30 86 23 110/77 99 06/10/22 02:20 90 19 106/75 99 06/10/22 02:12 06/10/22 02:10 97 20 96/69 99 06/10/22 02:00 101 H 20 60/33 99 06/10/22 01:52 105 H 20 99 06/10/22 01:30 06/10/22 01:29 06/09/22 20:50 105 H 06/09/22 19:45 15 06/09/22 18:32 98.5 F 123 H 15 138/80 97 FiO2 06/10/22 18:00 06/10/22 17:45 06/10/22 17:30 06/10/22 17:15 06/10/22 17:00 06/10/22 16:45 06/10/22 16:30 06/10/22 16:18 06/10/22 16:15 06/10/22 16:00 40 06/10/22 15:56 40 06/10/22 15:45 06/10/22 15:30 06/10/22 15:15 06/10/22 15:00 06/10/22 14:45 06/10/22 14:35 06/10/22 14:30 06/10/22 14:29 06/10/22 14:20 06/10/22 14:15 06/10/22 14:10 06/10/22 14:05 06/10/22 14:00 06/10/22 13:55 06/10/22 13:45 06/10/22 13:30 06/10/22 13:15 06/10/22 13:00 06/10/22 12:45 06/10/22 12:30 06/10/22 12:18 06/10/22 12:15 06/10/22 12:07 06/10/22 12:02 40 06/10/22 12:00 40 06/10/22 11:45 06/10/22 11:30 06/10/22 11:15 06/10/22 11:00 06/10/22 10:45 06/10/22 10:30 06/10/22 10:15 06/10/22 10:00 06/10/22 09:45 06/10/22 09:30 06/10/22 09:15 06/10/22 09:00 06/10/22 08:47 06/10/22 08:45 06/10/22 08:30 06/10/22 08:29 06/10/22 08:24 40 06/10/22 08:15 06/10/22 08:00 40 06/10/22 07:40 06/10/22 07:30 06/10/22 07:20 06/10/22 07:10 06/10/22 07:00 06/10/22 06:50 06/10/22 06:40 06/10/22 06:30 40 06/10/22 06:20 06/10/22 06:10 06/10/22 06:00 06/10/22 05:50 06/10/22 05:40 06/10/22 05:30 06/10/22 05:20 06/10/22 05:10 06/10/22 05:03 06/10/22 05:00 06/10/22 04:51 06/10/22 04:50 06/10/22 04:40 06/10/22 04:30 06/10/22 04:20 06/10/22 04:10 06/10/22 04:00 50 06/10/22 03:50 06/10/22 03:40 06/10/22 03:30 06/10/22 03:20 06/10/22 03:11 50 06/10/22 03:10 06/10/22 03:00 06/10/22 02:50 06/10/22 02:40 06/10/22 02:30 06/10/22 02:20 06/10/22 02:12 100 06/10/22 02:10 06/10/22 02:00 06/10/22 01:52 06/10/22 01:30 100 06/10/22 01:29 100 06/09/22 20:50 06/09/22 19:45 06/09/22 18:32 Intake and Output 06/10/22 06/10/22 06/10/22 06:59 14:59 22:59 Intake Total 9272.186 9866.483 1257.056 Output Total 125 210 50 Balance 8099.687 6995.483 1207.056 Intake: IV 6586 870 7974 Magnesium Sulfate-D5w Pmx 200 1 gm In Dextrose/Water 1 100ml.bag @ 100 mls/hr IVPB Q1H [facility] Rx#: [id number] Piperacillin-Tazobactam 3 100 100 .375 gm In Sodium Chloride 0.9% 100 ml @ 25 mls/hr IVPB Q8H [facility] Rx#: [id number] Sodium Chloride 0.9% 1, 75 450 000 ml @ 75 mls/hr IV . [id number] [facility] Rx#:[id number] Sodium Chloride 0.9% 1, 1000 1000 000 ml @ 999 mls/hr IV . Q1H1M [facility] Rx#:[id number] Intake, IV Titration 17.978 997.483 257.056 Amount Calcium Gluconate in NaCl 100 2 gm In Saline 1 100ml. bag @ 100 mls/hr IVPB ONCE ONE Rx#:[id number] Norepinephrine 32 mg In 2.126 48.838 Sodium Chloride 0.9% 218 ml @ 0.03 MCG/KG/MIN 1. 188 mls/hr IV .Q24H [facility] Rx#:[id number] Norepinephrine 4 mg In 16.012 237.988 Sodium Chloride 0.9% 250 ml @ 0.03 MCG/KG/MIN 8. 814 mls/hr IV .Q24H [facility] Rx#:[id number] Sodium Chloride 0.9% 1, 150 000 ml @ 75 mls/hr IV . [id number] [facility] Rx#:[id number] Vancomycin 1,500 mg In 500 Sodium Chloride 0.9% 500 ml 500 ml @ 167 mls/hr IVPB Q8H [facility] Rx#: [id number] levETIRAcetam IV 1,500 mg 100 In Saline 1 100ml.bag @ 400 mls/hr IVPB Q12HR [facility] Rx#:[id number] propofoL 1,000 mg In 1.966 57.369 58.218 Empty Bag 1 bag @ 15 MCG/ KG/MIN 6.94 mls/hr IV . [id number] [facility] Rx#:[id number] Output: Urine 125 210 50 Other: Voiding Method Indwelling Catheter Indwelling Catheter Indwelling Catheter Weight 84.5 kg ABP, PAP, CO, CI - Last 8 Hours Arterial Blood Pressure 94/51 Arterial Blood Pressure 106/76 Arterial Blood Pressure 103/71 Arterial Blood Pressure 122/54 Arterial Blood Pressure 128/55 Arterial Blood Pressure 120/54 Arterial Blood Pressure 100/50 Arterial Blood Pressure 99/51 Arterial Blood Pressure 103/52 Arterial Blood Pressure 80/43 Arterial Blood Pressure 97/50 Arterial Blood Pressure 108/53 Arterial Blood Pressure 104/54 Arterial Blood Pressure 104/55 Arterial Blood Pressure 102/54 Arterial Blood Pressure 98/52 Arterial Blood Pressure 104/54 Arterial Blood Pressure 101/54 Arterial Blood Pressure 88/49 Arterial Blood Pressure 87/50 Arterial Blood Pressure 101/53 Arterial Blood Pressure 99/52 Arterial Blood Pressure 96/51 Arterial Blood Pressure 94/52 Arterial Blood Pressure 102/54 Arterial Blood Pressure 104/55 Arterial Blood Pressure 97/51 Arterial Blood Pressure 95/52 Arterial Blood Pressure 92/56 Arterial Blood Pressure 97/61 Arterial Blood Pressure 91/55 Arterial Blood Pressure 97/50 Arterial Blood Pressure 122/59 Arterial Blood Pressure 107/62 Arterial Blood Pressure 89/57 Arterial Blood Pressure 80/51 Arterial Blood Pressure 93/66 Arterial Blood Pressure 104/65 GENERAL: Sedated and intubated HEENT: Normocephalic, atraumatic. CARDIOVASCULAR: Regular rate and rhythm RESPIRATION: Synchronized with ventilator, FiO2 40%, PEEP 5 GI: Soft, nontender. OG to LIS : Torres catheter draining clear yellow urine LEGS: No edema. no swelling NEURO: Unable to assess, intubated and sedated Skin: Warm and dry Results CBC & Chem 7: 06/10/22 05:30 06/10/22 16:30 Labs: Abnormal Lab Results - Last 24 Hours (Table) 06/10/22 06/10/22 06/10/22 Range/Units 01:09 01:34 01:47 RBC (4.30-5.90) m/uL Hgb (13.0-17.5) gm/dL Hct (39.0-53.0) % RDW (11.5-15.5) % Plt Count (150-450) k/uL D-Dimer (<0.60) mg/L FEU ABG pH (7.35-7.45) ABG pCO2 (35-45) mmHg ABG pO2 (83-108) mmHg ABG O2 Saturation (94-97) % Sodium 128 L (137-145) mmol/L Potassium 2.9 L (3.5-5.1) mmol/L Chloride 96 L (98-107) mmol/L BUN 7 L (9-20) mg/dL Glucose 191 H (74-99) mg/dL POC Glucose (mg/dL) 176 H 162 H (70-110) mg/dL Plasma Lactic Acid Maik (0.7-2.0) mmol/L Calcium 6.7 L (8.4-10.2) mg/dL Magnesium 1.5 L (1.6-2.3) mg/dL Troponin I (0.000-0.034) ng/mL Procalcitonin (0.02-0.09) ng/mL 06/10/22 06/10/22 06/10/22 Range/Units 02:05 02:05 02:05 RBC 3.16 L (4.30-5.90) m/uL Hgb 10.6 L (13.0-17.5) gm/dL Hct 31.4 L (39.0-53.0) % RDW 15.6 H (11.5-15.5) % Plt Count 104 L (150-450) k/uL D-Dimer 16.11 H (<0.60) mg/L FEU ABG pH (7.35-7.45) ABG pCO2 (35-45) mmHg ABG pO2 (83-108) mmHg ABG O2 Saturation (94-97) % Sodium (137-145) mmol/L Potassium (3.5-5.1) mmol/L Chloride (98-107) mmol/L BUN (9-20) mg/dL Glucose (74-99) mg/dL POC Glucose (mg/dL) (70-110) mg/dL Plasma Lactic Acid Maik (0.7-2.0) mmol/L Calcium (8.4-10.2) mg/dL Magnesium (1.6-2.3) mg/dL Troponin I 0.077 H* (0.000-0.034) ng/mL Procalcitonin (0.02-0.09) ng/mL 06/10/22 06/10/22 06/10/22 Range/Units 02:05 03:05 05:30 RBC 2.91 L (4.30-5.90) m/uL Hgb 9.9 L (13.0-17.5) gm/dL Hct 27.4 L (39.0-53.0) % RDW (11.5-15.5) % Plt Count 120 L (150-450) k/uL D-Dimer (<0.60) mg/L FEU ABG pH 7.49 H (7.35-7.45) ABG pCO2 29 L (35-45) mmHg ABG pO2 >400 H (83-108) mmHg ABG O2 Saturation 99.9 H (94-97) % Sodium (137-145) mmol/L Potassium (3.5-5.1) mmol/L Chloride (98-107) mmol/L BUN (9-20) mg/dL Glucose (74-99) mg/dL POC Glucose (mg/dL) (70-110) mg/dL Plasma Lactic Acid Maik 4.8 H* (0.7-2.0) mmol/L Calcium (8.4-10.2) mg/dL Magnesium (1.6-2.3) mg/dL Troponin I (0.000-0.034) ng/mL Procalcitonin (0.02-0.09) ng/mL 06/10/22 06/10/22 06/10/22 Range/Units 05:30 05:58 09:10 RBC (4.30-5.90) m/uL Hgb (13.0-17.5) gm/dL Hct (39.0-53.0) % RDW (11.5-15.5) % Plt Count (150-450) k/uL D-Dimer (<0.60) mg/L FEU ABG pH 7.46 H (7.35-7.45) ABG pCO2 32 L (35-45) mmHg ABG pO2 230 H (83-108) mmHg ABG O2 Saturation 100.0 H (94-97) % Sodium 129 L (137-145) mmol/L Potassium 3.3 L (3.5-5.1) mmol/L Chloride (98-107) mmol/L BUN 8 L (9-20) mg/dL Glucose 171 H (74-99) mg/dL POC Glucose (mg/dL) (70-110) mg/dL Plasma Lactic Acid Maik (0.7-2.0) mmol/L Calcium 6.1 L* (8.4-10.2) mg/dL Magnesium (1.6-2.3) mg/dL Troponin I 0.408 H* (0.000-0.034) ng/mL Procalcitonin (0.02-0.09) ng/mL 06/10/22 06/10/22 06/10/22 Range/Units 09:10 09:13 11:26 RBC (4.30-5.90) m/uL Hgb (13.0-17.5) gm/dL Hct (39.0-53.0) % RDW (11.5-15.5) % Plt Count (150-450) k/uL D-Dimer (<0.60) mg/L FEU ABG pH (7.35-7.45) ABG pCO2 (35-45) mmHg ABG pO2 (83-108) mmHg ABG O2 Saturation (94-97) % Sodium (137-145) mmol/L Potassium (3.5-5.1) mmol/L Chloride (98-107) mmol/L BUN (9-20) mg/dL Glucose (74-99) mg/dL POC Glucose (mg/dL) 195 H 176 H (70-110) mg/dL Plasma Lactic Acid Maik (0.7-2.0) mmol/L Calcium (8.4-10.2) mg/dL Magnesium (1.6-2.3) mg/dL Troponin I (0.000-0.034) ng/mL Procalcitonin 1.01 H (0.02-0.09) ng/mL 06/10/22 06/10/22 06/10/22 Range/Units 11:30 11:30 15:08 RBC (4.30-5.90) m/uL Hgb (13.0-17.5) gm/dL Hct (39.0-53.0) % RDW (11.5-15.5) % Plt Count (150-450) k/uL D-Dimer (<0.60) mg/L FEU ABG pH (7.35-7.45) ABG pCO2 (35-45) mmHg ABG pO2 (83-108) mmHg ABG O2 Saturation (94-97) % Sodium 129 L (137-145) mmol/L Potassium 3.4 L (3.5-5.1) mmol/L Chloride (98-107) mmol/L BUN 7 L (9-20) mg/dL Glucose 156 H (74-99) mg/dL POC Glucose (mg/dL) 162 H (70-110) mg/dL Plasma Lactic Acid Maik (0.7-2.0) mmol/L Calcium 6.6 L (8.4-10.2) mg/dL Magnesium (1.6-2.3) mg/dL Troponin I 0.369 H* (0.000-0.034) ng/mL Procalcitonin (0.02-0.09) ng/mL 06/10/22 06/10/22 Range/Units 16:43 17:58 RBC (4.30-5.90) m/uL Hgb (13.0-17.5) gm/dL Hct (39.0-53.0) % RDW (11.5-15.5) % Plt Count (150-450) k/uL D-Dimer (<0.60) mg/L FEU ABG pH (7.35-7.45) ABG pCO2 (35-45) mmHg ABG pO2 (83-108) mmHg ABG O2 Saturation (94-97) % Sodium (137-145) mmol/L Potassium (3.5-5.1) mmol/L Chloride (98-107) mmol/L BUN (9-20) mg/dL Glucose (74-99) mg/dL POC Glucose (mg/dL) 170 H 132 H (70-110) mg/dL Plasma Lactic Acid Maik (0.7-2.0) mmol/L Calcium (8.4-10.2) mg/dL Magnesium (1.6-2.3) mg/dL Troponin I (0.000-0.034) ng/mL Procalcitonin (0.02-0.09) ng/mL Microbiology - Last 24 Hours (Table) 06/10/22 12:20 Sputum Culture - Preliminary Sputum 06/07/22 12:05 Blood Culture - Preliminary Blood 06/07/22 12:20 Blood Culture - Preliminary Blood Assessment and Plan Plan: Summary/Goals - The patient is sedated, receiving propofol and ativan. He is mechanically ventilated. His and daughter are at the bedside and is very emotional. Education was provided regarding the patient co-morbidities and current critical condition. His stated that he has told her that he would never want to be put on the ventilator, but she did not make it here in time to tell them. Code status reviewd. At this time she would like to keep him a full code. When she previously discussed his wishes with him, we wanted chest comp ressions and cardioversion. His is in shock and can not believe this is happening. She stated that he was a fighter and wished to continue treatment for his cancer. 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 She also understands that there is concern for anoxic brain injury. She stated that they are a close family and she has a lot of emotional support. She is waiting for further testing including the EEG, CT, and 2D echo. The patie nt's would like time to complete testing and see if there is a response to treatment before discussing his goals of care. Will follow up with the patient and his tomorrow. Recommendations - To be determined Advanced Directives - None on file Code Status - Full code Thank you for this consultation Rylee Valdez [facility] [phone] Email: [email or web address]
--- NOTE | 2022-06-10 19:49 | CT ---
EXAMINATION TYPE: CT brain wo/w con DATE OF EXAM: 06/10/2022 COMPARISON: None. HISTORY: Cardiac arrest, seizures. Automated exposure control for dose reduction was used. CONTRAST: CT scan of the head is performed without and with IV Contrast, patient injected with 100cc mL of Isov ue 370. FINDINGS: Suboptimal as there is artifact from adjacent left-sided catheters and/or tubing device. There is no abnormal enhancing mass or midline shift identified. Mild ventricular and sulcal prominen ce. Collins-white matter is preserved endotracheal tube is partially imaged. Patchy opacification of et hmoid sinuses bilaterally. Cerumen in the deep left external auditory canal. Globes are intact bilate rally. Mild mucosal thickening left maxillary sinus. Patchy opacification right mastoid air cells. IMPRESSION: Suboptimal study. No abnormal enhancing masses or midline shift. Mild diffuse cerebral at rophy. Possible right-sided mastoiditis versus retained secretions, correlate clinically and with poi nt tenderness.
--- NOTE | 2022-06-10 20:25 | CT ---
EXAMINATION TYPE: CT angio chest DATE OF EXAM: 06/10/2022 COMPARISON: CT chest from yesterday HISTORY: Cardiac arrest, R/O PE. History of metastatic renal cell carcinoma. CT DLP: 646.9 mGycm. Automated Exposure Control for Dose Reduction was Utilized. CONTRAST: CTA scan of the thorax is performed with IV Contrast, patient injected with 100cc mL of Isovue 370, p ulmonary embolism protocol. MIP Images are created on CT scanner and reviewed. FINDINGS: LUNGS: New small to moderate size left-sided pneumothorax estimated approximate 25%. Small bilateral pleural fluid collections right greater than left redemonstrated. Areas of focal pleural thickening c onsistent with metastatic disease again seen. Mild to moderate right greater than left bibasilar line ar scarring and/or atelectasis. The tracheobronchial tree is patent. MEDIASTINUM: There is satisfactory enhancement of the pulmonary artery and its branches, there is no CT evidence for pulmonary embolism. There are persistent enlarged low dense bilateral hilar and subc arinal lymph nodes and enlarged right paratracheal lymph node measuring 2.6 x 2.1 cm axial image 51. There is greater than 1 cm hypodense right thyroid nodule axial image 12. Endotracheal tube termina pam above the damian new from prior study. There is new oral gastric tube extending below diaphragm i n decompressed stomach. No cardiomegaly or pericardial effusion is seen. Coronary artery calcificatio n is redemonstrated. OTHER: Bridging osteophytes in the thoracic spine are redemonstrated. Persistent 4.1 cm mass in the p ancreatic tail axial image 146 unchanged from prior. Destructive right anterior seventh rib lesion co antonio image 78 redemonstrated and anterior sixth rib lesion redemonstrated. Additional lytic lesion a nterior right fourth rib redemonstrated. Destructive lytic left rib lesion laterally involving the ni nth rib is noted. IMPRESSION: 1. New small to moderate size left-sided pneumothorax estimated 25% without mediastinal shift. 2. No CT evidence for acute pulmonary embolism. 3. Stable small right greater than left pleural fluid collections. Abnormal thoracic adenopathy redem onstrated and stable. 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 Pancreatic tail metastatic lesion redemonstrated. Results communicated to ICU nurse by telephone at time of dictation.
[2022-06-10] MEDS: MONTELUKAST 10 MG TAB PO SCH (20:47)
[2022-06-10] MEDS: levETIRAcetam IV 2,000 MG in SODIUM CHLORIDE 0.9% 250 ML IVPB SCH (20:47)
[2022-06-10] MEDS: VALPROATE SODIUM 500 MG in SODIUM CHLORIDE 0.9% 100 ML IVPB SCH (20:49)
[2022-06-10 23:45] LABS: Glucose,Whole Blood 171 mg/dL (70-110)
[2022-06-11] MEDS: IPRATROPIUM-ALBUTEROL 3 ML NEB INHALATION SCH ×4 (00:09→12:09)
[2022-06-11] MEDS: CEFEPIME 2 GM in SODIUM CHLORIDE 0.9% 100 ML IVPB SCH ×2 (00:24→08:10)
[2022-06-11] MEDS: VANCOMYCIN 1,500 MG in SODIUM CHLORIDE 0.9% 500 ML 500 ML IVPB SCH ×2 (00:24→08:57)
[2022-06-11 05:14] LABS: Basophils % (A) 0 %; Eosinophils # (A) 0.4 k/uL (0-0.7); Eosinophils % (A) 6 %; HCT 27.2 % (39.0-53.0); HGB 9.3 gm/dL (13.0-17.5); Hyperchromasia Slight; Lymphocytes % (A) 14 %; MCH 33.2 pg (25.0-35.0); MCHC 34.3 g/dL (31.0-37.0); MCV 96.8 fL (80.0-100.0); Mean Platelet Volume 8.9; Monocytes # (A) 0.3 k/uL (0-1.0); Monocytes % (A) 4 %; Neutrophils # (A) 5.2 k/uL (1.3-7.7); Neutrophils % (A) 73 %; Poikilocytosis Moderate; RBC 2.81 m/uL (4.30-5.90); RDW 15.9 % (11.5-15.5); WBC 7.1 k/uL (3.8-10.6)
[2022-06-11 05:20] LABS: African American GFR (CKD) >90 (>60 ml/min/1.73 sqM); Anion Gap 2 mmol/L; Blood Urea Nitrogen 7 mg/dL (9-20); Carbon Dioxide 23 mmol/L (22-30); Chloride 107 mmol/L (98-107); Glucose 161 mg/dL (74-99); Non-African American GFR(CKD) >90 (>60 ml/min/1.73 sqM); Potassium 3.7 mmol/L (3.5-5.1); Sodium 132 mmol/L (137-145)
[2022-06-11 05:24] LABS: Calcium 6.1 mg/dL (8.4-10.2)
[2022-06-11 05:29] LABS: Glucose,Whole Blood 162 mg/dL (70-110)
[2022-06-11] MEDS ORDERED: CALCIUM GLUCONATE IN NACL 2 GM in SALINE 1 100ML.BAG IVPB ONE (05:30)
[2022-06-11] MEDS: SODIUM CHLORIDE 0.9% 1,000 ML IV SCH (05:40)
[2022-06-11 05:51] LABS: Platelet Count 82 k/uL (150-450)
[2022-06-11] MEDS ORDERED: POTASSIUM BICARBONATE/CIT AC 20 MEQ TABLET.EFF NG-TUBE SCH (06:00)
[2022-06-11] MEDS: LEVOTHYROXINE 50 MCG TAB PO SCH (06:05)
[2022-06-11 06:10] LABS: ABG Base Excess -2.8 mmol/L; ABG HCO3 23 mmol/L (21-25); ABG PCO2 40 mmHg (35-45); ABG PH 7.36 (7.35-7.45); ABG PO2 180 mmHg (83-108); ABG TCO2 24 mmol/L (19-24)
--- NOTE | 2022-06-11 07:37 | CA ---
Transthoracic Echo Report Name: Dax Dumas Age: 71 Gender: M : 1950 Exam Date: 06/10/2022 10:14 Exam Location: [facility] Ht (in): 72 Wt (lb): 170 Ordering Physician: Moises Miranda DO ([email or web address]) Attending/Referring Phys: [employer] Helper Bhanu Hendricks RDCS Procedure CPT: Indications: re: cardiac arrest Cardiac Hx: Technical Quality: Very technically difficult study Contrast 1: Total Dose (mL): Contrast 2: Total Dose (mL): MEASUREMENTS (Male / Female) Normal Values 2D ECHO LV Diastolic Diameter PLAX 3.1 cm 4.2 - 5.9 / 3.9 - 5.3 cm LV Systolic Diameter PLAX 2.6 cm LV Fractional Shortening PLAX 15.3 % IVS Diastolic Thickness 1.3 cm 0.6 - 1.0 / 0.6 - 0.9 cm IVS Systolic Thickness 2.0 cm LVPW Diastolic Thickness 1.1 cm 0.6 - 1.0 / 0.6 - 0.9 cm LVPW Systolic Thickness 4.0 cm LV Relative Wall Thickness 0.8 RV Internal Dim ED PLAX 3.2 cm Aortic Root Diameter 2.9 cm M-MODE LV Diastolic Diameter MM 5.3 cm 4.2 - 5.9 / 3.9 - 5.3 cm LV Diastolic Volume MM Teich 134.9 cm??? LV Systolic Diameter MM 3.4 cm LV Systolic Volume MM Teich 48.4 cm??? LV Fractional Shortening MM 35.2 % 25 - 43 / 27 - 45 % LV Ejection Fraction MM Teich 64.2 % LV Stroke Volume MM Teich 86.6 cm??? IVS Diastolic Thickness MM 1.0 cm 0.6 - 1.0 / 0.6 - 0.9 cm IVS Systolic Thickness MM 1.6 cm LVPW Diastolic Thickness MM 1.4 cm 0.6 - 1.0 / 0.6 - 0.9 cm LVPW Systolic Thickness MM 2.4 cm LV Relative Wall Thickness MM 0.4 0.24 - 0.42 / 0.22 - 0.42 LVMW Fractional Shortening MM 15.7 % 14 - 22 / 15 - 23 % LV Mass MM 247.6 g 88 - 224 / 67 - 162 g LV Mass Index MM 125.1 g/m??? 49 - 115 / 43 - 95 g/m??? RV Diastolic Diameter MM 1.5 cm Aortic Root Diameter MM 3.8 cm LA Systolic Diameter MM 3.9 cm LA Ao Ratio MM 1.0 AV Cusp Separation MM 2.1 cm DOPPLER AV Peak Velocity 91.3 cm/s AV Peak Gradient 3.3 mmHg MV Deceleration [place] 525.0 cm/s??? Mitral E Point Velocity 42.1 cm/s Mitral A Point Velocity 58.5 cm/s Mitral E to A Ratio 0.7 MV Deceleration Time 80.2 ms TR Peak Velocity 108.5 cm/s TR Peak Gradient 4.7 mmHg Right Ventricular Systolic Press 14.7 mmHg PV Peak Velocity 82.7 cm/s PV Peak Gradient 2.7 mmHg FINDINGS Left Ventricle Left ventricular ejection fraction is estimated at 50-55 %. Right Ventricle Normal right ventricular size and function. Right Atrium Normal right atrial size. Left Atrium Normal left atrial size. Mitral Valve Mitral valve thickened. Aortic Valve Trileaflet aortic valve. Diffuse thickening (sclerosis) of the aortic valve cusps without reduced excursion. Tricuspid Valve Trace to mild tricuspid regurgitation. Pulmonic Valve Pulmonic valve not well visualized. Pericardium Normal pericardium. No pericardial effusion. Aorta Aortic root and proximal ascending aorta not well visualized. CONCLUSIONS Extremely difficult study for interpretation Normal LV systolic function Previewed by: Dr. Mal Carson MD (Electronically Signed) Final Date: 11 June 2022 07:36
[2022-06-11] MEDS ORDERED: VANCOMYCIN TROUGH DUE 1 EACH MISC MISCELLANE ONE (08:00)
[2022-06-11] MEDS: ASPIRIN 81 MG PO SCH (08:10)
[2022-06-11] MEDS: HEPARIN SODIUM,PORCINE/PF 5,000 UNIT/0.5 ML SYRINGE SQ SCH (08:10)
[2022-06-11] MEDS: CHLORHEXIDINE GLUCONATE 15 ML CUP MUCOUS MEM SCH (08:10)
[2022-06-11] MEDS: FAMOTIDINE 20 MG/2 ML VIAL IV SCH (08:10)
[2022-06-11] MEDS: POTASSIUM CHLORIDE ER 20 MEQ TAB.ER PO SCH (08:11)
[2022-06-11] MEDS: levETIRAcetam IV 2,000 MG in SODIUM CHLORIDE 0.9% 250 ML IVPB SCH (08:16)
[2022-06-11] MEDS: VALPROATE SODIUM 500 MG in SODIUM CHLORIDE 0.9% 100 ML IVPB SCH (08:21)
--- NOTE | 2022-06-11 08:27 | XR ---
EXAMINATION TYPE: XR chest 1V portable DATE OF EXAM: 06/11/2022 COMPARISON: 06/10/2022 HISTORY: Pleural effusion TECHNIQUE: Single frontal view of the chest is obtained. FINDINGS: There is a left-sided pneumothorax measuring approximately 15%. There is bilateral areas o f consolidation and pleural effusion. ET and NG tubes stable. Heart size normal. No overt failure. A destructive lesion of the bilateral rib cage again noted. IMPRESSION: 1. Approximate 15% left-sided pneumothorax with bilateral consolidation and pleural effusion. 2. Findings suspicious for osseous metastases.
[2022-06-11 09:17] VITALS: TEMP 97.6
--- NOTE | 2022-06-11 09:30 | P.PN ---
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 He previously follow with Dr. Carson approximately 2 years ago. He presented to the hospital secondary to decreased intake, nausea and vomiting and dehydration. Patient currently intubated and sedated and history is supplied by . For the last 3-4 weeks he has not been able to keep much food down and has had recurrent admissions to the hospital and rehydration. Patient had been throwing up fairly consistently and believe most of the pain was related to throwing up. He only complained of abdominal pain and no chest pain or pressure. No shortness breath. He was admitted with rehydration found be hypokalemic. On 06/10 at 1 AM he had bradycardia noted on monitor with some escape rhythm and heart rates down to 30s and loss of pulses. There is no previous bradycardia noted. No previous complaints. Patient was coded for 7 minutes and now is on vasopressors unresponsive and concern of seizure-like activity. The does state he was having a low bit of shaking of the right upper extremity prior to this however no other symptoms. D-dimer is elevated at 16 however given patient was unstable skin was performed. Repeat blood work this morning shows creatinine 0.7, sodium 129, potassium 3.3, lactic acid was 4.8, improving 1.6, troponin 0.07, hemoglobin 9.9, platelets 120. 4/25 Patient seen and examined. Patient remains on norepinephrine and intubated in on ventilator with FiO2 30% and PEEP of 5. Beta barry has been held with heart rates in the low 100s. Echo performed which shows normal left ventricular ejection fraction however technically difficult. He has not had any meaningful neurologic recovery at this point and patient considering comfort measures. PHYSICAL EXAMINATION Vital signs reviewed. CONSTITUTIONAL: No apparent distress. HEENT: Head is normocephalic. Pupils are equal, round. Sclerae anicteric. Mucous membranes of the mouth are moist. No JVD. No carotid bruit. CHEST EXAMINATION: Lungs are clear to auscultation. No chest wall tenderness is noted on palpation or with deep breathing. HEART EXAMINATION: Irregular rate and rhythm. S1, S2 heard. No murmurs, gallops or rub. ABDOMEN: Soft, nontender. Positive bowel sounds. EXTREMITIES: 2+ peripheral pulses, no lower extremity edema and no calf tenderness. NEUROLOGIC EXAMINATION: Patient is on vent nonresponsive ASSESSMENT 1. Status post cardiac arrest with bradycardia, unclear bradycardia was primary cause or secondary to other etiology 2. Pancreatic cancer with metastasis 3. History of CAD status post PCI circumflex remotely 4. Hypertension 5. Hypotension status post cardiac arrest 6. Presentation with dehydration, decreased appetite, nausea and vomiting related to pancreatic cancer, chemotherapy 7. Electrolyte abnormalities, hypokalemia 8. Lactic acid improved 9. Bradycardia PLAN Patient without any meaningful neurologic recovery. Continue hold beta barry and currently appears hemodynamically stable. Continue current supportive care. Our doses grave and comfort measures appear appropriate. Objective - Vital Signs Vital signs: Vital Signs Temp 97.6 F 06/11/22 08:00 Pulse 105 H 06/11/22 09:15 Resp 16 06/11/22 09:15 BP 117/73 06/11/22 09:15 Pulse Ox 99 06/11/22 09:15 FiO2 30 06/11/22 09:15 Intake & Output 06/10/22 06/11/22 06/11/22 18:59 06:59 18:59 Intake Total 2911.351 1357.091 687.963 Output Total 370 615 80 Balance 2541.351 742.091 607.963 Weight 84.5 kg 88 kg Intake: IV 1550 925 575 Calcium Gluconate in NaCl 200 2 gm In Saline 1 100ml. bag @ 100 mls/hr IVPB ONCE ONE Rx#:[id number] Piperacillin-Tazobactam 3 100 .375 gm In Sodium Chloride 0.9% 100 ml @ 25 mls/hr IVPB Q8H [facility] Rx#: [id number] Sodium Chloride 0.9% 1, 450 225 000 ml @ 75 mls/hr IV . [id number] [facility] Rx#:[id number] Sodium Chloride 0.9% 1, 150 225 000 ml @ 75 mls/hr IV . [id number] [facility] Rx#:[id number] Sodium Chloride 0.9% 1, 1000 000 ml @ 999 mls/hr IV . Q1H1M ONE Rx#:[id number] Valproate Sodium 500 mg 100 100 In Sodium Chloride 0.9% 100 ml @ 100 mls/hr IVPB Q12HR [facility] Rx#:[id number] levETIRAcetam IV 2,000 mg 250 250 In Sodium Chloride 0.9% 250 ml @ 1000 mls/hr IVPB ONCE ONE Rx#:[id number] Intake, IV Titration 1351.351 432.091 42.963 Amount Calcium Gluconate in NaCl 100 2 gm In Saline 1 100ml. bag @ 100 mls/hr IVPB ONCE ONE Rx#:[id number] Norepinephrine 32 mg In 72.776 115.694 24.572 Sodium Chloride 0.9% 218 ml @ 0.03 MCG/KG/MIN 1. 188 mls/hr IV .Q24H [facility] Rx#:[id number] Norepinephrine 4 mg In 237.988 Sodium Chloride 0.9% 250 ml @ 0.03 MCG/KG/MIN 8. 814 mls/hr IV .Q24H [facility] Rx#:[id number] Sodium Chloride 0.9% 1, 225 000 ml @ 75 mls/hr IV . [id number] [facility] Rx#:[id number] Vancomycin 1,500 mg In 500 Sodium Chloride 0.9% 500 ml 500 ml @ 167 mls/hr IVPB Q8H [facility] Rx#: [id number] levETIRAcetam IV 1,500 mg 100 In Saline 1 100ml.bag @ 400 mls/hr IVPB Q12HR [facility] Rx#:[id number] propofoL 1,000 mg In 115.587 316.397 18.391 Empty Bag 1 bag @ 15 MCG/ KG/MIN 6.94 mls/hr IV . [id number] [facility] Rx#:[id number] Tube Feeding 10 40 Other 30 Output: Urine 370 615 80 Other: Voiding Method Indwelling Catheter Indwelling Catheter ABP, PAP, CO, CI - Last Documented Arterial Blood Pressure 98/68 - Labs CBC & Chem 7: 06/11/22 04:45 06/11/22 04:45 Labs: Abnormal Lab Results - Last 24 Hours (Table) 06/10/22 06/10/22 06/10/22 Range/Units 09:10 09:10 11:26 RBC (4.30-5.90) m/uL Hgb (13.0-17.5) gm/dL Hct (39.0-53.0) % RDW (11.5-15.5) % Plt Count (150-450) k/uL ABG pO2 (83-108) mmHg ABG O2 Saturation (94-97) % Sodium (137-145) mmol/L Potassium (3.5-5.1) mmol/L BUN (9-20) mg/dL Creatinine (0.66-1.25) mg/dL Glucose (74-99) mg/dL POC Glucose (mg/dL) 176 H (70-110) mg/dL Calcium (8.4-10.2) mg/dL Troponin I 0.408 H* (0.000-0.034) ng/mL Procalcitonin 1.01 H (0.02-0.09) ng/mL 06/10/22 06/10/22 06/10/22 Range/Units 11:30 11:30 15:08 RBC (4.30-5.90) m/uL Hgb (13.0-17.5) gm/dL Hct (39.0-53.0) % RDW (11.5-15.5) % Plt Count (150-450) k/uL ABG pO2 (83-108) mmHg ABG O2 Saturation (94-97) % Sodium 129 L (137-145) mmol/L Potassium 3.4 L (3.5-5.1) mmol/L BUN 7 L (9-20) mg/dL Creatinine (0.66-1.25) mg/dL Glucose 156 H (74-99) mg/dL POC Glucose (mg/dL) 162 H (70-110) mg/dL Calcium 6.6 L (8.4-10.2) mg/dL Troponin I 0.369 H* (0.000-0.034) ng/mL Procalcitonin (0.02-0.09) ng/mL 06/10/22 06/10/22 06/10/22 Range/Units 16:43 17:58 23:43 RBC (4.30-5.90) m/uL Hgb (13.0-17.5) gm/dL Hct (39.0-53.0) % RDW (11.5-15.5) % Plt Count (150-450) k/uL ABG pO2 (83-108) mmHg ABG O2 Saturation (94-97) % Sodium (137-145) mmol/L Potassium (3.5-5.1) mmol/L BUN (9-20) mg/dL Creatinine (0.66-1.25) mg/dL Glucose (74-99) mg/dL POC Glucose (mg/dL) 170 H 132 H 171 H (70-110) mg/dL Calcium (8.4-10.2) mg/dL Troponin I (0.000-0.034) ng/mL Procalcitonin (0.02-0.09) ng/mL 06/11/22 06/11/22 06/11/22 Range/Units 04:45 04:45 05:27 RBC 2.81 L (4.30-5.90) m/uL Hgb 9.3 L (13.0-17.5) gm/dL Hct 27.2 L (39.0-53.0) % RDW 15.9 H (11.5-15.5) % Plt Count 82 L (150-450) k/uL ABG pO2 (83-108) mmHg ABG O2 Saturation (94-97) % Sodium 132 L (137-145) mmol/L Potassium (3.5-5.1) mmol/L BUN 7 L (9-20) mg/dL Creatinine 0.62 L (0.66-1.25) mg/dL Glucose 161 H (74-99) mg/dL POC Glucose (mg/dL) 162 H (70-110) mg/dL Calcium 6.1 L* (8.4-10.2) mg/dL Troponin I (0.000-0.034) ng/mL Procalcitonin (0.02-0.09) ng/mL 06/11/22 Range/Units 06:06 RBC (4.30-5.90) m/uL Hgb (13.0-17.5) gm/dL Hct (39.0-53.0) % RDW (11.5-15.5) % Plt Count (150-450) k/uL ABG pO2 180 H (83-108) mmHg ABG O2 Saturation 100.0 H (94-97) % Sodium (137-145) mmol/L Potassium (3.5-5.1) mmol/L BUN (9-20) mg/dL Creatinine (0.66-1.25) mg/dL Glucose (74-99) mg/dL POC Glucose (mg/dL) (70-110) mg/dL Calcium (8.4-10.2) mg/dL Troponin I (0.000-0.034) ng/mL Procalcitonin (0.02-0.09) ng/mL Microbiology - Last 24 Hours (Table) 06/10/22 12:20 Gram Stain - Preliminary Sputum Sputum Culture - Preliminary 06/07/22 12:05 Blood Culture - Preliminary Blood 06/07/22 12:20 Blood Culture - Preliminary Blood
[2022-06-11] MEDS ORDERED: ATROPINE OPHTH SOLN 1% 5ML BTL SUBLINGUAL PRN (11:10)
[2022-06-11] MEDS ORDERED: MORPHINE SULFATE 4 MG/ML SYRINGE IV PRN (11:10)
[2022-06-11] MEDS ORDERED: LORazepam 2 MG/ML INJ IV PRN (11:10)
[2022-06-11] MEDS ORDERED: SCOPOLAMINE 1 MG/72 HR PATCH TRANSDERM SCH (11:15)
[2022-06-11] MEDS ORDERED: MORPHINE SULFATE (100 MG/2 ML) 100 MG in SODIUM CHLORIDE 0.9% 100 ML IV SCH (11:15)
[2022-06-11 11:21] VITALS: BP 104/61; PULSE 112; RESP 32
[2022-06-11] MEDS: NOREPINEPHRINE 32 MG in SODIUM CHLORIDE 0.9% 218 ML IV SCH (11:38)
--- NOTE | 2022-06-11 11:47 | P.PN ---
Subjective Progress Note Date: 06/11/22 The patient is a 71 year-old male with a past medical history of diabetes mellitus, hypertension, ischemic cardiomyopathy with an EF of 40-45%, and MIs/p sten. He also has a history of history of renal cell carcinoma. He is a patient of Dr. Braga. He has a remote history of renal cell carcinoma s/p left n ephrectomy in 1998. In August/2021,he had a CXR in October/2021 which revealed large right pleural effusion was admitted to the hospital, underwent thoracentesis, cytology was negative. CT scan of chest which revealed evidence of mediastinal nodes, he then underwent bronchoscopy,washing/lavage were negative. PET scan done on 11/27/2021 revealed multiple nodular uptake in right posterior pleura, large paratrecheal node, soft tissue mass in the left kidney bed. On 11/29/2021, he underwent EBUS, FNA of mediastinal nodes were non diagnostic. 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 He was started on cabometyx and opdivo, and is s/p completion of cycle 6 on 06/05/22. CT CAP on 04/19/22 revealed improvement in disease. The patient presented to the emergency department on 06/07/22 with complaints of nausea, vomiting, generalized weakness andabdominal pain for approximately three weeks. He denied any diarrhea, blood in stool, melena, hematemesis, fever and chills. Acute abdominal series upon admission showed small right pleural effusion with associated right basilar atelectasis, no significant changes. Nonobstructive bowel gas pattern. Blood cultures obtained. T max 99.8. WBC 6.4, hgb 11.1, platelets 134,000. The patient still with intractable nausea and episode of vomiting this morning as per family. No complaints of chest pain or shortness of breath. Abdominal pain is better. Patient is otherwise unable to tolerate oral diet. Diet was changed to CLD and continued on symptomatic management. Patient was been afebrile. Laboratory showed sodium 129, potassium improved to 3.6 chloride 95 bicarb is 28 BUN 9 and creatinine 0.69 and calcium 6.8. Patient wass being treated Zofran and Pepcid IV twice daily. 06/09 A follow-up enhanced CT of the abdomen and pelvis on June 09 showed no obvious acute process within the abdomen or pelvis. 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 06/10 The patient went bradycardic, then lost his pulse. Code blue was activated and CPR initiated. His initial rhythm was PEA. The patient had 7 min of CPR, req uired 3 doses of epi, ROSC achieved. He was intubated during the code,and transferred to the ICU. The patient's d-dimer was elevated at 16.11, however, this could be related to the patient's cardiac arrest. Caridiology was consulted. It is unclear if bradycardia caused the cardiac arrest or was seco ndary. 2D echo pending. ontinue to monitor on telemetry. Patient was not on DVT prophylaxis prior to the code, pulmonary embolism should be included with the differential. The patient is not stable for chest CTA. The patient was having myoclonic jerks of the shoulder twitching of the upper extremities. He was given Ativan and started on Keppra. Neurology is following. There is concern for anoxic brain injury. EEG stat is ordered and is pending. CT angiography of the head and neck as well as CT is pending and will be completed when the patient is more stable. 06/11 The patient is sedated, receiving propofol and ativan. He is mechanically ventilated. His and daughter are at the bedside and is very emotional. Education was provided regarding the patient co-morbidities and current critical condition. His stated that he has told her that he would never want to be put on the ventilator, but she did not make it here in time to tell them. Code status reviewd. At this time she would like to keep him a full code. When she previously discussed his wishes with him, we wanted chest compressions and cardioversion. His is in shock and can not believe this is happening. She stated that he was a fighter and wished to continue treatment for his cancer. 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 She also understands that there is concern for anoxic brain injury. She stated that they are a close family and she has a lot of emotional support. She is waiting for further testing including the EEG, CT, and 2D echo. The patient's would like time to complete testing and see if there is a response to treatment before discussing his goals of care. Will follow up with the patient and his tomorrow. Objective - Vital Signs Vital signs: Vital Signs Temp 97.6 F 06/11/22 08:00 Pulse 112 H 06/11/22 11:00 Resp 32 H 06/11/22 11:00 BP 104/61 06/11/22 11:00 Pulse Ox 98 06/11/22 11:00 FiO2 30 06/11/22 09:15 Intake & Output 06/10/22 06/11/22 06/11/22 18:59 06:59 18:59 Intake Total 2911.351 6162.070 2278.660 Output Total 370 615 165 Balance 2541.351 457.037 6412.660 Weight 84.5 kg 88 kg Intake: IV 2643 327 0735 Calcium Gluconate in NaCl 200 2 gm In Saline 1 100ml. bag @ 100 mls/hr IVPB ONCE ONE Rx#:[id number] Piperacillin-Tazobactam 3 100 .375 gm In Sodium Chloride 0.9% 100 ml @ 25 mls/hr IVPB Q8H [facility] Rx#: [id number] Sodium Chloride 0.9% 1, 450 225 000 ml @ 75 mls/hr IV . [id number] [facility] Rx#:[id number] Sodium Chloride 0.9% 1, 150 375 000 ml @ 75 mls/hr IV . [id number] [facility] Rx#:[id number] Sodium Chloride 0.9% 1, 1000 000 ml @ 999 mls/hr IV . Q1H1M ONE Rx#:[id number] Valproate Sodium 500 mg 100 100 In Sodium Chloride 0.9% 100 ml @ 100 mls/hr IVPB Q12HR [facility] Rx#:[id number] Vancomycin 1,500 mg In 500 Sodium Chloride 0.9% 500 ml 500 ml @ 167 mls/hr IVPB Q8H [facility] Rx#: [id number] levETIRAcetam IV 2,000 mg 250 250 In Sodium Chloride 0.9% 250 ml @ 1000 mls/hr IVPB ONCE ONE Rx#:[id number] Intake, IV Titration 1351.351 432.091 46.660 Amount Calcium Gluconate in NaCl 100 2 gm In Saline 1 100ml. bag @ 100 mls/hr IVPB ONCE ONE Rx#:[id number] Norepinephrine 32 mg In 72.776 115.694 28.269 Sodium Chloride 0.9% 218 ml @ 0.03 MCG/KG/MIN 1. 188 mls/hr IV .Q24H [facility] Rx#:[id number] Norepinephrine 4 mg In 237.988 Sodium Chloride 0.9% 250 ml @ 0.03 MCG/KG/MIN 8. 814 mls/hr IV .Q24H [facility] Rx#:[id number] Sodium Chloride 0.9% 1, 225 000 ml @ 75 mls/hr IV . [id number] [facility] Rx#:[id number] Vancomycin 1,500 mg In 500 Sodium Chloride 0.9% 500 ml 500 ml @ 167 mls/hr IVPB Q8H [facility] Rx#: [id number] levETIRAcetam IV 1,500 mg 100 In Saline 1 100ml.bag @ 400 mls/hr IVPB Q12HR [facility] Rx#:[id number] propofoL 1,000 mg In 115.587 316.397 18.391 Empty Bag 1 bag @ 15 MCG/ KG/MIN 6.94 mls/hr IV . [id number] [facility] Rx#:[id number] Tube Feeding 10 60 Other 30 Output: Urine 370 615 165 Other: Voiding Method Indwelling Catheter Indwelling Catheter Indwelling Catheter ABP, PAP, CO, CI - Last Documented Arterial Blood Pressure 98/68 - Exam GENERAL: Intubated HEENT: Normocephalic, atraumatic. CARDIOVASCULAR: Regular rate and rhythm RESPIRATION: Synchronized with ventilator, FiO2 30%, PEEP 5 GI: Soft, nontender. OG present : Torres catheter draining clear yellow urine LEGS: No edema. Mild peripheral edema NEURO: Unable to assess, intubated Skin: Warm and dry - Labs CBC & Chem 7: 06/11/22 04:45 06/11/22 04:45 Labs: Abnormal Lab Results - Last 24 Hours (Table) 06/10/22 06/10/22 06/10/22 Range/Units 09:10 11:30 11:30 RBC (4.30-5.90) m/uL Hgb (13.0-17.5) gm/dL Hct (39.0-53.0) % RDW (11.5-15.5) % Plt Count (150-450) k/uL ABG pO2 (83-108) mmHg ABG O2 Saturation (94-97) % Sodium 129 L (137-145) mmol/L Potassium 3.4 L (3.5-5.1) mmol/L BUN 7 L (9-20) mg/dL Creatinine (0.66-1.25) mg/dL Glucose 156 H (74-99) mg/dL POC Glucose (mg/dL) (70-110) mg/dL Calcium 6.6 L (8.4-10.2) mg/dL Troponin I 0.369 H* (0.000-0.034) ng/mL Procalcitonin 1.01 H (0.02-0.09) ng/mL 06/10/22 06/10/22 06/10/22 Range/Units 15:08 16:43 17:58 RBC (4.30-5.90) m/uL Hgb (13.0-17.5) gm/dL Hct (39.0-53.0) % RDW (11.5-15.5) % Plt Count (150-450) k/uL ABG pO2 (83-108) mmHg ABG O2 Saturation (94-97) % Sodium (137-145) mmol/L Potassium (3.5-5.1) mmol/L BUN (9-20) mg/dL Creatinine (0.66-1.25) mg/dL Glucose (74-99) mg/dL POC Glucose (mg/dL) 162 H 170 H 132 H (70-110) mg/dL Calcium (8.4-10.2) mg/dL Troponin I (0.000-0.034) ng/mL Procalcitonin (0.02-0.09) ng/mL 06/10/22 06/11/22 06/11/22 Range/Units 23:43 04:45 04:45 RBC 2.81 L (4.30-5.90) m/uL Hgb 9.3 L (13.0-17.5) gm/dL Hct 27.2 L (39.0-53.0) % RDW 15.9 H (11.5-15.5) % Plt Count 82 L (150-450) k/uL ABG pO2 (83-108) mmHg ABG O2 Saturation (94-97) % Sodium 132 L (137-145) mmol/L Potassium (3.5-5.1) mmol/L BUN 7 L (9-20) mg/dL Creatinine 0.62 L (0.66-1.25) mg/dL Glucose 161 H (74-99) mg/dL POC Glucose (mg/dL) 171 H (70-110) mg/dL Calcium 6.1 L* (8.4-10.2) mg/dL Troponin I (0.000-0.034) ng/mL Procalcitonin (0.02-0.09) ng/mL 06/11/22 06/11/22 Range/Units 05:27 06:06 RBC (4.30-5.90) m/uL Hgb (13.0-17.5) gm/dL Hct (39.0-53.0) % RDW (11.5-15.5) % Plt Count (150-450) k/uL ABG pO2 180 H (83-108) mmHg ABG O2 Saturation 100.0 H (94-97) % Sodium (137-145) mmol/L Potassium (3.5-5.1) mmol/L BUN (9-20) mg/dL Creatinine (0.66-1.25) mg/dL Glucose (74-99) mg/dL POC Glucose (mg/dL) 162 H (70-110) mg/dL Calcium (8.4-10.2) mg/dL Troponin I (0.000-0.034) ng/mL Procalcitonin (0.02-0.09) ng/mL Microbiology - Last 24 Hours (Table) 06/07/22 12:05 Blood Culture - Preliminary Blood 06/07/22 12:20 Blood Culture - Preliminary Blood 06/10/22 12:20 Gram Stain - Preliminary Sputum Sputum Culture - Preliminary Assessment and Plan Plan: Summary/Goals - A CT of the brain with and without contrast was completed yesterday. It was a suboptimal study. No abnormal enhancing masses or midline shift. Mild diffuse cerebral atrophy. Possible right-sided mastoiditis. CT angiogram of the chest was also completed, no evidence of acute pulmonary embolism. There is a new small to moderate-sized left-sided pneumothorax without mediastinal shift. Stable small right greater than left pleural fluid collections. Abnormal thoracic adenopathy demonstrated stable. 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 Pancreatic tail metastatic lesion redemonstrated. 2-D echocardiogram shows normal LV systolic function. The patient's EEG is abnormal. The burst suppression is suggestive of either a cerebral anoxia versus status epilepticus versus medication effect (Ativan and propofol). The patient's propofol has been off since 0845 this morning, no Ativan has been given since yesterday, and the versed drip doesn't appear to ever have been started. The patient is nonresponsive, no cough reflex, no gag reflex, and he does not withdraw from pain. The patient's , children, and db2 developer are at the bedside. Findings discussed with the patient's family. They have all agreed to withdraw care. ICU team aware. Emotional support provided. Recommendations - Withdrawal of care Advanced Directives - None on file Code Status - DNR Rylee Valdez [facility] Palliative Care [facility] [id number] Email: [email or web address]
--- NOTE | 2022-06-11 12:11 | P.PN ---
Subjective Progress Note Date: 06/11/22 Principal diagnosis: Cardiac arrest and anoxic brain injury I'm seeing this patient in new consultation today 06/10/2022 in the intensive care unit post cardiac arrest. Patient is a 71-year-old white male with past medical history significant for renal cell carcinoma status post left nephrectomy in 1998, recurrent renal cell carcinoma stage IV, pleural effusion with previous thoracentesis, hypertension, diabetes mellitus, hypertension, coronary artery disease, previous myocardial infarction with stent to the left circumflex, ischemic cardiomyopathy with baseline ejection fraction of 40-45%, ex-smoker. In October 2021, patient was evaluated for a right hydrothorax, h e did undergo thoracentesis. Cytology was negative.. Patient did have a follow-up bronchoscopy with BAL of the right middle lobe without any identified pathology. A PET scan done on 11/27/2021 revealed soft tissue mass in the left kidney bed measuring 7.3 x 5.4 cm, multiple nodular uptake in right posterior pleura measuring up to 5.1 cm, large paratrecheal node 3.3 x 2.8 x 4 cm, and a right thyroid nodule. On 11/29/2021, he underwent EBUS, FNA of mediastinal nodes were non diagnostic. On 12/18/2021, he underwent VATS, pleural biopsies and placement of pleuRx and talc pleuradesis, pathology was positive for metastatic renal cell carcinoma. He does follow with Dr. Braga, and was started on cabometyx and opdivo.He is at his post completion of cycle 6 on 06/05/22. Patient was originally admitted to [facility] on 06/07/2022 with a chief complaints of nausea, vomiting, and nonspecific abdominal pain for approximately 3 weeks. Acute abdominal series showed a nonobstructive bowel gas pattern, stable small right pleural effusion with associated right basilar atelectasis, and no change from recent x-ray. He was admitted to the oncology floor with telemetry. A follow-up enhanced CT of the abdomen and pelvis on June 09 showed no obvious acute process within the abdomen or pelvis. It did reveal a similar size and appearance of the pancreatic tail mass with invasion to the splenic vein, similar right pulmonary pleural metastatic lesions, lytic changes involving the lower ribs bilaterally, stable left lower lobe groundglass pulmonary nodule, and mediastinal adenopathy. Earlier this morning, the patient had a witnessed cardiac arrest. The presenting rhythm was asystole. Patient was resuscitated per ACLS protocol. Patient did have an estimated down time of approximately 7 minutes, with 3 rounds of CPR. Patient was intubated by RN PRODUCTION. Return of spontaneous circulation was achieved, and the patient was transferred to the intensive care unit in critical condition. Heart rhythm is currently normal sinus at approximately 80 bpm. Postresuscitation ECG showed no obvious acute ischemic events. Patient was placed on a mechanical ventilator with settings of assist control, respiratory rate of 20, tidal volume of 450, FiO2 100%, PEEP of 5. Initial blood gases show a pO2 greater than 400, pCO2 29, pH of 7.49. Patient's respiratory rate was dropped to 16 and FiO2 down to 50%. Patient is currently not sedated, and is breathing slightly above the ventilator. Patient's post intubation chest x-ray showed the endotracheal tube approximately 2 cm, NG tube coursing below the diaphragm, and is stable small right pleural effusion. Patient was hypotensive after intubation, and required fluid resuscitation with 2 L normal saline. Patient was started on norepin ephrine and is currently infusing at 0.2 mics per kilogram per minute. A right radial arterial line was inserted. Patient's preliminary blood cultures show no growth at 24 hours. Empiric antibiotic coverage was added with Zosyn. Patient's CBC after resuscitation showed a WBC count of 5.1, hemoglobin 10.6, hematocrit 31.4, platelets 104,000. Patient's d-dimer was elevated at 16.11, however, this could be related to the patient's cardiac arrest. Patient was not on DVT prophylaxis prior to the code, pulmonary embolism should be included with the differential, patient is not stable for chest CTA at this time. Patient's BMP shows a sodium of 128, potassium 2.9, chloride of 96, serum CO2 23, B1 of 7, creatinine 0.71, glucose of 191. Magnesium 1.5. Patient's electrolytes are being replaced per protocol. Postcardiac arrest Troponin elevated at 0.077. Lactic acid was elevated at 4.8. Normal saline is infusing at 75 milliliters per hour. A indwelling urinary catheter was placed for accurate intake and output. Patient is having myoclonic jerks, and I'm concerned for some anoxic br ain injury. A one-time dose of Ativan was given, without any improvement. Neurology was added to the case. Patient's condition is currently critical. Patient's is at the bedside. CODE STATUS was confirmed, and patient is currently a full code. Reevaluated today on 06/11/2022, patient remains intubated and mechanically ventilated, he is on propofol which I have discontinued, patient is not showing any signs of neurological improvement. Remains comatose, he had negative corneal reflex, he had negative, obviously the patient has severe anoxic brain injury as documented by neurology on the case. Patient had full workup including EEG, CT of the brain, 2-D echocardiogram, all of these were reviewed. Family has been made aware apparently by different consultants on the case about extreme poor prognosis and the medical futility 61 patient considering his severe anoxic brain injury. Family is considering comfort care measures. And this will be initiated once the family is ready. Pulmonary-archuleta the patient is on assist control rate of 16,000 volume 450 FiO2 40% PEEP of 5. His ABG showed a pO2 of 180 pCO2 40 pH of 7.36, hence I cut down his FiO2 to 50%. Patient remains on vancomycin and cefepime empirically. Is also on propofol which I have discontinued and on norepinephrine at 0.18 mcg/kg/m. Patient is receiving Keppra and Depakote for his seizures as per neurology on the case. WBC count 7.1 hemoglobin is 10.3. Basic metabolic profile is basically normal, corrected serum calcium is 7.3. Chest x-ray this morning showed a small left tiny 15% apical pneumothorax, CT of the chest is highly suspicious for metastatic disease in the lungs Objective - Vital Signs Vital signs: Vital Signs Temp 97.6 F 06/11/22 08:00 Pulse 112 H 06/11/22 11:00 Resp 32 H 06/11/22 11:00 BP 104/61 06/11/22 11:00 Pulse Ox 98 06/11/22 11:00 FiO2 30 06/11/22 09:15 Intake & Output 06/10/22 06/11/22 06/11/22 18:59 06:59 18:59 Intake Total 2911.351 7402.158 3776.660 Output Total 370 615 165 Balance 2541.351 604.320 0140.660 Weight 84.5 kg 88 kg Intake: IV 7269 400 5447 Calcium Gluconate in NaCl 200 2 gm In Saline 1 100ml. bag @ 100 mls/hr IVPB ONCE ONE Rx#:[id number] Piperacillin-Tazobactam 3 100 .375 gm In Sodium Chloride 0.9% 100 ml @ 25 mls/hr IVPB Q8H [facility] Rx#: [id number] Sodium Chloride 0.9% 1, 450 225 000 ml @ 75 mls/hr IV . [id number] [facility] Rx#:[id number] Sodium Chloride 0.9% 1, 150 375 000 ml @ 75 mls/hr IV . [id number] [facility] Rx#:[id number] Sodium Chloride 0.9% 1, 1000 000 ml @ 999 mls/hr IV . Q1H1M [facility] Rx#:[id number] Valproate Sodium 500 mg 100 100 In Sodium Chloride 0.9% 100 ml @ 100 mls/hr IVPB Q12HR [facility] Rx#:[id number] Vancomycin 1,500 mg In 500 Sodium Chloride 0.9% 500 ml 500 ml @ 167 mls/hr IVPB Q8H [facility] Rx#: [id number] levETIRAcetam IV 2,000 mg 250 250 In Sodium Chloride 0.9% 250 ml @ 1000 mls/hr IVPB ONCE ONE Rx#:[id number] Intake, IV Titration 1351.351 432.091 46.660 Amount Calcium Gluconate in NaCl 100 2 gm In Saline 1 100ml. bag @ 100 mls/hr IVPB ONCE ONE Rx#:[id number] Norepinephrine 32 mg In 72.776 115.694 28.269 Sodium Chloride 0.9% 218 ml @ 0.03 MCG/KG/MIN 1. 188 mls/hr IV .Q24H [facility] Rx#:[id number] Norepinephrine 4 mg In 237.988 Sodium Chloride 0.9% 250 ml @ 0.03 MCG/KG/MIN 8. 814 mls/hr IV .Q24H [facility] Rx#:[id number] Sodium Chloride 0.9% 1, 225 000 ml @ 75 mls/hr IV . [id number] [facility] Rx#:[id number] Vancomycin 1,500 mg In 500 Sodium Chloride 0.9% 500 ml 500 ml @ 167 mls/hr IVPB Q8H [facility] Rx#: [id number] levETIRAcetam IV 1,500 mg 100 In Saline 1 100ml.bag @ 400 mls/hr IVPB Q12HR [facility] Rx#:[id number] propofoL 1,000 mg In 115.587 316.397 18.391 Empty Bag 1 bag @ 15 MCG/ KG/MIN 6.94 mls/hr IV . [id number] [facility] Rx#:[id number] Tube Feeding 10 60 Other 30 Output: Urine 370 615 165 Other: Voiding Method Indwelling Catheter Indwelling Catheter Indwelling Catheter ABP, PAP, CO, CI - Last Documented Arterial Blood Pressure 98/68 - Exam Physical Exam: Revealed 71-year-old white male intubated mechanically ventilated in no distress. Head: Atraumatic, normocephalic. Pupils are pinpoint. HEENT:[Neck is supple.] [No neck masses.] [No thyromegaly.] [No JVD.] Chest: Diminished breath sound bilaterally no rhonchi and no wheezes. Cardiac Exam: [Normal S1 and S2, no S3 gallop, no murmur.] Abdomen: [Soft, nontender, no megaly, no rebound, no guarding, normal bowel sounds.] Extremities: [No clubbing, no edema, no cyanosis.] Neurological Exam: Comatose, pinpoint pupils, negative gag reflex, negative corneal reflex, - Labs CBC & Chem 7: 06/11/22 04:45 06/11/22 04:45 Labs: Abnormal Lab Results - Last 24 Hours (Table) 06/10/22 06/10/22 06/10/22 Range/Units 09:10 11:30 11:30 RBC (4.30-5.90) m/uL Hgb (13.0-17.5) gm/dL Hct (39.0-53.0) % RDW (11.5-15.5) % Plt Count (150-450) k/uL ABG pO2 (83-108) mmHg ABG O2 Saturation (94-97) % Sodium 129 L (137-145) mmol/L Potassium 3.4 L (3.5-5.1) mmol/L BUN 7 L (9-20) mg/dL Creatinine (0.66-1.25) mg/dL Glucose 156 H (74-99) mg/dL POC Glucose (mg/dL) (70-110) mg/dL Calcium 6.6 L (8.4-10.2) mg/dL Troponin I 0.369 H* (0.000-0.034) ng/mL Procalcitonin 1.01 H (0.02-0.09) ng/mL 06/10/22 06/10/22 06/10/22 Range/Units 15:08 16:43 17:58 RBC (4.30-5.90) m/uL Hgb (13.0-17.5) gm/dL Hct (39.0-53.0) % RDW (11.5-15.5) % Plt Count (150-450) k/uL ABG pO2 (83-108) mmHg ABG O2 Saturation (94-97) % Sodium (137-145) mmol/L Potassium (3.5-5.1) mmol/L BUN (9-20) mg/dL Creatinine (0.66-1.25) mg/dL Glucose (74-99) mg/dL POC Glucose (mg/dL) 162 H 170 H 132 H (70-110) mg/dL Calcium (8.4-10.2) mg/dL Troponin I (0.000-0.034) ng/mL Procalcitonin (0.02-0.09) ng/mL 06/10/22 06/11/22 06/11/22 Range/Units 23:43 04:45 04:45 RBC 2.81 L (4.30-5.90) m/uL Hgb 9.3 L (13.0-17.5) gm/dL Hct 27.2 L (39.0-53.0) % RDW 15.9 H (11.5-15.5) % Plt Count 82 L (150-450) k/uL ABG pO2 (83-108) mmHg ABG O2 Saturation (94-97) % Sodium 132 L (137-145) mmol/L Potassium (3.5-5.1) mmol/L BUN 7 L (9-20) mg/dL Creatinine 0.62 L (0.66-1.25) mg/dL Glucose 161 H (74-99) mg/dL POC Glucose (mg/dL) 171 H (70-110) mg/dL Calcium 6.1 L* (8.4-10.2) mg/dL Troponin I (0.000-0.034) ng/mL Procalcitonin (0.02-0.09) ng/mL 06/11/22 06/11/22 Range/Units 05:27 06:06 RBC (4.30-5.90) m/uL Hgb (13.0-17.5) gm/dL Hct (39.0-53.0) % RDW (11.5-15.5) % Plt Count (150-450) k/uL ABG pO2 180 H (83-108) mmHg ABG O2 Saturation 100.0 H (94-97) % Sodium (137-145) mmol/L Potassium (3.5-5.1) mmol/L BUN (9-20) mg/dL Creatinine (0.66-1.25) mg/dL Glucose (74-99) mg/dL POC Glucose (mg/dL) 162 H (70-110) mg/dL Calcium (8.4-10.2) mg/dL Troponin I (0.000-0.034) ng/mL Procalcitonin (0.02-0.09) ng/mL Microbiology - Last 24 Hours (Table) 06/07/22 12:05 Blood Culture - Preliminary Blood 06/07/22 12:20 Blood Culture - Preliminary Blood 06/10/22 12:20 Gram Stain - Preliminary Sputum Sputum Culture - Preliminary Assessment and Plan Assessment: Impression: Cardiac arrest Acute hypoxic respiratory failure secondary to above Severe anoxic brain injury History of renal cell carcinoma stage IV with metastasis Anemia of chronic disease Benign essential hypertension Coronary arteriosclerosis and previous stent placement to left circumflex Ischemic cardiomyopathy and LV dysfunction with ejection fraction of 40-45% Ex-smoker Small left-sided pneumothorax most likely from chest compressions Recommendation: Continue present supportive care measures Continue ventilatory support Continue hemodynamic support Continue nutritional support Continue GI and DVT prophylaxis Discontinue all sedation Patient to be reevaluated by neurology and after evaluation will likely discuss with family the option of comfort care measures. Patient is critically ill. Critical care time is over 30 minutes Time with Patient: Greater than 30
--- NOTE | 2022-06-11 17:21 | P.PN ---
Subjective Progress Note Date: 06/11/22 The patient seen at bedside and according to the patient nurse no further jerk in of any extremities. He was on IV propofol initially 50mcg/kg/min at 7am and was stopped at 8:45am and not responding. Per the nurse, the patient's family has decided to pursue with comfort care. Objective - Vital Signs Vital signs: Vital Signs Temp 97.6 F 06/11/22 08:00 Pulse 112 H 06/11/22 11:00 Resp 32 H 06/11/22 11:00 BP 104/61 06/11/22 11:00 Pulse Ox 98 06/11/22 11:00 FiO2 30 06/11/22 09:15 Intake & Output 06/10/22 06/11/22 06/11/22 18:59 06:59 18:59 Intake Total 2911.351 8372.677 7822.102 Output Total 370 615 165 Balance 2541.351 390.367 7111.102 Weight 84.5 kg 88 kg Intake: IV 2463 355 9264 Calcium Gluconate in NaCl 200 2 gm In Saline 1 100ml. bag @ 100 mls/hr IVPB ONCE ONE Rx#:[id number] Piperacillin-Tazobactam 3 100 .375 gm In Sodium Chloride 0.9% 100 ml @ 25 mls/hr IVPB Q8H [facility] Rx#: [id number] Sodium Chloride 0.9% 1, 450 225 000 ml @ 75 mls/hr IV . [id number] [facility] Rx#:[id number] Sodium Chloride 0.9% 1, 150 375 000 ml @ 75 mls/hr IV . [id number] [facility] Rx#:[id number] Sodium Chloride 0.9% 1, 1000 000 ml @ 999 mls/hr IV . Q1H1M [facility] Rx#:[id number] Valproate Sodium 500 mg 100 100 In Sodium Chloride 0.9% 100 ml @ 100 mls/hr IVPB Q12HR [facility] Rx#:[id number] Vancomycin 1,500 mg In 500 Sodium Chloride 0.9% 500 ml 500 ml @ 167 mls/hr IVPB Q8H [facility] Rx#: [id number] levETIRAcetam IV 2,000 mg 250 250 In Sodium Chloride 0.9% 250 ml @ 1000 mls/hr IVPB ONCE ONE Rx#:[id number] Intake, IV Titration 1351.351 432.091 47.102 Amount Calcium Gluconate in NaCl 100 2 gm In Saline 1 100ml. bag @ 100 mls/hr IVPB ONCE ONE Rx#:[id number] Morphine Sulfate (100 mg/ 0.442 2 ml) 100 mg In Sodium Chloride 0.9% 100 ml @ 1 MG/HR 1.02 mls/hr IV . Q24H [facility] Rx#:[id number] Norepinephrine 32 mg In 72.776 115.694 28.269 Sodium Chloride 0.9% 218 ml @ 0.03 MCG/KG/MIN 1. 188 mls/hr IV .Q24H [facility] Rx#:[id number] Norepinephrine 4 mg In 237.988 Sodium Chloride 0.9% 250 ml @ 0.03 MCG/KG/MIN 8. 814 mls/hr IV .Q24H [facility] Rx#:[id number] Sodium Chloride 0.9% 1, 225 000 ml @ 75 mls/hr IV . [id number] [facility] Rx#:[id number] Vancomycin 1,500 mg In 500 Sodium Chloride 0.9% 500 ml 500 ml @ 167 mls/hr IVPB Q8H [facility] Rx#: [id number] levETIRAcetam IV 1,500 mg 100 In Saline 1 100ml.bag @ 400 mls/hr IVPB Q12HR [facility] Rx#:[id number] propofoL 1,000 mg In 115.587 316.397 18.391 Empty Bag 1 bag @ 15 MCG/ KG/MIN 6.94 mls/hr IV . [id number] [facility] Rx#:[id number] Tube Feeding 10 60 Other 30 Output: Urine 370 615 165 Other: Voiding Method Indwelling Catheter Indwelling Catheter Indwelling Catheter ABP, PAP, CO, CI - Last Documented Arterial Blood Pressure 98/68 - Exam GENERAL: The patient is laying in bed and does not appear in acute distress. NEUROLOGICAL: Limited Sedation has been held since at least in the morning. No facial weakness. No spontaneous movement. - Labs CBC & Chem 7: 06/11/22 04:45 06/11/22 04:45 Labs: Abnormal Lab Results - Last 24 Hours (Table) 06/10/22 06/10/22 06/11/22 Range/Units 17:58 23:43 04:45 RBC (4.30-5.90) m/uL Hgb (13.0-17.5) gm/dL Hct (39.0-53.0) % RDW (11.5-15.5) % Plt Count (150-450) k/uL ABG pO2 (83-108) mmHg ABG O2 Saturation (94-97) % Sodium 132 L (137-145) mmol/L BUN 7 L (9-20) mg/dL Creatinine 0.62 L (0.66-1.25) mg/dL Glucose 161 H (74-99) mg/dL POC Glucose (mg/dL) 132 H 171 H (70-110) mg/dL Calcium 6.1 L* (8.4-10.2) mg/dL 06/11/22 06/11/22 06/11/22 Range/Units 04:45 05:27 06:06 RBC 2.81 L (4.30-5.90) m/uL Hgb 9.3 L (13.0-17.5) gm/dL Hct 27.2 L (39.0-53.0) % RDW 15.9 H (11.5-15.5) % Plt Count 82 L (150-450) k/uL ABG pO2 180 H (83-108) mmHg ABG O2 Saturation 100.0 H (94-97) % Sodium (137-145) mmol/L BUN (9-20) mg/dL Creatinine (0.66-1.25) mg/dL Glucose (74-99) mg/dL POC Glucose (mg/dL) 162 H (70-110) mg/dL Calcium (8.4-10.2) mg/dL Microbiology - Last 24 Hours (Table) 06/07/22 12:05 Blood Culture - Preliminary Blood 06/07/22 12:20 Blood Culture - Preliminary Blood 06/10/22 12:20 Gram Stain - Preliminary Sputum Sputum Culture - Preliminary Assessment and Plan Assessment: This is a 71-year-old gentleman with history of renal cell carcinoma with permission and metastases to the thyroid as well as the long with had a cardiopulmonary arrest on at 1am lasting for 7 minutes. Initial rhythm was bradycardia then PEA lasting for total 7 minutes. He received CPR of 3 rounds and was in ROSC. Cardiac arrest Probable anoxic brain injury due to above Myoclonic jerks seems due to above Hypokalemia History of renal cell carcinoma status post nephrectomy in 1998 with remission and metastases to the lung and thyroid Bradycardia Diabetes mellitus History of myocardial infarction with stent to the left circumflex Ischemic cardiomyopathy with ejection fraction 40-45% Remote tobacco use Plan: On Keppra 2gm bid and Depakote 500mg bid which was helping with myoclonic jerks. Had EEG on 06/10/2022 at which is abnormal. The burst suppression is suggestive of either cerebral anoxia versus status epilepticus versus medication effect. From the clinical history is seems more due to cerebral anoxia. I did a repeat EEG which also continues to show burst suppression activity. CT of the head is reported as suboptimal study. No abnormal enhancing mass or midline shift. Mild diffuse herbal atrophy. Possible right-sided mastoiditis versus retained secretions. We'll defer the rest of the medical management to the primary ICU team. The family has decided the to pursue with comfort care measures Time with Patient: Less than 30
--- NOTE | 2022-06-11 23:20 | EEG ---
ELECTROENCEPHALOGRAM REPORT CLINICAL HISTORY: This is a 71-year-old gentleman with myoclonic jerks. The video EEG is obtained to evaluate for seizure epileptiform activity. RELEVANT MEDICATIONS: 1. IV Keppra. 2. Depakote. 3. IV propofol. EEG TYPE: A routine 21-channel EEG is performed with video using the 10/20 electrode placement system. DESCRIPTION: The patient is intubated on a ventilator. The background consists of burst suppression. During the burst activity, the patient has generalized spike/polyspike with nonrhythmic polymorphic delta activity that has high voltage lasting between 1 to 4 seconds. During suppression, it is diffusely suppressed lasting between 2 to 8 seconds. Otherwise, there is no cerebral activity noted. ACTIVATION PROCEDURE: Photic stimulation and hyperventilation are not performed. CLINICAL INTERPRETATION: This is an abnormal routine EEG. The patient continues to have burst suppression and burst seem more frequent compared to yesterday's study. Burst suppression is suggestive of cerebral anoxia versus status epilepticus versus medication induced (IV propofol). Clinical correlation is recommended. MMLEI / HAVENN: [id number] / MTDD
[2022-06-12] MEDS ORDERED: VANCOMYCIN TROUGH DUE 1 EACH MISC MISCELLANE ONE (08:00)
--- NOTE | 2022-06-24 10:42 | CDI ---
Documentation Clarification Form Date: 06/24/2022 10:28:22 AM From: Aida Mei RN, CCDS Email: [email or web address] Admit Date: 06/07/2022 2:59:00 PM Patient Name: Dax Dumas Visit Number: [id number] Discharge Date: 06/11/2022 1:10:00 PM ATTENTION: The Clinical Documentation Specialists (CDI) and [facility] Coding Staff appreciate your assistance in clarifying documentation. Please respond to the clarification below the line at the bottom and electronically sign. The CDI & [facility] Coding staff will review the response and follow-up if needed. Please note: Queries are made part of the Legal Health Record. If you have any questions, please contact the author of this message via ITS. Dr. Yonatan Wise The patient had hypovolemic hyponatremia, hypokalemia and also went into cardiac arrest. Additional clarification is requested. Patient history/risk factors: hypertension, diabetes type 2, history of OR, coronary artery with history of stent placement, history of metastatic renal cell cancer with left nephrectomy and is currently undergoing chemotherapy. Presents to ER with complaints of intractable nausea, vomiting and abdominal pain. Clinical Indicators: Bradycardia then cardiac arrest on 06/10. K+: 2.6-3.3-3.6-2.9 Na: 131-129-128 06/10 Troponin: 0.077-0.408-0.369 06/10 HR 42-108 06/10 BP 60/33-87/63-120/78 Treatment: CPR with ROSC. Intubation/ventilation. IV Levophed titrated 06/10- 06/11. 3L NS IV bolus on 06/10 then NS @75/hr. Please clarify if there is an additional diagnosis: [ ] Hypovolemic Shock [ X ] Cardiogenic Shock [ ] Other, please specify [ ] Unable to determine MTDD
== END 2022-06-11 13:10 | disposition expired | DRG 640 ==
LOC: EC 11:35 → 4SSUR 14:59 → 5NMEDONC 17:54 → 2SICU 06-10 01:23
PROVIDERS: ADMIT Family Medicine; ATTEND Family Medicine
PROC: 0BH17EZ Insertion of Endotracheal Airway into Trachea, Via Natural or Artificial Opening (ICD-10-PCS; principal; 2022-06-10)
PROC: 4A10X4Z Monitoring of Central Nervous Electrical Activity, External Approach (ICD-10-PCS; 2022-06-10)
PROC: 5A12012 Performance of Cardiac Output, Single, Manual (ICD-10-PCS; 2022-06-10)
PROC: B246ZZ4 Ultrasonography of Right and Left Heart, Transesophageal (ICD-10-PCS; 2022-06-10)
PROC: 06HM33Z Insertion of Infusion Device into Right Femoral Vein, Percutaneous Approach (ICD-10-PCS; 2022-06-10)
PROC: B54BZZA Ultrasonography of Right Lower Extremity Veins, Guidance (ICD-10-PCS; 2022-06-10)
PROC: 4A133B1 Monitoring of Arterial Pressure, Peripheral, Percutaneous Approach (ICD-10-PCS; 2022-06-10)
PROC: 4A133J1 Monitoring of Arterial Pulse, Peripheral, Percutaneous Approach (ICD-10-PCS; 2022-06-10)
PROC: 03HY32Z Insertion of Monitoring Device into Upper Artery, Percutaneous Approach (ICD-10-PCS; 2022-06-10)
PROC: 5A1945Z Respiratory Ventilation, 24-96 Consecutive Hours (ICD-10-PCS; 2022-06-10)
DX: E87.6 Hypokalemia (principal); J96.01 Acute respiratory failure with hypoxia; G93.1 Anoxic brain damage, not elsewhere classified; J95.811 Postprocedural pneumothorax; K57.92 Diverticulitis of intestine, part unspecified, without perforation or abscess without bleeding; C64.9 Malignant neoplasm of unspecified kidney, except renal pelvis; C25.9 Malignant neoplasm of pancreas, unspecified; C78.2 Secondary malignant neoplasm of pleura; C79.51 Secondary malignant neoplasm of bone; I48.92 Unspecified atrial flutter; I50.22 Chronic systolic (congestive) heart failure; J98.11 Atelectasis; Z99.11 Dependence on respirator [ventilator] status; C77.1 Secondary and unspecified malignant neoplasm of intrathoracic lymph nodes; R00.1 Bradycardia, unspecified; I46.9 Cardiac arrest, cause unspecified; I95.89 Other hypotension; E87.1 Hypo-osmolality and hyponatremia; R11.2 Nausea with vomiting, unspecified; Z87.891 Personal history of nicotine dependence; Z51.5 Encounter for palliative care; Z85.528 Personal history of other malignant neoplasm of kidney; I10 Essential (primary) hypertension; Z66 Do not resuscitate; Z79.4 Long term (current) use of insulin; D63.8 Anemia in other chronic diseases classified elsewhere; E86.1 Hypovolemia; I25.10 Atherosclerotic heart disease of native coronary artery without angina pectoris; I11.0 Hypertensive heart disease with heart failure; I07.1 Rheumatic tricuspid insufficiency; T45.1X5A Adverse effect of antineoplastic and immunosuppressive drugs, initial encounter; Z90.5 Acquired absence of kidney; E03.9 Hypothyroidism, unspecified; G25.3 Myoclonus; I25.5 Ischemic cardiomyopathy; R56.9 Unspecified convulsions; E04.1 Nontoxic single thyroid nodule; E78.5 Hyperlipidemia, unspecified; I25.2 Old myocardial infarction; E83.51 Hypocalcemia; E86.0 Dehydration; E87.5 Hyperkalemia; Z79.890 Hormone replacement therapy; Z79.82 Long term (current) use of aspirin; Z79.899 Other long term (current) drug therapy; Z86.711 Personal history of pulmonary embolism; Z95.5 Presence of coronary angioplasty implant and graft; Z91.010 Allergy to peanuts; X58.XXXA Exposure to other specified factors, initial encounter
CPT/HCPCS: 36415; 36600; 70470; 71045; 71260; 71275; 74022; 74177; 80048; 80053; 80202; 82805; 83605; 83690; 83735; 84132; 84145; 84484; 85025; 85027; 85379; 87070; 87205; 92950; 93005; 93306; 94003; 94640; 95822; 96361; 96365; 99285